=== PATIENT | female | born 1955 | race Caucasian/White ===

== ENCOUNTER → 2016-08-28 | Outpatient (CLI) | payer OTHER ==
[~2016-08-28] MED LIST: BACL10TA PO; HYDR-4380 PO; IPRA1AER2 INH; LEVO50TA PO; METO50TA16 PO; NORT50CA PO; NRN400 PO; OXGN; POTATAB13 PO; SERT-234 PO; SRQ200 PO
[2016-08-28 17:36] LABS: ALT/SGPT 15 U/L (12-78); AST/SGOT 8 U/L (15-37); BLOOD UREA NITROGEN 20 mg/dl (7-18); BUN/CREATININE RATIO 16.3 (10-20); CALCIUM 8.8 mg/dl (8.5-10.1); CARBON DIOXIDE 27 mmol/L (21-32); CHLORIDE 107 mmol/L (98-107); GLUCOSE 86 mg/dl (70-99); SODIUM 141 mmol/L (136-145)
[2016-08-28 17:38] LABS: ALKALINE PHOSPHATASE 136 U/L (45-117); CHOLESTEROL 200 mg/dl (0-200); CHOLESTEROL/HDL RATIO 3.1; HDL CHOLESTEROL 64 mg/dl; LDL CHOLESTEROL CALCULATED 83 mg/dl; TRIGLYCERIDES 264 mg/dl (0-150); VERY LOW DENSITY LIPOPROT CALC 53 mg/dl
== END | disposition home or self-care (01) ==
LOC: C.LABBFT 12:22
PROVIDERS: ATTEND Internal Medicine
DX: E78.5 Hyperlipidemia, unspecified (principal)

== ENCOUNTER → 2016-09-16 | Outpatient (CLI) | payer OTHER ==
--- NOTE | 2016-09-16 15:33 | DIAGNOSTIC IMAGING REPORT ---
Ultrasound left inguinal region EXTREMITY NONVASCULAR LIMITED CLINICAL HISTORY: R19.09 Left groin mass left groin mass mass TECHNIQUE: Real-time ultrasound COMPARISON STUDY: None FINDINGS: Ultrasound demonstrates a somewhat poorly defined area of potential nodularity of the site of clinically palpable nodularity. This measures 7 x 3 x 1.5 cm. This potentially represents a lipoma. There is no evidence for drainable collection. IMPRESSION: Limited exam showing a clavicle area of nodularity at the site of clinically palpable nodularity and/or masslike change. This possibly represents a lipoma, although MRI of the pelvis and this region of interest is recommended for confirmation Electronically signed by: Vince Veras M.D. 09/16/2016 3:31 PM Dictated Date/Time: 09/16/2016 3:26 PM
== END | disposition home or self-care (01) ==
LOC: C.ULTR 14:29
PROVIDERS: ATTEND Internal Medicine
DX: R19.09 Other intra-abdominal and pelvic swelling, mass and lump (principal)

== ENCOUNTER → 2016-09-22 | Outpatient (CLI) | payer OTHER ==
[~2016-09-22] MED LIST changes: +GADAVIST IV PRN
--- NOTE | 2016-09-22 15:09 | DIAGNOSTIC IMAGING REPORT ---
MRI OF THE PELVIS COMBO CLINICAL HISTORY: Groin mass. COMPARISON STUDY: Pelvic CT dated 06/19/2016. Ultrasound of the groin dated 09/16/2016. TECHNIQUE: MRI of the pelvis is performed utilizing various T1 and T2-weighted sequences in the axial and coronal planes. Contrast-enhanced sequences are acquired following the IV administration of 5.1 cc of Gadavist. FINDINGS: A cutaneous marker has been placed overlying the left groin. No mass, fluid collection, or inguinal lymphadenopathy is seen at this site. The iliac vessels are patent bilaterally. There is no pelvic sidewall or inguinal lymphadenopathy. The bladder is decompressed and grossly unremarkable. The uterus is surgically absent. No adnexal lesion is identified. The bowel loops in the pelvis are normal in caliber. Significant colonic fecal retention is observed. The bony pelvis appears intact. No destructive bony lesion is suspected. The musculature of the pelvis is mildly atrophic. IMPRESSION: There is no mass, fluid collection, or adenopathy seen in the left groin at the indicated site of interest. The tiny lipoma questioned by ultrasound was not apparent on MRI. This was also not seen on the 06/19/[address] scan. Electronically signed by: Sean Amador M.D. 09/22/2016 3:08 PM Dictated Date/Time: 09/22/2016 3:01 PM
== END | disposition home or self-care (01) ==
LOC: C.MRI 14:00
PROVIDERS: ATTEND Internal Medicine
DX: R19.09 Other intra-abdominal and pelvic swelling, mass and lump (principal)

== ENCOUNTER → 2016-12-11 | Outpatient (CLI) | payer OTHER ==
[~2016-12-11] MED LIST changes: -BACL10TA PO; -GADAVIST IV PRN
[2016-12-11 16:39] LABS: BASO % 1.5 %; EOS % 5.8 %; HEMATOCRIT 37.9 % (37-47); IG% 0.1 %; LYMPH % 29.2 %; LYMPH ABS # 1.97 K/uL (1.2-3.4); MEAN CELL VOLUME 74.5 fL (80-100); MEAN CORPUSCULAR HEMOGLOBIN 22.8 pg (25-34); MEAN CORPUSCULAR HGB CONC 30.6 g/dl (32-36); MEAN PLATELET VOLUME 9.9 fL (7.4-10.4); MONO % 6.2 %; NEUT % 57.2 %; PLATELET COUNT 481 K/uL (130-400); RED BLOOD COUNT 5.09 M/uL (4.2-5.4); WHITE BLOOD COUNT 6.74 K/uL (4.8-10.8)
[2016-12-11 16:50] LABS: ALT/SGPT 13 U/L (12-78); BLOOD UREA NITROGEN 23 mg/dl (7-18); BUN/CREATININE RATIO 23.2 (10-20); CARBON DIOXIDE 25 mmol/L (21-32); CHLORIDE 107 mmol/L (98-107); CREATININE 0.99 mg/dl (0.60-1.20); GLUCOSE 89 mg/dl (70-99); POTASSIUM 3.7 mmol/L (3.5-5.1); SODIUM 141 mmol/L (136-145)
[2016-12-11 16:51] LABS: CALCIUM 9.4 mg/dl (8.5-10.1)
[2016-12-11 16:56] LABS: ALB/GLOB RATIO 1.1 (0.9-2); ALKALINE PHOSPHATASE 133 U/L (45-117); AST/SGOT 6 U/L (15-37); PREALBUMIN 16.7 mg/dl (20-40); THYROID STIMULATING HORMONE 0.867 uIu/ml (0.300-4.500)
[2016-12-11 17:20] LABS: COMPLETE YES; ECHINOCYTES 1+; OVALOCYTES 1+
== END | disposition home or self-care (01) ==
LOC: C.LABBFT 10:27
PROVIDERS: ATTEND Internal Medicine
DX: R63.0 Anorexia (principal)

== ENCOUNTER → 2017-08-27 | Outpatient (CLI) | payer OTHER ==
--- NOTE | 2017-08-27 14:40 | DIAGNOSTIC IMAGING REPORT ---
TWO VIEW CHEST CLINICAL HISTORY: COPD. FINDINGS: PA and lateral chest radiographs are compared to study dated 06/25/2016. The cardiomediastinal silhouette is unremarkable. There is atherosclerotic calcification of the thoracic aorta. Emphysema and chronic interstitial thickening are similar to previous. No airspace consolidation or pleural effusion is identified. There is no pneumothorax. The skeletal structures are osteopenic. The bony thorax appears intact. IMPRESSION: Emphysema with no active disease in the chest. Electronically signed by: Sean Amador M.D. 08/27/2017 2:38 PM Dictated Date/Time: 08/27/2017 2:37 PM
== END | disposition home or self-care (01) ==
LOC: C.RAD1850 14:10
PROVIDERS: ATTEND Internal Medicine
DX: J44.9 Chronic obstructive pulmonary disease, unspecified (principal)

== ENCOUNTER → 2017-08-27 | Outpatient (CLI) | payer OTHER ==
--- NOTE | 2017-08-27 14:44 | DIAGNOSTIC IMAGING REPORT ---
KUB CLINICAL HISTORY: N39.41 Urge [id number] COMPARISON STUDY: 08/04/2016 FINDINGS: There is a moderate amount stool within the colon. The renal shadows are largely obscured overlying bowel gas and fecal material. There is a suspected 2 mm left renal calculus. The right-sided nephroureteral stent has been removed. Nonspecific pelvic basin calcifications remain stable. IMPRESSION: 1. Interval removal of the right-sided nephroureteral stent 2. Suspected left-sided nephrolithiasis 3. Nonspecific pelvic basin calcifications Electronically signed by: Chas Michaud M.D. 08/27/2017 2:43 PM Dictated Date/Time: 08/27/2017 2:38 PM
== END | disposition home or self-care (01) ==
LOC: C.RAD1850 14:12
PROVIDERS: ATTEND Urology
DX: M61.48 Other calcification of muscle, other site (principal); N39.41 Urge incontinence

== ENCOUNTER → 2017-08-31 | Outpatient (CLI) | payer OTHER | END | disposition home or self-care (01) | LOC: C.LABSPEC 17:04 | PROVIDERS: ATTEND Urology | DX: N39.0 Urinary tract infection, site not specified (principal) ==

== ENCOUNTER → 2017-09-17 | Outpatient (CLI) | payer OTHER ==
--- NOTE | 2017-09-17 10:27 | DIAGNOSTIC IMAGING REPORT ---
PA CHEST WITH ABDOMINAL SERIES CLINICAL HISTORY: Abdominal distention. FINDINGS: A PA chest radiograph is compared to study dated 08/27/2017. The cardiomediastinal silhouette is unremarkable. There is atherosclerotic calcification of the thoracic aorta. Enlargement of the central pulmonary arteries suggests pulmonary artery hypertension. Advanced emphysema and chronic interstitial thickening are similar to previous. No airspace consolidation or pleural effusion is identified. No pneumothorax is seen. The skeletal structures are osteopenic. The bony thorax is grossly intact. Supine and erect abdominal radiographs are compared to study dated 08/27/2017. There is a nonobstructed abdominal bowel gas pattern. Mild colonic fecal retention is noted. No evidence of intraperitoneal free air is seen. There are no abnormal abdominal calcifications. Phleboliths are observed in the pelvis. The lumbosacral spine and bony pelvis appear intact. IMPRESSION: 1. Advanced emphysema with no acute cardiopulmonary abnormality. 2. Nonobstructed abdominal bowel gas pattern. Electronically signed by: Sean Amador M.D. 09/17/2017 10:26 AM Dictated Date/Time: 09/17/2017 10:24 AM
== END | disposition home or self-care (01) ==
LOC: C.RAD1850 10:10
PROVIDERS: ATTEND Physician Assistant Medical
DX: R14.0 Abdominal distension (gaseous) (principal); J43.9 Emphysema, unspecified

== ENCOUNTER → 2017-10-06 | Outpatient (CLI) | payer OTHER | END | disposition home or self-care (01) | LOC: C.LABSPEC 18:05 | PROVIDERS: ATTEND Nurse Practitioner Adult Health | DX: N39.0 Urinary tract infection, site not specified (principal); N20.0 Calculus of kidney ==

== ENCOUNTER → 2017-10-07 | Outpatient (CLI) | payer OTHER ==
--- NOTE | 2017-10-07 10:17 | DIAGNOSTIC IMAGING REPORT ---
KUB HISTORY: Follow-up study in a patient with history of kidney stones NEPHROLITHIASIS COMPARISON: Acute abdominal series radiographs 09/17/2017, CT abdomen and pelvis 06/19/2016. FINDINGS: The bowel gas pattern is non-obstructive. There is mild gaseous distention of the colon. Phleboliths noted within the pelvis. There is no organomegaly. No urolith identified, however renal shadows are partially obscured by bowel gas. No pneumoperitoneum or pneumatosis. No fracture. IMPRESSION: 1. No renal or ureteral calculi identified, however the renal shadows are partially obscured by bowel gas. 2. Nonobstructive bowel gas pattern. Electronically signed by: Jr Singer M.D. 10/07/2017 10:16 AM Dictated Date/Time: 10/07/2017 10:14 AM
== END | disposition home or self-care (01) ==
LOC: C.RAD 09:27
PROVIDERS: ATTEND Nurse Practitioner Adult Health
DX: N20.0 Calculus of kidney (principal)

== ENCOUNTER → 2017-10-15 | Outpatient (CLI) | payer OTHER | END | disposition home or self-care (01) | LOC: C.LAB1850 11:25 | PROVIDERS: ATTEND Nurse Practitioner Adult Health | DX: N39.0 Urinary tract infection, site not specified (principal) ==

== ENCOUNTER → 2018-03-08 | Outpatient (CLI) | payer OTHER ==
--- NOTE | 2018-03-08 10:54 | DIAGNOSTIC IMAGING REPORT ---
KUB CLINICAL HISTORY: N39.0 KIDNEY STONES COMPARISON STUDY: 10/07/2017 FINDINGS: The renal shadows are largely obscured overlying bowel gas and fecal material. There is no pathologic bowel dilatation. Pelvic basin calcifications remain similar to the prior study and likely represent phleboliths. IMPRESSION: No renal calculi identified although the renal shadows are largely obscured overlying bowel gas and fecal material Electronically signed by: Chas Michaud M.D. 03/08/2018 10:52 AM Dictated Date/Time: 03/08/2018 10:51 AM
--- NOTE | 2018-03-08 10:56 | DIAGNOSTIC IMAGING REPORT ---
C-SPINE ROUTINE W/FLEX EXT HISTORY: Pain. M54.2 COMPARISON: None. FINDINGS: The cervical spine is visualized from C1 through the superior endplate of T1. There is no fracture. No subluxation. Moderate degenerative disc change C5-C7 Prevertebral soft tissues and the atlantodens interval are intact. No evidence for subluxation with the patient in flexion or extension. Minimal grade 1 reversal spondylolisthesis C5 on C6. This is unchanged in all positions. IMPRESSION: Moderate degenerative disc changes low cervical spine. No evidence for positional subluxation. The above report was generated using voice recognition software. It may contain grammatical, syntax or spelling errors. Electronically signed by: Vince Veras M.D. 03/08/2018 10:55 AM Dictated Date/Time: 03/08/2018 10:53 AM
== END | disposition home or self-care (01) ==
LOC: C.RAD1850 10:34
PROVIDERS: ATTEND Nurse Practitioner Family
DX: N39.0 Urinary tract infection, site not specified (principal); M54.2 Cervicalgia; G89.4 Chronic pain syndrome

== ENCOUNTER → 2018-03-16 | Outpatient (CLI) | payer OTHER ==
[2018-03-16 12:50] LABS: BASO % 1.8 %; BASO ABS # 0.13 K/uL (0-0.2); EOS % 4.8 %; EOS ABS # 0.35 K/uL (0-0.5); HEMATOCRIT 40.7 % (37-47); HEMOGLOBIN 12.9 g/dL (12.0-16.0); IG# 0.01 K/uL (0.00-0.02); LYMPH % 26.5 %; LYMPH ABS # 1.94 K/uL (1.2-3.4); MEAN CELL VOLUME 81.9 fL (80-100); MEAN CORPUSCULAR HGB CONC 31.7 g/dl (32-36); MEAN PLATELET VOLUME 10.5 fL (7.4-10.4); MONO % 6.3 %; MONO ABS # 0.46 K/uL (0.11-0.59); NEUT % 60.5 %; NEUT ABS # 4.43 K/uL (1.4-6.5); PLATELET COUNT 386 K/uL (130-400); RED CELL DISTRIBUTION WIDTH CV 17.3 % (11.5-14.5); RED CELL DISTRIBUTION WIDTH SD 51.4 fL (36.4-46.3); RETIC COUNT % 1.1 % (0.5-2.0); WHITE BLOOD COUNT 7.32 K/uL (4.8-10.8)
[2018-03-16 13:25] LABS: ALBUMIN 3.6 gm/dl (3.4-5.0); ALKALINE PHOSPHATASE 122 U/L (45-117); ALT/SGPT 15 U/L (12-78); AST/SGOT 12 U/L (15-37); BLOOD UREA NITROGEN 16 mg/dl (7-18); CALCIUM 8.7 mg/dl (8.5-10.1); CARBON DIOXIDE 27 mmol/L (21-32); CREATININE 0.97 mg/dl (0.60-1.20); GLUCOSE 86 mg/dl (70-99); POTASSIUM 4.3 mmol/L (3.5-5.1); SODIUM 137 mmol/L (136-145); TOTAL PROTEIN 7.5 gm/dl (6.4-8.2); TRANSFERRIN 323 mg/dl (200-360)
== END | disposition home or self-care (01) ==
LOC: C.LABBFT 09:02
PROVIDERS: ATTEND Physician Assistant Medical
DX: D64.9 Anemia, unspecified (principal)

== ENCOUNTER 2021-05-09 12:28 | Inpatient (IN) ==
[2021-05-09] MEDS ORDERED: SODIUM CHLORIDE 0.9% 1000ML 500 ML IV ONE ×2 (12:50→13:29)
[2021-05-09 13:24] LABS: Basophils # (auto) 0.01 K/uL (0-0.2); Basophils % (auto) 0.1 %; Eosinophils # (auto) 0.14 K/uL (0-0.5); Hematocrit (blood only) 35.8 % (37-47); Hemoglobin 11.4 g/dL (12.0-16.0); Immature Granulocytes # (auto) 0.12 K/uL (0.00-0.02); Immature Granulocytes % (auto) 0.9 %; Lymphocytes # (auto) 1.99 K/uL (1.2-3.4); Lymphocytes % (auto) 14.4 %; Mean Corpuscular Hemoglobin 28.4 pg (25-34); Mean Corpuscular Hgb Conc 31.8 g/dL (32-36); Mean Corpuscular Volume 89.1 fL (80-100); Mean Platelet Volume 9.6 fL (7.4-10.4); Monocytes # (auto) 0.94 K/uL (0.11-0.59); Monocytes % (auto) 6.8 %; Neutrophils # (auto) 10.63 K/uL (1.4-6.5); Neutrophils % (auto) 76.8 %; Nucleated RBC # (auto) 0.06 K/uL (0-0); Nucleated RBC % (auto) 0.5 %; Platelet Count 437 K/uL (130-400); RDW Coefficient of Variation 22.2 % (11.5-14.5); RDW Standard Deviation 63.5 fL (36.4-46.3); Red Blood Count 4.02 M/uL (4.2-5.4); White Blood Count 13.83 K/uL (4.8-10.8)
[2021-05-09] MEDS ORDERED: SODIUM CHLORIDE 0.9% 1000ML 1,000 ML IV STA (13:29)
[2021-05-09 13:34] LABS: Albumin Level 3.3 gm/dl (3.4-5.0); BUN Creatinine Ratio 31.6 (10-20); Calcium 8.8 mg/dl (8.5-10.1); Creatinine Clr Calc Pharmacy 40.4 ml/min; Est GFR (African American) 79.4 ml/min; Est GFR (Non-African American) 68.5 ml/min
[2021-05-09] MEDS ORDERED: ONDANSETRON INJ 2 MG/ML 2 ML VIAL IV STA (13:34)
[2021-05-09] MEDS ORDERED: HYDROCODONE/ACETAMOPHEN 5/325MG TAB PO STA (13:34)
[2021-05-09 13:37] LABS: Albumin Globulin Ratio 0.9 (0.9-2); Bilirubin,Total 0.3 mg/dl (0.2-1); Globulin 3.6 gm/dl (2.5-4.0); Total Protein 6.9 gm/dl (6.4-8.2)
[2021-05-09 13:51] LABS: Anisocytosis Present; Polychromasia 1+
[2021-05-09 14:02] LABS: Appearance Urine Clear (Clear); Bacteria Urine Automated 4+ (Negative); Bilirubin Urine Negative (Negative); Blood Urine Negative (Negative); Color Urine Dark Yellow; Epithelial Cell Urine Auto >30 /lpf (0-5); Glucose Urine UA Negative (Negative); Ketones Urine Negative (Negative); Leukocyte Esterase Urine Trace (Negative); Nitrite Urine Positive (Negative); Protein Urine Negative (Negative); RBC Urine Automated 0-4 /hpf (0-4); Urobilinogen Urine Negative (Negative); pH Urine 5.5 (4.5-7.5)
[2021-05-09 14:05] LABS: NT Pro B Type Natriuretic Pept 826 pg/ml (0-900); Troponin I < 0.015 ng/ml (0-0.045)
--- NOTE | 2021-05-09 14:09 | XRay Report ---
SINGLE VIEW CHEST CLINICAL HISTORY: Hypotension FINDINGS: An AP, portable, upright chest radiograph is compared to study dated 09/25/2019 and correlat ed with chest CT dated 12/07/2018. The cardiomediastinal silhouette is unremarkable noting atherosclero tic calcification of the thoracic aorta. Advanced emphysema and chronic interstitial thickening is si milar to previous. There are minimal right upper lobe opacities which could represent parenchymal sca rring versus a superimposed pneumonitis. No large pleural effusion or pneumothorax is seen. The skele roderick structures are osteopenic. The bony thorax is grossly intact. IMPRESSION: 1. Advanced emphysema. 2. There are minimal right upper lobe airspace opacities which could represent parenchymal scarring v ersus a mild pneumonitis. Clinical correlation will be required and radiographic follow-up is recomme nded. ACT 112: Negative or not required by law. Electronically signed by: Sean Amador M.D. 05/09/2021 2:08 PM
[2021-05-09] MEDS ORDERED: CEFEPIME 2,000 MG/20 ML VIAL IV STA (14:34)
--- NOTE | 2021-05-09 15:07 | Emergency Department Note ---
Impression & Plan Acute hypotension, Acute UTI (urinary tract infection), Pneumonitis, Acute upper abdominal pain ED Provider Note INFORMANT: Patient and ED PROVIDER(S): Jayden Wills MD CHIEF COMPLAINT: Hypotension PLAN: Disposition: Admitted Condition: Good Outpatient prescription management: none Referral: None the patient presented because of low blood pressure. She received IV fluids and this corrected. MEDICAL DECISION MAKING: She noted some pulmonary symptoms as well as upper abdominal pain. Urinalysis was very concerning for infection. The patient was given a dose of IV cefepime to cover her lungs as well as urine. She was hydrated and did well with this. She was also given Zofran. She was given a dose of her hydrocodone as requested. She was feeling much better with this. The patient underwent CT imaging. She will need further management in the hospital. Consultation was made with *Hospital service. Patient was evaluated and admitted for further management. Triage Nursing notes reviewed and agree them. Vital Signs: reviewed and remarkable for hypotension Differential diagnosis: Infection, dehydration, metabolic abnormality, hypo/hyperglycemia, electrolyte disturbance, anemia, hypoxia, cardiac sources, intracerebral event, toxicologic, neurologic, as well as other pathologies. Diagnostics interpreted by me: ECG: Twelve-lead ECG reveals normal sinus rhythm at 80 bpm. Low biatrial enlargement present. Anteroseptal Q waves. No ST elevation. Cardiac Monitoring: Cardiac monitoring ordered by me: The patient was placed on continuous cardiac monitoring and observed. It revealed a normal sinus rhythm at 74 beats per minute without ectopy or evidence of dysrhythmia. Imaging studies: Chest x-ray concerning for mild pneumonitis. CT imaging of the chest reveals some mild pneumonitis. Severe constipation noted. Nephrolithiasis noted without evidence of obstructive uropathy. No perforation or obstruction in the GI tract. HPI: The patient is a patient is a 66-year-old female who presents to the Emergency Room with complaints of low blood pressure started today. This started while at her primary office patient and she has been having some issues with poor p.o. intake. She developed upper abdominal pain today. She also felt lightheaded and dizzy. The patient states she is been treated for bronchitis and cough. The patient has been given fluids for relieving factors. Current pain is rated as 6 the patient notes that she has had chronic/10. Joint pains and is prescribed hydrocodone. She is requesting a dose of hers as she has not had it today. Pt denies LOC, headache, fevers, chills, diaphoresis, visual changes, neck pain, chest pain, \vomiting, back pain, melena, hematochezia, urinary symptoms, numbness, weakness, lymphadenopathy, rash, or other complaints. ROS: See above HPI for pertinent positives & negatives. A total of 10 systems reviewed and were otherwise negative. PAST MEDICAL HISTORY:See Below , RSD, migraine, anemia PAST SURGICAL HISTORY:See Below, FAMILY HISTORY:See Below SOCIAL HISTORY:See Below, , smoker HOME MEDICATIONS:See Below ALLERGIES:See Below VITALS:See Below PHYSICAL EXAMINATION: GENERAL: Awake, mildly uncomfortable-appearing, in no distress HENT: Normocephalic, atraumatic. Oropharynx unremarkable. EYES: Normal conjunctiva. Sclera non-icteric. NECK: Inspection normal. Non-tender. Supple. No nuchal rigidity. FROM. No masses. RESPIRATORY: Clear to auscultation. No wheezes. No rales. Normal respiratory effort. CARDIAC: Normal rate. Normal rhythm. No murmurs. No rubs. Extremities warm and well perfused. Pulses equal. No JVD. GI: Soft, non-distended. Minimal epigastric tenderness to palpation. No rebound or guarding. No masses. RECTAL: Deferred. MUSCULOSKELETAL: Atraumatic. Chest examination reveals no tenderness. The back is symmetrical on inspection without obvious abnormality. There is no CVA tenderness to palpation. No joint edema. LOWER EXTREMITIES: Calves are equal size bilaterally and non-tender. No edema. No discoloration. NEURO: Normal sensorium. No sensory or motor deficits noted. SKIN: No rash or jaundice noted. Jayden Wills MD Past Med/Surg History Medical History Anemia Anxiety and depression Bipolar affective disorder Chronic back pain COPD (chronic obstructive pulmonary disease) Fibromyalgia History of kidney stones History of recent blood transfusion Hyperlipidemia Hypertension Hypothyroidism Migraine Nicotine dependence On home oxygen therapy Osteoarthritis Requires scooter for mobility RSD (reflex sympathetic dystrophy) Surgical History History of cataract surgery History of colonoscopy History of lithotripsy History of repair of right rotator cuff History of tooth extraction History of total hysterectomy with bilateral salpingo-oophorectomy (BSO) S/P cystoscopy with ureteral stent placement S/P epidural steroid injection Family History Brother Alcohol abuse Kidney disease Mother Anxiety Kidney disease Sister Kidney disease Aunt Breast cancer Father Prostate cancer Family history of diabetes mellitus Other Cancer Diabetes Emphysema of lung Hypertension Lung disease No family history of adverse response to anesthesia Denies family history of Ovarian cancer Myocardial infarction Colorectal cancer Social History Smoking Status: Never smoker Tobacco Type: Cigarettes Age Started Using Tobacco: 17; Cigarettes Per Day: 10; Second Hand Exposure: Yes; Hx Alcohol Use: No Hx Substance Use: No Preferred Language: Khmer Communication Ability: Effective Visual Impairment: No Limitations Hearing Ability: Normal Sales Service Manager Required: No Beliefs That Will Affect Care: None marital status: Current Living Situation: Significant Other Current Living Situation Comment: Lives with boyfriend current occupational status: disabled Feels Safe at Home: Yes Childhood Exposure to Second-Hand Smoke: Yes Diet Comment: stated she eats very little, no appetite. caffeine: Yes Dental Care, Regularly: No Physical Activity Frequency: Does not Exercise Seatbelt Use: always Sunscreen Use: No Assistive Devices: Denture - Upper, Denture - Lower and Oxygen - at Night Allergies Allergies Allergy/AdvReac Type Severity Reaction Status Date / Time codeine Allergy Intermediate ITCHING Verified 05/09/21 15:12 cortisone Allergy Intermediate ITCHING Verified 05/09/21 15:12 Penicillins Allergy Intermediate HIVES, Verified 05/09/21 15:12 ITCHINESS ciprofloxacin [From Cipro] AdvReac Intermediate Vomiting Verified 05/09/21 15:12 Home Meds Home Medications Medication Instructions Recorded Confirmed Oxygen Home #1 ea 03/07/19 05/09/21 albuterol sulfate 90 mcg/actuation 2 puff INHALATION BID 03/12/19 05/09/21 aerosol inhaler (Ventolin HFA) diphenhydramine HCl 25 mg tablet 25 mg PO QID PRN 03/12/19 05/09/21 (Benadryl Allergy) oxycodone-acetaminophen 10 mg-325 1 tab PO Q6H PRN 03/12/19 05/09/21 mg tablet quetiapine 400 mg tablet (Seroquel) 800 mg PO HS 03/12/19 05/09/21 buspirone 10 mg tablet 10 mg PO HS 09/29/19 05/09/21 megestrol 40 mg tablet 40 mg PO HS 09/29/19 05/09/21 sertraline 100 mg tablet 200 mg PO HS 09/29/19 05/09/21 butorphanol 10 mg/mL nasal spray 1 spray INTRANASAL UD PRN 02/10/21 05/09/21 Previous Rx's Medication Instructions Recorded ipratropium 20 mcg-albuterol 100 1 puff INHALATION BID #4 gm MDD 6 06/07/20 mcg/actuation mist for inhalation X IN 24 HOURS. (Combivent Respimat) atorvastatin 20 mg tablet (Lipitor) 20 mg PO HS #90 tab 07/26/20 levothyroxine 50 mcg tablet 50 mcg PO HS #90 tab 09/03/20 metoprolol tartrate 50 mg tablet 50 mg PO HS #90 tab 12/09/20 Results & Data (ED) Vital Signs Vital Signs - 24 hr 05/09/21 12:39 05/09/21 13:50 05/09/21 14:29 Temperature 35.7 C L Temperature Source Temporal Artery Scan Pulse Rate 82 Pulse Rate [Right Finger] 74 Pulse Rhythm Regular Pulse Rhythm [Right Finger] Regular Pulse Strength Normal Pulse Strength [Right Finger] Normal Respiratory Rate 20 18 Respiratory Effort / Characteristics Non-Labored Spontaneous Non-Labored Respiratory Depth Normal Normal Respiratory Pattern Regular Regular Blood Pressure 82/55 L Blood Pressure [Right Arm] 135/75 Blood Pressure Mean 64 Blood Pressure Mean [Right Arm] 95 Blood Pressure Position Sitting Blood Pressure Position [Right Arm] Lying Pulse Oximetry 93 96 94 Oxygen Delivery Method Room Air Room Air Room Air Sepsis Recent Fever Within 48 Hours No Sepsis New/Unexplained Change in Mental Status No Sepsis Action Taken by Nursing Physician Notified Laboratory Data Result diagrams: 05/09/21 13:05 05/09/21 13:05 Lab Results 05/09/21 05/09/21 05/09/21 Range/Units 13:05 13:05 13:05 WBC 13.83 H (4.8-10.8) K/uL RBC 4.02 L (4.2-5.4) M/uL Hgb 11.4 L (12.0-16.0) g/dL Hct 35.8 L (37-47) % MCV 89.1 (80-100) fL MCH 28.4 (25-34) pg MCHC 31.8 L (32-36) g/dL RDW Std Deviation 63.5 H (36.4-46.3) fL RDW Coeff of Luis 22.2 H (11.5-14.5) % Plt Count 437 H (130-400) K/uL MPV 9.6 (7.4-10.4) fL Immature Gran % (Auto) 0.9 % Neut % (Auto) 76.8 % Lymph % (Auto) 14.4 % [place] % (Auto) 6.8 % Eos % (Auto) 1.0 % Baso % (Auto) 0.1 % Neut # (Auto) 10.63 H (1.4-6.5) K/uL Lymph # (Auto) 1.99 (1.2-3.4) K/uL [place] # (Auto) 0.94 H (0.11-0.59) K/uL Eos # (Auto) 0.14 (0-0.5) K/uL Baso # (Auto) 0.01 (0-0.2) K/uL Immature Gran # (Auto) 0.12 H (0.00-0.02) K/uL Absolute Nucleated RBC 0.06 H (0-0) K/uL Nucleated RBC % (auto) 0.5 % Polychromasia 1+ Anisocytosis Present Sodium 138 (136-145) mmol/L Potassium 4.0 (3.5-5.1) mmol/L Chloride 106 (98-107) mmol/L Carbon Dioxide 27 (21-32) mmol/L Anion Gap 5.0 (3-11) BUN 28 H (7-18) mg/dl Creatinine 0.88 (0.6-1.2) mg/dl Est Cr Clr Drug Dosing 40.4 ml/min Est GFR ( Amer) 79.4 ml/min Est GFR (Non-Af Amer) 68.5 ml/min BUN/Creatinine Ratio 31.6 H (10-20) Glucose 86 (70-99) mg/dl Calcium 8.8 (8.5-10.1) mg/dl Total Bilirubin 0.3 (0.2-1) mg/dl AST 16 (15-37) U/L ALT 15 (12-78) U/L Alkaline Phosphatase 85 (45-117) U/L Troponin I < 0.015 (0-0.045) ng/ml NT-Pro-B Natriuret Pep 826 (0-900) pg/ml Total Protein 6.9 (6.4-8.2) gm/dl Albumin 3.3 L (3.4-5.0) gm/dl Globulin 3.6 (2.5-4.0) gm/dl Albumin/Globulin Ratio 0.9 (0.9-2) Urine Color Urine Appearance (Clear) Urine pH (4.5-7.5) Ur Specific [place] (1.000-1.030) Urine Protein (Negative) Urine Glucose (UA) (Negative) Urine Ketones (Negative) Urine Blood (Negative) Urine Nitrite (Negative) Urine Bilirubin (Negative) Urine Urobilinogen (Negative) Ur Leukocyte Esterase (Negative) Urine WBC (Auto) (0-5) /hpf Urine RBC (Auto) (0-4) /hpf U Hyaline Cast (Auto) (0-5) /lpf U Epithel Cells (Auto) (0-5) /lpf Urine Bacteria (Auto) (Negative) COVID-19 Eval Order SARS-CoV-2 (PCR) (Negative) 05/09/21 05/09/21 05/09/21 Range/Units 13:47 13:47 13:48 WBC (4.8-10.8) K/uL RBC (4.2-5.4) M/uL Hgb (12.0-16.0) g/dL Hct (37-47) % MCV (80-100) fL MCH (25-34) pg MCHC (32-36) g/dL RDW Std Deviation (36.4-46.3) fL RDW Coeff of Luis (11.5-14.5) % Plt Count (130-400) K/uL MPV (7.4-10.4) fL Immature Gran % (Auto) % Neut % (Auto) % Lymph % (Auto) % [place] % (Auto) % Eos % (Auto) % Baso % (Auto) % Neut # (Auto) (1.4-6.5) K/uL Lymph # (Auto) (1.2-3.4) K/uL [place] # (Auto) (0.11-0.59) K/uL Eos # (Auto) (0-0.5) K/uL Baso # (Auto) (0-0.2) K/uL Immature Gran # (Auto) (0.00-0.02) K/uL Absolute Nucleated RBC (0-0) K/uL Nucleated RBC % (auto) % Polychromasia Anisocytosis Sodium (136-145) mmol/L Potassium (3.5-5.1) mmol/L Chloride (98-107) mmol/L Carbon Dioxide (21-32) mmol/L Anion Gap (3-11) BUN (7-18) mg/dl Creatinine (0.6-1.2) mg/dl Est Cr Clr Drug Dosing ml/min Est GFR ( Amer) ml/min Est GFR (Non-Af Amer) ml/min BUN/Creatinine Ratio (10-20) Glucose (70-99) mg/dl Calcium (8.5-10.1) mg/dl Total Bilirubin (0.2-1) mg/dl AST (15-37) U/L ALT (12-78) U/L Alkaline Phosphatase (45-117) U/L Troponin I (0-0.045) ng/ml NT-Pro-B Natriuret Pep (0-900) pg/ml Total Protein (6.4-8.2) gm/dl Albumin (3.4-5.0) gm/dl Globulin (2.5-4.0) gm/dl Albumin/Globulin Ratio (0.9-2) Urine Color Dark Yellow Urine Appearance Clear (Clear) Urine pH 5.5 (4.5-7.5) Ur Specific [place] 1.020 (1.000-1.030) Urine Protein Negative (Negative) Urine Glucose (UA) Negative (Negative) Urine Ketones Negative (Negative) Urine Blood Negative (Negative) Urine Nitrite Positive A (Negative) Urine Bilirubin Negative (Negative) Urine Urobilinogen Negative (Negative) Ur Leukocyte Esterase Trace H (Negative) Urine WBC (Auto) 10-30 H (0-5) /hpf Urine RBC (Auto) 0-4 (0-4) /hpf U Hyaline Cast (Auto) 10-30 H (0-5) /lpf U Epithel Cells (Auto) >30 H (0-5) /lpf Urine Bacteria (Auto) 4+ H (Negative) COVID-19 Eval Order Covid19 at [facility] SARS-CoV-2 (PCR) NEGATIVE (Negative) Administered Medications Discontinued Medications Hydrocodone Bitart/Acetaminophen (Hydrocodone/Acetamophen 5/325mg Tab) 1 tab PO NOW STA Stop: 05/09/21 13:35 Last Admin: 05/09/21 13:43 Dose: 1 tab Documented by: [id number] Sodium Chloride (Nss 1000ml) 500 mls @ 999 mls/hr IV .Q31M ONE Stop: 05/09/21 13:20 Last Infusion: 05/09/21 13:38 Dose: 0 mls/hr Documented by: [id number] Admin: 05/09/21 13:05 Dose: 999 mls/hr Documented by: [id number] Sodium Chloride (Nss 1000ml) 500 mls @ 999 mls/hr IV .Q31M ONE Stop: 05/09/21 13:59 Last Infusion: 05/09/21 14:24 Dose: 0 mls/hr Documented by: [id number] Admin: 05/09/21 13:43 Dose: 999 mls/hr Documented by: [id number] Ondansetron HCl (Ondansetron Inj 2 Mg/Ml 2 Ml Vial) 4 mg IV NOW STA Stop: 05/09/21 13:35 Last Admin: 05/09/21 13:43 Dose: 4 mg Documented by: [id number] Imaging Data Radiologist's Impression: Chest X-Ray 05/09/21 12:48 SINGLE VIEW CHEST CLINICAL HISTORY: Hypotension FINDINGS: An AP, portable, upright chest radiograph is compared to study dated 09/25/2019 and correlated with chest CT dated 12/07/2018. The cardiomediastinal silhouette is unremarkable noting atherosclerotic calcification of the thoracic aorta. Advanced emphysema and chronic interstitial thickening is similar to previous. There are minimal right upper lobe opacities which could represent parenchymal scarring versus a superimposed pneumonitis. No large pleural effusion or pneumothorax is seen. The skeletal structures are osteopenic. The bony thorax is grossly intact. IMPRESSION: 1. Advanced emphysema. 2. There are minimal right upper lobe airspace opacities which could represent parenchymal scarring versus a mild pneumonitis. Clinical correlation will be required and radiographic follow-up is recommended. ACT 112: Negative or not required by law. Electronically signed by: Sean Amador M.D. 05/09/2021 2:08 PM Abdomen/Pelvis CT 05/09/21 13:34 CT SCAN OF THE ABDOMEN AND PELVIS WITHOUT IV CONTRAST CLINICAL HISTORY: Nausea. Upper abdominal pain COMPARISON STUDY: Abdominal CT dated 02/17/2019. TECHNIQUE: CT scan of the abdomen and pelvis is performed from the lung bases to the proximal femora. Images are reviewed in the axial, sagittal, and coronal lisa matilde. IV contrast was not administered for this examination. Note that the examination was performed in suboptimal fashion without oral and IV contrast. A dose lowering technique was utilized adhering to the principles of ALARA. CT DOSE: 207.19 mGycm FINDINGS: Lung bases: The heart is normal in size noting a small pericardial effusion. There are coronary artery calcifications. Advanced emphysematous change is noted at the lung bases. There are foci of patchy nodular consolidation in the lower lobes. No pleural effusion is seen. Liver: The unenhanced liver is normal in size, contour, and attenuation. There is no intrahepatic biliary ductal dilatation. Gallbladder: Unremarkable. Spleen: Normal in size and attenuation. Pancreas: Unremarkable. Adrenal glands: Unremarkable. Kidneys: The unenhanced kidneys are normal in size and without hydronephrosis. There is fullness of the renal collecting systems. There are numerous tiny nonobstructing calculi present in both kidneys which measure up to 3 mm. Question medullary nephrocalcinosis. No ureteral stone is seen. There is no evidence of contour deforming renal mass lesion. Abdominal vasculature: There is advanced atherosclerotic calcification and mild ectasia of the abdominal aorta. Bowel: There is gaseous distention of the rectosigmoid colon and moderate to severe constipation. No bowel obstruction is seen. A lipoma of the small bowel is seen in the left upper quadrant on image #106. The appendix is well- visualized and normal. Peritoneum: There is no intraperitoneal free air or abdominal ascites. Lymphadenopathy: None. Pelvic viscera: The bladder is normal as visualized. The uterus is surgically absent. No adnexal lesion is seen. Findings suggest pelvic floor prolapse. Skeletal structures: The skeletal structures are osteopenic. No lytic or blastic lesions are seen. Soft tissues: The patient is cachectic. IMPRESSION: 1. Moderate to severe constipation. 2. Patchy nodular airspace opacities are present at both lung bases. Correlate clinically for evidence of an infectious/inflammatory pneumonitis. 3. There are numerous tiny nonobstructing renal calculi with possible medullary nephrocalcinosis. 4. Advanced emphysema. 5. Additional findings as above. ACT 112: Negative or not required by law. Electronically signed by: Sean Amador M.D. 05/09/2021 3:07 PM Discharge Plan Visit Data Chief Complaint: Hypotension Stated Complaint: LOW BLOOD PRESSURE 60/80 ED Provider: Jayden Wills Discharge Problem: Acute hypotension, Acute UTI (urinary tract infection), Pneumonitis, Acute upper abdominal pain Forms Stand Alone Forms: [employer] Prescriptions Prescriptions: No Action Combivent Respimat 20-100 mcg/actuation mist 1 puff INHALATION BID MDD 6 X IN 24 HOURS. Qty: 4 RF: 11 atorvastatin [Lipitor] 20 mg tablet 20 mg PO HS Qty: 90 RF: 3 levothyroxine 50 mcg tablet 50 mcg PO HS Qty: 90 RF: 3 metoprolol tartrate 50 mg tablet 50 mg PO HS Qty: 90 RF: 3 (DME) Oxygen Home Liters Per Minute See Dose Instructions .ROUTE .MEDSUPPLY Qty: 1 RF: 0 butorphanol 10 mg/mL spray,non-aerosol 1 spray intranasal UD PRN (Reason: Pain) RF: 0 albuterol sulfate [Ventolin HFA] 90 mcg/actuation HFA aerosol inhaler 2 puff INHALATION BID RF: 0 diphenhydramine HCl [Benadryl Allergy] 25 mg tablet 25 mg PO QID PRN (Reason: Allergy Symptoms) RF: 0 oxycodone-acetaminophen 10-325 mg tablet 1 tab PO Q6H PRN (Reason: Severe Pain (Scale Score 7-10)) RF: 0 quetiapine [Seroquel] 400 mg tablet 800 mg PO HS RF: 0 buspirone 10 mg Tablet 10 mg PO HS RF: 0 megestrol 40 mg Tablet 40 mg PO HS RF: 0 sertraline 100 mg tablet 200 mg PO HS RF: 0 Referrals Referrals: Eitan Bourne DO [Primary Care Provider] -
--- NOTE | 2021-05-09 15:08 | CT Scan Report ---
CT SCAN OF THE ABDOMEN AND PELVIS WITHOUT IV CONTRAST CLINICAL HISTORY: Nausea. Upper abdominal pain COMPARISON STUDY: Abdominal CT dated 02/17/2019. TECHNIQUE: CT scan of the abdomen and pelvis is performed from the lung bases to the proximal femora. Images are reviewed in the axial, sagittal, and coronal planes. IV contrast was not administered for this examination. Note that the examination was performed in suboptimal fashion without oral and IV contrast. A dose lowering technique was utilized adhering to the principles of ALARA. CT DOSE: 207.19 mGycm FINDINGS: Lung bases: The heart is normal in size noting a small pericardial effusion. There are coronary arter y calcifications. Advanced emphysematous change is noted at the lung bases. There are foci of patchy nodular consolidation in the lower lobes. No pleural effusion is seen. Liver: The unenhanced liver is normal in size, contour, and attenuation. There is no intrahepatic liss iary ductal dilatation. Gallbladder: Unremarkable. Spleen: Normal in size and attenuation. Pancreas: Unremarkable. Adrenal glands: Unremarkable. Kidneys: The unenhanced kidneys are normal in size and without hydronephrosis. There is fullness of t he renal collecting systems. There are numerous tiny nonobstructing calculi present in both kidneys w hich measure up to 3 mm. Question medullary nephrocalcinosis. No ureteral stone is seen. There is no evidence of contour deforming renal mass lesion. Abdominal vasculature: There is advanced atherosclerotic calcification and mild ectasia of the abdomi nal aorta. Bowel: There is gaseous distention of the rectosigmoid colon and moderate to severe constipation. No bowel obstruction is seen. A lipoma of the small bowel is seen in the left upper quadrant on image #1 06. The appendix is well-visualized and normal. Peritoneum: There is no intraperitoneal free air or abdominal ascites. Lymphadenopathy: None. Pelvic viscera: The bladder is normal as visualized. The uterus is surgically absent. No adnexal lesi on is seen. Findings suggest pelvic floor prolapse. Skeletal structures: The skeletal structures are osteopenic. No lytic or blastic lesions are seen. Soft tissues: The patient is cachectic. IMPRESSION: 1. Moderate to severe constipation. 2. Patchy nodular airspace opacities are present at both lung bases. Correlate clinically for evidenc e of an infectious/inflammatory pneumonitis. 3. There are numerous tiny nonobstructing renal calculi with possible medullary nephrocalcinosis. 4. Advanced emphysema. 5. Additional findings as above. ACT 112: Negative or not required by law. Electronically signed by: Sean Amador M.D. 05/09/2021 3:07 PM
--- NOTE | 2021-05-09 15:35 | History & Physical Report ---
Date of Service May 09, 2021 Assessment & Plan (1) Acute UTI (urinary tract infection): Plan: Ceftriaxone 1g IV Suspect she gets these frequently due to chronic constipation, malnutrition and smoking. Suspect this is causing her acute back pain (2) Acute hypotension: Plan: Resolved with IV fluids in the ER. Suspect secondary to infection as above. (3) Weight loss: Plan: Concerning 20lb weight loss for cancerous etiology. Reassuring prior colonoscopy. Will get CT chest with IV contrast to assess for lung mass given smoking history. Suspect most likely due to severe end stage COPD +/- constipation. (4) COPD (chronic obstructive pulmonary disease): Plan: On no maintenance inhalers for this. Will start on Breo Ellipta and Incruse Ellipta. No acute exacerbation. (5) Nicotine dependence: Plan: Declines nicotine patch Encouraged cessation Plan: VTE Prophylaxis - low risk, deferred Diet - regular Disposition - observation status to med/surg Admission and Anticipated Discharge Date Admission Date: May 09, 2021 History of Present Illness Chief Complaint: Back pain, shortness of breath , weight loss, hypotension Primary Care Provider: Eitan Bourne DO Shameka Moise is a 66 year old female who presents to the ER with hypotension noted at her gastroenterology visit earlier today. She also has a number of ongoing concerns including shortness of breath on exertion, weight loss and back pain. In the ER she was given NSS bolus which resolved her dizziness. Shortness of breath - she has known COPD but takes not maintenance inhalers. Instead she takes Combivent four times a day. She has been treated for bronchitis twice last month with prednisone taper and azithromycin. She has no current chest tightness but this can occur with her shortness of breath. She continues to smoke half a pack a day Weight loss - 20lb over the last 2 months. She reports chronic constipation with one bowel movement per week. Reduced appetite. No dysphagia or odynophagia but has had an occasion of choking on food. Back pain - last two days, no associated dysuria, center of her back, no flank pain, fever or chills. Allergies Allergy/AdvReac Type Severity Reaction Status Date / Time codeine Allergy Intermediate ITCHING Verified 05/09/21 15:12 cortisone Allergy Intermediate ITCHING Verified 05/09/21 15:12 Penicillins Allergy Intermediate HIVES, Verified 05/09/21 15:12 ITCHINESS ciprofloxacin [From Cipro] AdvReac Intermediate Vomiting Verified 05/09/21 15:12 Home Medications Medication Instructions Recorded Confirmed Type Oxygen Home #1 ea 03/07/19 05/09/21 History albuterol sulfate 90 mcg/actuation 2 puff INHALATION BID 03/12/19 05/09/21 History aerosol inhaler (Ventolin HFA) diphenhydramine HCl 25 mg tablet 25 mg PO QID PRN 03/12/19 05/09/21 History (Benadryl Allergy) oxycodone-acetaminophen 10 mg-325 1 tab PO Q6H PRN 03/12/19 05/09/21 History mg tablet quetiapine 400 mg tablet (Seroquel) 800 mg PO HS 03/12/19 05/09/21 History buspirone 10 mg tablet 10 mg PO HS 09/29/19 05/09/21 History megestrol 40 mg tablet 40 mg PO HS 09/29/19 05/09/21 History sertraline 100 mg tablet 200 mg PO HS 09/29/19 05/09/21 History ipratropium 20 mcg-albuterol 100 1 puff INHALATION BID #4 gm MDD 6 06/07/20 05/09/21 Rx mcg/actuation mist for inhalation X IN 24 HOURS. (Combivent Respimat) atorvastatin 20 mg tablet (Lipitor) 20 mg PO HS #90 tab 07/26/20 05/09/21 Rx levothyroxine 50 mcg tablet 50 mcg PO HS #90 tab 09/03/20 05/09/21 Rx metoprolol tartrate 50 mg tablet 50 mg PO HS #90 tab 12/09/20 05/09/21 Rx butorphanol 10 mg/mL nasal spray 1 spray INTRANASAL UD PRN 02/10/21 05/09/21 History Past Med/Surg History Medical History Anemia Anxiety and depression Bipolar affective disorder Chronic back pain COPD (chronic obstructive pulmonary disease) Fibromyalgia History of kidney stones History of recent blood transfusion Hyperlipidemia Hypertension Hypothyroidism Migraine Nicotine dependence On home oxygen therapy Osteoarthritis Requires scooter for mobility RSD (reflex sympathetic dystrophy) Surgical History History of cataract surgery History of colonoscopy History of lithotripsy History of repair of right rotator cuff History of tooth extraction History of total hysterectomy with bilateral salpingo-oophorectomy (BSO) S/P cystoscopy with ureteral stent placement S/P epidural steroid injection Family History Brother Alcohol abuse Kidney disease Mother Anxiety Kidney disease Sister Kidney disease Aunt Breast cancer Father Prostate cancer Family history of diabetes mellitus Other Cancer Diabetes Emphysema of lung Hypertension Lung disease No family history of adverse response to anesthesia Denies family history of Ovarian cancer Myocardial infarction Colorectal cancer Social History Smoking Status: Current every day smoker Tobacco Type: Cigarettes Age Started Using Tobacco: 17; Cigarettes Per Day: 10; Second Hand Exposure: Yes; Hx Alcohol Use: Yes Alcohol type: beer Hx Substance Use: No Preferred Language: Marshallese Communication Ability: Effective Visual Impairment: No Limitations Hearing Ability: Normal Printing Plate Maker Required: No Beliefs That Will Affect Care: None marital status: Current Living Situation: Significant Other Current Living Situation Comment: Lives with boyfriend current occupational status: disabled Other Information That Helps Us Care for You: No Feels Safe at Home: Yes Safety Concerns: Feels Safe At This Time Childhood Exposure to Second-Hand Smoke: Yes Diet Comment: stated she eats very little, no appetite. caffeine: Yes Dental Care, Regularly: No Physical Activity Frequency: Does not Exercise Seatbelt Use: always Sunscreen Use: No Assistive Devices: Walker Review of Systems Review of Systems: All systems reviewed & are unremarkable except as noted in HPI & below Physical Exam Constitutional: well developed and + cachectic; + not well nourished and no acute distress Eyes: PERRL, conjunctivae normal, anicteric sclerae ENMT: external ear and nose normal, oropharynx normal Neck: trachea midline, no thyromegaly Respiratory: normal respiratory effort; no respiratory distress Auscul tation: + crackles (bibasal) and + wheezes (mild end expiratory); no diminished lung sounds, no rales and no rhonchi Cardiovascular: RRR, no murmur, no edema Gastrointestinal (Abdomen): normal bowel sounds, soft, nontender, no hepatosplenomegaly Musculoskeletal: no cyanosis or clubbing, extremities motor strength 5/5 Skin: no rashes, warm and dry Neurologic: moves all extremities and awake; not confused Psychiatric: A+Ox3, euthymic affect Results & Data Results & [facility] ([facility]) Vital Signs (Past 12 Hours) Vital Signs Temp Pulse Pulse Resp BP BP Pulse Ox 05/09/21 14:29 74 18 135/75 94 05/09/21 13:50 96 05/09/21 12:39 35.7 C L 82 20 82/55 L 93 Diagnostic Findings SINGLE VIEW CHEST CLINICAL HISTORY: Hypotension FINDINGS: An AP, portable, upright chest radiograph is compared to study dated 09/25/2019 and correlated with chest CT dated 12/07/2018. The cardiomediastinal silhouette is unremarkable noting atherosclerotic calcification of the thoracic aorta. Advanced emphysema and chronic interstitial thickening is similar to previous. There are minimal right upper lobe opacities which could represent parenchymal scarring versus a superimposed pneumonitis. No large pleural effusion or pneumothorax is seen. The skeletal structures are osteopenic. The bony thorax is grossly intact. IMPRESSION: 1. Advanced emphysema. 2. There are minimal right upper lobe airspace opacities which could represent parenchymal scarring versus a mild pneumonitis. Clinical correlation will be required and radiographic follow-up is recommended. CT SCAN OF THE ABDOMEN AND PELVIS WITHOUT IV CONTRAST CLINICAL HISTORY: Nausea. Upper abdominal pain COMPARISON STUDY: Abdominal CT dated 02/17/2019. TECHNIQUE: CT scan of the abdomen and pelvis is performed from the lung bases to the proximal femora. Images are reviewed in the axial, sagittal, and coronal planes. IV contrast was not administered for this examination. Note that the examination was performed in suboptimal fashion without oral and IV contrast. A dose lowering technique was utilized adhering to the principles of ALARA. CT DOSE: 207.19 mGycm FINDINGS: Lung bases: The heart is normal in size noting a small pericardial effusion. There are coronary artery calcifications. Advanced emphysematous change is noted at the lung bases. There are foci of patchy nodular consolidation in the lower lobes. No pleural effusion is seen. Liver: The unenhanced liver is normal in size, contour, and attenuation. There is no intrahepatic biliary ductal dilatation. Gallbladder: Unremarkable. Spleen: Normal in size and attenuation. Pancreas: Unremarkable. Adrenal glands: Unremarkable. Kidneys: The unenhanced kidneys are normal in size and without hydronephrosis. There is fullness of the renal collecting systems. There are numerous tiny nonobstructing calculi present in both kidneys which measure up to 3 mm. Question medullary nephrocalcinosis. No ureteral stone is seen. There is no evidence of contour deforming renal mass lesion. Abdominal vasculature: There is advanced atherosclerotic calcification and mild ectasia of the abdominal aorta. Bowel: There is gaseous distention of the rectosigmoid colon and moderate to severe constipation. No bowel obstruction is seen. A lipoma of the small bowel is seen in the left upper quadrant on image #106. The appendix is well- visualized and normal. Peritoneum: There is no intraperitoneal free air or abdominal ascites. Lymphadenopathy: None. Pelvic viscera: The bladder is normal as visualized. The uterus is surgically absent. No adnexal lesion is seen. Findings suggest pelvic floor prolapse. Skeletal structures: The skeletal structures are osteopenic. No lytic or blastic lesions are seen. Soft tissues: The patient is cachectic. IMPRESSION: 1. Moderate to severe constipation. 2. Patchy nodular airspace opacities are present at both lung bases. Correlate clinically for evidence of an infectious/inflammatory pneumonitis. 3. There are numerous tiny nonobstructing renal calculi with possible medullary nephrocalcinosis. 4. Advanced emphysema. 5. Additional findings as above. Medications Administered ER Medications Given: NSS 1L bolus then 125ml/hr Ondansetron 4mg IV Cefepime 2g IV Carlton 5/325 mg PO ECG Indication: SOB/dyspnea Rate (beats per minute): 80 Rhythm: normal sinus Findings: no acute ischemic change Comparison ECG Date: from (December 07, 2018) Change: no significant change Code Status & VTE Plan Code Status DNR/DNI VTE Prophylaxis Plan VTE Prophylaxis will be ordered: No Reason for no VTE drug order: Treatment not indicated Reason for no VTE mechanical prophylaxis: Treatment not indicated PG Care Time/CCT Total # of Minutes Spent Total Time Spent with Patient: Total time spent is greater than 50% in coordination of care (as documented) at patient's floor/unit and/or counseling patient: Coding Level of Care Code INT OBSERVATION CARE 70M LVL 3 Diagnoses Acute UTI (urinary tract infection) N39.0 Acute hypotension I95.9 Weight loss R63.4 COPD (chronic obstructive pulmonary disease) J44.9 Nicotine dependence F17.200
[2021-05-09] MEDS ORDERED: OPTIRAY 320 100ml IV ONE (16:21)
--- NOTE | 2021-05-09 16:38 | CT Scan Report ---
CHEST CT WITH CONTRAST CT DOSE: 215.18 mGy.cm HISTORY: Acute shortness of breath with weight loss 20 lb weight loss, shortness of breath ?lung ca. TECHNIQUE: Multiaxial CT images of the chest were performed following the IV administration of 94 cc of Optiray. A dose lowering technique was utilized adhering to the principles of ALARA. COMPARISON: CT abdomen and pelvis of same day, CTA chest 12/07/2018 FINDINGS: Unremarkable thyroid. Mildly prominent hilar lymph nodes measuring up to 9 mm are likely re active. The heart is normal in size. Trace pericardial effusion. Mild coronary artery calcifications. Moderate atherosclerosis of the aorta without aneurysm or dissection. Dilation of the pulmonary pepe rial tree redemonstrated. No pulmonary emboli are identified. No pneumothorax, pleural effusion or overt pulmonary edema. Advanced emphysema with mild bronchial wa ll thickening and tracheobronchial secretions. Patchy bibasilar subcentimeter nodular consolidative o pacities are present within a multilobar distribution. Consolidation with intralobular septal thicken ing of the right upper lobe. Largest areas of consolidation are present within the right upper lobe m easuring up to 11 mm. A 9 mm irregular nodular consolidation involves the left upper lobe abutting th e fissure on image 143. No acute process of the imaged upper abdomen. Subcentimeter hypodensity of the superior pole right ki dney suggestive of a cyst. Indeterminate 9 mm hypodense focus of the central spleen. Unremarkable sof t tissues. No acute fracture. Degenerative changes of the spine and shoulders. IMPRESSION: 1. Patchy bilateral nodular consolidative opacities are present within a multilobar distribution bila terally suggestive of multifocal pneumonia. Metastatic disease is considered less likely. 3 month fol low-up chest CT after treatment course is recommended to document resolution. 2. Mild intralobular septal thickening may represent a component of pulmonary edema. 3. Severe emphysema with bronchitis. 4. Suggested pulmonary artery hypertension. ACT 112: Negative or not required by law. Electronically signed by: Zach Singer M.D. 05/09/2021 4:37 PM
[2021-05-09] MEDS ORDERED: oxyCODONE/ACETAMINOPHEN 10-325 TAB PO PRN (21:03)
[2021-05-09] MEDS ORDERED: cefTRIAXone SODIUM 2,000 MG in DEXTROSE 5% 50 ML IV SCH (21:03)
[2021-05-09] MEDS ORDERED: diphenhydrAMINE Capsule 25 MG CAP PO PRN (21:12)
[2021-05-09] MEDS ORDERED: SERTRALINE HCL 100 MG TABLET PO SCH (21:30)
[2021-05-09] MEDS ORDERED: MEGESTROL ACETATE 40 MG TAB PO SCH (21:30)
[2021-05-09] MEDS ORDERED: LEVOTHYROXINE SODIUM 50 MCG TABLET PO SCH (21:30)
[2021-05-09] MEDS ORDERED: busPIRone 5 MG TAB PO SCH (21:30)
[2021-05-09] MEDS ORDERED: ATORVASTATIN 20 MG TAB PO SCH (21:30)
[2021-05-09] MEDS: ALBUT/IPRATROP 3MG/0.5MG NEB 3 ML VIAL NEB SCH (21:43)
[2021-05-09] MEDS ORDERED: QUEtiapine FUMARATE 200 MG TAB PO SCH (22:00)
[2021-05-09] MEDS: DOXYCYCLINE HYCLATE 100 MG CAP PO SCH (22:08)
[2021-05-09] MEDS: POLYETHYLENE (MIRALAX) 17 GM PACK PO SCH (22:10)
[2021-05-09] MEDS: DOCUSATE SODIUM/SENNA 50/8.6MG TAB PO SCH (22:10)
[2021-05-09] MEDS: UMECLIDINIUM BROMIDE 62.5MCG/BLISTER 7 PUFFS/INHALER INH SCH (22:10)
[2021-05-09] MEDS: FLUTICASONE/VILANTEROL 100/25MCG 14 PUFFS/INHALER INH SCH (22:11)
[2021-05-10] MEDS ORDERED: cefTRIAXone SODIUM 1,000 MG in DEXTROSE 5% 50 ML IV SCH
--- NOTE | 2021-05-10 06:46 | Electrocardiogram Report ---
Test Reason : Blood Pressure : / mmHG Vent. Rate : 080 BPM Atrial Rate : 080 BPM P-R Int : 146 ms QRS Dur : 080 ms QT Int : 390 ms P-R-T Axes : 083 076 080 degrees QTc Int : 449 ms Poor data quality, interpretation may be adversely affected Normal sinus rhythm Biatrial enlargement Anteroseptal infarct (cited on or before 07-DEC-2018) Abnormal ECG When compared with ECG of 07-DEC-2018 17:22, No significant change was found Confirmed by Bertram Jeter ([id number]) on 05/10/2021 6:46:24 AM Referred By: Confirmed By:Bertram eJter
[2021-05-10] MEDS: ALBUT/IPRATROP 3MG/0.5MG NEB 3 ML VIAL NEB SCH ×3 (08:05→15:29)
[2021-05-10] MEDS: DOXYCYCLINE HYCLATE 100 MG CAP PO SCH (08:46)
[2021-05-10] MEDS: DOCUSATE SODIUM/SENNA 50/8.6MG TAB PO SCH (08:46)
[2021-05-10] MEDS: FLUTICASONE/VILANTEROL 100/25MCG 14 PUFFS/INHALER INH SCH (08:46)
[2021-05-10] MEDS: POLYETHYLENE (MIRALAX) 17 GM PACK PO SCH ×2 (08:47→14:16)
[2021-05-10] MEDS: UMECLIDINIUM BROMIDE 62.5MCG/BLISTER 7 PUFFS/INHALER INH SCH (08:47)
[2021-05-10] MEDS ORDERED: AZITHROMYCIN 250 MG TAB PO ONE (08:52)
--- NOTE | 2021-05-10 10:58 | Hospitalist Progress Note ---
Date of Service May 10, 2021 Assessment & Plan (1) Acute hypotension: Plan: - systolic BP has been in 110's to 130's since fluid given. - Resolved with 3L of fluid given. (2) Acute UTI (urinary tract infection): Plan: - clean catch urine sample from 05/09 grew >100,000 gram negative bacilli, sensitivities pending. Blood cultures from 05/09 pending as well. - Patient given 1g Ceftriaxone. No current symptoms of UTI aside from increased frequency of urination most likely 2/2 increased fluid intake. (3) Pneumonitis: Plan: - CT 05/09 showed patchy bilateral nodular consolidative opacities. - Patient given cefepime, azithromycin in ED. Given ceftriaxone 1g and doxycycline 100mg added on for atypical coverage. (4) COPD (chronic obstructive pulmonary disease): Plan: - Patient breathing normally on RA when I saw her at bedside. - Started on Breo Ellipta and Incruse Ellipta for maintenance inhaler. Admission and Anticipated Discharge Date Admission Date: May 09, 2021 Subjective 66 year old female past medical history COPD on 3L O2 at night, fibromyalgia, HTN, bioplar affective disorder, kidney stones, hyperlipidemia, hypothyroidism, migraine, reflex sympathetic dystrophy, iron deficiency anemia admitted for hypotension, UTI, and questionable multifocal pneumonia seen on imaging. Patient's blood pressure in ED 77/55, received 3L NSS and was responsive to fluid. Patient was seen at bedside this morning without complaints. Denied any shortness of breath, fever, chills, dysuria, abdominal pain, nausea, vomiting. Only positive on ROS was increased urinary frequency which may be due to increased fluid intake. The patient was able to tolerate her breakfast well and had no issues keeping it down. Review of Systems Review of Systems: As per HPI. Physical Exam Constitutional: WD/WN, vitals as above Eyes: PERRL, conjunctivae normal, anicteric sclerae Respiratory: normal respiratory effort + end expiratory wheezes. Cardiovascular: RRR, no murmur, no edema Gastrointestinal (Abdomen): normal bowel sounds, soft, nontender, no hepatosplenomegaly Results & Data Results & Data ([facility]) Vital Signs (Past 12 Hours) Vital Signs Temp Pulse Resp BP Pulse Ox 05/10/21 07:18 36.8 C 84 16 125/73 99
--- NOTE | 2021-05-10 17:59 | Discharge Summary ---
Date of Service May 10, 2021 Admission HPI Per Admitting Provider Shameka Moise is a 66 year old female who presents to the ER with hypotension noted at her gastroenterology visit earlier today. She also has a number of ongoing concerns including shortness of breath on exertion, weight loss and back pain. In the ER she was given NSS bolus which resolved her dizziness. Shortness of breath - she has known COPD but takes not maintenance inhalers. Instead she takes Combivent four times a day. She has been treated for bronchitis twice last month with prednisone taper and azithromycin. She has no current chest tightness but this can occur with her shortness of breath. She continues to smoke half a pack a day Weight loss - 20lb over the last 2 months. She reports chronic constipation with one bowel movement per week. Reduced appetite. No dysphagia or odynophagia but has had an occasion of choking on food. Back pain - last two days, no associated dysuria, center of her back, no flank pain, fever or chills. Admission Exam Per Admitting Provider Physical Exam Constitutional: well developed and + cachectic; + not well nourished and no acute distress Eyes: PERRL, conjunctivae normal, anicteric sclerae ENMT: external ear and nose normal, oropharynx normal Neck: trachea midline, no thyromegaly Respiratory: normal respiratory effort; no respiratory distress Auscultation: + crackles (bibasal) and + wheezes (mild end expiratory); no diminished lung sounds, no rales and no rhonchi Cardiovascular: RRR, no murmur, no edema Gastrointestinal (Abdomen): normal bowel sounds, soft, nontender, no h epatosplenomegaly Musculoskeletal: no cyanosis or clubbing, extremities motor strength 5/5 Skin: no rashes, warm and dry Neurologic: moves all extremities and awake; not confused Psychiatric: A+Ox3, euthymic affect Principal Diagnosis Hypotension and UTI Discharge Exam Constitutional WD/WN, vitals as above Eyes PERRL, conjunctivae normal, anicteric sclerae Respiratory normal respiratory effort Cardiovascular RRR, no murmur, no edema Gastrointestinal (Abdomen) normal bowel sounds, soft, nontender, no hepatosplenomegaly Discharge Data Allergies Allergy/AdvReac Type Severity Reaction Status Date / Time codeine Allergy Intermediate ITCHING Verified 05/09/21 15:12 cortisone Allergy Intermediate ITCHING Verified 05/09/21 15:12 Penicillins Allergy Intermediate HIVES, Verified 05/09/21 15:12 ITCHINESS ciprofloxacin [From Cipro] AdvReac Intermediate Vomiting Verified 05/09/21 15:12 Consultations 05/09/21 14:37 ED Decision to Admit Stat Ordered Studies 05/09/21 13:34 CT abd pelvis wo con Stat IMPRESSION: 1. Moderate to severe constipation. 2. Patchy nodular airspace opacities are present at both lung bases. Correlate clinically for evidence of an infectious/inflammatory pneumonitis. 3. There are numerous tiny nonobstructing renal calculi with possible medullary nephrocalcinosis. 4. Advanced emphysema. 5. Additional findings as above. 05/09/21 15:55 CT chest diagnostic w con Urgent IMPRESSION: 1. Patchy bilateral nodular consolidative opacities are present within a multilobar distribution bilaterally suggestive of multifocal pneumonia. Metastatic disease is considered less likely. 3 month follow-up chest CT after treatment course is recommended to document resolution. 2. Mild intralobular septal thickening may represent a component of pulmonary edema. 3. Severe emphysema with bronchitis. 4. Suggested pulmonary artery hypertension. Hospital Course (1) Acute hypotension: - BP entering ED 77/55, responded well after receiving 3L of NSS. Most likely due to hypovolemia from dehydration. - BP on discharge 118/68. (2) Acute UTI (urinary tract infection): - clean catch urine sample from 05/09 grew >100,000 gram negative bacilli, sensitivities pending. Blood cultures from 05/09 pending as well. - Patient given 1g Ceftriaxone. No current symptoms of UTI aside from increased frequency of urination most likely 2/2 increased fluid intake. - Patient given 5 day regimen of Cefdinir 300mg bid. (3) Pneumonitis: - CT 05/09 showed patchy bilateral nodular consolidative opacities. - Patient given cefepime in ED. Given ceftriaxone 1g and doxycycline 100mg added on for atypical coverage. - Continued Doxycycline 100mg bid in conjunction with the Cefdinir 300mg bid for 5 days. (4) COPD (chronic obstructive pulmonary disease): - Patient breathing normally on RA when I saw her at bedside. - Given Breo Ellipta and Incruse Ellipta for maintenance inhaler. - Sent Incruse Ellipta to pharmacy until she can see her PCP. Total Time Total Time Spent Total Time Spent (In Minutes): <30 Discharge Plan Discharge Items Patient Disposition: Home - Self-Care Reason For Visit: UTI, HYPOTENSION Discharge Diagnosis: Hypotension and UTI Activity: Per Instructions section Non-emergency contact: Primary Care Provider Call non-emergency contact if: your symptoms worsen, your pain is not controlled and your temperature is above 101 Follow-up/Referrals: Eitan Bourne DO [Primary Care Provider] - 05/19/21 10:30 am Diet: Regular Addtl Attending Provider Instructions: You came in for hypotension that was corrected with fluid replenishment. You were also found to have a urinary tract infection and you were given antibiotics for the infection. Thankfully your blood pressure stabilized and you were able to tolerate food and drink well. Upon discharge, please note the following medication additions: Cefdinir and doxycycline two times a day for the next 5 days. Please be aware that doxycycline can make you more sensitive to the sunlight. When outside please apply sunscreen. Please follow up with your primary care in one to two weeks. In the interim if you experience any symptoms of lightheadedness, dizziness, worsening abdominal or pelvic pain, worsening of your cough with sputum production, or running a high fever. Pending Studies at Discharge: Yes (Blood cultures and sensitivities ) Stand-Alone Forms: [facility] SPIR[facility] Navigation, Smoking Cessation Medications and DC Order Prescriptions: New doxycycline hyclate 100 mg Capsule 100 mg PO BID 7 Days Qty: 14 RF: 0 cefdinir 300 mg capsule 300 mg PO BID 5 Days Qty: 10 RF: 0 Incruse Ellipta 62.5 mcg/actuation Blister With Device 1 inh inhalation DAILY 30 Days Qty: 30 RF: 0 Continued Combivent Respimat 20-100 mcg/actuation mist 1 puff INHALATION BID MDD 6 X IN 24 HOURS. Qty: 4 RF: 11 atorvastatin [Lipitor] 20 mg tablet 20 mg PO HS Qty: 90 RF: 3 levothyroxine 50 mcg tablet 50 mcg PO HS Qty: 90 RF: 3 metoprolol tartrate 50 mg tablet 50 mg PO HS Qty: 90 RF: 3 (DME) Oxygen Home Liters Per Minute See Dose Instructions .ROUTE .MEDSUPPLY Qty: 1 RF: 0 butorphanol 10 mg/mL spray,non-aerosol 1 spray intranasal UD PRN (Reason: Pain) RF: 0 albuterol sulfate [Ventolin HFA] 90 mcg/actuation HFA aerosol inhaler 2 puff INHALATION BID RF: 0 diphenhydramine HCl [Benadryl Allergy] 25 mg tablet 25 mg PO QID PRN (Reason: Allergy Symptoms) RF: 0 oxycodone-acetaminophen 10-325 mg tablet 1 tab PO Q6H PRN (Reason: Severe Pain (Scale Score 7-10)) RF: 0 quetiapine [Seroquel] 400 mg tablet 800 mg PO HS RF: 0 buspirone 10 mg Tablet 10 mg PO HS RF: 0 megestrol 40 mg Tablet 40 mg PO HS RF: 0 sertraline 100 mg tablet 200 mg PO HS RF: 0 Discharge Orders: Discharge Order (Routine); Ordered 05/10/21 Ordered By: Андрей Le/Other Patient Handouts: ED Low Blood Pressure, All Causes Admission Data Admit Date/Time: 05/09/21 18:16 Attending Provider: Paulie Palmer Admit Provider: Wesley Macdonald Primary Care Provider: Eitan Bourne Other Providers: Wesley Macdonald Other Interventions: Discharge Summary Assessment (RN) Last Done: 05/10/21 17:02 Supervising Physician Co-Signing Physician Notes I personally examined the patient and verified all watkins points of history and exam, discussed case, and agree with decision making with Dr Garcia Feeling betterprimary complaint is "can I go home?". Breathing is feeling better, she did have urinary frequency prior to admission, no dysuria now. Is able to walk around and feels good. Eating and drinking better. Vitals noted, in general she is awake and alert pleasant no distress. HEENT normocephalic atraumatic mucous membranes moist. Breathing unlabored no accessory muscle use good effort. Skin shows no rashes no pallor or icterus. Neuro without focal deficits. CT scans reviewedboth reports and films. Hypotensionlikely due to dehydration/poor oral intake from failure to thrive. Improved with IV fluids, now doing better. Possibly a degree from infectious physiology, but to clarify she did not appear septic Diffuse pneumonitismay have been part of her symptom complex leading to the failure to thriveher breathing was worse, now feels a bit betterfinish course of antibiotics, outpatient follow-up UTImild symptoms, but antibiotics for above likely will suffice for the UTI as well. ConstipationMiraLAX Failure to thrive/weight losscertainly concern on malignancy, but CT scan does not show anything overt/metastatic/etc.it is quite possible that her chronic lung disease and constipation are more than enough to account for her failure to thrive, but definitely will warrant close outpatient follow-up, and/or reimaging/further work-up/vigilance. Stable for home, otherwise as above Resident Activity Tracking Resident Involvement: Resident Care Provided Care Provided: Adult [facility] Medicine
--- NOTE | 2021-05-10 19:29 | Billing Data ---
Date of Service May 10, 2021 Coding Level of Care Code D/C DAY MANAGEMENT <30 MINS
[2021-05-11] MEDS ORDERED: AZITHROMYCIN 250 MG TAB PO SCH (09:00)
== END 2021-05-10 18:36 | disposition home or self-care (01) | DRG 640 ==
LOC: ED 12:28 → SUATTDRO 18:16 → 3E 18:16

== ENCOUNTER 2021-08-28 15:39 | Inpatient (IN) ==
[2021-08-28 16:45] LABS: Basophils # (auto) 0.02 K/uL (0-0.2); Basophils % (auto) 0.3 %; Eosinophils # (auto) 0.03 K/uL (0-0.5); Eosinophils % (auto) 0.4 %; Hemoglobin 14.1 g/dL (12.0-16.0); Immature Granulocytes # (auto) 0.03 K/uL (0.00-0.02); Immature Granulocytes % (auto) 0.4 %; Lymphocytes # (auto) 0.82 K/uL (1.2-3.4); Lymphocytes % (auto) 10.6 %; Mean Corpuscular Hemoglobin 26.4 pg (25-34); Mean Corpuscular Volume 82.4 fL (80-100); Mean Platelet Volume 10.7 fL (7.4-10.4); Monocytes # (auto) 0.84 K/uL (0.11-0.59); Monocytes % (auto) 10.9 %; Neutrophils # (auto) 5.99 K/uL (1.4-6.5); Neutrophils % (auto) 77.4 %; Platelet Count 276 K/uL (130-400); RDW Coefficient of Variation 15.9 % (11.5-14.5); Red Blood Count 5.34 M/uL (4.2-5.4); White Blood Count 7.73 K/uL (4.8-10.8)
[2021-08-28 17:08] LABS: Albumin Globulin Ratio 1.2 (0.9-2); Albumin Level 3.8 gm/dl (3.4-5.0); BUN Creatinine Ratio 33.9 (10-20); Bilirubin,Total 0.5 mg/dl (0.2-1.0); Calcium 9.2 mg/dl (8.5-10.1); Creatinine Clr Calc Pharmacy 51.8 ml/min; Est GFR (African American) 112.6 ml/min; Est GFR (Non-African American) 97.2 ml/min; Globulin 3.3 gm/dl (2.5-4.0); Total Protein 7.1 gm/dl (6.0-8.3)
[2021-08-28] MEDS ORDERED: dexAMETHasone**PF** 10 MG/ML VIAL IV ONE (17:34)
--- NOTE | 2021-08-28 17:50 | XRay Report ---
SINGLE VIEW CHEST CLINICAL HISTORY: Dyspnea FINDINGS: An AP, portable, semierect chest radiograph is compared to study dated 06/26/2021 and corre lated with chest CT dated 05/09/2021. The cardiomediastinal silhouette is unremarkable noting atherosc lerotic calcification of the thoracic aorta. Advanced emphysema and chronic interstitial thickening i s similar to previous. There is bibasilar scarring/atelectasis. Minimal patchy airspace opacities are seen in the right upper lobe. No large pleural effusion or pneumothorax is seen. The skeletal struct ures are osteopenic. The bony thorax is grossly intact. IMPRESSION: 1. Advanced emphysema. 2. There are minimal right upper lobe airspace opacities which could represent parenchymal scarring v ersus a mild pneumonitis. Clinical correlation will be required and radiographic follow-up is recomme nded. ACT 112: Negative or not required by law. Electronically signed by: Sean Amador M.D. 08/28/2021 5:48 PM
[2021-08-28 18:35] LABS: Potassium 3.6 mmol/L (3.5-5.1)
--- NOTE | 2021-08-28 18:55 | Emergency Department Note ---
History of Present Illness General Chief complaint: Shortness of Breath/Dyspnea Stated complaint: SOB, SORE THROAT, CONGESTION Time Seen by Provider: 08/28/21 17:04 History of Present Illness 66-year-old female presents to the ED with a chief complaint of shortness of breath. The patient states that she is having a hard time catching her breath. She does have a history of COPD. She is a smoker. She reported body aches and a sore throat as well as some chills in addition to her cough. She reports some nausea and decreased appetite. She has had the symptoms for about 6 days. Progressively worsening over. She states that she gets lightheaded and dizzy when she gets up and tries to walk. She feels very weak. She has increased shortness of breath with exertion. Home Medications Medication Instructions Recorded Confirmed Type Oxygen Home #1 ea 03/07/19 08/28/21 History albuterol sulfate 90 mcg/actuation 2 puff INHALATION BID 03/12/19 08/28/21 History aerosol inhaler (Ventolin HFA) diphenhydramine HCl 25 mg tablet 25 mg PO QID PRN 03/12/19 08/28/21 History (Benadryl Allergy) oxycodone-acetaminophen 10 mg-325 1 tab PO Q6H PRN 03/12/19 08/28/21 History mg tablet quetiapine 400 mg tablet (Seroquel) 800 mg PO HS 03/12/19 08/28/21 History megestrol 40 mg tablet 40 mg PO HS 09/29/19 08/28/21 History sertraline 100 mg tablet 200 mg PO HS 09/29/19 08/28/21 History ipratropium 20 mcg-albuterol 100 1 puff INHALATION BID #4 gm MDD 6 06/07/20 08/28/21 Rx mcg/actuation mist for inhalation X IN 24 HOURS. (Combivent Respimat) atorvastatin 20 mg tablet (Lipitor) 20 mg PO HS #90 tab 07/26/20 08/28/21 Rx levothyroxine 50 mcg tablet 50 mcg PO HS #90 tab 09/03/20 08/28/21 Rx butorphanol 10 mg/mL nasal spray 1 spray INTRANASAL UD PRN 02/10/21 08/28/21 History metoprolol tartrate 25 mg tablet 25 mg PO HS #30 tab 05/19/21 08/28/21 Rx buspirone 10 mg tablet 15 mg PO BID tab 08/18/21 08/28/21 History Allergies Allergy/AdvReac Type Severity Reaction Status Date / Time codeine Allergy Intermediate ITCHING Verified 08/28/21 11:30 cortisone Allergy Intermediate ITCHING Verified 08/28/21 11:30 Penicillins Allergy Intermediate HIVES, Verified 08/28/21 11:30 ITCHINESS ciprofloxacin [From Cipro] AdvReac Intermediate Vomiting Verified 08/28/21 11:30 Past Med/Surg History Medical History Anemia Anxiety and depression Bipolar affective disorder Chronic back pain COPD (chronic obstructive pulmonary disease) inhalers daily Fibromyalgia History of kidney stones History of recent blood transfusion 09/28/2019 1 unit PRBCs @ [facility] Hyperlipidemia Hypertension Hypothyroidism Migraine Nicotine dependence On home oxygen therapy 2.5L N/C HS Osteoarthritis Requires scooter for mobility RSD (reflex sympathetic dystrophy) "per patient's sister, 06/21/16" Surgical History History of cataract surgery Right History of colonoscopy History of lithotripsy x2 History of repair of right rotator cuff History of tooth extraction all teeth History of total hysterectomy with bilateral salpingo-oophorectomy (BSO) S/P cystoscopy with ureteral stent placement x5 S/P epidural steroid injection Family History Brother Alcohol abuse Kidney disease Mother Anxiety Kidney disease Sister Kidney disease Aunt Breast cancer Father Prostate cancer Family history of diabetes mellitus Other Cancer Diabetes Emphysema of lung Hypertension Lung disease No family history of adverse response to anesthesia Denies family history of Ovarian cancer Myocardial infarction Colorectal cancer Social History Smoking Status: Current every day smoker Tobacco Type: Cigarettes Age Started Using Tobacco: 17; Cigarettes Per Day: 10; Second Hand Exposure: Yes; Hx Alcohol Use: Yes Alcohol type: beer Hx Substance Use: No Preferred Language: Portuguese Communication Ability: Effective Visual Impairment: No Limitations Hearing Ability: Normal Home Decorator Required: No Beliefs That Will Affect Care: None marital status: Current Living Situation: Significant Other Current Living Situation Comment: Lives with boyfriend current occupational status: disabled Feels Safe at Home: Yes Childhood Exposure to Second-Hand Smoke: Yes Diet Comment: stated she eats very little, no appetite. caffeine: Yes Dental Care, Regularly: No Physical Activity Frequency: Does not Exercise Seatbelt Use: always Sunscreen Use: No Assistive Devices: Denture - Upper, Denture - Lower and Glasses Review of Systems A total of 10 systems reviewed and were otherwise negative Physical Exam Vital Signs Vital Signs - 24 hr 08/28/21 15:50 08/28/21 15:53 08/28/21 16:38 Temperature 37 C Temperature Source Oral Pulse Rate 91 H 89 Pulse Rate [Left Radial] 88 Pulse Rhythm Regular Regular Pulse Rhythm [Left Radial] Regular Pulse Strength Normal Pulse Strength [Left Radial] Normal Respiratory Rate 20 20 20 Respiratory Effort / Characteristics Non-Labored Non-Labored Respiratory Depth Normal Normal Respiratory Pattern Regular Regular Blood Pressure 159/97 H Blood Pressure Mean 117 Blood Pressure Position Lying Pulse Oximetry 100 100 100 Oxygen Delivery Method Nasal Cannula Nasal Cannula Room Air Oxygen Flow Rate 6 4 4 Sepsis Recent Fever Within 48 Hours No Sepsis New/Unexplained Change in Mental Status No Sepsis Action Taken by Nursing No Action Required CONSTITUTIONAL/VITAL SIGNS: Reviewed / noted above. GENERAL: Non-toxic in appearance. INTEGUMENTARY: Warm, dry, and [place]. HEAD: Normocephalic. EYES: without scleral icterus or trauma. ENT/OROPHARYNX: clear and moist. LYMPHADENOPATHY/NECK: Is supple without lymphadenopathy or meningismus. RESPIRATORY: Diminished bilaterally with expiratory wheezing. Some mild to moderate increased work of breathing. CARDIOVASCULAR: Regular rate and rhythm. GI/ABDOMEN: Soft and nontender. No organomegaly or pulsatile mass. EXTREMITIES: Warm and well perfused. BACK: No CVA tenderness. NEUROLOGICAL: Intact without focal deficits. PSYCHIATRIC: normal affect. MUSCULOSKELETAL: Normally developed with good muscle tone. TRIAGE NURSING DOCUMENTATION REVIEWED. Course Administered Medications Discontinued Medications Dexamethasone Sodium Phosphate (DexamethasonePf 10 Mg/Ml Vial) 6 mg IV NOW ONE Stop: 08/28/21 17:35 Last Admin: 08/28/21 17:44 Dose: 6 mg Documented by: [id number] Medical Decision Making Differential Diagnosis The differential was considered includes acute myocardial infarction, acute coronary syndrome, myocarditis, pericarditis, pericardial effusions /tamponad, esophageal perforation, pulmonary embolism, pneumonia, pneumothorax, cardiomyopathy, congestive heart, anemia , COPD/asthma exacerbation. Medical Records Attestation: I reviewed the patient's medical records. Home Medications Current Medication List: was personally reviewed by me Laboratory Data Attestation: I reviewed the patient's lab results. Result diagrams: 08/28/21 15:49 08/28/21 18:05 Lab Results 08/28/21 08/28/21 08/28/21 Range/Units 15:49 15:49 17:07 WBC 7.73 (4.8-10.8) K/uL RBC 5.34 (4.2-5.4) M/uL Hgb 14.1 (12.0-16.0) g/dL Hct 44.0 (37-47) % MCV 82.4 (80-100) fL MCH 26.4 (25-34) pg MCHC 32.0 (32-36) g/dL RDW Std Deviation 48.0 H (36.4-46.3) fL RDW Coeff of Luis 15.9 H (11.5-14.5) % Plt Count 276 (130-400) K/uL MPV 10.7 H (7.4-10.4) fL Immature Gran % (Auto) 0.4 % Neut % (Auto) 77.4 % Lymph % (Auto) 10.6 % Coles % (Auto) 10.9 % Eos % (Auto) 0.4 % Baso % (Auto) 0.3 % Neut # (Auto) 5.99 (1.4-6.5) K/uL Lymph # (Auto) 0.82 L (1.2-3.4) K/uL Coles # (Auto) 0.84 H (0.11-0.59) K/uL Eos # (Auto) 0.03 (0-0.5) K/uL Baso # (Auto) 0.02 (0-0.2) K/uL Immature Gran # (Auto) 0.03 H (0.00-0.02) K/uL Sodium 141 (136-145) mmol/L Potassium (3.5-5.1) mmol/L Chloride 102 (98-107) mmol/L Carbon Dioxide 26 (21-32) mmol/L Anion Gap 13 H (3-11) BUN 19 (6-23) mg/dl Creatinine 0.56 L (0.6-1.2) mg/dl Est Cr Clr Drug Dosing 51.8 ml/min Est GFR ( Amer) 112.6 ml/min Est GFR (Non-Af Amer) 97.2 ml/min BUN/Creatinine Ratio 33.9 H (10-20) Glucose 93 (70-99(Fasting)) mg/dl Calcium 9.2 (8.5-10.1) mg/dl Total Bilirubin 0.5 (0.2-1.0) mg/dl AST (13-39) U/L ALT 19 (7-52) U/L Alkaline Phosphatase (34-104) U/L Total Protein 7.1 (6.0-8.3) gm/dl Albumin 3.8 (3.4-5.0) gm/dl Globulin 3.3 (2.5-4.0) gm/dl Albumin/Globulin Ratio 1.2 (0.9-2) SARS-CoV-2, RNA, NAAT POSITIVE A* (NEGATIVE) 08/28/21 Range/Units 18:05 WBC (4.8-10.8) K/uL RBC (4.2-5.4) M/uL Hgb (12.0-16.0) g/dL Hct (37-47) % MCV (80-100) fL MCH (25-34) pg MCHC (32-36) g/dL RDW Std Deviation (36.4-46.3) fL RDW Coeff of Luis (11.5-14.5) % Plt Count (130-400) K/uL MPV (7.4-10.4) fL Immature Gran % (Auto) % Neut % (Auto) % Lymph % (Auto) % Coles % (Auto) % Eos % (Auto) % Baso % (Auto) % Neut # (Auto) (1.4-6.5) K/uL Lymph # (Auto) (1.2-3.4) K/uL Coles # (Auto) (0.11-0.59) K/uL Eos # (Auto) (0-0.5) K/uL Baso # (Auto) (0-0.2) K/uL Immature Gran # (Auto) (0.00-0.02) K/uL Sodium (136-145) mmol/L Potassium 3.6 (3.5-5.1) mmol/L Chloride (98-107) mmol/L Carbon Dioxide (21-32) mmol/L Anion Gap (3-11) BUN (6-23) mg/dl Creatinine (0.6-1.2) mg/dl Est Cr Clr Drug Dosing ml/min Est GFR ( Amer) ml/min Est GFR (Non-Af Amer) ml/min BUN/Creatinine Ratio (10-20) Glucose (70-99(Fasting)) mg/dl Calcium (8.5-10.1) mg/dl Total Bilirubin (0.2-1.0) mg/dl AST 26 (13-39) U/L ALT (7-52) U/L Alkaline Phosphatase (34-104) U/L Total Protein (6.0-8.3) gm/dl Albumin (3.4-5.0) gm/dl Globulin (2.5-4.0) gm/dl Albumin/Globulin Ratio (0.9-2) SARS-CoV-2, RNA, NAAT (NEGATIVE) Imaging Data Radiologist's Impression: Chest X-Ray 08/28/21 16:37 SINGLE VIEW CHEST CLINICAL HISTORY: Dyspnea FINDINGS: An AP, portable, semierect chest radiograph is compared to study dated 06/26/2021 and correlated with chest CT dated 05/09/2021. The cardiomediastinal silhouette is unremarkable noting atherosclerotic calcification of the thoracic aorta. Advanced emphysema and chronic interstitial thickening is similar to previous. There is bibasilar scarring/atelectasis. Minimal patchy airspace opacities are seen in the right upper lobe. No large pleural effusion or pneumothorax is seen. The skeletal structures are osteopenic. The bony thorax is grossly intact. IMPRESSION: 1. Advanced emphysema. 2. There are minimal right upper lobe airspace opacities which could represent parenchymal scarring versus a mild pneumonitis. Clinical correlation will be required and radiographic follow-up is recommended. ACT 112: Negative or not required by law. Electronically signed by: Sean Amador M.D. 08/28/2021 5:48 PM ECG Data Attestation: I personally reviewed and interpreted this ECG as follows: Additional Comments: Twelve-lead EKG: Per my interpretation shows A normal sinus rhythm at a rate of 90. No ST elevation. No PVCs. Normal QTC. MDM Narrative Patient presents to the ED with a chief complaint of increasing shortness of breath, weakness and other upper respiratory symptoms. Her oxygen saturation on her typical 2.5 L of oxygen at home was 89% here. She appears to be somewhat dyspneic and having some increased work of breathing. Her lung sounds are diminished with some expiratory wheezing. Her COVID test was positive. A chest x-ray suggested possible right upper lobe pneumonia. EKG shows normal sinus rhythm. CBC and chemistry panel was unremarkable. The patient was treated with IV Decadron. She was also ordered a DuoNeb treatment. Because of her symptoms and COVID test as well as her history of COPD with oxygen use and increased oxygen requirement, she will be seen by the hospitalist for further inpatient evaluation care. Impression & Plan COVID, Hypoxia, Weakness Discharge Plan Visit Data Chief Complaint: Shortness of Breath/Dyspnea Stated Complaint: SOB, SORE THROAT, CONGESTION ED Provider: Mal Apple Discharge Problem: COVID, Hypoxia, Weakness Patient Disposition: Being Evaluated by Hospitalist Forms Stand Alone Forms: [facility], Virtual Emergency Department, Important Visit Information Prescriptions Prescriptions: No Action Combivent Respimat 20-100 mcg/actuation mist 1 puff INHALATION BID MDD 6 X IN 24 HOURS. Qty: 4 RF: 11 atorvastatin [Lipitor] 20 mg tablet 20 mg PO HS Qty: 90 RF: 3 levothyroxine 50 mcg tablet 50 mcg PO HS Qty: 90 RF: 3 (DME) Oxygen Home Liters Per Minute See Dose Instructions .ROUTE .MEDSUPPLY Qty: 1 RF: 0 metoprolol tartrate 25 mg tablet 25 mg PO HS Qty: 30 RF: 5 butorphanol 10 mg/mL spray,non-aerosol 1 spray intranasal UD PRN (Reason: Pain) RF: 0 albuterol sulfate [Ventolin HFA] 90 mcg/actuation HFA aerosol inhaler 2 puff INHALATION BID RF: 0 diphenhydramine HCl [Benadryl Allergy] 25 mg tablet 25 mg PO QID PRN (Reason: Allergy Symptoms) RF: 0 oxycodone-acetaminophen 10-325 mg tablet 1 tab PO Q6H PRN (Reason: Severe Pain (Scale Score 7-10)) RF: 0 quetiapine [Seroquel] 400 mg tablet 800 mg PO HS RF: 0 megestrol 40 mg Tablet 40 mg PO HS RF: 0 sertraline 100 mg tablet 200 mg PO HS RF: 0 buspirone 10 mg tablet 15 mg PO BID RF: 0 Referrals Referrals: Eitan Bourne DO [Primary Care Provider] -
[2021-08-28] MEDS ORDERED: ALBUT/IPRATROP 3MG/0.5MG NEB 3 ML VIAL NEB STA (18:57)
--- NOTE | 2021-08-28 19:28 | History & Physical Report ---
Date of Service August 28, 2021 Assessment & Plan (1) COVID: Plan: 66 y/o F w/ PMHx of hypothyroidism, COPD, HTN who presents w/ worsened dyspnea on exertion and hypoxia secondary to covid pneumonia, day 7 of symptoms. - has COPD and baseline 2.5L qhs O2 requirement. Currently saturating 94% on 3L continuous nasal cannula. - Regarding cxr finding of minimal right upper lobe airspace opacities; does have aspiration risks; considered, but overall, lower suspicion of pneumonia, gilberto w/ neg procal. No empiric abx at this time. Repeating cxr in AM. - does not appear hypervolemic - remdesivir x 5 days; meets criteria and renal/liver function appropriate - IV dexamethasone x 5 days - scheduled duonebs and prn albuterol neb treatments - flutter valve, incentive spirom, Mucinex - Maintain O2 sat goal >90% - CRP ordered - K at 3.6 w/ goal >4, will replete - ecg; t waves somewhat peaked appearing. poor quality; will repeat ecg in AM (2) COPD (chronic obstructive pulmonary disease): Plan: - see above (3) O2 dependent: Plan: 2.5L qhs at home. See above (4) Bipolar affective disorder: Plan: Continue home regimen. Of note, the 800mg qhs Seroquel is a very high dose. Confirmed w/ patient that she has been on this chronically. Monitor clinically for sedation. (5) Anxiety and depression: Plan: - Continue home regimen. (6) Hypothyroidism: Plan: - Continue home regimen. (7) Hyperlipidemia: Plan: - Continue home atorvastatin (8) Migraine: Plan: Stable, not on medications (9) Hypertension: Plan: - Continue home metoprolol tartrate 25 mg daily Plan: FEN: Low Na diet (No echo or hx of CHF. 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 No maintenance IVF. ppx: Lovenox code: full dispo: med tele History of Present Illness Chief Complaint: dyspnea Primary Care Provider: Eitan Bourne, DO 66 y/o F w/ PMHx of bipolar, anxiety/depression, hypothyroidism, COPD, HTN who presents w/ worsened dyspnea since 08/22/21, currently day 7 of symptoms. She has associated rigors, subj fever (but no temp) sore throat, nasal congestion,and loss of taste and appetite. + lightheadedness and near syncopal dizziness. Used 2.5L O2 all of this week including daytime w/o relief. Worsened AVILES, can barely walk several steps. Minimal appetite and has not eaten all week. She took all of her home meds today except the sertraline. Has had covid immunization x2, but not the booster. States has had mild aspiration issues at baseline. Denies hx of CHF, CVA, VTE. Tobacco hx: Current half pack/day smoker. ~40 pack year hx. D enies etoh or other substances. ED course: Duoneb. IV Decadron 6mg. Allergies Allergy/AdvReac Type Severity Reaction Status Date / Time codeine Allergy Intermediate ITCHING Verified 08/28/21 11:30 cortisone Allergy Intermediate ITCHING Verified 08/28/21 11:30 Penicillins Allergy Intermediate HIVES, Verified 08/28/21 11:30 ITCHINESS ciprofloxacin [From Cipro] AdvReac Intermediate Vomiting Verified 08/28/21 11:30 Home Medications Medication Instructions Recorded Confirmed Type Oxygen Home #1 ea 03/07/19 08/28/21 History albuterol sulfate 90 mcg/actuation 2 puff INHALATION BID 03/12/19 08/28/21 History aerosol inhaler (Ventolin HFA) diphenhydramine HCl 25 mg tablet 25 mg PO QID PRN 03/12/19 08/28/21 History (Benadryl Allergy) oxycodone-acetaminophen 10 mg-325 1 tab PO Q6H PRN 03/12/19 08/28/21 History mg tablet quetiapine 400 mg tablet (Seroquel) 800 mg PO HS 03/12/19 08/28/21 History sertraline 100 mg tablet 200 mg PO HS 09/29/19 08/28/21 History ipratropium 20 mcg-albuterol 100 1 puff INHALATION BID #4 gm MDD 6 06/07/20 08/28/21 Rx mcg/actuation mist for inhalation X IN 24 HOURS. (Combivent Respimat) atorvastatin 20 mg tablet (Lipitor) 20 mg PO HS #90 tab 07/26/20 08/28/21 Rx levothyroxine 50 mcg tablet 50 mcg PO HS #90 tab 01/26/21 01/20/22 Rx metoprolol tartrate 25 mg tablet 25 mg PO HS #30 tab 05/19/21 08/28/21 Rx buspirone 10 mg tablet 15 mg PO BID tab 08/18/21 08/28/21 History Past Med/Surg History Medical History (Updated 08/29/21 @ 18:43 by Cheyenne Schwartz PA-C) Anemia Anxiety and depression Bipolar affective disorder Chronic back pain COPD (chronic obstructive pulmonary disease) inhalers daily Fibromyalgia History of kidney stones History of recent blood transfusion 09/28/2019 1 unit PRBCs @ [facility] Hyperlipidemia Hypertension Hypothyroidism Migraine Nicotine dependence On home oxygen therapy 2.5L N/C HS Osteoarthritis Requires scooter for mobility RSD (reflex sympathetic dystrophy) "per patient's sister, 06/21/16" Surgical History History of cataract surgery Right History of colonoscopy History of lithotripsy x2 History of repair of right rotator cuff History of tooth extraction all teeth History of total hysterectomy with bilateral salpingo-oophorectomy (BSO) S/P cystoscopy with ureteral stent placement x5 S/P epidural steroid injection Family History Brother Alcohol abuse Kidney disease Mother Anxiety Kidney disease Sister Kidney disease Aunt Breast cancer Father Prostate cancer Family history of diabetes mellitus Other Cancer Diabetes Emphysema of lung Hypertension Lung disease No family history of adverse response to anesthesia Denies family history of Ovarian cancer Myocardial infarction Colorectal cancer Social History Smoking Status: Current every day smoker Tobacco Type: Cigarettes Age Started Using Tobacco: 17; Cigarettes Per Day: 4-6; Second Hand Exposure: Yes; Hx Alcohol Use: No Hx Substance Use: No Preferred Language: Serbian Communication Ability: Effective Visual Impairment: No Limitations Hearing Ability: Normal Deputy Coroner 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 caffeine: Yes Dental Care, Regularly: No Physical Activity Frequency: Does not Exercise Seatbelt Use: always Sunscreen Use: No Assistive Devices: Walker Review of Systems Review of Systems: All systems reviewed & are unremarkable except as noted in HPI & below Constitutional: See HPI. + chronic wt loss. Eyes: Mild blurry vision. ENT: + sore throat, sinus pressure, rhinorrhea, congestion. No ear pain. Loss of taste and smell. Cardiovascular: Denies chest pain, palpitations Respiratory: + AVILES. Cough, intermittently productive of green sputum. + wheezing more than usual, inhaler helps. Gastrointestinal: + 3 days of mid abd pain, worsened by coughing. + nausea. + watery diarrhea x 2 days. No bloody stool or melena. Genitourinary: Denies urinary symptoms including dysuria Musculoskeletal: Denies weakness, muscle aches/pain, joint aches/pain Neurological: Denies numbness, tingling, focal weakness. + sinus/frontal HEDRICK Physical Exam Physical Exam: General: A&Ox4. NAD. Cooperative. Frail, elderly appearing. HEENT: Atraumatic, normocephalic. EOMI Pulm: No wheezes. Diminished lung sounds. LLQ faint insp crackles. No significant accessory muscle use currently (s/p neb treatment) No respiratory distress. Cardiac: RRR, -mrg. Radial pulses intact and symmetrical. Abdominal: Nondistended, soft. Mild lower abd ttp Integ: Warm, dry, intact Msk: Moving all extremities Neuro: CN II-XII intact. Strength and sensation of extremities intact. Results & Data Results & Data ([facility]) Vital Signs (Past 12 Hours) Vital Signs Currently 94% on 3L. Temp Pulse Pulse Resp BP BP Pulse Ox 08/28/21 18:00 86 14 159/87 H 98 08/28/21 17:53 86 14 178/94 H 97 08/28/21 16:38 89 20 100 08/28/21 15:53 88 20 100 08/28/21 15:50 37 C 91 H 20 159/97 H 100 Laboratory Results wbc 7.73. Hb 14.1. K 3.6. procalc neg. +covid 08/28/21 15:49 08/28/21 18:05 Cardiac Enzymes 08/28/21 08/28/21 Range/Units 15:49 18:05 AST 26 (13-39) U/L CBC 08/28/21 Range/Units 15:49 WBC 7.73 (4.8-10.8) K/uL RBC 5.34 (4.2-5.4) M/uL Hgb 14.1 (12.0-16.0) g/dL Hct 44.0 (37-47) % Plt Count 276 (130-400) K/uL Neut # (Auto) 5.99 (1.4-6.5) K/uL Lymph # (Auto) 0.82 L (1.2-3.4) K/uL [place] # (Auto) 0.84 H (0.11-0.59) K/uL Eos # (Auto) 0.03 (0-0.5) K/uL Baso # (Auto) 0.02 (0-0.2) K/uL Comprehensive Metabolic Panel 08/28/21 08/28/21 Range/Units 15:49 18:05 Sodium 141 (136-145) mmol/L Potassium 3.6 (3.5-5.1) mmol/L Chloride 102 (98-107) mmol/L Carbon Dioxide 26 (21-32) mmol/L BUN 19 (6-23) mg/dl Creatinine 0.56 L (0.6-1.2) mg/dl Glucose 93 (70-99(Fasting)) mg/dl Calcium 9.2 (8.5-10.1) mg/dl AST 26 (13-39) U/L ALT 19 (7-52) U/L Alkaline Phosphatase (34-104) U/L Total Protein 7.1 (6.0-8.3) gm/dl Albumin 3.8 (3.4-5.0) gm/dl Intake and Output 08/28/21 08/28/21 08/28/21 06:59 14:59 22:59 Other: Weight 33.2 kg Weight Measurement Method Built in [facility] Patient Weight 08/29/21 06:59 Weight 33.2 kg Diagnostic Findings Chest X-Ray 08/28/21 16:37 SINGLE VIEW CHEST CLINICAL HISTORY: Dyspnea FINDINGS: An AP, portable, semierect chest radiograph is compared to study dated 06/26/2021 and correlated with chest CT dated 05/09/2021. The cardiomediastinal silhouette is unremarkable noting atherosclerotic calcification of the thoracic aorta. Advanced emphysema and chronic interstitial thickening is similar to previous. There is bibasilar scarring/atelectasis. Minimal patchy airspace opacities are seen in the right upper lobe. No large pleural effusion or pneumothorax is seen. The skeletal structures are osteopenic. The bony thorax is grossly intact. IMPRESSION: 1. Advanced emphysema. 2. There are minimal right upper lobe airspace opacities which could represent parenchymal scarring versus a mild pneumonitis. Clinical correlation will be required and radiographic follow-up is recommended. ACT 112: Negative or not required by law. Electronically signed by: Sean Amador M.D. 08/28/2021 5:48 PM ECG Additional Comments: Per my interpretation: NSR 90 w/ LUZ. Normal axis and intervals. Septal q waves not new. Compared to previous ecg on 08/18/21, t waves in leads v3-v5 appear somewhat peaked. Code Status & VTE Plan Code Status full VTE Prophylaxis Plan VTE Prophylaxis will be ordered: Yes Supervising Physician Co-Signing Physician Notes Attending addendum: I have physically seen this patient, have supervised the medical residents activities, and agree with the H&P unless as otherwise noted. Assessment and Plan: COVID-19 pneumonia/COPD exacerbation/with hypoxia- Dexamethasone 6 mg IV every morning Remdesivir IV per protocol Duonebs every 4 hours while awake and every 2 hours when necessary. Guaifenesin extended release 12 mg p.o. twice daily Vitamin D 5000 international units p.o. every morning Zinc sulfate 2020 mg p.o. every morning Nasal cannula oxygen, titrate to keep pulse ox 92% Remaining orders and notations as noted Resident Activity Tracking Resident Involvement: Resident Care Provided Care Provided: Adult Hospital Medicine
[2021-08-28] MEDS ORDERED: QUEtiapine FUMARATE 200 MG TAB PO STA (20:46)
[2021-08-28] MEDS ORDERED: guaiFENesin 600 MG TABCR PO STA (20:51)
[2021-08-28] MEDS ORDERED: REMDESIVIR 200 MG in SODIUM CHLORIDE 0.9% 210 ML IV STA (21:02)
[2021-08-28] MEDS ORDERED: ENOXAPARIN INJ 30 MG/0.3 ML SYR SQ STA (21:35)
[2021-08-28] MEDS ORDERED: POLYETHYLENE (MIRALAX) 17 GM PACK PO PRN (23:07)
[2021-08-28] MEDS ORDERED: ALBUTEROL 0.083% NEBU SOLN 3 ML VIAL NEB PRN (23:07)
[2021-08-28] MEDS ORDERED: ACETAMINOPHEN 325 MG TAB PO PRN (23:07)
[2021-08-28] MEDS ORDERED: ONDANSETRON INJ 2 MG/ML 2 ML VIAL IV PRN (23:07)
[2021-08-29 04:43] LABS: Hematocrit (blood only) 40.7 % (37-47); Hemoglobin 12.8 g/dL (12.0-16.0); Mean Corpuscular Hemoglobin 25.8 pg (25-34); Mean Corpuscular Hgb Conc 31.4 g/dL (32-36); Mean Corpuscular Volume 81.9 fL (80-100); Mean Platelet Volume 10.4 fL (7.4-10.4); Platelet Count 243 K/uL (130-400); RDW Coefficient of Variation 15.7 % (11.5-14.5); RDW Standard Deviation 46.6 fL (36.4-46.3); Red Blood Count 4.97 M/uL (4.2-5.4); White Blood Count 2.63 K/uL (4.8-10.8)
[2021-08-29 04:54] LABS: Troponin I < 0.03 ng/ml (0-0.04)
[2021-08-29 05:06] LABS: Alanine Aminotransferase 15 U/L (7-52); Albumin Globulin Ratio 1.3 (0.9-2); Albumin Level 3.4 gm/dl (3.4-5.0); Alkaline Phosphatase 90 U/L (34-104); Anion Gap 4 (3-11); Aspartate Aminotransferase 20 U/L (13-39); Bilirubin,Total 0.4 mg/dl (0.2-1.0); Blood Urea Nitrogen 23 mg/dl (6-23); Calcium 8.6 mg/dl (8.5-10.1); Carbon Dioxide 31 mmol/L (21-32); Chloride 104 mmol/L (98-107); Creatinine Clr Calc Pharmacy 49.2 ml/min; Est GFR (African American) 110.7 ml/min; Est GFR (Non-African American) 95.5 ml/min; Globulin 2.6 gm/dl (2.5-4.0); Glucose 112 mg/dl (70-99(Fasting)); Magnesium 1.7 mg/dl (1.7-2.4); Potassium 3.8 mmol/L (3.5-5.1); Sodium 139 mmol/L (136-145)
[2021-08-29 05:34] LABS: Basophils # (auto) 0.01 K/uL (0-0.2); Basophils % (auto) 0.4 %; Eosinophils # (auto) 0.01 K/uL (0-0.5); Eosinophils % (auto) 0.4 %; Immature Granulocytes # (auto) 0.01 K/uL (0.00-0.02); Immature Granulocytes % (auto) 0.4 %; Lymphocytes # (auto) 0.76 K/uL (1.2-3.4); Lymphocytes % (auto) 28.9 %; Monocytes # (auto) 0.35 K/uL (0.11-0.59); Monocytes % (auto) 13.3 %; Neutrophils # (auto) 1.49 K/uL (1.4-6.5); Neutrophils % (auto) 56.6 %
--- NOTE | 2021-08-29 07:15 | XRay Report ---
XR chest 1V portable HISTORY: f/u covid and RUL opacity COMPARISON: Chest 08/28/2021. FINDINGS: No pneumothorax. The lungs are hyperexpanded. Emphysematous changes are again noted. The he art is normal in size. There are coarse interstitial markings which are likely chronic. This remains unchanged. Stable blunting of the costophrenic sulci which may be due to the hyperexpanded lungs are trace pleural effusions. No evidence for pulmonary edema. Hazy right upper lobe airspace opacity pers ists. IMPRESSION: 1. No change in the hazy right upper lobe airspace opacity. This could be due to chronic scarring or a pneumonitis. One-month chest x-ray follow-up recommended to ensure resolution. 2. Advanced emphysema again noted. ACT 112: Negative or not required by law. Electronically signed by: Aiden Appiah M.D. 08/29/2021 7:14 AM
[2021-08-29] MEDS: ALBUT/IPRATROP 3MG/0.5MG NEB 3 ML VIAL NEB SCH ×4 (08:09→19:27)
[2021-08-29] MEDS: busPIRone 15 MG TAB PO SCH ×2 (09:00→21:19)
[2021-08-29] MEDS ORDERED: POTASSIUM CHLORIDE PWD 20 MEQ PACK PO ONE (09:00)
[2021-08-29] MEDS: guaiFENesin 600 MG TABCR PO SCH ×2 (09:01→21:19)
[2021-08-29] MEDS: ENOXAPARIN INJ 40 MG/0.4 ML SYR SQ SCH (09:02)
[2021-08-29] MEDS ORDERED: DEXAMETHASONE SOD INJ 4 MG/ML VIAL ONE (09:07)
[2021-08-29] MEDS: dexAMETHasone 6 MG in SYRINGE 0 ML IV SCH (09:55)
--- NOTE | 2021-08-29 18:42 | Hospitalist Progress Note ---
Date of Service August 29, 2021 Assessment & Plan (1) COVID: Plan: * Patient presented to the ED with flulike symptoms and worsening shortness of breath * Does have COPD requiring nocturnal oxygen but typically does not use oxygen during the day * Pulse ox is in the 80s on room air. She is requiring 1 to 2 L to maintain a pulse ox in the mid to high 90s. Staff encouraged to down titrate to avoid hypercapnia in the setting of her underlying COPD * Patient is vaccinated but has not received her booster * Continue remdesivir- day #2 * Continue Decadronday #2 * CRP 2.20. Does not qualify for baricitinib or tocilizumab * Continue nebulized treatments, flutter valve, and incentive spirometry * Pepcid for GI prophylaxis * Lovenox for DVT prophylaxis * Patient does have mild leukopenia which is likely related to COVID. Her LFTs are currently normal. We will monitor labs closely (2) Hypoxia: Plan: * See above * Goal pulse ox is 88 to 90%. Staff encouraged to avoid over oxygenation (do not want her pulse ox greater than 92%) given risk of hypercapnia in the setting of end-stage COPD (3) Physical debility: Plan: * Related to COVID * Reassurance given to patient that this was normal * Consult PT/OT * Patient lives with a boyfriend (4) Acute UTI (urinary tract infection): Plan: * Patient with mild dysuria and generalized weakness * Her urinalysis is grossly infected as it is nitrite and leukocyte esterase positive * Will obtain a urine culture * Empirically start Rocephin. Patient does have reported allergy to penicillins and Cipro. Treatment options limited. Will trial Rocephin and watch for adverse reactions but cross-reactivity low (5) COPD (chronic obstructive pulmonary disease): Plan: * Patient requires chronic nocturnal oxygen but does not wear O2 during the day * Does not appear to be in an acute exacerbation at this time * If patient does develop an acute exacerbation, may consider transition to Solu-Medrol and tapering course of prednisone (6) Bipolar affective disorder: Plan: * Continue BuSpar and Zoloft along with Seroquel as prior to hospitalization (7) Anxiety and depression: Plan: Continue BuSpar and Zoloft along with Seroquel as prior to hospitalization (8) Hyperlipidemia: Plan: * Continue Lipitor but may need to hold if LFTs uptrend (9) Hypothyroidism: Plan: Continue Synthroid as prior to hospitalization (10) Peripheral arterial disease: Plan: * Patient does not take aspirin. Uncertain as to why. May need to consider this (11) Hypertension: Plan: * Continue metoprolol (12) Severe protein-calorie malnutrition: Plan: Severe protein-calorie malnutrition with BMI = 14 - noted Plan: Plan of care discussed with Dr. Moise Admission and Anticipated Discharge Date Admission Date: August 28, 2021 Subjective Patient seen on daily rounds today. Hospitalized yesterday with COVID- pneumonia. Currently requiring 2 L of oxygen to maintain a pulse ox in the mid to high 90s. Was tried on room air today and did desaturate into the 80s. Reports typically wears nocturnal oxygen but does not require oxygen at rest. Her biggest complaint is feeling excessively fatigued and malaise. Reports that "she cannot even walk to the bathroom". Does get short of breath with ambulation. Otherwise, denies fevers, chills, chest pain, abdominal pain, nausea or vomiting. Review of Systems Review of Systems: All systems reviewed and are unremarkable except as noted in HPI and below Denies fevers, chills, headache, nasal congestion, sore throat, cough, chest pain, palpitations, orthopnea, PND, abdominal pain, nausea, vomiting, diarrhea, constipation, dysuria, hematuria, frequency, back pain, joint pain or swelling, easy bruising or bleeding, skin lesions or rashes. Physical Exam Physical Exam: General: Resting comfortably in her hospital bed. Appears chronically ill and cachectic but not significantly acutely ill HEENT: Head is AT/NC buccal mucosa is moist and pink Neck: No JVD. Negative hepatojugular reflex Cardiac: Distant heart sounds Lungs: Barrel chest. Speaking full sentences on supplemental oxygen. No a ccessory muscle use. Very distant/diminished breath sounds throughout without wheezes, rales or rhonchi Abdomen: Normoactive X4. Soft and nontender in all quadrants. Extremities: No peripheral clubbing cyanosis or edema Neuro: A&O X4 cranial nerves II through XII are grossly intact no focal neuro deficits Skin: No obvious skin lesions or rashes Psych: Appropriate affect pleasant and cooperative Results & Data Results & Data ([facility]) Vital Signs (Past 12 Hours) Vital Signs Pulse Resp BP Pulse Ox 08/29/21 14:36 97 H 18 96 08/29/21 13:00 76 13 116/68 97 08/29/21 10:46 104 H 20 96 08/29/21 08:10 105 H 20 98 Laboratory Results 08/29/21 04:24 08/29/21 04:24 PG Care Time/CCT Total # of Minutes Spent Total Time Spent with Patient: Total time spent is greater than 50% in coordination of care (as documented) at patient's floor/unit and/or counseling patient: Coding Level of Care Code 68561 Subseq Hosp Care Lvl 2 Diagnoses COVID U07.1 Hypoxia R09.02 Physical debility R53.81 Acute UTI (urinary tract infection) N39.0 COPD (chronic obstructive pulmonary disease) J44.9 Bipolar affective disorder F31.9 Anxiety and depression F41.9; F32.9 Hyperlipidemia E78.5 Hypothyroidism E03.9 Peripheral arterial disease I73.9 Hypertension I10 Severe protein-calorie malnutrition E43
[2021-08-29] MEDS: REMDESIVIR 100 MG in SODIUM CHLORIDE 0.9% 230 ML IV SCH (20:11)
--- NOTE | 2021-08-29 20:54 | Electrocardiogram Report ---
Test Reason : Blood Pressure : / mmHG Vent. Rate : 090 BPM Atrial Rate : 090 BPM P-R Int : 132 ms QRS Dur : 082 ms QT Int : 386 ms P-R-T Axes : 083 079 080 degrees QTc Int : 472 ms Poor data quality, interpretation may be adversely affected Normal sinus rhythm Biatrial enlargement Septal infarct (cited on or before 07-DEC-2018) Abnormal ECG When compared with ECG of 09-MAY-2021 12:59, No significant change was found Confirmed by Bertram Jeter ([id number]) on 08/29/2021 8:54:01 PM Referred By: REFERRED SELF Confirmed By:Bertram Jeter
[2021-08-29] MEDS: ATORVASTATIN 20 MG TAB PO SCH (21:19)
[2021-08-29] MEDS: LEVOTHYROXINE SODIUM 50 MCG TABLET PO SCH (21:20)
[2021-08-29] MEDS: FAMOTIDINE 20 MG TAB PO SCH (21:20)
[2021-08-29] MEDS: SERTRALINE HCL 100 MG TABLET PO SCH (21:20)
[2021-08-29] MEDS: METOPROLOL TARTRATE 25 MG TAB PO SCH (21:21)
--- NOTE | 2021-08-29 21:56 | Electrocardiogram Report ---
Test Reason : Blood Pressure : / mmHG Vent. Rate : 110 BPM Atrial Rate : 110 BPM P-R Int : 140 ms QRS Dur : 070 ms QT Int : 354 ms P-R-T Axes : 084 068 085 degrees QTc Int : 479 ms Poor data quality, interpretation may be adversely affected Sinus tachycardia with Premature atrial complexes Biatrial enlargement Septal infarct (cited on or before 07-DEC-2018) Abnormal ECG When compared with ECG of 28-AUG-2021 16:02, Premature atrial complexes are now Present Confirmed by Bertram Jeter ([id number]) on 08/29/2021 9:56:13 PM Referred By: REFERRED SELF Confirmed By:Bertram Jeter
[2021-08-29] MEDS: cefTRIAXone SODIUM 1,000 MG in DEXTROSE 5% 50 ML IV SCH (22:50)
[2021-08-30] MEDS: QUEtiapine FUMARATE 200 MG TAB PO SCH ×2 (00:11→22:51)
--- NOTE | 2021-08-30 02:37 | Billing Data ---
Date of Service August 30, 2021 Coding Level of Care Code 17021 Initial Inpt Care Lvl 3
[2021-08-30 07:39] LABS: Basophils # (auto) 0.01 K/uL (0-0.2); Basophils % (auto) 0.2 %; Eosinophils # (auto) 0.04 K/uL (0-0.5); Eosinophils % (auto) 0.8 %; Hematocrit (blood only) 36.7 % (37-47); Hemoglobin 11.7 g/dL (12.0-16.0); Immature Granulocytes # (auto) 0.01 K/uL (0.00-0.02); Immature Granulocytes % (auto) 0.2 %; Lymphocytes % (auto) 24.7 %; Mean Corpuscular Hemoglobin 25.9 pg (25-34); Mean Corpuscular Hgb Conc 31.9 g/dL (32-36); Mean Corpuscular Volume 81.2 fL (80-100); Mean Platelet Volume 10.4 fL (7.4-10.4); Monocytes # (auto) 0.48 K/uL (0.11-0.59); Monocytes % (auto) 9.9 %; Neutrophils # (auto) 3.11 K/uL (1.4-6.5); Neutrophils % (auto) 64.2 %; Platelet Count 252 K/uL (130-400); RDW Coefficient of Variation 15.8 % (11.5-14.5); RDW Standard Deviation 47.3 fL (36.4-46.3); Red Blood Count 4.52 M/uL (4.2-5.4); White Blood Count 4.85 K/uL (4.8-10.8)
[2021-08-30] MEDS: ALBUT/IPRATROP 3MG/0.5MG NEB 3 ML VIAL NEB SCH (07:55)
[2021-08-30 08:04] LABS: BUN Creatinine Ratio 60.4 (10-20); Calcium 8.4 mg/dl (8.5-10.1); Creatinine Clr Calc Pharmacy 59.3 ml/min; Est GFR (African American) 118.5 ml/min; Est GFR (Non-African American) 102.2 ml/min; Magnesium 1.7 mg/dl (1.7-2.4); Potassium 2.8 mmol/L (3.5-5.1)
[2021-08-30] MEDS: dexAMETHasone 6 MG in SYRINGE 0 ML IV SCH (08:54)
[2021-08-30] MEDS: ENOXAPARIN INJ 40 MG/0.4 ML SYR SQ SCH (08:55)
[2021-08-30] MEDS: FAMOTIDINE 20 MG TAB PO SCH ×2 (08:55→22:52)
[2021-08-30] MEDS: busPIRone 15 MG TAB PO SCH ×2 (08:55→22:48)
[2021-08-30] MEDS: guaiFENesin 600 MG TABCR PO SCH ×2 (08:55→22:49)
[2021-08-30] MEDS ORDERED: MAGNESIUM SULFATE / D5W 1 GM/100 ML BAG IV ONE (09:30)
[2021-08-30] MEDS ORDERED: POTASSIUM CHLORIDE 20 MEQ/15 ML UDC PO ONE (09:30)
[2021-08-30 11:19] LABS: Appearance Urine Cloudy (Clear); Bacteria Urine Automated Negative (Negative); Blood Urine Negative (Negative); Cast Urine Automated 0 /lpf (0-5); Color Urine Dark Yellow; Epithelial Cell Urine Auto >30 /lpf (0-5); Glucose Urine UA Negative (Negative); Ketones Urine Trace (Negative); Leukocyte Esterase Urine Negative (Negative); Nitrite Urine Negative (Negative); Protein Urine Trace (Negative); Specific Gravity Urine 1.034 (1.000-1.030); Urobilinogen Urine Negative (Negative); pH Urine 5.5 (4.5-7.5)
[2021-08-30 11:22] LABS: Bilirubin Urine 1+ (Negative)
[2021-08-30] MEDS ORDERED: POTASSIUM CHLORIDE 20 MEQ/15 ML UDC PO STA (17:54)
--- NOTE | 2021-08-30 18:15 | Hospitalist Progress Note ---
Date of Service August 30, 2021 Assessment & Plan (1) COVID: Plan: 66 y/o F w/ PMHx of hypothyroidism, COPD, HTN, bipolar affective disorder, depression/anxiety, who presents w/ worsened dyspnea on exertion and hypoxia secondary to covid pneumonia, day 7 of symptoms at the time of arrival With COVID-19 pneumonia and acute respiratory failure with hypoxia Procalcitonin negative - has COPD and baseline 2.5L qhs O2 requirement. Now requiring 1-2 L nasal cannula to keep pulse ox greater than 90% -Continue remdesivir x 5 days; meets criteria and renal/liver function appropriate -Continue IV dexamethasone -Change albuterol neb treatments to as needed-she knows to ask for them -Continue flutter valve, incentive spirom, Mucinex - Maintain O2 sat goal >90% - CRP minimally elevated at 2.2 -Follow CBC, CMP, CRP in the morning (2) COPD (chronic obstructive pulmonary disease): Plan: - see above Not on any maintenance inhalers at home, uses albuterol and ipratropium as needed (3) O2 dependent: Plan: Chronic respiratory failure with hypoxia 2.5L qhs at home (4) Bipolar affective disorder: Plan: Continue home regimen. Of note, the 800mg qhs Seroquel is a very high dose. Confirmed w/ patient that she has been on this chronically. Monitor clinically for sedation. Continue sertraline 200 mg p.o. at bedtime (5) Anxiety and depression: Plan: - Continue home regimen. (6) Hypothyroidism: Plan: TSH normal in 02/2021 Continue home levothyroxine 50 mcg daily (7) Hyperlipidemia: Plan: - Continue home atorvastatin (8) Migraine: Plan: Stable, not on medications (9) Hypertension: Plan: Blood pressures fairly well controlled Continue home metoprolol tartrate 25 mg daily (10) Severe protein-calorie malnutrition: Plan: BMI very low at 14.0 and she reports having lost over 40 pounds in the last 6 years Could be due to end-stage COPD Does need a repeat CT chest from a follow-up from 3 months ago, but would not do at this time with COVID She is at high risk for malignancy given long history of smoking Follow-up with PCP as an outpatient Appreciate dietary consultation-she is not really drinking the boost (11) Hypokalemia: Plan: Potassium very low at 2.8 Replace with a total of 60 mEq p.o. potassium chloride today Follow BMP and magnesium in the morning Replace magnesium sulfate 1 g IV today (12) Anemia: Plan: Hemoglobin mildly low at 11.7, microcytic with MCV 81.2 Check iron studies in the morning Plan: DVT but need to reduce dose to 30 ppx: Lovenox Mg SQ once daily due to very low body weight code: full dispo: Continued stay on med tele Admission and Anticipated Discharge Date Admission Date: August 28, 2021 Subjective Still feels AVILES with short distances walking across room, but feels better than yesterday. Still having some dysuria. Not bringing up mucus in her cough. No further diarrhea. Remains on 1LNC Tele with ST, PACs, rates 90-130s Review of Systems Review of Systems: All systems reviewed & are unremarkable except as noted in HPI & below Physical Exam Constitutional: + frail appearing and + underweight Eyes: + anicteric sclerae Neck: trachea midline, no thyromegaly Respiratory: normal respiratory effort; no cough Auscultation: + diminished lung sounds (Throughout); no crackles and no wheezes Cardiovascular: RRR, no murmur, no edema Chest (Breasts): Chest: normal inspection of chest Gastrointestinal (Abdomen): normal bowel sounds, soft, nontender, no hepatosplenomegaly Musculoskeletal: Extremities: extremities normal to inspection; no cyanosis and no clubbing Skin: no rashes, warm and dry Neurologic: moves all extremities and awake; no focal motor deficits Psychiatric: A+Ox3, euthymic affect Lymphatic: no lymphedema Results & Data Results & Data ([facility]) Vital Signs (Past 12 Hours) Vital Signs Temp Pulse Pulse Pulse Resp BP Pulse Ox 08/30/21 16:02 36.3 C L 103 H 20 141/87 H 94 08/30/21 15:35 114 H 08/30/21 11:41 36.5 C 106 H 16 148/87 H 96 08/30/21 08:03 36.5 C 98 H 16 123/70 96 08/30/21 07:57 101 H 18 95 08/30/21 07:21 91 H Laboratory Results 08/30/21 08/30/21 08/30/21 Range/Units 10:38 07:01 07:01 WBC 4.85 (4.8-10.8) K/uL RBC 4.52 (4.2-5.4) M/uL Hgb 11.7 L (12.0-16.0) g/dL Hct 36.7 L (37-47) % MCV 81.2 (80-100) fL MCH 25.9 (25-34) pg MCHC 31.9 L (32-36) g/dL RDW Std Deviation 47.3 H (36.4-46.3) fL RDW Coeff of Luis 15.8 H (11.5-14.5) % Plt Count 252 (130-400) K/uL MPV 10.4 (7.4-10.4) fL Immature Gran % (Auto) 0.2 % Neut % (Auto) 64.2 % Lymph % (Auto) 24.7 % [place] % (Auto) 9.9 % Eos % (Auto) 0.8 % Baso % (Auto) 0.2 % Neut # (Auto) 3.11 (1.4-6.5) K/uL Lymph # (Auto) 1.20 (1.2-3.4) K/uL [place] # (Auto) 0.48 (0.11-0.59) K/uL Eos # (Auto) 0.04 (0-0.5) K/uL Baso # (Auto) 0.01 (0-0.2) K/uL Immature Gran # (Auto) 0.01 (0.00-0.02) K/uL Sodium 140 (136-145) mmol/L Potassium 2.8 L D (3.5-5.1) mmol/L Chloride 107 (98-107) mmol/L Carbon Dioxide 30 (21-32) mmol/L Anion Gap 3 (3-11) BUN 29 H (6-23) mg/dl Creatinine 0.48 L (0.6-1.2) mg/dl Est Cr Clr Drug Dosing 59.3 ml/min Est GFR ( Amer) 118.5 ml/min Est GFR (Non-Af Amer) 102.2 ml/min BUN/Creatinine Ratio 60.4 H (10-20) Glucose 78 (70-99(Fasting)) mg/dl Calcium 8.4 L (8.5-10.1) mg/dl Magnesium 1.7 (1.7-2.4) mg/dl AST 17 (13-39) U/L ALT 12 (7-52) U/L Urine Color Dark Yellow Urine Appearance Cloudy A (Clear) Urine pH 5.5 (4.5-7.5) Ur Specific [place] 1.034 H (1.000-1.030) Urine Protein Trace H (Negative) Urine Glucose (UA) Negative (Negative) Urine Ketones Trace H (Negative) Urine Blood Negative (Negative) Urine Nitrite Negative (Negative) Urine Bilirubin 1+ H (Negative) Urine Urobilinogen Negative (Negative) Ur Leukocyte Esterase Negative (Negative) Urine WBC (Auto) 1-5 (0-5) /hpf Urine RBC (Auto) 5-10 H (0-4) /hpf U Hyaline Cast (Auto) 0 (0-5) /lpf U Epithel Cells (Auto) >30 H (0-5) /lpf Urine Bacteria (Auto) Negative (Negative) PG Care Time/CCT Total # of Minutes Spent Total Time Spent with Patient: Total time spent is greater than 50% in coordination of care (as documented) at patient's floor/unit and/or counseling patient: Coding Level of Care Code 92450 Subseq Hosp Care Lvl 3 Diagnoses COVID U07.1 COPD (chronic obstructive pulmonary disease) J44.9 O2 dependent Z99.81 Bipolar affective disorder F31.9 Anxiety and depression F41.9; F32.9 Hypothyroidism E03.9 Hyperlipidemia E78.5 Migraine G43.909 Hypertension I10 Severe protein-calorie malnutrition E43 Hypokalemia E87.6 Anemia D64.9
[2021-08-30] MEDS: ALBUTEROL HFA 8 GM INHALER INH SCH (19:32)
[2021-08-30] MEDS: REMDESIVIR 100 MG in SODIUM CHLORIDE 0.9% 230 ML IV SCH (20:31)
[2021-08-30] MEDS: ATORVASTATIN 20 MG TAB PO SCH (22:48)
[2021-08-30] MEDS: SERTRALINE HCL 100 MG TABLET PO SCH (22:49)
[2021-08-30] MEDS: METOPROLOL TARTRATE 25 MG TAB PO SCH (22:50)
[2021-08-30] MEDS: LEVOTHYROXINE SODIUM 50 MCG TABLET PO SCH (22:52)
[2021-08-30] MEDS: cefTRIAXone SODIUM 1,000 MG in DEXTROSE 5% 50 ML IV SCH (22:53)
[2021-08-31 07:38] LABS: Basophils # (auto) 0.01 K/uL (0-0.2); Basophils % (auto) 0.1 %; Eosinophils # (auto) 0.11 K/uL (0-0.5); Eosinophils % (auto) 1.6 %; Hematocrit (blood only) 36.3 % (37-47); Hemoglobin 11.5 g/dL (12.0-16.0); Immature Granulocytes # (auto) 0.01 K/uL (0.00-0.02); Immature Granulocytes % (auto) 0.1 %; Lymphocytes # (auto) 1.06 K/uL (1.2-3.4); Lymphocytes % (auto) 15.4 %; Mean Corpuscular Hemoglobin 26.1 pg (25-34); Mean Corpuscular Hgb Conc 31.7 g/dL (32-36); Mean Corpuscular Volume 82.5 fL (80-100); Mean Platelet Volume 10.1 fL (7.4-10.4); Monocytes # (auto) 0.67 K/uL (0.11-0.59); Monocytes % (auto) 9.8 %; Neutrophils # (auto) 5.01 K/uL (1.4-6.5); Platelet Count 277 K/uL (130-400); RDW Coefficient of Variation 15.8 % (11.5-14.5); RDW Standard Deviation 47.9 fL (36.4-46.3); White Blood Count 6.87 K/uL (4.8-10.8)
[2021-08-31] MEDS: ALBUTEROL HFA 8 GM INHALER INH SCH ×2 (07:48→19:56)
[2021-08-31 08:03] LABS: BUN Creatinine Ratio 56.4 (10-20); Calcium 8.5 mg/dl (8.5-10.1); Creatinine Clr Calc Pharmacy 51.8 ml/min; Est GFR (African American) 113.3 ml/min; Est GFR (Non-African American) 97.7 ml/min; Magnesium 1.9 mg/dl (1.7-2.4); Potassium 3.2 mmol/L (3.5-5.1)
[2021-08-31 08:04] LABS: Iron 22 mcg/dl (35-150); Unsaturated Iron Binding Cap 193 mcg/dl (155-355)
[2021-08-31 08:24] LABS: Folate (Folic Acid) 10.55 ng/ml (>5.38)
[2021-08-31 08:25] LABS: Vitamin B12 > 1500 pg/ml (211-911)
[2021-08-31] MEDS ORDERED: POTASSIUM CHLORIDE 20 MEQ/15 ML UDC PO STA (08:26)
[2021-08-31 08:44] LABS: Ferritin 24.4 ng/ml (8-388)
[2021-08-31] MEDS ORDERED: MAGNESIUM SULFATE / D5W 1 GM/100 ML BAG IV ONE (09:00)
[2021-08-31] MEDS: busPIRone 15 MG TAB PO SCH ×2 (09:09→20:53)
[2021-08-31] MEDS: guaiFENesin 600 MG TABCR PO SCH ×2 (09:09→20:54)
[2021-08-31] MEDS: ENOXAPARIN INJ 30 MG/0.3 ML SYR SQ SCH (09:09)
[2021-08-31] MEDS: dexAMETHasone 6 MG in SYRINGE 0 ML IV SCH (09:10)
[2021-08-31] MEDS: FAMOTIDINE 20 MG TAB PO SCH ×2 (09:10→20:54)
[2021-08-31] MEDS ORDERED: Flu Vaccine-High Dose (Fluzone-HD) PF 65+ 0.7mL SYR IM ONE (11:00)
[2021-08-31 12:31] LABS: Transferrin (FE) Percent Satur 10 % (15-50)
[2021-08-31 12:32] LABS: Total Iron Binding Cap Calc 215 mcg/dl (250-450)
--- NOTE | 2021-08-31 17:18 | Hospitalist Progress Note ---
Date of Service August 31, 2021 Assessment & Plan (1) COVID: Plan: 66 y/o F w/ PMHx of hypothyroidism, COPD, HTN, bipolar affective disorder, depression/anxiety, who presents w/ worsened dyspnea on exertion and hypoxia secondary to covid pneumonia, day 7 of symptoms at the time of arrival With COVID-19 pneumonia and acute respiratory failure with hypoxia Procalcitonin negative has COPD and baseline 2.5L qhs O2 requirement. Continues to be requiring 1-2 L nasal cannula to keep pulse ox greater than 90% Continues with significant AVILES, worse than baseline At baseline, can walk about 10 feet before stopping to catch her breath. Now only 2 steps -Continue remdesivir x 5 days; meets criteria and renal/liver function appropriate -Continue IV dexamethasone -continue albuterol neb treatments as needed-she knows to ask for them -Continue flutter valve, incentive spirom, Mucinex - Maintain O2 sat goal >90% - CRP minimally elevated at 2.2 (2) COPD (chronic obstructive pulmonary disease): Plan: - see above Not on any maintenance inhalers at home, uses albuterol and ipratropium as needed (3) O2 dependent: Plan: Chronic respiratory failure with hypoxia 2.5L qhs at home (4) Bipolar affective disorder: Plan: Continue home regimen. Of note, the 800mg qhs Seroquel is a very high dose. Confirmed w/ patient that she has been on this chronically. Monitor clinically for sedation. Continue sertraline 200 mg p.o. at bedtime (5) Anxiety and depression: Plan: - Continue home regimen. (6) Hypothyroidism: Plan: TSH normal in 02/2021 Continue home levothyroxine 50 mcg daily (7) Hyperlipidemia: Plan: - Continue home atorvastatin (8) Migraine: Plan: Stable, not on medications (9) Hypertension: Plan: Blood pressures fairly well controlled Continue home metoprolol tartrate 25 mg daily (10) Severe protein-calorie malnutrition: Plan: BMI very low at 14.0 and she reports having lost over 40 pounds in the last 6 years Could be due to end-stage COPD Does need a repeat CT chest from a follow-up from 3 months ago, but would not do at this time with COVID She is at high risk for malignancy given long history of smoking Follow-up with PCP as an outpatient Appreciate dietary consultation-she is not really drinking the boost (11) Hypokalemia: Plan: Potassium remains low but improved from previous Replace with a total of 60 mEq p.o. potassium chloride again today split bid Follow BMP and magnesium in the morning Replace magnesium sulfate 1 g IV again today (12) Anemia: Plan: Hemoglobin mildly low at 11.7, microcytic with MCV 81.2 iron studies show transferrin sat very low at 10% was due for her IV Venofer at Heme/Onc last week and missed it -give Venofer 300mg IV daily x 3 while here Plan: DVT proph: Lovenox code: full dispo: Continued stay but can downgrade to med/surg Admission and Anticipated Discharge Date Admission Date: August 28, 2021 Subjective Pt feels a little better today, less SOB but still AVILES with trying to walk to the bathroom or get OOB to a chair. Still poor appetite, everything tastes bad. Tele with NSR, rates in the 80s Review of Systems Review of Systems: All systems reviewed & are unremarkable except as noted in HPI & below Physical Exam Constitutional: + frail appearing and + underweight Eyes: + anicteric sclerae Neck: trachea midline, no thyromegaly Respiratory: normal respiratory effort, lungs clear to auscultation + cough (sounds coarse) Auscultation: + diminished lung sounds (Throughout); no crackles and no wheezes Cardiovascular: RRR, no murmur, no edema Chest (Breasts): Chest: normal inspection of chest Gastrointestinal (Abdomen): normal bowel sounds, soft, nontender, no hepatosplenomegaly Musculoskeletal: Extremities: extremities normal to inspection; no cyanosis and no clubbing Skin: no rashes, warm and dry Neurologic: moves all extremities and awake; no focal motor deficits Psychiatric: A+Ox3, euthymic affect Lymphatic: no lymphedema Results & Data Results & Data ([facility]) Vital Signs (Past 12 Hours) Vital Signs Temp Pulse Pulse Resp BP Pulse Ox 08/31/21 15:47 89 08/31/21 15:05 36.7 C 88 16 121/78 92 08/31/21 12:08 36.4 C L 101 H 16 109/79 92 08/31/21 07:48 85 21 91 08/31/21 07:39 36.4 C L 81 16 129/76 94 08/31/21 07:15 74 Laboratory Results 08/31/21 08/31/21 08/31/21 Range/Units 07:16 07:16 07:16 WBC 6.87 (4.8-10.8) K/uL RBC 4.40 (4.2-5.4) M/uL Hgb 11.5 L (12.0-16.0) g/dL Hct 36.3 L (37-47) % MCV 82.5 (80-100) fL MCH 26.1 (25-34) pg MCHC 31.7 L (32-36) g/dL RDW Std Deviation 47.9 H (36.4-46.3) fL RDW Coeff of Luis 15.8 H (11.5-14.5) % Plt Count 277 (130-400) K/uL MPV 10.1 (7.4-10.4) fL Immature Gran % (Auto) 0.1 % Neut % (Auto) 73.0 % Lymph % (Auto) 15.4 % [place] % (Auto) 9.8 % Eos % (Auto) 1.6 % Baso % (Auto) 0.1 % Neut # (Auto) 5.01 (1.4-6.5) K/uL Lymph # (Auto) 1.06 L (1.2-3.4) K/uL [place] # (Auto) 0.67 H (0.11-0.59) K/uL Eos # (Auto) 0.11 (0-0.5) K/uL Baso # (Auto) 0.01 (0-0.2) K/uL Immature Gran # (Auto) 0.01 (0.00-0.02) K/uL Sodium (136-145) mmol/L Potassium (3.5-5.1) mmol/L Chloride (98-107) mmol/L Carbon Dioxide (21-32) mmol/L Anion Gap (3-11) BUN (6-23) mg/dl Creatinine (0.6-1.2) mg/dl Est Cr Clr Drug Dosing ml/min Est GFR ( Amer) ml/min Est GFR (Non-Af Amer) ml/min BUN/Creatinine Ratio (10-20) Glucose (70-99(Fasting)) mg/dl Calcium (8.5-10.1) mg/dl Magnesium (1.7-2.4) mg/dl Iron 22 L (35-150) mcg/dl TIBC 215 L (250-450) mcg/dl Unsaturated IBC 193 (155-355) mcg/dl Transferrin % Sat 10 L (15-50) % Ferritin (8-388) ng/ml AST (13-39) U/L ALT (7-52) U/L Vitamin B12 > 1500 H (211-911) pg/ml Folate 10.55 (>5.38) ng/ml 08/31/21 Range/Units 07:16 WBC (4.8-10.8) K/uL RBC (4.2-5.4) M/uL Hgb (12.0-16.0) g/dL Hct (37-47) % MCV (80-100) fL MCH (25-34) pg MCHC (32-36) g/dL RDW Std Deviation (36.4-46.3) fL RDW Coeff of Luis (11.5-14.5) % Plt Count (130-400) K/uL MPV (7.4-10.4) fL Immature Gran % (Auto) % Neut % (Auto) % Lymph % (Auto) % [place] % (Auto) % Eos % (Auto) % Baso % (Auto) % Neut # (Auto) (1.4-6.5) K/uL Lymph # (Auto) (1.2-3.4) K/uL [place] # (Auto) (0.11-0.59) K/uL Eos # (Auto) (0-0.5) K/uL Baso # (Auto) (0-0.2) K/uL Immature Gran # (Auto) (0.00-0.02) K/uL Sodium 142 (136-145) mmol/L Potassium 3.2 L (3.5-5.1) mmol/L Chloride 107 (98-107) mmol/L Carbon Dioxide 30 (21-32) mmol/L Anion Gap 5 (3-11) BUN 31 H (6-23) mg/dl Creatinine 0.55 L (0.6-1.2) mg/dl Est Cr Clr Drug Dosing 51.8 ml/min Est GFR ( Amer) 113.3 ml/min Est GFR (Non-Af Amer) 97.7 ml/min BUN/Creatinine Ratio 56.4 H (10-20) Glucose 79 (70-99(Fasting)) mg/dl Calcium 8.5 (8.5-10.1) mg/dl Magnesium 1.9 (1.7-2.4) mg/dl Iron (35-150) mcg/dl TIBC (250-450) mcg/dl Unsaturated IBC (155-355) mcg/dl Transferrin % Sat (15-50) % Ferritin 24.4 (8-388) ng/ml AST 14 (13-39) U/L ALT 10 (7-52) U/L Vitamin B12 (211-911) pg/ml Folate (>5.38) ng/ml PG Care Time/CCT Total # of Minutes Spent Total Time Spent with Patient: Total time spent is greater than 50% in coordination of care (as documented) at patient's floor/unit and/or counseling patient: Coding Level of Care Code 25665 Subseq Hosp Care Lvl 3 Diagnoses COVID U07.1 COPD (chronic obstructive pulmonary disease) J44.9 O2 dependent Z99.81 Bipolar affective disorder F31.9 Anxiety and depression F41.9; F32.9 Hypothyroidism E03.9 Hyperlipidemia E78.5 Migraine G43.909 Hypertension I10 Severe protein-calorie malnutrition E43 Hypokalemia E87.6 Anemia D64.9
[2021-08-31] MEDS ORDERED: POTASSIUM CHLORIDE 20 MEQ/15 ML UDC PO ONE (18:00)
[2021-08-31] MEDS ORDERED: IRON SUCROSE 300 MG in SODIUM CHLORIDE 0.9% 250 ML IV ONE (19:00)
[2021-08-31] MEDS: REMDESIVIR 100 MG in SODIUM CHLORIDE 0.9% 230 ML IV SCH (19:43)
[2021-08-31] MEDS: ATORVASTATIN 20 MG TAB PO SCH (20:50)
[2021-08-31] MEDS: cefTRIAXone SODIUM 1,000 MG in DEXTROSE 5% 50 ML IV SCH (20:50)
[2021-08-31] MEDS: METOPROLOL TARTRATE 25 MG TAB PO SCH (20:55)
[2021-08-31] MEDS: LEVOTHYROXINE SODIUM 50 MCG TABLET PO SCH (20:55)
[2021-08-31] MEDS: SERTRALINE HCL 100 MG TABLET PO SCH (20:56)
[2021-08-31] MEDS: QUEtiapine FUMARATE 200 MG TAB PO SCH (20:56)
[2021-09-01 07:38] LABS: Calcium 8.4 mg/dl (8.5-10.1); Est GFR (African American) 116.9 ml/min; Est GFR (Non-African American) 100.9 ml/min; Magnesium 1.8 mg/dl (1.7-2.4); Potassium 3.4 mmol/L (3.5-5.1)
[2021-09-01] MEDS ORDERED: MAGNESIUM SULFATE / D5W 1 GM/100 ML BAG IV ONE (08:25)
[2021-09-01] MEDS ORDERED: POTASSIUM CHLORIDE 20 MEQ/15 ML UDC PO STA (08:25)
[2021-09-01] MEDS: ALBUTEROL HFA 8 GM INHALER INH SCH ×2 (08:40→21:10)
[2021-09-01] MEDS ORDERED: IRON SUCROSE 300 MG in SODIUM CHLORIDE 0.9% 250 ML IV ONE (09:00)
[2021-09-01] MEDS: dexAMETHasone 6 MG in SYRINGE 0 ML IV SCH (09:30)
[2021-09-01] MEDS: busPIRone 15 MG TAB PO SCH ×2 (09:33→20:06)
[2021-09-01] MEDS: ENOXAPARIN INJ 30 MG/0.3 ML SYR SQ SCH (09:33)
[2021-09-01] MEDS: FAMOTIDINE 20 MG TAB PO SCH ×2 (09:34→20:07)
[2021-09-01] MEDS: guaiFENesin 600 MG TABCR PO SCH ×2 (09:35→20:05)
--- NOTE | 2021-09-01 15:45 | Hospitalist Progress Note ---
Date of Service September 01, 2021 Assessment & Plan (1) COVID: Plan: 66 y/o F w/ PMHx of hypothyroidism, COPD, HTN, bipolar affective disorder, depression/anxiety, who presents w/ worsened dyspnea on exertion and hypoxia secondary to covid pneumonia, day 7 of symptoms at the time of arrival With COVID-19 pneumonia and acute respiratory failure with hypoxia Procalcitonin negative has COPD and baseline 2.5L qhs O2 requirement. Continues to be requiring 2 L nasal cannula to keep pulse ox greater than 90% at rest, but dropped to the 70s on room air with exertion to the bathroom Continues with significant AVILES, worse than baseline but improving each day slightly At baseline, can walk about 10 feet before stopping to catch her breath. Now only 2 steps -Continue remdesivir x 5 days; meets criteria and renal/liver function appropriate -Continue IV dexamethasone x10-day course -continue albuterol neb treatments as needed-she knows to ask for them -Continue flutter valve, incentive spirom, Mucinex - Maintain O2 sat goal >90% - CRP minimally elevated at 2.2 -she will need a two-step walk test prior to discharge that she typically only has nocturnal O2 (2) COPD (chronic obstructive pulmonary disease): Plan: - see above Not on any maintenance inhalers at home, uses albuterol and ipratropium as needed (3) O2 dependent: Plan: Chronic respiratory failure with hypoxia 2.5L qhs at home (4) Bipolar affective disorder: Plan: Continue home regimen. Of note, the 800mg qhs Seroquel is a very high dose. Confirmed w/ patient that she has been on this chronically. Monitor clinically for sedation. Continue sertraline 200 mg p.o. at bedtime (5) Anxiety and depression: Plan: - Continue home regimen. (6) Hypothyroidism: Plan: TSH normal in 02/2021 Continue home levothyroxine 50 mcg daily (7) Hyperlipidemia: Plan: - Continue home atorvastatin (8) Migraine: Plan: Stable, not on medications (9) Hypertension: Plan: Blood pressures fairly well controlled Continue home metoprolol tartrate 25 mg daily (10) Severe protein-calorie malnutrition: Plan: BMI very low at 14.0 and she reports having lost over 40 pounds in the last 6 years Could be due to end-stage COPD Does need a repeat CT chest from a follow-up from 3 months ago, but would not do at this time with COVID She is at high risk for malignancy given long history of smoking Follow-up with PCP as an outpatient Appreciate dietary consultation-she is not really drinking the boost (11) Hypokalemia: Plan: Potassium remains low but improved from previous Replace again today with potassium chloride 40 mEq p.o. x1 Follow BMP and magnesium in the morning Replace magnesium sulfate 1 g IV again today keep magnesium greater than 2.0 (12) Anemia: Plan: Hemoglobin mildly low at 11.7, microcytic with MCV 81.2 iron studies show transferrin sat very low at 10% was due for her IV Venofer at Heme/Onc last week and missed it -give Venofer 300mg IV daily x 3 while here-last dose will be on 09/02 Plan: DVT proph: Lovenox code: full dispo: Continued stay on med/surg, but hopeful for discharge in the next 1 to 2 days to home with oxygen Admission and Anticipated Discharge Date Admission Date: August 28, 2021 Subjective Patient feels better today than yesterday, still low appetite, still dyspnea on exertion and pulse ox dropped to the 70s when she walked to the bathroom without oxygen today as per nursing. But overall slightly better with her breathing. She is using her flutter valve and incentive spirometer. Remains on 3 L nasal cannula at rest. No other concerns. No further dysuria. Review of Systems Review of Systems: All systems reviewed & are unremarkable except as noted in HPI & below Physical Exam Constitutional: + frail appearing and + underweight Eyes: + anicteric sclerae Neck: trachea midline, no thyromegaly Respiratory: normal respiratory effort, lungs clear to auscultation + cough (sounds coarse) Auscultation: + diminished lung sounds (Throughout); no crackles and no wheezes Cardiovascular: RRR, no murmur, no edema Chest (Breasts): Chest: normal inspection of chest Gastrointestinal (Abdomen): normal bowel sounds, soft, nontender, no hepa tosplenomegaly Musculoskeletal: Extremities: extremities normal to inspection; no cyanosis and no clubbing Skin: no rashes, warm and dry Neurologic: moves all extremities and awake; no focal motor deficits Psychiatric: A+Ox3, euthymic affect Lymphatic: no lymphedema Results & Data Results & Data ([facility]) Vital Signs (Past 12 Hours) Vital Signs Temp Pulse Resp BP BP Pulse Ox 09/01/21 15:02 36.5 C 83 20 137/76 92 09/01/21 11:28 36.7 C 84 20 146/80 H 94 09/01/21 11:05 36.3 C L 90 20 156/90 H 93 09/01/21 09:23 36.7 C 88 18 114/72 95 09/01/21 08:41 86 20 09/01/21 07:35 36.5 C 72 18 155/89 H 97 Laboratory Results 09/01/21 Range/Units 06:49 Sodium 142 (136-145) mmol/L Potassium 3.4 L (3.5-5.1) mmol/L Chloride 107 (98-107) mmol/L Carbon Dioxide 31 (21-32) mmol/L Anion Gap 4 (3-11) BUN 27 H (6-23) mg/dl Creatinine 0.50 L (0.6-1.2) mg/dl Est Cr Clr Drug Dosing 57.0 ml/min Est GFR ( Amer) 116.9 ml/min Est GFR (Non-Af Amer) 100.9 ml/min BUN/Creatinine Ratio 54.0 H (10-20) Glucose 83 (70-99(Fasting)) mg/dl Calcium 8.4 L (8.5-10.1) mg/dl Magnesium 1.8 (1.7-2.4) mg/dl AST 12 L (13-39) U/L ALT 11 (7-52) U/L PG Care Time/CCT Total # of Minutes Spent Total Time Spent with Patient: Total time spent is greater than 50% in coordination of care (as documented) at patient's floor/unit and/or counseling patient: Coding Level of Care Code 46431 Subseq Hosp Care Lvl 3 Diagnoses COVID U07.1 COPD (chronic obstructive pulmonary disease) J44.9 O2 dependent Z99.81 Bipolar affective disorder F31.9 Anxiety and depression F41.9; F32.9 Hypothyroidism E03.9 Hyperlipidemia E78.5 Migraine G43.909 Hypertension I10 Severe protein-calorie malnutrition E43 Hypokalemia E87.6 Anemia D64.9
[2021-09-01] MEDS: REMDESIVIR 100 MG in SODIUM CHLORIDE 0.9% 230 ML IV SCH (20:05)
[2021-09-01] MEDS: QUEtiapine FUMARATE 200 MG TAB PO SCH (20:06)
[2021-09-01] MEDS: SERTRALINE HCL 100 MG TABLET PO SCH (20:06)
[2021-09-01] MEDS: METOPROLOL TARTRATE 25 MG TAB PO SCH (20:06)
[2021-09-01] MEDS: LEVOTHYROXINE SODIUM 50 MCG TABLET PO SCH (20:06)
[2021-09-01] MEDS: ATORVASTATIN 20 MG TAB PO SCH (20:07)
[2021-09-02 06:56] LABS: BUN Creatinine Ratio 47.5 (10-20); Calcium 8.4 mg/dl (8.5-10.1); Creatinine Clr Calc Pharmacy 71.2 ml/min; Est GFR (African American) 125.8 ml/min; Est GFR (Non-African American) 108.5 ml/min; Magnesium 1.8 mg/dl (1.7-2.4); Phosphorus 2.6 mg/dl (2.5-4.9); Potassium 3.4 mmol/L (3.5-5.1)
[2021-09-02] MEDS: ALBUTEROL HFA 8 GM INHALER INH SCH ×2 (07:24→19:54)
[2021-09-02] MEDS ORDERED: MAGNESIUM SULFATE / D5W 1 GM/100 ML BAG IV ONE (08:00)
[2021-09-02] MEDS: METOPROLOL TARTRATE 25 MG TAB PO SCH (08:19)
[2021-09-02] MEDS: busPIRone 15 MG TAB PO SCH ×2 (08:20→20:48)
[2021-09-02] MEDS: dexAMETHasone 6 MG in SYRINGE 0 ML IV SCH (08:20)
[2021-09-02] MEDS: FAMOTIDINE 20 MG TAB PO SCH ×2 (08:20→20:48)
[2021-09-02] MEDS: guaiFENesin 600 MG TABCR PO SCH ×2 (08:20→20:48)
[2021-09-02] MEDS: ENOXAPARIN INJ 30 MG/0.3 ML SYR SQ SCH (08:21)
[2021-09-02] MEDS: POTASSIUM CHLORIDE CRTAB 20 MEQ TABCR PO SCH ×2 (09:04→21:51)
--- NOTE | 2021-09-02 11:46 | Hospitalist Progress Note ---
Date of Service September 02, 2021 Assessment & Plan (1) COVID: Plan: 66 y/o F w/ PMHx of hypothyroidism, COPD, HTN, bipolar affective disorder, depression/anxiety, who presents w/ worsened dyspnea on exertion and hypoxia secondary to covid pneumonia, day 7 of symptoms at the time of arrival With COVID-19 pneumonia and acute respiratory failure with hypoxia Procalcitonin negative has COPD and baseline 2.5L qhs O2 requirement. Continues to be requiring 2 L nasal cannula to keep pulse ox greater than 90% at rest, but dropped to the 70s on room air with exertion to the bathroom Continues with significant AVILES, worse than baseline but improving each day slightly At baseline, can walk about 10 feet before stopping to catch her breath. Now only 2 steps Hopefully she will feel better now with remaining on O2 to ambulate to the bathroom with extended tubing for NC -Completed remdesivir x 5 days -Continue IV dexamethasone x10-day course and to complete the course orally upon discharge -continue albuterol neb treatments as needed-she knows to ask for them -Continue flutter valve, incentive spirom, Mucinex - Maintain O2 sat goal >90% - CRP minimally elevated at 2.2 -she will need a two-step walk test prior to discharge that she typically only has nocturnal O2-we will plan for discharge hopefully on 09/03 (2) COPD (chronic obstructive pulmonary disease): Plan: - see above Not on any maintenance inhalers at home, uses albuterol and ipratropium as needed (3) O2 dependent: Plan: Chronic respiratory failure with hypoxia 2.5L qhs at home (4) Bipolar affective disorder: Plan: Continue home regimen. Of note, the 800mg qhs Seroquel is a very high dose. C onfirmed w/ patient that she has been on this chronically. Monitor clinically for sedation. Continue sertraline 200 mg p.o. at bedtime (5) Anxiety and depression: Plan: - Continue home regimen. (6) Hypothyroidism: Plan: TSH normal in 02/2021 Continue home levothyroxine 50 mcg daily (7) Hyperlipidemia: Plan: - Continue home atorvastatin (8) Migraine: Plan: Stable, not on medications (9) Hypertension: Plan: Blood pressures fairly well controlled Continue home metoprolol tartrate 25 mg daily (10) Severe protein-calorie malnutrition: Plan: BMI very low at 14.0 and she reports having lost over 40 pounds in the last 6 years Could be due to end-stage COPD Does need a repeat CT chest from a follow-up from 3 months ago, but would not do at this time with COVID She is at high risk for malignancy given long history of smoking Follow-up with PCP as an outpatient Appreciate dietary consultation-she is not really drinking the boost (11) Hypokalemia: Plan: Potassium remains mildly low but stable from previous Replace again today with potassium chloride 40 mEq p.o. x1 This is secondary to poor p.o. intake which is now improving Follow BMP and magnesium in the morning Replace magnesium sulfate 1 g IV again today keep magnesium greater than 2.0 (12) Anemia: Plan: Hemoglobin mildly low at 11.7, microcytic with MCV 81.2 iron studies show transferrin sat very low at 10% was due for her IV Venofer at Heme/Onc last week and missed it -Gave Venofer 300mg IV daily x 3 while here-last dose will be on 09/02 Follow-up as an outpatient Plan: DVT proph: Lovenox code: full dispo: Continued stay on med/surg, but hopeful for discharge tomorrow to home with oxygen Admission and Anticipated Discharge Date Admission Date: August 28, 2021 Anticipated date of discharge: 09/03/21 Subjective Patient feels better today, less short of breath. She has still been trying to walk to the bathroom without oxygen on which makes her very dyspneic. The nurse just got her an extended tubing for nasal cannula to walk with us to the bathroom. She is eating little bit more and appetite has improved. She feels like she will most likely be ready for discharge tomorrow. Remains on 2 L nasal cannula at rest Review of Systems Review of Systems: All systems reviewed & are unremarkable except as noted in HPI & below Physical Exam Constitutional: + frail appearing and + underweight Eyes: + anicteric sclerae Neck: trachea midline, no thyromegaly Respiratory: normal respiratory effort, lungs clear to auscultation + cough (sounds coarse) Auscultation: + diminished lung sounds (Throughout); no crackles and no wheezes Cardiovascular: RRR, no murmur, no edema Chest (Breasts): Chest: normal inspection of chest Gastrointestinal (Abdomen): normal bowel sounds, soft, nontender, no hepatosplenomegaly Musculoskeletal: Extremities: extremities normal to inspection; no cyanosis and no clubbing Skin: no rashes, warm and dry Neurologic: moves all extremities and awake; no focal motor deficits Psychiatric: A+Ox3, euthymic affect Lymphatic: no lymphedema Results & Data Results & Data ([facility]) Vital Signs (Past 12 Hours) Vital Signs Temp Pulse Resp BP BP Pulse Ox 09/02/21 07:38 36.7 C 82 20 145/78 H 89 L 09/02/21 07:24 90 23 09/02/21 00:00 36.7 C 78 18 143/83 H 94 Laboratory Results 09/02/21 Range/Units 06:12 Sodium 140 (136-145) mmol/L Potassium 3.4 L (3.5-5.1) mmol/L Chloride 107 (98-107) mmol/L Carbon Dioxide 30 (21-32) mmol/L Anion Gap 3 (3-11) BUN 19 (6-23) mg/dl Creatinine 0.40 L (0.6-1.2) mg/dl Est Cr Clr Drug Dosing 71.2 ml/min Est GFR ( Amer) 125.8 ml/min Est GFR (Non-Af Amer) 108.5 ml/min BUN/Creatinine Ratio 47.5 H (10-20) Glucose 85 (70-99(Fasting)) mg/dl Calcium 8.4 L (8.5-10.1) mg/dl Phosphorus 2.6 (2.5-4.9) mg/dl Magnesium 1.8 (1.7-2.4) mg/dl AST 12 L (13-39) U/L ALT 9 (7-52) U/L PG Care Time/CCT Total # of Minutes Spent Total Time Spent with Patient: Total time spent is greater than 50% in coordination of care (as documented) at patient's floor/unit and/or counseling patient: Coding Level of Care Code 46867 Subseq Hosp Care Lvl 2 Diagnoses COVID U07.1 COPD (chronic obstructive pulmonary disease) J44.9 O2 dependent Z99.81 Bipolar affective disorder F31.9 Anxiety and depression F41.9; F32.9 Hypothyroidism E03.9 Hyperlipidemia E78.5 Migraine G43.909 Hypertension I10 Severe protein-calorie malnutrition E43 Hypokalemia E87.6 Anemia D64.9
[2021-09-02] MEDS: OMEGA-3 (PURIFIED FISH OIL) 1 GM CAP PO SCH (15:54)
[2021-09-02] MEDS: CHOLECALCIFEROL 1,000 UNITS 25 MCG TAB PO SCH (15:54)
[2021-09-02] MEDS: ATORVASTATIN 20 MG TAB PO SCH (20:47)
[2021-09-02] MEDS: LEVOTHYROXINE SODIUM 50 MCG TABLET PO SCH (20:49)
[2021-09-02] MEDS: SERTRALINE HCL 100 MG TABLET PO SCH (20:50)
[2021-09-02] MEDS: QUEtiapine FUMARATE 200 MG TAB PO SCH (21:52)
[2021-09-03 07:19] LABS: Basophils # (auto) 0.01 K/uL (0-0.2); Basophils % (auto) 0.2 %; Eosinophils # (auto) 0.09 K/uL (0-0.5); Eosinophils % (auto) 1.7 %; Hematocrit (blood only) 38.1 % (37-47); Hemoglobin 11.7 g/dL (12.0-16.0); Immature Granulocytes # (auto) 0.01 K/uL (0.00-0.02); Immature Granulocytes % (auto) 0.2 %; Lymphocytes # (auto) 1.26 K/uL (1.2-3.4); Lymphocytes % (auto) 23.2 %; Mean Corpuscular Hemoglobin 25.9 pg (25-34); Mean Corpuscular Hgb Conc 30.7 g/dL (32-36); Mean Corpuscular Volume 84.3 fL (80-100); Mean Platelet Volume 10.7 fL (7.4-10.4); Monocytes # (auto) 0.73 K/uL (0.11-0.59); Monocytes % (auto) 13.5 %; Neutrophils # (auto) 3.32 K/uL (1.4-6.5); Neutrophils % (auto) 61.2 %; Platelet Count 363 K/uL (130-400); RDW Coefficient of Variation 16.1 % (11.5-14.5); RDW Standard Deviation 49.5 fL (36.4-46.3); Red Blood Count 4.52 M/uL (4.2-5.4); White Blood Count 5.42 K/uL (4.8-10.8)
[2021-09-03 07:55] LABS: Albumin Globulin Ratio 1.2 (0.9-2); Albumin Level 3.3 gm/dl (3.4-5.0); BUN Creatinine Ratio 32.8 (10-20); Bilirubin,Total 0.6 mg/dl (0.2-1.0); Calcium 8.7 mg/dl (8.5-10.1); Creatinine Clr Calc Pharmacy 49.1 ml/min; Est GFR (African American) 111.3 ml/min; Est GFR (Non-African American) 96.1 ml/min; Globulin 2.7 gm/dl (2.5-4.0); Potassium 4.5 mmol/L (3.5-5.1)
[2021-09-03] MEDS: ALBUTEROL HFA 8 GM INHALER INH SCH ×2 (08:00→10:47)
[2021-09-03] MEDS: busPIRone 15 MG TAB PO SCH (08:18)
[2021-09-03] MEDS: FAMOTIDINE 20 MG TAB PO SCH (08:18)
[2021-09-03] MEDS: OMEGA-3 (PURIFIED FISH OIL) 1 GM CAP PO SCH (08:18)
[2021-09-03] MEDS: CHOLECALCIFEROL 1,000 UNITS 25 MCG TAB PO SCH (08:18)
[2021-09-03] MEDS: dexAMETHasone 6 MG in SYRINGE 0 ML IV SCH (08:19)
[2021-09-03] MEDS: guaiFENesin 600 MG TABCR PO SCH (08:19)
[2021-09-03] MEDS: ENOXAPARIN INJ 30 MG/0.3 ML SYR SQ SCH (08:19)
--- NOTE | 2021-09-03 13:41 | Discharge Summary ---
Date of Service September 03, 2021 Admission HPI Per Admitting Provider 66 y/o F w/ PMHx of bipolar, anxiety/depression, hypothyroidism, COPD, HTN who presents w/ worsened dyspnea since 08/22/21, currently day 7 of symptoms. She has associated rigors, subj fever (but no temp) sore throat, nasal congestion,and loss of taste and appetite. + lightheadedness and near syncopal dizziness. Used 2.5L O2 all of this week including daytime w/o relief. Worsened AVILES, can barely walk several steps. Minimal appetite and has not eaten all week. She took all of her home meds today except the sertraline. Has had covid immunization x2, but not the booster. States has had mild aspiration issues at baseline. Denies hx of CHF, CVA, VTE. Tobacco hx: Current half pack/day smoker. ~40 pack year hx. Denies etoh or other substances. ED course: Duoneb. IV Decadron 6mg. Principal Diagnosis Covid-19 pneumonia, acute on chronic respiratory failure with hypoxia Discharge Exam Constitutional + frail appearing and + underweight Eyes + anicteric sclerae Neck trachea midline, no thyromegaly Respiratory + cough (sounds coarse) Auscultation: + diminished lung sounds (Throughout); no crackles and no wheezes Cardiovascular RRR, no murmur, no edema Chest (Breasts) Chest: normal inspection of chest Gastrointestinal (Abdomen) normal bowel sounds, soft, nontender, no hepatosplenomegaly Musculoskeletal Extremities: extremities normal to inspection; no cyanosis and no clubbing Skin no rashes, warm and dry Neurologic moves all extremities and awake; no focal motor deficits Psychiatric A+Ox3, euthymic affect Lymphatic no lymphedema Discharge Data Allergies Allergy/AdvReac Type Severity Reaction Status Date / Time codeine Allergy Intermediate ITCHING Verified 08/28/21 11:30 cortisone Allergy Intermediate ITCHING Verified 08/28/21 11:30 Penicillins Allergy Intermediate HIVES, Verified 08/28/21 11:30 ITCHINESS ciprofloxacin [From Cipro] AdvReac Intermediate Vomiting Verified 08/28/21 11:30 Consultations 08/28/21 20:19 ED Decision to Admit Stat Hospital Course (1) COVID: 66 y/o F w/ PMHx of hypothyroidism, COPD, HTN, bipolar affective disorder, depression/anxiety, who presents w/ worsened dyspnea on exertion and hypoxia secondary to covid pneumonia, day 7 of symptoms at the time of arrival With COVID-19 pneumonia and acute on chronic respiratory failure with hypoxia Procalcitonin negative has COPD and baseline 2.5L qhs O2 requirement. Continues to be requiring 2 L nasal cannula with exertion, but is now on room air at rest based on a two-step walk test on the day of discharge Continues with significant AVILES, but is improving and her baseline exercise tolerance is quite poor to begin with At baseline, can walk about 10 feet before stopping to catch her breath. -Completed remdesivir x 5 days -Received IV dexamethasone and will convert to p.o. to complete a 10-day course upon discharge -continue albuterol neb treatments every 6 hours at home -Continue flutter valve, incentive spirom, Mucinex - CRP minimally elevated at 2.2 (2) COPD (chronic obstructive pulmonary disease): - see above Not on any maintenance inhalers at home, but was on standing Combivent 4 times a day-perhaps due to cost of maintenance inhalers? Start on Incruse Ellipta and Breo Ellipta upon discharge Prescribed albuterol nebulizer every 6 hours as needed (3) O2 dependent: Chronic respiratory failure with hypoxia 2.5L qhs at home (4) Bipolar affective disorder: Continue home regimen. Of note, the 800mg qhs Seroquel is a very high dose. Confirmed w/ patient that she has been on this chronically. Monitor clinically for sedation-none Continue sertraline 200 mg p.o. at bedtime (5) Anxiety and depression: - Continue home regimen. (6) Hypothyroidism: TSH normal in 02/2021 Continue home levothyroxine 50 mcg daily (7) Hyperlipidemia: - Continue home atorvastatin (8) Migraine: Stable, not on medications (9) Hypertension: Blood pressures fairly well controlled Continue home metoprolol tartrate 25 mg daily (10) Severe protein-calorie malnutrition: BMI very low at 14.0 and she reports having lost over 40 pounds in the last 6 years Could be due to end-stage COPD Does need a repeat CT chest from a follow-up from 3 months ago, but would not do at this time with COVID She is at high risk for malignancy given long history of smoking Appreciate dietary consultation-she is not really drinking the boost and was switched to protein gelatin supplements -Added omega-3 fatty acid and vitamin D supplement as per dietary recommendation Follow-up with PCP for ongoing management and work-up (11) Hypokalemia: Potassium replaced and now resolved hypokalemia This was secondary to poor p.o. intake which is now improving (12) Anemia: Hemoglobin mildly low at 11.7, microcytic with MCV 81.2 iron studies show transferrin sat very low at 10% was due for her IV Venofer at Heme/Onc last week and missed it -Gave Venofer 300mg IV daily x 3 doses while here Follow-up as an outpatient DVT proph: Lovenox code: full dispo: Stable for discharge to home with 2 L nasal cannula O2 with exertion Total Time Total Time Spent Total Time Spent (In Minutes): 35 minutes Discharge Plan Discharge Items Patient Disposition: Home - Self-Care Reason For Visit: COVID PNEUMONIA Discharge Diagnosis: COVID-19 Pneumonia, Acute on chronic respiratory failure with hypoxia Condition on Discharge: Fair Activity: As commented below Lifting: Gradually increase as tolerated Bathing: No limitations Exercise/Sports: Gradually increase as tolerated Non-emergency contact: Primary Care Provider Call non-emergency contact if: you have any medication questions, your symptoms worsen and you have a fever Follow-up/Referrals: Eitan Bourne, [Primary Care Provider] - (Follow up within 1-2 weeks) Diet: Regular Addtl Attending Provider Instructions: Please finish out 3 more days of the steroid pill called dexamethasone, once don ly. You were prescribed two maintenance inhalers to be used daily for your COPD. You can use your rescue inhalers as needed on top of the maintenance inhalers for shortness of breath or wheezing. You should have a repeat chest xray in 1 month to ensure resolution of your pneumonia. You needneed to wear oxygen at 2 L nasal cannula when you walk around, but can take it off at rest. Please continue to wear the oxygen with exertion until your doctor tells you you can stop. If you develop worsening shortness of breath, persistently low oxygen levels less than 88% on a home pulse oximeter, chest pain, leg swelling, or any other acute concerns, please return to the hospital. You were assessed by the Co Founder & Ceo here who recommended increasing the protein in your diet, and taking omega-3 fatty acids and Vitamin D3 1000 units once daily as supplements due to your being underweight. Pending Studies at Discharge: No Stand-Alone Forms: [facility], Smoking Cessation Medications and DC Order Prescriptions: New Fish Oil 340-1,000 mg Capsule 1 cap PO QAM Qty: 30 RF: 0 guaifenesin [Mucinex] 600 mg Tablet Extended Release 12hr 600 mg PO Q12 Qty: 60 RF: 0 cholecalciferol (vitamin D3) 25 mcg (1,000 unit) Capsule 1,000 unit PO QAM Qty: 30 RF: 0 dexamethasone 6 mg tablet 6 mg PO DAILY Qty: 3 RF: 0 Incruse Ellipta 62.5 mcg/actuation blister with device 1 inh inhalation DAILY Qty: 30 RF: 0 Breo Ellipta 100-25 mcg/dose blister with device 1 inh inhalation DAILY Qty: 28 RF: 0 albuterol sulfate 2.5 mg /3 mL (0.083 %) solution for nebulization 1.25 mg inhalation Q6H PRN (Reason: shortness of breath or wheezing) Qty: 90 RF: 0 Continued atorvastatin [Lipitor] 20 mg tablet 20 mg PO HS Qty: 90 RF: 3 levothyroxine 50 mcg tablet 50 mcg PO HS Qty: 90 RF: 3 (DME) Oxygen Home Liters Per Minute See Dose Instructions .ROUTE .MEDSUPPLY Qty: 1 RF: 0 metoprolol tartrate 25 mg tablet 25 mg PO HS Qty: 30 RF: 5 diphenhydramine HCl [Benadryl Allergy] 25 mg tablet 25 mg PO QID PRN (Reason: Allergy Symptoms) RF: 0 oxycodone-acetaminophen 10-325 mg tablet 1 tab PO Q6H PRN (Reason: Severe Pain (Scale Score 7-10)) RF: 0 quetiapine [Seroquel] 400 mg tablet 800 mg PO HS RF: 0 sertraline 100 mg tablet 200 mg PO HS RF: 0 buspirone 10 mg tablet 15 mg PO BID RF: 0 Changed Combivent Respimat 20-100 mcg/actuation mist 1 puff INHALATION Q6H MDD 6 X IN 24 HOURS. PRN (Reason: shortness of breath or wheezing) Qty: 4 RF: 11 Discontinued albuterol sulfate [Ventolin HFA] 90 mcg/actuation HFA aerosol inhaler 2 puff INHALATION BID RF: 0 Discharge Orders: Discharge Order (Routine); Ordered 09/03/21 Ordered By: Marilin Le/Other Patient Handouts: COVID-19 Home Care Admission Data Admit Date/Time: 08/28/21 20:44 Attending Provider: Marilin Matthews Admit Provider: Stevie Guevara Primary Care Provider: Eitan Bourne Other Providers: Dayne Jones Other Interventions: Discharge Summary Assessment (RN) Last Done: 09/03/21 17:03 Coding Level of Care Code D/C DAY MANAGEMENT >30 MINS Diagnoses COVID U07.1 COPD (chronic obstructive pulmonary disease) J44.9 O2 dependent Z99.81 Bipolar affective disorder F31.9 Anxiety and depression F41.9; F32.9 Hypothyroidism E03.9 Hyperlipidemia E78.5 Migraine G43.909 Hypertension I10 Severe protein-calorie malnutrition E43 Hypokalemia E87.6 Anemia D64.9
[2021-09-03 15:20] VITALS: BP 131/77; TEMP 98.4
[2021-09-03 17:04] VITALS: PULSE 101; O2SAT 97
== END 2021-09-03 17:45 | disposition home or self-care (01) | DRG 177 ==
LOC: ED 15:39 → SUATTDRO 20:44 → EDINP 20:44 → 2N 23:21

== ENCOUNTER 2022-08-31 13:17 | Inpatient (IN) ==
[2022-08-31 14:31] LABS: Alanine Aminotransferase 7 U/L (7-52); Albumin Globulin Ratio 1.8 (0.9-2); Albumin Level 4.2 gm/dl (3.4-5.0); Alkaline Phosphatase 109 U/L (34-104); Anion Gap 5 (3-11); Aspartate Aminotransferase 20 U/L (13-39); BUN Creatinine Ratio 23.4 (10-20); Bilirubin,Total 0.3 mg/dl (0.2-1.0); Blood Urea Nitrogen 18 mg/dl (6-23); Calcium 9.1 mg/dl (8.5-10.1); Carbon Dioxide 29 mmol/L (21-32); Chloride 105 mmol/L (98-107); Est GFR (African American) 92.6 ml/min; Est GFR (Non-African American) 79.9 ml/min; Globulin 2.4 gm/dl (2.5-4.0); Glucose 93 mg/dl (70-99(Fasting)); Potassium 3.7 mmol/L (3.5-5.1); Sodium 139 mmol/L (136-145); Total Protein 6.6 gm/dl (6.0-8.3)
--- NOTE | 2022-08-31 14:33 | XRay Report ---
XR chest 2V PA/lateral HISTORY: 67 years-old Female Chest pain, nonspecific COMPARISON: Chest CT 10/15/2021 TECHNIQUE: PA and lateral views of the chest FINDINGS: Emphysema with chronic interstitial coarsening. No pneumothorax, pleural effusion, airspace consolida tion or overt pulmonary edema. Hyperinflation diaphragmatic flattening. Bilateral pulmonary nodules a re better seen on the comparison chest CT. Degenerative changes of the shoulders and spine. IMPRESSION: Emphysema without acute process. ACT 112: Negative or not required by law. The above report was generated using voice recognition software. It may contain grammatical, syntax o r spelling errors. Electronically signed by: Zach Singer M.D. 08/31/2022 2:31 PM
[2022-08-31 14:34] LABS: Troponin I High Sensitivity 3.1 pg/ml (0-14)
[2022-08-31 14:49] LABS: Basophils # (auto) 0.07 K/uL (0-0.2); Basophils % (auto) 0.7 %; Eosinophils % (auto) 2.1 %; Hematocrit (blood only) 33.9 % (34.1-44.9); Hemoglobin 10.8 g/dl (12.0-16.0); Immature Granulocytes # (auto) 0.02 K/uL (0.00-0.02); Immature Granulocytes % (auto) 0.2 %; Lymphocytes % (auto) 13.9 %; Mean Corpuscular Hemoglobin 26.3 pg (25.0-34.0); Mean Corpuscular Hgb Conc 31.9 g/dL (32.0-36.0); Mean Corpuscular Volume 82.5 fL (80.0-100.0); Monocytes # (auto) 0.57 K/uL (0.24-0.82); Monocytes % (auto) 6.1 %; Neutrophils # (auto) 7.22 K/uL (1.4-6.5); Platelet Count 419 K/uL (130-400); RDW Coefficient of Variation 15.3 % (11.5-14.5); RDW Standard Deviation 45.9 fL (36.4-46.3); Red Blood Count 4.11 M/uL (3.93-5.22); White Blood Count 9.38 K/ul (4.8-10.8)
[2022-08-31 15:00] LABS: Partial Thromboplastin Time 27.8 Seconds (21.0-31.0); Prothrombin Time 10.7 Seconds (9.0-12.0)
--- NOTE | 2022-08-31 15:02 | Emergency Department Note ---
Impression & Plan Acute exacerbation of chronic obstructive pulmonary disease, Hypoxia, Chest pain ED Provider Note NAME: MELYSSA ADAMS AGE: 67 SEX: F : 1955 ARRIVES VIA: Walk-In INFORMANT: Patient, ED PROVIDER(S): Jose Miguel Mcghee DO CHIEF COMPLAINT: Difficulty breathing HPI: The patient is a 67-year-old female who presented to the emergency [facility] for an evaluation of difficulty breathing and chest pain. The patient states she has noted symptoms for approximate 4 days. The symptoms have been constant over the last 24 hours. She does have a history of COVID as well as COPD. She does wear oxygen but only at night. She denies having any vomiting. She did call her family doctor and was referred to the emergency department. She was offered an appointment later today however. ROS: See above HPI for pertinent positives & negatives. A total of 10 systems reviewed and were otherwise negative. PAST MEDICAL HISTORY: See Below PAST SURGICAL HISTORY: See Below FAMILY HISTORY: See Below SOCIAL HISTORY: See Below HOME MEDICATIONS: See Below ALLERGIES: See Below VITALS: See Below PHYSICAL EXAMINATION: GENERAL: The patient is awake and alert. She is somewhat anxious appearing. EYES: The conjunctivae are clear. The pupils are round and reactive. EARS, NOSE, MOUTH AND THROAT: The nose is without any evidence of any deformity. NECK: The neck is nontender and supple. RESPIRATORY: Diminished breath sounds are noted throughout. There is mild conversational dyspnea. CARDIOVASCULAR: Tachycardic and regular heart sounds were noted to auscultation. There is no definite murmur GASTROINTESTINAL: The abdomen is soft. Abdomen is nontender. MUSCULOSKELETAL/EXTREMITIES: There is no evidence of gross deformity full range of motion is noted in the hips and shoulders. SKIN: There is no obvious evidence of any rash. There are no petechiae, pallor or cyanosis noted. NEUROLOGIC: Patient is awake alert and oriented x3 MEDICAL DECISION MAKING: The patient is a 67-year-old female who presented to the emergency department for an evaluation of chest pain. The patient was experiencing chest pain as well as difficulty breathing. The patient has a history of COPD. History and physical exam appear to be consistent with COPD exacerbation however given the patient's hypoxia and tachycardia consideration for pulmonary embolism was given. The patient was not found to have signs of pulmonary embolism on CT angiography the chest. She was treated with DuoNeb as well as steroids. I discussed the patient's laboratory and radiographic studies with the on-call [facility] group. I feel given the patient's presentation she may be a better candidate for inpatient management as well as further testing if indicated. Triage Nursing notes reviewed. Prior medical records reviewed Vital Signs: reviewed and remarkable for hypoxia and initial tachycardia. Differential diagnosis: Reactive airway disease, pneumonia, pneumothorax, COPD, CHF, infections, cardia c ischemia, pulmonary embolism, musculoskeletal, gastrointestinal, as well as other pathologies. ER treatment provided: See below Diagnostics interpreted by me: ECG: EKG was obtained in the emergency department. My interpretation is sinus tachycardia 101 bpm. There is no ectopy. Nonspecific ST depressions were noted. This was compared to a tracing from June 29, 2022. No significant changes were noted. Cardiac Monitoring: An order was placed for continuous cardiac monitoring. The monitor shows a rate of 86 bpm with sinus rhythm. Laboratory studies: As stated above and show below. Imaging studies: See below. Radiographic imaging was reviewed by myself Consultation(s): I discussed this case with Dr. Morse who is on-call for the [facility] hospitalist group. ED COURSE: Procedures: none Critical Care: I have personally spent greater than 45 minutes of critical care time in the direct management of this patient. This includes bedside care, interpretation of diagnostic studies, and testing, discussion with consultants, patient, and family members, and other required patient management activities. This 45 minutes is in excess of all separately billable procedures. Past Med/Surg History Medical History Anemia Anxiety and depression Bipolar affective disorder Chronic back pain Chronic shortness of breath COPD (chronic obstructive pulmonary disease) inhalers daily Fibromyalgia History of COVID-19 diagnosed 08/28/2021 @ [facility]--had to be on oxygen and in the hospital for 6 days--symptoms have resolved History of kidney stones History of recent blood transfusion 10/2021 @ [facility] Hyperlipidemia Hypertension Hypothyroidism Iron (Fe) deficiency anemia Migraine Multiple pulmonary nodules determined by computed tomography of lung Nicotine dependence On home oxygen therapy 3L N/C HS Osteoarthritis Poor appetite RSD (reflex sympathetic dystrophy) "per patient's sister, 06/21/16" Unintentional weight loss Weight loss Surgical History History of cataract surgery bilt History of colonoscopy History of esophagogastroduodenoscopy (EGD) History of lithotripsy x2 History of repair of right rotator cuff History of tooth extraction all teeth History of total hysterectomy with bilateral salpingo-oophorectomy (BSO) S/P cystoscopy with ureteral stent placement x5 S/P epidural steroid injection Family History Brother Alcohol abuse Kidney disease Mother Anxiety Kidney disease Sister Kidney disease Aunt Breast cancer Father Prostate cancer Family history of diabetes mellitus Other Cancer Diabetes Emphysema of lung Hypertension Lung disease No family history of adverse response to anesthesia Denies family history of Ovarian cancer Myocardial infarction Colorectal cancer Social History Smoking Status: Current every day smoker Tobacco Type: Cigarettes Age Started Using Tobacco: 17; Cigarettes Per Day: 4-6; Second Hand Exposure: Yes; Do You Dip or Chew Tobacco: No; Tobacco Cessation Education Requested by Patient: No Hx Alcohol Use: No Hx Substance Use: No Preferred Language: Guamanian Communication Ability: Effective Visual Impairment: No Limitations Hearing Ability: Normal Preflight Inspector Required: No Beliefs That Will Affect Care: None marital status: Current Living Situation: Significant Other Current Living Situation Comment: Lives with boyfriend current occupational status: disabled How many Children do You have: 3 Other Information That Helps Us Care for You: No Feels Safe at Home: Yes Safety Concerns: Feels Safe At This Time Childhood Exposure to Second-Hand Smoke: Yes Diet Comment: stated she eats very little, no appetite. caffeine: Yes Dental Care, Regularly: No Physical Activity Frequency: Daily Seatbelt Use: always Sunscreen Use: No Assistive Devices: Denture - Upper, Denture - Lower, Glasses and Oxygen - Continuous Allergies Allergies Allergy/AdvReac Type Severity Reaction Status Date / Time codeine Allergy Intermediate ITCHING Verified 02/27/22 13:55 cortisone Allergy Intermediate ITCHING Verified 02/27/22 13:55 Penicillins Allergy Intermediate HIVES, Verified 02/27/22 13:55 ITCHINESS ciprofloxacin [From Cipro] AdvReac Intermediate Vomiting Verified 02/27/22 13:55 Home Meds Home Medications Medication Instructions Recorded Confirmed Oxygen Home #1 ea 03/07/19 02/27/22 diphenhydramine HCl 25 mg tablet 25 mg PO QID PRN Allergy Symptoms 03/12/19 02/27/22 (Benadryl Allergy) oxycodone-acetaminophen 10 mg-325 1 tab PO Q6H PRN Severe Pain 03/12/19 02/27/22 mg tablet (Scale Score 7-10) quetiapine 400 mg tablet (Seroquel) 800 mg PO HS 03/12/19 02/27/22 buspirone 10 mg tablet 15 mg PO BID 08/18/21 02/27/22 albuterol sulfate 90 mcg/actuation 2 puff inhalation DAILY PRN 11/05/21 02/27/22 aerosol inhaler (Ventolin HFA) Shortness Of Breath fluticasone furoate 100 1 inh inhalation QAM 11/05/21 02/27/22 mcg-vilanterol 25 mcg/dose inhalation powder (Breo Ellipta) guaifenesin 600 mg tablet, 600 mg PO Q12 PRN Congestion 11/05/21 02/27/22 extended release 12 hr (Mucinex) omega-3 fatty acids-fish oil 340 1 cap PO HS 11/05/21 02/27/22 mg-1,000 mg capsule (Fish Oil) umeclidinium 62.5 mcg/actuation 1 inh inhalation QAM 11/05/21 02/27/22 blister powder for inhalation (Incruse Ellipta) Previous Rx's Medication Instructions Recorded levothyroxine 50 mcg tablet 50 mcg PO HS #90 tabs 09/03/20 cholecalciferol (vitamin D3) 25 1,000 unit PO QAM #30 caps 09/03/21 mcg (1,000 unit) capsule metoprolol tartrate 25 mg tablet 25 mg PO HS #30 tabs 10/20/21 albuterol sulfate 2.5 mg/3 mL 1.25 mg (1.5 mL) inhalation Q6H 10/22/21 (0.083 %) solution for nebulization PRN shortness of breath or wheezing #90 mL atorvastatin 20 mg tablet (Lipitor) 20 mg PO HS #90 tabs 12/22/21 linaclotide 290 mcg capsule 290 mcg PO DAILY #30 caps 01/15/22 ondansetron 4 mg disintegrating 4 mg PO Q6H PRN nausea and 01/15/22 tablet vomiting #60 tabs pantoprazole 40 mg tablet,delayed See Rx Instructions .Route 03/26/22 release .COMPLEX #90 tabs varenicline 1 mg tablet 1 mg PO BID #56 tabs 04/07/22 Results & Data (ED) Vital Signs Vital Signs - 24 hr 08/31/22 13:20 08/31/22 14:48 08/31/22 13:18 Pulse Rate 113 H Pulse Rate [Apical] 87 Pulse Rhythm Regular Pulse Rhythm [Apical] Pulse Strength [Apical] Respiratory Rate 18 18 Respiratory Effort / Characteristics Non-Labored Spontaneous Non-Labored Spontaneous Respiratory Depth Normal Normal Blood Pressure 108/65 Blood Pressure [Right Arm] 111/64 Blood Pressure Mean 79 Blood Pressure Mean [Right Arm] 79 Pulse Oximetry 88 L 100 Oxygen Delivery Method Room Air Nasal Cannula Nasal Cannula Oxygen Flow Rate 4 4 Sepsis Recent Fever Within 48 Hours No Sepsis New/Unexplained Change in Mental Status No Sepsis Action Taken by Nursing No Action Required 08/31/22 13:18 08/31/22 16:00 Pulse Rate Pulse Rate [Apical] 77 Pulse Rhythm Pulse Rhythm [Apical] Regular Pulse Strength [Apical] Normal Respiratory Rate 18 Respiratory Effort / Characteristics Respiratory Depth Blood Pressure Blood Pressure [Right Arm] 121/71 Blood Pressure Mean Blood Pressure Mean [Right Arm] 87 Pulse Oximetry 100 100 Oxygen Delivery Method Nasal Cannula Nasal Cannula Oxygen Flow Rate 4 4 Sepsis Recent Fever Within 48 Hours Sepsis New/Unexplained Change in Mental Status Sepsis Action Taken by Correction Medications Current Medication List: was personally reviewed by me Laboratory Data Attestation: I reviewed the patient's lab results. 08/31/22 13:45 08/31/22 13:45 Lab Results 08/31/22 08/31/22 08/31/22 Range/Units 13:45 13:45 13:45 WBC 9.38 (4.8-10.8) K/ul RBC 4.11 (3.93-5.22) M/uL Hgb 10.8 L (12.0-16.0) g/dl Hct 33.9 L (34.1-44.9) % MCV 82.5 (80.0-100.0) fL MCH 26.3 (25.0-34.0) pg MCHC 31.9 L (32.0-36.0) g/dL RDW Std Deviation 45.9 (36.4-46.3) fL RDW Coeff of Luis 15.3 H (11.5-14.5) % Plt Count 419 H (130-400) K/uL MPV 10.0 (9.4-12.3) fL Immature Gran % (Auto) 0.2 % Neut % (Auto) 77.0 % Lymph % (Auto) 13.9 % [place] % (Auto) 6.1 % Eos % (Auto) 2.1 % Baso % (Auto) 0.7 % Neut # (Auto) 7.22 H (1.4-6.5) K/uL Lymph # (Auto) 1.30 (1.2-3.4) K/uL [place] # (Auto) 0.57 (0.24-0.82) K/uL Eos # (Auto) 0.20 (0-0.50) K/uL Baso # (Auto) 0.07 (0-0.2) K/uL Immature Gran # (Auto) 0.02 (0.00-0.02) K/uL PT 10.7 (9.0-12.0) Seconds INR 1.0 (0.9-1.1) APTT 27.8 (21.0-31.0) Seconds PTT Ratio 1.0 Sodium 139 (136-145) mmol/L Potassium 3.7 (3.5-5.1) mmol/L Chloride 105 (98-107) mmol/L Carbon Dioxide 29 (21-32) mmol/L Anion Gap 5 (3-11) BUN 18 (6-23) mg/dl Creatinine 0.77 (0.6-1.2) mg/dl Est Cr Clr Drug Dosing Not Reportable Est GFR ( Amer) 92.6 ml/min Est GFR (Non-Af Amer) 79.9 ml/min BUN/Creatinine Ratio 23.4 H (10-20) Glucose 93 (70-99(Fasting)) mg/dl Calcium 9.1 (8.5-10.1) mg/dl Total Bilirubin 0.3 (0.2-1.0) mg/dl AST 20 (13-39) U/L ALT 7 (7-52) U/L Alkaline Phosphatase 109 H (34-104) U/L Troponin I High Sens 3.1 (0-14) pg/ml Total Protein 6.6 (6.0-8.3) gm/dl Albumin 4.2 (3.4-5.0) gm/dl Globulin 2.4 L (2.5-4.0) gm/dl Albumin/Globulin Ratio 1.8 (0.9-2) SARS-CoV-2 (PCR) (Negative) Influenza Type A (PCR) (Neg) Influenza Type B (PCR) (Neg) RSV (RT-PCR) (Neg) 08/31/22 Range/Units 15:58 WBC (4.8-10.8) K/ul RBC (3.93-5.22) M/uL Hgb (12.0-16.0) g/dl Hct (34.1-44.9) % MCV (80.0-100.0) fL MCH (25.0-34.0) pg MCHC (32.0-36.0) g/dL RDW Std Deviation (36.4-46.3) fL RDW Coeff of Luis (11.5-14.5) % Plt Count (130-400) K/uL MPV (9.4-12.3) fL Immature Gran % (Auto) % Neut % (Auto) % Lymph % (Auto) % [place] % (Auto) % Eos % (Auto) % Baso % (Auto) % Neut # (Auto) (1.4-6.5) K/uL Lymph # (Auto) (1.2-3.4) K/uL [place] # (Auto) (0.24-0.82) K/uL Eos # (Auto) (0-0.50) K/uL Baso # (Auto) (0-0.2) K/uL Immature Gran # (Auto) (0.00-0.02) K/uL PT (9.0-12.0) Seconds INR (0.9-1.1) APTT (21.0-31.0) Seconds PTT Ratio Sodium (136-145) mmol/L Potassium (3.5-5.1) mmol/L Chloride (98-107) mmol/L Carbon Dioxide (21-32) mmol/L Anion Gap (3-11) BUN (6-23) mg/dl Creatinine (0.6-1.2) mg/dl Est Cr Clr Drug Dosing Est GFR ( Amer) ml/min Est GFR (Non-Af Amer) ml/min BUN/Creatinine Ratio (10-20) Glucose (70-99(Fasting)) mg/dl Calcium (8.5-10.1) mg/dl Total Bilirubin (0.2-1.0) mg/dl AST (13-39) U/L ALT (7-52) U/L Alkaline Phosphatase (34-104) U/L Troponin I High Sens (0-14) pg/ml Total Protein (6.0-8.3) gm/dl Albumin (3.4-5.0) gm/dl Globulin (2.5-4.0) gm/dl Albumin/Globulin Ratio (0.9-2) SARS-CoV-2 (PCR) NEGATIVE (Negative) Influenza Type A (PCR) Negative (Neg) Influenza Type B (PCR) Negative (Neg) RSV (RT-PCR) Negative (Neg) Administered Medications Atorvastatin Calcium (Atorvastatin 20 Mg Tab) 20 mg PO [facility] Stop: 09/30/22 20:59 Last Admin: 08/31/22 20:37 Dose: 20 mg Documented By: ED Buspirone HCl (Buspirone 15 Mg Tab) 15 mg PO BID [place] Stop: 09/30/22 20:59 Last Admin: 08/31/22 20:36 Dose: 15 mg Documented By: ED Heparin Sodium (Porcine) (Heparin Sod 5,000 Unit/0.5 Ml Vial) 5,000 units SQ BID [place]FFERSON Stop: 09/30/22 21:44 Last Admin: 08/31/22 22:27 Dose: 5,000 units Documented By: ED Levothyroxine Sodium (Levothyroxine Sodium 50 Mcg Tablet) 50 mcg PO [facility] Stop: 09/30/22 20:59 Last Admin: 08/31/22 20:36 Dose: 50 mcg Documented By: ED Metoprolol Tartrate (Metoprolol Tartrate 25 Mg Tab) 25 mg PO [facility] Stop: 09/30/22 20:59 Last Admin: 08/31/22 20:36 Dose: 25 mg Documented By: ED Quetiapine Fumarate (Quetiapine Fumarate 200 Mg Tab) 800 mg PO [facility] Stop: 09/30/22 20:59 Last Admin: 08/31/22 22:27 Dose: 800 mg Documented By: ED Discontinued Medications Albuterol (Albut/Ipratrop 3mg/0.5mg Neb 3 Ml Vial) 3 ml NEB NOW STA; Protocol Stop: 08/31/22 15:06 Last Admin: 08/31/22 15:40 Dose: 3 ml Documented By: MODESTA Azithromycin (Azithromycin 250 Mg Tab) 500 mg PO 1914 ONE Stop: 08/31/22 19:16 Last Admin: 08/31/22 20:37 Dose: 500 mg Documented By: ED Enoxaparin Sodium (Enoxaparin Inj 40 Mg/0.4 Ml Syr) 40 mg SQ QPM [place] Stop: 09/30/22 20:59 Last Admin: 08/31/22 22:45 Dose: Not Given Documented By: ED Ioversol (Optiray 320 500ml) 112 ml IV ONCE ONE Stop: 08/31/22 15:13 Last Admin: 08/31/22 15:02 Dose: 112 ml Documented By: YESENIA Methylprednisolone (Methylprednisolone 125 Mg/2 Ml Vial) 125 mg IV NOW STA Stop: 08/31/22 15:06 Last Admin: 08/31/22 15:40 Dose: 125 mg Documented By: MODESTA Miscellaneous (Patient's Height &/Or Weight Needed) 1 each N/A Q2H [place] Stop: 09/30/22 18:29 Last Admin: 08/31/22 20:26 Dose: 1 each Documented By: ED Miscellaneous (Patient's Height &/Or Weight Needed) 1 each N/A Q15M [facility] Stop: 09/30/22 19:59 Last Admin: 08/31/22 22:45 Dose: Not Given Documented By: Admin: 08/31/22 22:45 Dose: Not Given Documented By: ED Imaging Data Radiologist's Impression: Chest X-Ray 08/31/22 13:26 XR chest 2V PA/lateral HISTORY: 67 years-old Female Chest pain, nonspecific COMPARISON: Chest CT 10/15/2021 TECHNIQUE: PA and lateral views of the chest FINDINGS: Emphysema with chronic interstitial coarsening. No pneumothorax, pleural effusion, airspace consolidation or overt pulmonary edema. Hyperinflation diaphragmatic flattening. Bilateral pulmonary nodules are better seen on the comparison chest CT. Degenerative changes of the shoulders and spine. IMPRESSION: Emphysema without acute process. ACT 112: Negative or not required by law. The above report was generated using voice recognition software. It may contain grammatical, syntax or spelling errors. Electronically signed by: Zach Singer M.D. 08/31/2022 2:31 PM Chest CTA 08/31/22 14:40 CT ANGIOGRAPHY OF THE CHEST, PULMONARY EMBOLUS PROTOCOL CLINICAL HISTORY: Shortness of breath. Left-sided chest pain with inspiration. Evaluate for pulmonary embolus. COMPARISON STUDY: Chest CT October 15, 2021 and chest radiograph performed earlier today. TECHNIQUE: Following IV administration of 112 mL of Optiray, helical axial images of the chest were obtained utilizing the pulmonary embolus protocol. Maximal intensity projections and sagittal and coronal reformats were viewed on an independent 3D workstation. IV contrast was administered without complication. Automated exposure control was utilized for the study. A dose lowering technique was utilized adhering to the principles of ALARA. CT DOSE: 562.10 mGy.cm FINDINGS: No pulmonary emboli are identified. The size of the heart is normal. There is no pericardial effusion. No thoracic aortic dissection is noted. There is moderate atherosclerotic plaque of the thoracic aorta. Trace left pleural effusion is present. There is no pneumothorax. No consolidation to suggest pneumonia is noted. Emphysema is again noted. A few irregular upper lobe predominant nodular opacities are greatest within the right upper lobe. Index density within the right upper lobe on image 295 measures 9 mm. This previously measured [address] of October 15, 2021. Findings have mildly improved since prior exam. Findings have significantly improved since earlier chest CT of May 09, 2021. No acute fractures within the bony thorax are noted. Contrast within the left collecting system. Left-sided renal calculi are better depicted on prior unenhanced chest CT. IMPRESSION: 1. No pulmonary emboli identified. 2. No acute intrathoracic findings. 3. Emphysema. 4. A few upper lobe predominant irregular densities, slightly improved since CT of October 15, 2021. These favor scarring. A follow-up chest CT in 6 months to ensure continued stability/resolution is recommended. ACT 112: Negative or not required by law. Electronically signed by: Brad Burden M.D. 08/31/2022 3:30 PM Discharge Plan Visit Data Chief Complaint: Cardiac Assessment Stated Complaint: POSSIBLE HEART ATTACK ED Provider: Jose Miguel Mcghee Discharge Problem: Acute exacerbation of chronic obstructive pulmonary disease, Hypoxia, Chest pain Patient Disposition: Admitted As Inpatient Discharge Instructions Interventions: ED Discharge Assessment Last Done: 08/31/22 17:51 : Chest pain Qualifiers: Chest pain type: unspecified Qualified Code(s): R07.9 - Chest pain, unspecified
[2022-08-31] MEDS ORDERED: methylPREDNISolone 125 MG/2 ML VIAL IV STA (15:05)
[2022-08-31] MEDS ORDERED: ALBUT/IPRATROP 3MG/0.5MG NEB 3 ML VIAL NEB STA (15:05)
[2022-08-31] MEDS ORDERED: OPTIRAY 320 500ml IV ONE (15:12)
--- NOTE | 2022-08-31 15:31 | CT Scan Report ---
CT ANGIOGRAPHY OF THE CHEST, PULMONARY EMBOLUS PROTOCOL CLINICAL HISTORY: Shortness of breath. Left-sided chest pain with inspiration. Evaluate for pulmonary embolus. COMPARISON STUDY: Chest CT October 15, 2021 and chest radiograph performed earlier today. TECHNIQUE: Following IV administration of 112 mL of Optiray, helical axial images of the chest were o btained utilizing the pulmonary embolus protocol. Maximal intensity projections and sagittal and cor onal reformats were viewed on an independent 3D workstation. IV contrast was administered without co mplication. Automated exposure control was utilized for the study. A dose lowering technique was ut ilized adhering to the principles of ALARA. CT DOSE: 562.10 mGy.cm FINDINGS: No pulmonary emboli are identified. The size of the heart is normal. There is no pericardi al effusion. No thoracic aortic dissection is noted. There is moderate atherosclerotic plaque of the thoracic aorta. Trace left pleural effusion is present. There is no pneumothorax. No consolidation to suggest pneumonia is noted. Emphysema is again noted. A few irregular upper lobe predominant nodular opacities are greatest within the right upper lobe. Index density within the right upper lobe on carmen ge 295 measures 9 mm. This previously measured [address] of October 15, 2021. Findings have mildly imp roved since prior exam. Findings have significantly improved since earlier chest CT of May 09 1. No acute fractures within the bony thorax are noted. Contrast within the left collecting system. L eft-sided renal calculi are better depicted on prior unenhanced chest CT. IMPRESSION: 1. No pulmonary emboli identified. 2. No acute intrathoracic findings. 3. Emphysema. 4. A few upper lobe predominant irregular densities, slightly improved since CT of October 15, 2021. The se favor scarring. A follow-up chest CT in 6 months to ensure continued stability/resolution is recom mended. ACT 112: Negative or not required by law. Electronically signed by: Brad Burden M.D. 08/31/2022 3:30 PM
[2022-08-31 16:41] LABS: Influenza A virus by PCR Negative (Neg); Influenza B virus by PCR Negative (Neg); RSV by PCR Negative (Neg); SARS CoV2 RNA(COVID-19) Ceph NEGATIVE (Negative)
--- NOTE | 2022-08-31 16:51 | History & Physical Report ---
Date of Service August 31, 2022 Assessment & Plan (1) Acute respiratory failure with hypoxia: Plan: Acute on chronic respiratory failure suspect 2/2 COPD exacerbation With 3 L nighttime oxygen, currently requiring daytime oxygen Feeling more short of breath with some chest discomfort for 1 week Chest pain has been constant over the last 3 days, improves with a hot pack, does not worsen with exercise/ambulation. Troponin is normal on admission, low suspicion for ACS in the setting of several days of constant pain with normal troponin EKG without acute ST segment or T wave changes He is wheezing on exam, improving following getting methylprednisolone load Continue DuoNebs, continue home inhalers, switch steroids to 40 mg 3 times daily Pulmonary toilet Azithromycin 5-day course Follow for COPD exacerbation, discharged home after cardiac eval complete and if able to be converted to prednisone Hyperlipidemia Atorvastatin 20 mg Anxiety/depression Continue BuSpar Hypertension Continue metoprolol Hypothyroidism Continue home Synthroid TSH pending DVT prophylaxis: Lovenox Diet: Heart healthy Disposition: Medical telemetry for COPD with hypoxic respiratory failure and cardiac rule out CODE STATUS: Full code, patient would not want code prolonged if not initially successful after "1 round " (2) Anxiety and depression: (3) Bipolar affective disorder: (4) COPD (chronic obstructive pulmonary disease): (5) Hyperlipidemia: (6) Hypokalemia: (7) Hypertension: (8) Hypotension: (9) Hypothyroidism: History of Present Illness Primary Care Provider: Eitan Bourne DO Shameka Moise is a 67-year-old female with past medical history of severe advanced COPD on 3 L nighttime oxygen no daytime oxygen use, bipolar, hypothyroidism, hyperlipidemia, hypertension, hypokalemia, iron deficiency anemia, smoking of around 0.5 pack/day who presents with shortness of breath and chest pain over the last 4 days. Was seen by her PCP and was recommended to go to the ER for further evaluation. Chest pain worse with palpation Breathing bad 'for a long time' Declining since COVID and 25lbs weight loss last September +wheezing in the last week. No cough in week. no sputum production No fevers, cold and chilly for a few days with the weather being colder She has not noticed any change in her chest pain related to exertion. It has been relatively constant for 4 to 5 days. Does not hurt worse when she presses on it. Relieving factors include a warm pack. No lightheadedness, dizziness, syncope, presyncope, nausea, vomiting, diarrhea, constipation Medical History: Reviewed Medications: Reviewed Surgical History: Reviewed Allergies: Reviewed Social History: Current ongoing tobacco use 0.5 pack/day cessation encouraged Code Status: Full code for "1 round, no prolonged CPR " Allergies Allergy/AdvReac Type Severity Reaction Status Date / Time codeine Allergy Intermediate ITCHING Verified 02/27/22 13:55 cortisone Allergy Intermediate ITCHING Verified 02/27/22 13:55 Penicillins Allergy Intermediate HIVES, Verified 02/27/22 13:55 ITCHINESS ciprofloxacin [From Cipro] AdvReac Intermediate Vomiting Verified 02/27/22 13:55 Home Medications Medication Instructions Recorded Confirmed Type Oxygen Home #1 ea 03/07/19 02/27/22 History diphenhydramine HCl 25 mg tablet 25 mg PO QID PRN Allergy Symptoms 03/12/19 02/27/22 History (Benadryl Allergy) oxycodone-acetaminophen 10 mg-325 1 tab PO Q6H PRN Severe Pain 03/12/19 02/27/22 History mg tablet (Scale Score 7-10) quetiapine 400 mg tablet (Seroquel) 800 mg PO HS 03/12/19 02/27/22 History levothyroxine 50 mcg tablet 50 mcg PO HS #90 tabs 09/03/20 02/27/22 Rx buspirone 10 mg tablet 15 mg PO BID 08/18/21 02/27/22 History cholecalciferol (vitamin D3) 25 1,000 unit PO QAM #30 caps 09/03/21 02/27/22 Rx mcg (1,000 unit) capsule metoprolol tartrate 25 mg tablet 25 mg PO HS #30 tabs 10/20/21 02/27/22 Rx albuterol sulfate 2.5 mg/3 mL 1.25 mg (1.5 mL) inhalation Q6H 10/22/21 02/27/22 Rx (0.083 %) solution for nebulization PRN shortness of breath or wheezing #90 mL albuterol sulfate 90 mcg/actuation 2 puff inhalation DAILY PRN 11/05/21 02/27/22 History aerosol inhaler (Ventolin HFA) Shortness Of Breath fluticasone furoate 100 1 inh inhalation QAM 11/05/21 02/27/22 History mcg-vilanterol 25 mcg/dose inhalation powder (Breo Ellipta) guaifenesin 600 mg tablet, 600 mg PO Q12 PRN Congestion 11/05/21 02/27/22 History extended release 12 hr (Mucinex) omega-3 fatty acids-fish oil 340 1 cap PO HS 11/05/21 02/27/22 History mg-1,000 mg capsule (Fish Oil) umeclidinium 62.5 mcg/actuation 1 inh inhalation QAM 11/05/21 02/27/22 History blister powder for inhalation (Incruse Ellipta) atorvastatin 20 mg tablet (Lipitor) 20 mg PO HS #90 tabs 12/22/21 02/27/22 Rx linaclotide 290 mcg capsule 290 mcg PO DAILY #30 caps 01/15/22 02/27/22 Rx ondansetron 4 mg disintegrating 4 mg PO Q6H PRN nausea and 01/15/22 02/27/22 Rx tablet vomiting #60 tabs pantoprazole 40 mg tablet,delayed See Rx Instructions .Route 03/26/22 Rx release .COMPLEX #90 tabs varenicline 1 mg tablet 1 mg PO BID #56 tabs 04/07/22 Rx Past Med/Surg History Medical History Anemia Anxiety and depression Bipolar affective disorder Chronic back pain Chronic shortness of breath COPD (chronic obstructive pulmonary disease) inhalers daily Fibromyalgia History of COVID-19 diagnosed 08/28/2021 @ [facility]--had to be on oxygen and in the hospital for 6 days--symptoms have resolved History of kidney stones History of recent blood transfusion 10/2021 @ [facility] Hyperlipidemia Hypertension Hypothyroidism Iron (Fe) deficiency anemia Migraine Multiple pulmonary nodules determined by computed tomography of lung Nicotine dependence On home oxygen therapy 3L N/C HS Osteoarthritis Poor appetite RSD (reflex sympathetic dystrophy) "per patient's sister, 06/21/16" Unintentional weight loss Weight loss Surgical History History of cataract surgery bilt History of colonoscopy History of esophagogastroduodenoscopy (EGD) History of lithotripsy x2 History of repair of right rotator cuff History of tooth extraction all teeth History of total hysterectomy with bilateral salpingo-oophorectomy (BSO) S/P cystoscopy with ureteral stent placement x5 S/P epidural steroid injection Family History Brother Alcohol abuse Kidney disease Mother Anxiety Kidney disease Sister Kidney disease Aunt Breast cancer Father Prostate cancer Family history of diabetes mellitus Other Cancer Diabetes Emphysema of lung Hypertension Lung disease No family history of adverse response to anesthesia Denies family history of Ovarian cancer Myocardial infarction Colorectal cancer Social History Smoking Status: Current every day smoker Tobacco Type: Cigarettes Age Started Using Tobacco: 17; Cigarettes Per Day: 4-6; Second Hand Exposure: Yes; Hx Alcohol Use: No Hx Substance Use: No Preferred Language: Yakut Communication Ability: Effective Visual Impairment: No Limitations Hearing Ability: Normal Energy Assistant Required: No Beliefs That Will Affect Care: None marital status: Current Living Situation: Significant Other Current Living Situation Comment: Lives with boyfriend current occupational status: disabled How many Children do You have: 3 Feels Safe at Home: Yes Childhood Exposure to Second-Hand Smoke: Yes Diet Comment: stated she eats very little, no appetite. caffeine: Yes Dental Care, Regularly: No Physical Activity Frequency: Daily Seatbelt Use: always Sunscreen Use: No Assistive Devices: Denture - Upper, Denture - Lower, Glasses and Oxygen - at Night Review of Systems Review of Systems: All systems reviewed & are unremarkable except as noted in HPI & below Physical Exam Physical Exam: General: A&Ox3. Cachectic. HEENT: Atraumatic, normocephalic. Vision/hearing intact Pulm: Scattered expiratory wheezing. Symmetrical chest rise. No increased work of breathing. No respiratory distress. Cardiac: RRR, -mrg. Radial pulses intact and symmetrical. Abdominal: Nontender, nondistended, soft. BS present. Extremities: Warm, dry. Thin. Sensation intact in all extremities. No edema. Results & Data Results & Data ([facility]) Vital Signs (Past 12 Hours) Vital Signs Pulse Pulse Resp BP BP Pulse Ox O2 Del Method 08/31/22 16:00 77 18 121/71 100 Nasal Cannula 08/31/22 13:18 100 Nasal Cannula 08/31/22 13:18 Nasal Cannula 08/31/22 14:48 87 18 111/64 100 Nasal Cannula 08/31/22 13:20 113 H 18 108/65 88 L Room Air O2 Flow Rate 08/31/22 16:00 4 08/31/22 13:18 4 08/31/22 13:18 4 08/31/22 14:48 4 08/31/22 13:20 PG Care Time/CCT Total # of Minutes Spent Total Time Spent with Patient: Total time spent is greater than 50% in coordination of care (as documented) at patient's floor/unit and/or counseling patient: Coding Level of Care Code 00192 INT INP/OBS CARE 2/55MIN Diagnoses Acute respiratory failure with hypoxia J96.01 Anxiety and depression F41.9; F32.9 Bipolar affective disorder F31.9 COPD (chronic obstructive pulmonary disease) J44.9 Hyperlipidemia E78.5 Hypokalemia E87.6 Hypertension I10 Hypotension I95.9 Hypothyroidism E03.9
[2022-08-31] MEDS ORDERED: guaiFENesin 600 MG TABCR PO PRN (18:13)
[2022-08-31] MEDS ORDERED: ALBUT/IPRATROP 3MG/0.5MG NEB 3 ML VIAL INH PRN (18:13)
[2022-08-31] MEDS ORDERED: ACETAMINOPHEN 325 MG TAB PO PRN (18:13)
--- NOTE | 2022-08-31 18:26 | Electrocardiogram Report ---
Test Reason : Blood Pressure : / mmHG Vent. Rate : 101 BPM Atrial Rate : 101 BPM P-R Int : 146 ms QRS Dur : 078 ms QT Int : 366 ms P-R-T Axes : 084 072 084 degrees QTc Int : 474 ms Poor data quality, interpretation may be adversely affected Sinus tachycardia Biatrial enlargement Abnormal ECG When compared with ECG of 29-AUG-2021 15:51, Premature atrial complexes are no longer Present Confirmed by Aneudy Campos ([id number]) on 08/31/2022 6:25:50 PM Referred By: Confirmed By:Mikhail Campos
[2022-08-31] MEDS ORDERED: Patient's HEIGHT &/or WEIGHT Needed SCH (18:30)
[2022-08-31] MEDS ORDERED: INFLUENZA VACCINE HIGH DOSE PF 65+ 0.7 ML SYR IM ONE (18:31)
[2022-08-31] MEDS ORDERED: AZITHROMYCIN 250 MG TAB PO ONE (19:15)
[2022-08-31] MEDS: METOPROLOL TARTRATE 25 MG TAB PO SCH (20:36)
[2022-08-31] MEDS: busPIRone 15 MG TAB PO SCH (20:36)
[2022-08-31] MEDS: LEVOTHYROXINE SODIUM 50 MCG TABLET PO SCH (20:36)
[2022-08-31] MEDS: ATORVASTATIN 20 MG TAB PO SCH (20:37)
[2022-08-31] MEDS ORDERED: ENOXAPARIN INJ 40 MG/0.4 ML SYR SQ SCH (21:00)
[2022-08-31] MEDS: HEPARIN SOD 5,000 UNIT/0.5 ML VIAL SQ SCH (22:27)
[2022-08-31] MEDS: QUEtiapine FUMARATE 200 MG TAB PO SCH (22:27)
[2022-08-31] MEDS: Patient's HEIGHT &/or WEIGHT Needed SCH (22:45)
[2022-08-31] MEDS ORDERED: LACTATED RINGER'S 500 ML IV ONE (23:56)
[2022-09-01] MEDS ORDERED: LACTATED RINGER'S 500 ML IV ONE (01:38)
[2022-09-01 06:41] LABS: Basophils # (auto) 0.04 K/uL (0-0.2); Basophils % (auto) 0.8 %; Eosinophils # (auto) 0.07 K/uL (0-0.50); Eosinophils % (auto) 1.3 %; Hematocrit (blood only) 27.2 % (34.1-44.9); Hemoglobin 8.8 g/dl (12.0-16.0); Immature Granulocytes # (auto) 0.02 K/uL (0.00-0.02); Immature Granulocytes % (auto) 0.4 %; Lymphocytes # (auto) 1.04 K/uL (1.2-3.4); Lymphocytes % (auto) 19.7 %; Mean Corpuscular Hemoglobin 25.6 pg (25.0-34.0); Mean Corpuscular Hgb Conc 32.4 g/dL (32.0-36.0); Mean Corpuscular Volume 79.1 fL (80.0-100.0); Mean Platelet Volume 9.7 fL (9.4-12.3); Monocytes # (auto) 0.37 K/uL (0.24-0.82); Neutrophils # (auto) 3.74 K/uL (1.4-6.5); Neutrophils % (auto) 70.8 %; Platelet Count 343 K/uL (130-400); RDW Coefficient of Variation 15.6 % (11.5-14.5); RDW Standard Deviation 45.1 fL (36.4-46.3); Red Blood Count 3.44 M/uL (3.93-5.22); White Blood Count 5.28 K/ul (4.8-10.8)
[2022-09-01 06:54] LABS: Calcium 8.6 mg/dl (8.5-10.1)
[2022-09-01 07:00] LABS: BUN Creatinine Ratio 27.9 (10-20); Creatinine Clr Calc Pharmacy 50.7 ml/min; Est GFR (African American) 108.7 ml/min; Est GFR (Non-African American) 93.8 ml/min
[2022-09-01] MEDS: PANTOprazole 40 MG TAB PO SCH (09:41)
[2022-09-01] MEDS: AZITHROMYCIN 250 MG TAB PO SCH (09:41)
[2022-09-01] MEDS: HEPARIN SOD 5,000 UNIT/0.5 ML VIAL SQ SCH ×2 (09:42→19:46)
[2022-09-01] MEDS: LINACLOTIDE 145 MCG CAPSULE PO SCH (09:42)
[2022-09-01] MEDS: busPIRone 15 MG TAB PO SCH ×2 (09:43→19:46)
[2022-09-01] MEDS: methylPREDNISolone 40 MG in SYRINGE 0 ML IV SCH ×3 (09:43→19:47)
[2022-09-01] MEDS: CHOLECALCIFEROL 1,000 UNITS 25 MCG TAB PO SCH (09:43)
[2022-09-01] MEDS: UMECLIDINIUM BROMIDE 62.5MCG/BLISTER 7 PUFFS/INHALER INH SCH (09:43)
[2022-09-01] MEDS: FLUTICASONE/VILANTEROL 100/25MCG 14 PUFFS/INHALER INH SCH (09:44)
--- NOTE | 2022-09-01 14:57 | Hospitalist Progress Note ---
Date of Service September 01, 2022 Assessment & Plan (1) LUQ abdominal pain: Plan: CTA chest without pathology in the LLL. Symptoms not suggestive of pericarditis. Troponins negative. CT a/p obtained to r/o obstructing kidney stone - negative for such. As noted above there is copious stool in the left colon starting at the splenic flexure. Pain due to severe constipation? (she did report issues with such of late) In am give mineral oil enema x 1. For bowel maint - senna + miralax. re-eval in am. (2) Acute and chronic respiratory failure with hypoxia: Plan: acute component 2nd to COPD flare improved see below (3) COPD (chronic obstructive pulmonary disease): Plan: with mild flare currently on solumedrol 40mg TID (3mg/kg/day) lower solumedrol to 40mg IV daily cont azithromycin x 5 days lungs clear sats stable cont daily inhalers (4) Anxiety and depression: Plan: cont home medications (5) Severely underweight adult: Plan: etiology? chronic malnourishment due to end-stage, severe COPD? malignancy? other? will add MVI will add boost (6) Iron (Fe) deficiency anemia: Plan: recheck Fe studies in am Hb about 9 today give IV venofer if still with Fe deficiency previous w/u in 2021 (upper/lower endos) without source of Fe loss (7) Bipolar affective disorder: Plan: cont home meds (8) Hyperlipidemia: (9) Hypokalemia: Plan: history of but K levels this admission wnl (10) Hypertension: Plan: only on metoprolol with stable BPs (11) Hypotension: Plan: had mild hypotension last pm likely due to metoprolol that is given at HS will stop metoprolol (12) Hypothyroidism: Plan: check TSH am cont synthroid (13) Nicotine dependence: 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 taking deep breaths makes the LUQ pain worse mild cough but no significant sputum she does state her breathing is better in comparison to when she first arrived in ER she reports that since rj COVID infection in 2021 she has "not done well" appetite loss, weight loss, worsening COPD symptoms Review of Systems Review of Systems: gen - no fever, chronic failure to thrive cv - no substernal pain, no orthopnea pulm - cough, dyspnea, pleuritic left costal margin pain, AVILES GI - see HPI; has had constipation recently - h/o kidney stones, none recently; denies dysuria or foul-smelling urine Physical Exam Physical Exam: gen - cachectic, lying flat comfortably in bed; no respiratory distress; no cough mouth - MMM neck - no JVD heart - RRR, s1 s2 lungs - minimal wheeze b/l, airation fair, no distress chest - mild tenderness to palpation over costal margin on left abd - tender LUQ with mild tenderness extending to junction of LUQ/LLQ; minimal L flank pain; not distended; BS+ ext - no edema, pulses 2+ b/l psych - a/o x 3 Results & Data Results & Data ([facility]) Vital Signs (Past 12 Hours) Vital Signs Temp Pulse Pulse Resp BP Pulse Ox O2 Del Method 09/01/22 11:32 Nasal Cannula 09/01/22 11:13 36.6 C 71 16 102/61 99 Nasal Cannula 09/01/22 07:49 66 09/01/22 07:18 36.5 C 70 16 116/68 98 Nasal Cannula 09/01/22 04:43 66 17 118/67 99 Nasal Cannula 09/01/22 03:11 64 18 106/62 99 Nasal Cannula O2 Flow Rate 09/01/22 11:32 3 09/01/22 11:13 09/01/22 07:49 09/01/22 07:18 09/01/22 04:43 3 09/01/22 03:11 4 Laboratory Results Laboratory Results - last 24 hr 09/01/22 09/01/22 09/01/22 06:12 06:12 12:43 WBC RBC Hgb Hct MCV MCH MCHC RDW Std Deviation RDW Coeff of Luis Plt Count MPV Sodium 138 Potassium 4.0 Chloride 106 Carbon Dioxide 31 Anion Gap 1 L BUN 17 Creatinine 0.61 Est Cr Clr Drug Dosing 50.7 Est GFR ( Amer) 108.7 Est GFR (Non-Af Amer) 93.8 BUN/Creatinine Ratio 27.9 H Glucose 85 Calcium 8.6 Iron TIBC Unsaturated IBC Transferrin % Sat Ferritin Troponin I High Sens 2.6 2.5 Urine Color Urine Appearance Urine pH Ur Specific [place] Urine Protein Urine Glucose (UA) Urine Ketones Urine Blood Urine Nitrite Urine Bilirubin Urine Urobilinogen Ur Leukocyte Esterase Diagnostic Findings Abdomen/Pelvis CT 09/01/22 14:55 CT OF THE ABDOMEN AND PELVIS WITHOUT CONTRAST CLINICAL HISTORY: LUQ abd pain; stone? diverticulitis? other? COMPARISON STUDY: CT of the abdomen and pelvis May 09, 2021. TECHNIQUE: Axial images of the abdomen and pelvis were obtained without IV contrast. Images were reviewed in the axial, sagittal, and coronal planes. Automated exposure control was utilized for the study. A dose lowering technique was utilized adhering to the principles of ALARA. FINDINGS: Emphysema is noted within the lower lungs. No pneumatosis, free air or portal venous gas is present. Numerous small bilateral renal calculi are present. No ureteral calculi are identified although sensitivity is mildly diminished given excreted contrast from recent contrast-enhanced chest CT. Contrast within the bladder is also noted. The liver appears slightly dense. No hepatic lesions are identified on this unenhanced exam. There is minimal hyperdense material within the gallbladder with possible mild gallbladder wall thickening. The gallbladder is not distended. Unenhanced images of the spleen, adrenal glands and pancreas are unremarkable. This exam is compromised given lack of contrast and posterior fat. There is no evidence for a bowel obstruction. A small amount of fluid within the pelvis is present. No bowel wall thickening is noted. There is sigmoid diverticulosis without evidence for acute diverticulitis. There is no evidence for a bowel obstruction. Appendix is unremarkable. No acute fractures are identified. There is extensive plaque of the abdominal aorta and the branch vessels. IMPRESSION: 1. Numerous small bilateral renal calculi. No ureteral calculi or hydronephros is. 2. Small amount of fluid within the pelvis. 3. No bowel obstruction. No bowel wall thickening. 4. Suboptimal evaluation of the abdomen and pelvis given paucity of intra- abdominal fat and lack of contrast. ACT 112: Negative or not required by law. Electronically signed by: Brad Burden M.D. 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9 Severely underweight adult R63.6 Iron (Fe) deficiency anemia D50.9 Bipolar affective disorder F31.9 Hyperlipidemia E78.5 Hypokalemia E87.6 Hypertension I10 Hypotension I95.9 Hypothyroidism E03.9 Nicotine dependence F17.200
--- NOTE | 2022-09-01 17:06 | CT Scan Report ---
CT OF THE ABDOMEN AND PELVIS WITHOUT CONTRAST CLINICAL HISTORY: LUQ abd pain; stone? diverticulitis? other? COMPARISON STUDY: CT of the abdomen and pelvis May 09, 2021. TECHNIQUE: Axial images of the abdomen and pelvis were obtained without IV contrast. Images were revi ewed in the axial, sagittal, and coronal planes. Automated exposure control was utilized for the flor dy. A dose lowering technique was utilized adhering to the principles of ALARA. FINDINGS: Emphysema is noted within the lower lungs. No pneumatosis, free air or portal venous gas is present. Numerous small bilateral renal calculi are present. No ureteral calculi are identified alth gh sensitivity is mildly diminished given excreted contrast from recent contrast-enhanced chest CT. Contrast within the bladder is also noted. The liver appears slightly dense. No hepatic lesions are identified on this unenhanced exam. There is minimal hyperdense material within the gallbladder with possible mild gallbladder wall thickening. The gallbladder is not distended. Unenhanced images of the spleen, adrenal glands and pancreas are unremarkable. This exam is compromised given lack of contras t and posterior fat. There is no evidence for a bowel obstruction. A small amount of fluid within the pelvis is present. No bowel wall thickening is noted. There is sigmoid diverticulosis without eviden ce for acute diverticulitis. There is no evidence for a bowel obstruction. Appendix is unremarkable. No acute fractures are identified. There is extensive plaque of the abdominal aorta and the branch ve ssels. IMPRESSION: 1. Numerous small bilateral renal calculi. No ureteral calculi or hydronephrosis. 2. Small amount of fluid within the pelvis. 3. No bowel obstruction. No bowel wall thickening. 4. Suboptimal evaluation of the abdomen and pelvis given paucity of intra-abdominal fat and lack of c ontrast. ACT 112: Negative or not required by law. Electronically signed by: Brad Burden M.D. 09/01/2022 5:04 PM
[2022-09-01] MEDS: DICLOFENAC SOD 1% GEL 100 GM TUBE EXT SCH ×2 (19:44→19:50)
[2022-09-01] MEDS: ATORVASTATIN 20 MG TAB PO SCH (19:46)
[2022-09-01] MEDS: LEVOTHYROXINE SODIUM 50 MCG TABLET PO SCH (19:47)
[2022-09-01] MEDS: QUEtiapine FUMARATE 200 MG TAB PO SCH (19:48)
[2022-09-01] MEDS: METOPROLOL TARTRATE 25 MG TAB PO SCH (19:50)
[2022-09-02 06:17] LABS: Hematocrit (blood only) 27.5 % (34.1-44.9); Hemoglobin 8.8 g/dl (12.0-16.0); Mean Corpuscular Hemoglobin 25.9 pg (25.0-34.0); Mean Corpuscular Volume 80.9 fL (80.0-100.0); Mean Platelet Volume 9.7 fL (9.4-12.3); Platelet Count 363 K/uL (130-400); RDW Coefficient of Variation 15.4 % (11.5-14.5); RDW Standard Deviation 45.9 fL (36.4-46.3); White Blood Count 7.76 K/ul (4.8-10.8)
[2022-09-02 06:37] LABS: BUN Creatinine Ratio 28.4 (10-20); Calcium 8.8 mg/dl (8.5-10.1); Creatinine Clr Calc Pharmacy 45.1 ml/min; Est GFR (African American) 105.4 ml/min; Potassium 3.7 mmol/L (3.5-5.1)
[2022-09-02 06:53] LABS: Appearance Urine Turbid (Clear); Bacteria Urine Automated Negative (Negative); Bilirubin Urine Negative (Negative); Blood Urine Negative (Negative); Color Urine Yellow; Epithelial Cell Urine Auto 20-30 /lpf (0-5); Glucose Urine UA Negative (Negative); Ketones Urine Negative (Negative); Leukocyte Esterase Urine Trace (Negative); Nitrite Urine Negative (Negative); Protein Urine Negative (Negative); RBC Urine Automated 0-4 /hpf (0-4); Specific Gravity Urine 1.019 (1.000-1.030); Urobilinogen Urine Negative (Negative)
[2022-09-02 06:56] LABS: Ferritin 5.3 ng/ml (8-388)
[2022-09-02] MEDS ORDERED: MINERAL OIL ENEMA 133 ML BTL PR ONE (07:30)
[2022-09-02] MEDS: SENNA 8.6 MG TAB PO SCH (07:48)
[2022-09-02] MEDS: CEROVITE ADV FORMULA TAB PO SCH (07:49)
[2022-09-02] MEDS: busPIRone 15 MG TAB PO SCH ×2 (07:49→20:49)
[2022-09-02] MEDS: LINACLOTIDE 145 MCG CAPSULE PO SCH (07:49)
[2022-09-02] MEDS: PANTOprazole 40 MG TAB PO SCH (07:49)
[2022-09-02] MEDS: HEPARIN SOD 5,000 UNIT/0.5 ML VIAL SQ SCH ×2 (07:50→20:48)
[2022-09-02] MEDS: AZITHROMYCIN 250 MG TAB PO SCH (07:50)
[2022-09-02] MEDS: methylPREDNISolone 40 MG in SYRINGE 0 ML IV SCH (07:50)
[2022-09-02] MEDS: CHOLECALCIFEROL 1,000 UNITS 25 MCG TAB PO SCH (07:50)
[2022-09-02] MEDS: UMECLIDINIUM BROMIDE 62.5MCG/BLISTER 7 PUFFS/INHALER INH SCH (07:51)
[2022-09-02] MEDS: FLUTICASONE/VILANTEROL 100/25MCG 14 PUFFS/INHALER INH SCH (07:52)
[2022-09-02] MEDS: POLYETHYLENE (MIRALAX) 17 GM PACK PO SCH (07:56)
[2022-09-02] MEDS: DICLOFENAC SOD 1% GEL 100 GM TUBE EXT SCH ×4 (07:58→20:49)
[2022-09-02] MEDS ORDERED: bisacodyL 10 MG SUPP PR STA (17:23)
--- NOTE | 2022-09-02 18:31 | Hospitalist Progress Note ---
Date of Service September 02, 2022 Assessment & Plan (1) LUQ abdominal pain: Plan: the patient states that the pain has resolved CTA chest without pathology in the LLL. Symptoms not suggestive of pericarditis. Troponins negative. CT a/p obtained to r/o obstructing kidney stone - negative for such. As noted above there is copious stool in the left colon starting at the splenic flexure. started on Lactulose , In am give mineral oil enema x 1. For bowel maint - senna + miralax. re-eval in am. (2) Acute and chronic respiratory failure with hypoxia: Plan: acute component 2nd to COPD flare improved see below (3) COPD (chronic obstructive pulmonary disease): Plan: with mild flare switch to prednisone cont azithromycin x 5 days lungs clear sats stable cont daily inhalers (4) Anxiety and depression: Plan: cont home medications (5) Severely underweight adult: Plan: etiology? chronic malnourishment due to end-stage, severe COPD? malignancy? other? will add MVI will add boost (6) Iron (Fe) deficiency anemia: Plan: recheck Fe studies in am Hb about 9 today give IV venofer if still with Fe deficiency previous w/u in 2021 (upper/lower endos) without source of Fe loss (7) Bipolar affective disorder: Plan: cont home meds (8) Hyperlipidemia: (9) Hypokalemia: Plan: history of but K levels this admission wnl (10) Hypertension: Plan: only on metoprolol with stable BPs (11) Hypotension: Plan: had mild hypotension last pm likely due to metoprolol that is given at HS will stop metoprolol (12) Hypothyroidism: Plan: check TSH am cont synthroid (13) Nicotine dependence: 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 PT/OT evals Admission and Anticipated Discharge Date Admission Date: August 31, 2022 Subjective ABDOMINAL PAIN HAS RESOLVED , BUT STILL NO BM Review of Systems Review of Systems: gen - no fever, chronic failure to thrive cv - no substernal pain, no orthopnea pulm - cough, dyspnea, pleuritic left costal margin pain, AVILES GI - see HPI; has had constipation recently - h/o kidney stones, none recently; denies dysuria or foul-smelling urine Physical Exam Physical Exam: gen - cachectic, lying flat comfortably in bed; no respiratory distress; no cough mouth - MMM neck - no JVD heart - RRR, s1 s2 lungs - minimal wheeze b/l, airation fair, no distress chest - mild tenderness to palpation over costal margin on left abd - tender LUQ with mild tenderness extending to junction of LUQ/LLQ; minimal L flank pain; not distended; BS+ ext - no edema, pulses 2+ b/l psych - a/o x 3 Results & Data Results & Data ([facility]) Vital Signs (Past 12 Hours) Vital Signs Temp Pulse Pulse Resp BP Pulse Ox O2 Del Method 09/02/22 16:11 36.8 C 89 20 127/51 L 94 Nasal Cannula 09/02/22 16:11 Nasal Cannula 09/02/22 15:10 91 H 09/02/22 08:00 75 09/02/22 11:22 36.5 C 90 20 144/65 H 96 Nasal Cannula 09/02/22 08:26 36.2 C L 79 19 130/71 96 Nasal Cannula O2 Flow Rate 09/02/22 16:11 3 09/02/22 16:11 3 09/02/22 15:10 09/02/22 08:00 09/02/22 11:22 3 09/02/22 08:26 3 PG Care Time/CCT Total # of Minutes Spent Total Time Spent with Patient: Total time spent is greater than 50% in coordination of care (as documented) at patient's floor/unit and/or counseling patient: Coding Level of Care Code 52383 SUB INP/OBS CARE 2/35MIN Diagnoses LUQ abdominal pain R10.12 Acute and chronic respiratory failure with hypoxia J96.21 COPD (chronic obstructive pulmonary disease) J44.9 Anxiety and depression F41.9; F32.9 Severely underweight adult R63.6 Iron (Fe) deficiency anemia D50.9 Bipolar affective disorder F31.9 Hyperlipidemia E78.5 Hypokalemia E87.6 Hypertension I10 Hypotension I95.9 Hypothyroidism E03.9 Nicotine dependence F17.200
[2022-09-02] MEDS: LEVOTHYROXINE SODIUM 50 MCG TABLET PO SCH (20:48)
[2022-09-02] MEDS: QUEtiapine FUMARATE 200 MG TAB PO SCH (20:48)
[2022-09-02] MEDS: ATORVASTATIN 20 MG TAB PO SCH (20:49)
[2022-09-02] MEDS: LACTULOSE SYRUP 30 GM/45 ML UDP PO SCH (20:49)
[2022-09-02] MEDS: METOPROLOL TARTRATE 25 MG TAB PO SCH (20:49)
[2022-09-03] MEDS: AZITHROMYCIN 250 MG TAB PO SCH (09:26)
[2022-09-03] MEDS: busPIRone 15 MG TAB PO SCH (09:27)
[2022-09-03] MEDS: CHOLECALCIFEROL 1,000 UNITS 25 MCG TAB PO SCH (09:28)
[2022-09-03] MEDS: FLUTICASONE/VILANTEROL 100/25MCG 14 PUFFS/INHALER INH SCH (09:29)
[2022-09-03] MEDS: HEPARIN SOD 5,000 UNIT/0.5 ML VIAL SQ SCH (09:30)
[2022-09-03] MEDS: LACTULOSE SYRUP 30 GM/45 ML UDP PO SCH ×3 (09:31→13:17)
[2022-09-03] MEDS: LINACLOTIDE 145 MCG CAPSULE PO SCH (09:32)
[2022-09-03] MEDS: methylPREDNISolone 40 MG in SYRINGE 0 ML IV SCH ×2 (09:34→09:45)
[2022-09-03] MEDS: PANTOprazole 40 MG TAB PO SCH (09:35)
[2022-09-03] MEDS: CEROVITE ADV FORMULA TAB PO SCH (09:35)
[2022-09-03] MEDS: SENNA 8.6 MG TAB PO SCH (09:36)
[2022-09-03] MEDS: POLYETHYLENE (MIRALAX) 17 GM PACK PO SCH ×2 (09:36→09:44)
[2022-09-03] MEDS: UMECLIDINIUM BROMIDE 62.5MCG/BLISTER 7 PUFFS/INHALER INH SCH (09:37)
[2022-09-03] MEDS: DICLOFENAC SOD 1% GEL 100 GM TUBE EXT SCH ×2 (10:36→13:17)
[2022-09-03] MEDS ORDERED: predniSONE 20 MG TAB PO SCH (16:00)
--- NOTE | 2022-09-03 18:55 | Discharge Summary ---
Date of Service September 03, 2022 Admission HPI Per Admitting Provider Shameka Moise is a 67-year-old female with past medical history of severe advanced COPD on 3 L nighttime oxygen no daytime oxygen use, bipolar, hypothyroidism, hyperlipidemia, hypertension, hypokalemia, iron deficiency anemia, smoking of around 0.5 pack/day who presents with shortness of breath and chest pain over the last 4 days. Was seen by her PCP and was recommended to go to the ER for further evaluation. Chest pain worse with palpation Breathing bad 'for a long time' Declining since COVID and 25lbs weight loss last September +wheezing in the last week. No cough in week. no sputum production No fevers, cold and chilly for a few days with the weather being colder She has not noticed any change in her chest pain related to exertion. It has been relatively constant for 4 to 5 days. Does not hurt worse when she presses on it. Relieving factors include a warm pack. No lightheadedness, dizziness, syncope, presyncope, nausea, vomiting, diarrhea, constipation Medical History: Reviewed Medications: Reviewed Surgical History: Reviewed Allergies: Reviewed Social History: Current ongoing tobacco use 0.5 pack/day cessation encouraged Code Status: Full code for "1 round, no prolonged CPR " Principal Diagnosis COPD exacerbation Discharge Exam gen - cachectic, lying flat comfortably in bed; no respiratory distress; no cough mouth - MMM neck - no JVD heart - RRR, s1 s2 lungs - minimal wheeze b/l, airation fair, no distress chest - mild tenderness to palpation over costal margin on left abd - tender LUQ with mild tenderness extending to junction of LUQ/LLQ; minimal L flank pain; not distended; BS+ ext - no edema, pulses 2+ b/l psych - a/o x 3 Discharge Data Allergies Allergy/AdvReac Type Severity Reaction Status Date / Time codeine Allergy Intermediate ITCHING Verified 02/27/22 13:55 cortisone Allergy Intermediate ITCHING Verified 02/27/22 13:55 Penicillins Allergy Intermediate HIVES, Verified 02/27/22 13:55 ITCHINESS ciprofloxacin [From Cipro] AdvReac Intermediate Vomiting Verified 02/27/22 13:55 Consultations 08/31/22 16:53 ED Decision to Admit Stat Ordered Studies 08/31/22 14:40 CT angio chest PE protocol Stat 09/01/22 14:55 CT stones [CT abd pelvis wo con] Urgent Hospital Course (1) COPD (chronic obstructive pulmonary disease): Patient presented to hospital with acute on chronic hypoxic respiratory failure, patient is active smoker, history of COPD, 01/03 home oxygen, patient x-ray was done diagnostic for any acute disease, on exam patient bilateral wheezing, patient started on [id number] DuoNeb Solu-Medrol responded well, switch to prednisone DuoNeb as needed, currently oxygenating at baseline patient discharged home on tapering of dose of prednisone.. Patient was advised to stop smoking (2) Acute and chronic respiratory failure with hypoxia: acute component 2nd to COPD flare improved (3) LUQ abdominal pain: the patient states that the pain has resolved CTA chest without pathology in the LLL. Symptoms not suggestive of pericarditis. Troponins negative. CT a/p obtained to r/o obstructing kidney stone - negative for such. As noted above there is copious stool in the left colon starting at the splenic flexure. started on Lactulose , patient had multiple bowel movements (4) Anxiety and depression: cont home medications (5) Severely underweight adult: etiology? chronic malnourishment due to end-stage, severe COPD? malignancy? other? 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 Plan PT/OT evals Total Time Total Time Spent Total Time Spent (In Minutes): 45 MIN Discharge Plan Discharge Items Patient Disposition: Home - Self-Care Reason For Visit: ACUTE COPD, CHEST PAIN EVAL Discharge Diagnosis: COPD Activity: Resume your previous activity Lifting: Gradually increase as tolerated Bathing: No limitations Sexual Activity: When tolerated Exercise/Sports: Gradually increase as tolerated Driving/Machine Use: No limitations Weightbearing: Full weightbearing Non-emergency contact: Primary Care Provider Call non-emergency contact if: you have any medication questions Follow-up/Referrals: Eitan Bourne DO [Primary Care Provider] - 09/10/22 12:00 pm Diet: Heart Healthy Addtl Attending Provider Instructions: Please follow with your primary care doctor in one week Pending Studies at Discharge: No Stand-Alone Forms: [facility], Smoking Cessation Medications and DC Order Prescriptions: New polyethylene glycol 3350 [Miralax] 17 gram Powder In Packet 17 g PO DAILY Qty: 30 0RF prednisone 20 mg Tablet 40 mg PO QD@16 Qty: 12 0RF Rx Instructions: 40 mg for 4 days then 20 mg for 4 days then stop lactulose 20 gram/30 mL Solution 30 g PO QID PRN (Reason: constipation) Qty: 2880 0RF Continued levothyroxine 50 mcg tablet 50 mcg PO HS Qty: 90 3RF metoprolol tartrate 25 mg tablet 25 mg PO HS Qty: 30 11RF albuterol sulfate 2.5 mg /3 mL (0.083 %) solution for nebulization 1.25 mg inhalation Q6H PRN (Reason: shortness of breath or wheezing) Qty: 90 11RF atorvastatin [Lipitor] 20 mg tablet 20 mg PO HS Qty: 90 3RF pantoprazole 40 mg tablet,delayed release (DR/EC) See Rx Instructions .ROUTE .COMPLEX Qty: 90 1RF Dose Instruction: TAKE 1 TAB BY MOUTH DAILY Rx Instructions: TAKE 1 TAB BY MOUTH DAILY varenicline 1 mg tablet 1 mg PO BID Qty: 56 5RF (DME) Oxygen Home Liters Per Minute See Dose Instructions .ROUTE .MEDSUPPLY Qty: 1 Rx Instructions: As directed linaclotide 290 mcg capsule 290 mcg PO DAILY Qty: 30 5RF ondansetron 4 mg tablet,disintegrating 4 mg PO Q6H PRN (Reason: nausea and vomiting) Qty: 60 5RF diphenhydramine HCl [Benadryl Allergy] 25 mg tablet 25 mg PO QID PRN (Reason: Allergy Symptoms) oxycodone-acetaminophen 10-325 mg tablet 1 tab PO Q6H PRN (Reason: Severe Pain (Scale Score 7-10)) quetiapine [Seroquel] 400 mg tablet 800 mg PO HS buspirone 10 mg tablet 15 mg PO BID albuterol sulfate [Ventolin HFA] 90 mcg/actuation HFA aerosol inhaler 2 puff inhalation DAILY PRN (Reason: Shortness Of Breath) Fish Oil 340-1,000 mg capsule 1 cap PO HS Rx Instructions: OTC fluticasone furoate-vilanterol [Breo Ellipta] 100-25 mcg/dose blister with device 1 inh inhalation QAM guaifenesin [Mucinex] 600 mg tablet extended release 12hr 600 mg PO Q12 PRN (Reason: Congestion) Rx Instructions: OTC Incruse Ellipta 62.5 mcg/actuation blister with device 1 inh inhalation QAM cholecalciferol (vitamin D3) 25 mcg (1,000 unit) Capsule 1,000 unit PO QAM Qty: 30 0RF Rx Instructions: OTC Discharge Orders: Discharge Order (Routine); Ordered 09/03/22 Ordered By: Liu Engel Admission Data Admit Date/Time: 08/31/22 17:00 Attending Provider: Liu Engel Admit Provider: Armani Nickerson Primary Care Provider: Eitan Bourne Other Providers: Armani Nickerson Other Interventions: Discharge Summary Assessment (RN) Last Done: 09/03/22 14:41 Coding Level of Care Code HOSP INP/OBS DISCH >30 MIN Diagnoses COPD (chronic obstructive pulmonary disease) J44.9 Acute and chronic respiratory failure with hypoxia J96.21 LUQ abdominal pain R10.12 Anxiety and depression F41.9; F32.9 Severely underweight adult R63.6 Iron (Fe) deficiency anemia D50.9 Bipolar affective disorder F31.9 Hyperlipidemia E78.5 Hypokalemia E87.6 Hypertension I10 Hypotension I95.9 Hypothyroidism E03.9 Nicotine dependence F17.200
--- NOTE | 2022-09-09 16:07 | Coding Query ---
MALNUTRITION To promote full compliance with coding requirements relating to patient care, physician participation is requested in all cases of echocardiography radiology technologist uncertainty. Please assist us with the question(s) below: Please place an X within the parenthesis (x). If other, please document: "Malnutrition" is documented in this record. The medical record reflects the following clinical evidence: Clinical Indicators: Patient with BMI=14, COPD is documented with "severely underweight adult". Risk Factor(s): As above Treatment: RD consult, weights, I&O, boost supplements Please please check the box that provides a more specific diagnosis, including the definitive and/or presumptive diagnosis, (suspected or probable), related to the above clinical findings: ( ) Mild malnutrition ( ) Moderate malnutrition ( ) Severe malnutrition ( ) Protein malnutrition (kwashiorkor) (xxx ) Severe protein calorie malnutrition ( ) Protein calorie malnutrition, unspecified ( ) Other (please specify): Thank you for your time, ROHIT Chamorro, [facility]
== END 2022-09-03 15:25 | disposition home or self-care (01) | DRG 190 ==
LOC: ED 13:17 → SUATTDRO 17:00 → 2N 17:00

== ENCOUNTER 2022-12-03 14:52 | Inpatient (IN) ==
[2022-12-03] MEDS ORDERED: SODIUM CHLORIDE 0.9% 1000ML 1,000 ML IV ONE (15:21)
[2022-12-03] MEDS ORDERED: SODIUM CHLORIDE 0.9% 1000ML 1,000 ML IV SCH (15:30)
[2022-12-03 15:53] LABS: Basophils # (auto) 0.11 K/uL (0-0.2); Basophils % (auto) 1.2 %; Eosinophils # (auto) 0.26 K/uL (0-0.50); Eosinophils % (auto) 2.7 %; Immature Granulocytes # (auto) 0.04 K/uL (0.01-0.20); Immature Granulocytes % (auto) 0.4 %; Lymphocytes # (auto) 1.24 K/uL (1.2-3.4); Mean Corpuscular Hemoglobin 19.1 pg (25.0-34.0); Mean Corpuscular Hgb Conc 29.2 g/dL (32.0-36.0); Mean Corpuscular Volume 65.4 fL (80.0-100.0); Monocytes # (auto) 0.56 K/uL (0.11-0.59); Monocytes % (auto) 5.9 %; Neutrophils # (auto) 7.31 K/uL (1.40-6.50); Neutrophils % (auto) 76.8 %; RDW Coefficient of Variation 18.3 % (11.5-14.5); RDW Standard Deviation 42.1 fL (36.4-46.3); Red Blood Count 3.67 M/uL (4.20-5.40); White Blood Count 9.52 K/ul (4.8-10.8)
[2022-12-03 15:55] LABS: Base Excess VBG 1.2 mEq/L; HCO3 VBG 27 mmol/L; Oxygen Saturation VBG < 60.0 %; PCO2 VBG 52 mmHg (38-50); PO2 VBG 19 mmHg; pH VBG 7.33 (7.36-7.41)
[2022-12-03 16:02] LABS: iSTAT Creatinine 0.6 mg/dl (0.6-1.3); iSTAT Hemoglobin 9.2 g/dl (12.0-16.0); iSTAT Ionized Calcium 1.13 mmol/l (1.12-1.32); iSTAT Potassium 3.4 mmol/L (3.3-5.0)
--- NOTE | 2022-12-03 16:04 | XRay Report ---
SINGLE VIEW CHEST CLINICAL HISTORY: Sepsis. FINDINGS: 2 AP, portable, upright chest radiographs are compared to chest x-ray and chest CT dated . The cardiomediastinal silhouette is unremarkable noting atherosclerotic calcification of the thoracic aorta. Emphysema and chronic interstitial thickening is similar to previous. There is an ap proximately 2.5 cm nodular opacity projecting over the left upper lobe. This is new from the examinations and is likely infectious/inflammatory. Scarring/atelectasis is noted at the lung bases . No large pleural effusion or pneumothorax is seen. The skeletal structures are osteopenic. The bony thorax is grossly intact. IMPRESSION: 1. Advanced emphysema. 2. There is an approximately 2.5 cm nodular opacity projected over the left apex. This is new from th e 08/31/2022 x-ray and CT scan examinations, and given the time course is likely infectious/inflammato ry. Radiographic follow-up to resolution is recommended to exclude the possibility of developing neop lasm ACT 112: Negative or not required by law. Electronically signed by: Sean Amador M.D. 12/03/2022 4:03 PM
[2022-12-03 16:12] LABS: Albumin Level 3.8 gm/dl (3.4-5.0); Bilirubin Direct 0.1 mg/dl (0-0.2); Bilirubin,Total 0.4 mg/dl (0.2-1.0); Calcium 8.9 mg/dl (8.6-10.3); Creatinine Clr Calc Pharmacy 49.9 ml/min; Est GFR (African American) 108.7 ml/min; Est GFR (Non-African American) 93.8 ml/min; Magnesium 1.9 mg/dl (1.7-2.4); Potassium 3.7 mmol/L (3.5-5.1); Total Protein 6.2 gm/dl (6.0-8.3)
[2022-12-03] MEDS ORDERED: OPTIRAY 320 500ml IV ONE ×2 (16:12→20:00)
[2022-12-03 16:17] LABS: Troponin I High Sensitivity 3.4 pg/ml (0-14)
[2022-12-03 16:22] LABS: ALC (manual) 1.52 K/uL (1.2-3.4); ANC (manual) 7.24 K/uL (1.4-6.5); Basophils # (manual) 0.38 K/uL (0-0.2); Basophils % (manual) 4 %; Eosinophils % (manual) 1 %; Hypochromasia Present; Lymphocytes # (manual) 1.52 K/uL (1.2-3.4); Lymphocytes % (manual) 16 %; Mean Platelet Volume 10.3 fL (9.4-12.4); Microcytosis Present; Monocytes # (manual) 0.38 K/uL (0.11-0.59); Monocytes % (manual) 4 %; Neutrophils # (manual) 7.24 K/uL (1.40-6.50); Neutrophils % (manual) 76 %; Platelet Count 354 K/uL (130-400); Polychromasia 1+; Tear Drop Cells 1+
--- NOTE | 2022-12-03 16:23 | CT Scan Report ---
HEAD CT NONCONTRAST CT DOSE: 803.46 mGy.cm HISTORY: weakness TECHNIQUE: Multiaxial CT images of the head were performed without the use of intravenous contrast. A utomated exposure control was utilized for this study. A dose lowering technique was utilized adheri ng to the principles of ALARA. Comparison: Head CT 06/22/2016. Brain MRI 02/20/2019. Findings: Small fluid level within the right sphenoid sinus. This has improved. The mastoid air cells are clear. The calvarium and skull base are intact. The ventricles and sulci are within normal limit s. There is no mass, hematoma, midline shift, or acute infarct. Impression: 1. No acute infarct or intracranial hemorrhage. 2. Small fluid level within the right sphenoid sinus which has improved. ACT 112: Negative or not required by law. Electronically signed by: Aiden Appiah M.D. 12/03/2022 4:22 PM
--- NOTE | 2022-12-03 16:28 | CT Scan Report ---
CT OF THE ABDOMEN AND PELVIS WITH CONTRAST CLINICAL HISTORY: Abdominal pain. Weakness. COMPARISON STUDY: CT of the abdomen and pelvis September 01, 2022. TECHNIQUE: Following IV administration of 89 mL of Optiray, axial images of the abdomen and pelvis we re obtained from the lung bases to the proximal femurs. Images were reviewed in the axial, sagittal, and coronal planes. IV contrast was administered without complication. Automated exposure control wa s utilized for the study. A dose lowering technique was utilized adhering to the principles of ALARA . FINDINGS: Emphysema is noted within the lower lungs. No pneumatosis, free air or portal venous gas is present. Evaluation of the abdomen and pelvis is difficult given paucity of intra-abdominal fat. A f ew subcentimeter hepatic lesions favor cysts. A hypodense splenic lesion is likely benign. Adrenal gl ands and pancreas are unremarkable. There is no biliary or pancreatic ductal dilatation. No peripancr eatic or pericholecystic stranding is present. Small bilateral renal calculi are present. There are n o ureteral calculi. There is no hydronephrosis. There is extensive plaque of the abdominal aorta and branch vessels. There is no evidence for a bowel obstruction. Trace pelvic ascites is present. No def inite bowel wall thickening is identified. There is no fluid collection to suggest an abscess. No acu te fractures are identified within the visualized skeletal structures. IMPRESSION: 1. No bowel obstruction. No definite bowel wall thickening. Difficult study to interpret given paucit y of intra-abdominal fat. 2. Trace fluid within the pelvis. 3. Small bilateral renal calculi. No ureteral calculi or hydronephrosis. 4. Emphysema. ACT 112: Negative or not required by law. Electronically signed by: Brad Burden M.D. 12/03/2022 4:27 PM
[2022-12-03] MEDS ORDERED: CEFEPIME 2,000 MG/20 ML VIAL IV STA (16:44)
[2022-12-03] MEDS ORDERED: VANCOMYCIN HCL 1,000 MG in SODIUM CHLORIDE 0.9% 500 ML IV ONE (16:44)
[2022-12-03] MEDS ORDERED: VANCOMYCIN CONSULT ACTIVE PRN (16:44)
[2022-12-03 16:45] LABS: Influenza A virus by PCR Negative (Neg); Influenza B virus by PCR Negative (Neg); RSV by PCR Negative (Neg); SARS CoV2 RNA(COVID-19) Ceph NEGATIVE (Negative)
[2022-12-03 17:26] LABS: INR 1.1 (0.9-1.1); Partial Thromboplastin Ratio 0.7; Partial Thromboplastin Time 21.1 Seconds (21.0-31.0); Prothrombin Time 12.2 Seconds (9.0-12.0)
[2022-12-03 17:40] LABS: Appearance Urine Clear (Clear); Bacteria Urine Automated Negative (Negative); Bilirubin Urine Negative (Negative); Blood Urine Negative (Negative); Color Urine Yellow; Epithelial Cell Urine Auto >30 /lpf (0-5); Glucose Urine UA Negative (Negative); Ketones Urine Negative (Negative); Leukocyte Esterase Urine Negative (Negative); Nitrite Urine Negative (Negative); Protein Urine Trace (Negative); RBC Urine Automated 0-4 /hpf (0-4); Specific Gravity Urine > 1.045 (1.000-1.030); Urobilinogen Urine Negative (Negative)
[2022-12-03 17:50] LABS: Renal Epithelial Cells Urine 0-5 /lpf (0-5)
--- NOTE | 2022-12-03 18:31 | Emergency Department Note ---
History of Present Illness General Chief complaint: Weakness Stated complaint: SOB,CANT WALK,MAJOR WEIGHTLOSS,WEAK Time Seen by Provider: 12/03/22 15:17 History of Present Illness Provider complaint: Abdominal pain fatigue Maximum Pain Intensity: 10 67-year-old female presents emergency department for abdominal pain and fatigue. Patient reports she has been having increasing abdominal pain specifically over the left upper quadrant. She also reports increased weight loss over the last few weeks. She reports increased fatigue. at bedside states she has been so fatigued she has been unable to get out of bed. She reports difficulty breathing states she was 3.5 L of oxygen at night. No chest pain. Home Medications Medication Instructions Recorded Confirmed Type Oxygen Home #1 ea 03/07/19 09/04/22 History diphenhydramine HCl 25 mg tablet 25 mg PO QID PRN Allergy Symptoms 03/12/19 12/03/22 History (Benadryl Allergy) quetiapine 400 mg tablet (Seroquel) 400 mg PO HS 03/12/19 12/03/22 History levothyroxine 50 mcg tablet 50 mcg PO HS #90 tabs 09/03/20 12/03/22 Rx guaifenesin 600 mg tablet, 600 mg PO Q12 PRN Congestion 11/05/21 12/03/22 History extended release 12 hr (Mucinex) atorvastatin 20 mg tablet (Lipitor) 20 mg PO HS #90 tabs 12/22/21 12/03/22 Rx lactulose 20 gram/30 mL oral 30 g (45 mL) PO QID PRN 09/03/22 12/03/22 Rx solution constipation #2,880 mL albuterol sulfate 2.5 mg/3 mL 1.25 mg (1.5 mL) inhalation Q6H 10/26/22 12/03/22 Rx (0.083 %) solution for nebulization PRN shortness of breath or wheezing #90 mL albuterol sulfate 90 mcg/actuation 2 puff inhalation DAILY PRN 10/26/22 12/03/22 Rx aerosol inhaler (Ventolin HFA) Shortness Of Breath #8.5 grams fluticasone furoate 100 1 inh inhalation QAM #60 ea 10/26/22 12/03/22 Rx mcg-vilanterol 25 mcg/dose inhalation powder (Breo Ellipta) nebulizers #1 ea 10/26/22 10/26/22 Rx ondansetron 4 mg disintegrating 4 mg PO Q6H PRN nausea and 10/26/22 12/03/22 Rx tablet vomiting #60 tabs umeclidinium 62.5 mcg/actuation 1 inh inhalation QAM #30 ea 10/26/22 12/03/22 Rx blister powder for inhalation (Incruse Ellipta) metoprolol tartrate 25 mg tablet 25 mg PO HS #90 tabs 11/17/22 12/03/22 Rx buspirone 15 mg tablet 15 mg PO BID 12/03/22 12/03/22 History hydroxyzine pamoate 25 mg capsule 25 mg PO TID PRN Anxiety 12/03/22 12/03/22 H istory linaclotide 145 mcg capsule 145 mcg PO HS 12/03/22 12/03/22 History (Linzess) pantoprazole 40 mg tablet,delayed 40 mg PO HS 12/03/22 12/03/22 History release sertraline 100 mg tablet 100 mg PO BID 12/03/22 12/03/22 History Allergies Allergy/AdvReac Type Severity Reaction Status Date / Time codeine Allergy Intermediate ITCHING Verified 12/03/22 16:55 cortisone Allergy Intermediate ITCHING Verified 12/03/22 16:55 Penicillins Allergy Intermediate HIVES, Verified 12/03/22 16:55 ITCHINESS ciprofloxacin [From Cipro] AdvReac Intermediate Vomiting Verified 12/03/22 16:55 Past Med/Surg History Medical History Chronic back pain History of COVID-19 diagnosed 08/28/2021 @ [facility]--had to be on oxygen and in the hospital for 6 days--symptoms have resolved History of kidney stones History of recent blood transfusion 10/2021 @ [facility] Iron (Fe) deficiency anemia On home oxygen therapy 3L N/C HS Osteoarthritis Surgical History History of cataract surgery bilt History of colonoscopy History of esophagogastroduodenoscopy (EGD) History of lithotripsy x2 History of repair of right rotator cuff History of tooth extraction all teeth History of total hysterectomy with bilateral salpingo-oophorectomy (BSO) S/P cystoscopy with ureteral stent placement x5 S/P epidural steroid injection Family History Brother Alcohol abuse Kidney disease Mother Anxiety Kidney disease Sister Kidney disease Aunt Breast cancer Father Prostate cancer Family history of diabetes mellitus Other Cancer Diabetes Emphysema of lung Hypertension Lung disease No family history of adverse response to anesthesia Denies family history of Ovarian cancer Myocardial infarction Colorectal cancer Social History Smoking Status: Former smoker Tobacco Type: Cigarettes Age Started Using Tobacco: 17; Cigarettes Per Day: 4-6; Second Hand Exposure: Yes; Do You Dip or Chew Tobacco: No; Hx Alcohol Use: No Hx Substance Use: No Preferred Language: Sinhala Communication Ability: Effective Visual Impairment: No Limitations Hearing Ability: Normal Caustic Pump Operator Required: No Beliefs That Will Affect Care: None marital status: Current Living Situation: Significant Other Current Living Situation Comment: Lives with boyfriend current occupational status: disabled How many Children do You have: 3 Feels Safe at Home: Yes Childhood Exposure to Second-Hand Smoke: Yes Diet Comment: stated she eats very little, no appetite. caffeine: Yes Dental Care, Regularly: No Physical Activity Frequency: Daily Seatbelt Use: always Sunscreen Use: No Assistive Devices: Glasses, Oxygen - Continuous and Walker Physical Exam Vital Signs Vital Signs - 24 hr 12/03/22 15:05 12/03/22 15:21 12/03/22 15:20 Temperature 35.6 C L Temperature Source Temporal Artery Scan Pulse Rate 170 H 112 H 112 H Pulse Rate from SpO2 Sensor 112 H Respiratory Rate 26 H 19 Respiratory Effort / Characteristics Spontaneous Short of Breath Respiratory Depth Shallow Blood Pressure 83/51 L Blood Pressure Mean 61 Pulse Oximetry 95 99 Oxygen Delivery Method Nasal Cannula Oxygen Flow Rate 6 Sepsis Recent Fever Within 48 Hours No Sepsis New/Unexplained Change in Mental Status No Sepsis Action Taken by Nursing No Action Required 12/03/22 15:50 12/03/22 15:50 12/03/22 15:59 Temperature Temperature Source Pulse Rate Pulse Rate from SpO2 Sensor Respiratory Rate 15 15 15 Respiratory Effort / Characteristics Non-Labored Spontaneous Non-Labored Spontaneous Respiratory Depth Normal Normal Blood Pressure Blood Pressure Mean Pulse Oximetry 95 95 95 Oxygen Delivery Method Nasal Cannula Nasal Cannula Oxygen Flow Rate 5 5 Sepsis Recent Fever Within 48 Hours Sepsis New/Unexplained Change in Mental Status Sepsis Action Taken by Nursing 12/03/22 15:30 12/03/22 15:30 12/03/22 15:45 Temperature Temperature Source Pulse Rate 103 H 100 H Pulse Rate from SpO2 Sensor 103 H 100 H Respiratory Rate 22 22 Respiratory Effort / Characteristics Respiratory Depth Blood Pressure 132/74 Blood Pressure Mean 93 Pulse Oximetry 100 100 Oxygen Delivery Method Oxygen Flow Rate Sepsis Recent Fever Within 48 Hours Sepsis New/Unexplained Change in Mental Status Sepsis Action Taken by Nursing 12/03/22 16:00 12/03/22 16:06 12/03/22 16:00 Temperature Temperature Source Pulse Rate 112 H Pulse Rate from SpO2 Sensor 108 H Respiratory Rate 20 15 Respiratory Effort / Characteristics Respiratory Depth Blood Pressure 125/64 Blood Pressure Mean 84 Pulse Oximetry 100 Oxygen Delivery Method Oxygen Flow Rate Sepsis Recent Fever Within 48 Hours Sepsis New/Unexplained Change in Mental Status Sepsis Action Taken by Nursing Physical Exam GENERAL: Ill-appearing and cachectic. HENT: Exam performed. -Head: Normocephalic and atraumatic. EYES: Conjunctivae and EOM are normal. Right eye exhibits no discharge. Left eye exhibits no discharge. No scleral icterus. NECK: Normal range of motion. Neck supple. No JVD present. No tracheal deviation and normal range of motion present. CV: Normal rate, regular rhythm, normal heart sounds and intact distal pulses. There is no peripheral edema. Palpable radial pulses bue. PULM/CHEST: Effort normal and breath sounds normal. No respiratory distress. No stridor. She has no wheezes. She has no rales. ABD: The abdomen is soft.She has mild distension.There is tenderness to palpation of the left upper quadrant. There is no rebound, no guarding NEURO: Motor and sensation grossly intact. Course Course 1517: The patient was evaluated in room C12. A complete history and physical exam was performed Cardiac monitoring: An order was placed for continuous cardiac monitoring. The monitor shows a rate of 120 with sinus rhythm interpreted by me Patient was initially hypotensive and tachycardic. Sepsis protocol was ini tiated. 1645: Vital signs improved with 30 cc/kg bolus of IV fluids. Labs are within normal limits with exception of an elevated lactic acid of 4.5 and hemoglobin of 7. CT head and abdomen pelvis negative. Chest x-ray showed a 2.5 cm opacity in the left apex which is likely infectious/inflammatory. Patient treated with broad-spectrum antibiotics were started cefepime and vancomycin. Patient will be [facility] to [facility] Hospitalist team Dr. Morse notified. Administered Medications Vancomycin HCl 1,000 mg/ (Sodium Chloride) 520 mls @ 200 mls/hr IV NOW ONE Stop: 12/03/22 19:19 Last Admin: 12/03/22 17:40 Dose: 200 mls/hr Documented By: KERVIN Discontinued Medications Sodium Chloride (Nss 1000ml) 1,000 mls @ 999 mls/hr IV .Q1H1M ONE Stop: 12/03/22 16:21 Last Infusion: 12/03/22 17:31 Dose: 0 mls/hr Documented By: Admin: 12/03/22 16:05 Dose: 999 mls/hr Documented By: KERVIN Sodium Chloride (Nss 1000ml) 1,000 mls @ 999 mls/hr IV .Q1H1M JEFFERSON Stop: 12/03/22 16:30 Last Infusion: 12/03/22 17:31 Dose: 0 mls/hr Documented By: Admin: 12/03/22 16:05 Dose: 999 mls/hr Documented By: KERVIN Cefepime HCl (Maxipime) 2,000 mg in 20 mls @ 5 mls/min IV NOW STA; Protocol Stop: 12/03/22 16:47 Last Admin: 12/03/22 17:40 Dose: 5 mls/min Documented By: KERVIN Ioversol (Optiray 320 500ml) 89 ml IV ONCE ONE Stop: 12/03/22 16:13 Last Admin: 12/03/22 16:13 Dose: 89 ml Documented By: LEO Critical Care Time Critical Care Time: Yes Total Critical Care Time: 67 I have personally spent greater than 67 minutes of critical care time in the direct management of this patient. This includes bedside care, interpretation of diagnostic studies, and testing, discussion with consultants, patient, and family members, and other required patient management activities. This 67 minutes is in excess of all separately billable procedures. Medical Decision Making Laboratory Data Attestation: I reviewed the patient's lab results. 12/03/22 15:35 12/03/22 15:35 Lab Results 12/03/22 12/03/22 12/03/22 Range/Units 15:35 15:35 15:35 WBC 9.52 (4.8-10.8) K/ul RBC 3.67 L (4.20-5.40) M/uL Hgb 7.0 L (12.0-16.0) g/dl POC Hgb (12.0-16.0) g/dl Hct 24.0 L (37.0-47.0) % POC Hct (37-47) % MCV 65.4 L (80.0-100.0) fL MCH 19.1 L (25.0-34.0) pg MCHC 29.2 L (32.0-36.0) g/dL RDW Std Deviation 42.1 (36.4-46.3) fL RDW Coeff of Luis 18.3 H (11.5-14.5) % Plt Count 354 (130-400) K/uL MPV 10.3 (9.4-12.4) fL Immature Gran % (Auto) 0.4 % Neut % (Auto) 76.8 % Lymph % (Auto) 13.0 % Hyde % (Auto) 5.9 % Eos % (Auto) 2.7 % Baso % (Auto) 1.2 % Neut # (Auto) 7.31 H (1.40-6.50) K/uL Lymph # (Auto) 1.24 (1.2-3.4) K/uL Hyde # (Auto) 0.56 (0.11-0.59) K/uL Eos # (Auto) 0.26 (0-0.50) K/uL Baso # (Auto) 0.11 (0-0.2) K/uL Immature Gran # (Auto) 0.04 (0.01-0.20) K/uL Neutrophils % (Manual) 76 % Lymphocytes % (Manual) 16 % Monocytes % (Manual) 4 % Eosinophils % (Manual) 1 % Basophils % (Manual) 4 % Neutrophils # (Manual) 7.24 H (1.40-6.50) K/uL Total Absolute Neuts 7.24 H (1.4-6.5) K/uL Lymphocytes # (Manual) 1.52 (1.2-3.4) K/uL Total Abs Lymphocytes 1.52 (1.2-3.4) K/uL Monocytes # (Manual) 0.38 (0.11-0.59) K/uL Eosinophils # (Manual) 0.10 (0-0.50) K/uL Basophils # (Manual) 0.38 H (0-0.2) K/uL Polychromasia 1+ Hypochromasia Present Microcytosis Present Tear Drop Cells 1+ PT INR APTT PTT Ratio VBG pH (7.36-7.41) VBG pCO2 (38-50) mmHg VBG pO2 mmHg VBG HCO3 mmol/L VBG O2 Saturation % VBG Base Excess mEq/L POC Sodium (135-144) mmol/L Sodium 139 (136-145) mmol/L POC Potassium (3.3-5.0) mmol/L Potassium 3.7 (3.5-5.1) mmol/L POC Chloride (101-112) mmol/L Chloride 106 (98-107) mmol/L Carbon Dioxide 24 (21-32) mmol/L POC Total CO2 (24-31) mmol/L Anion Gap 9 (3-11) POC Anion Gap (16-25) mmol/L POC BUN (7-18) mg/dl BUN 14 (6-23) mg/dl Creatinine 0.61 (0.6-1.2) mg/dl POC Creatinine (0.6-1.3) mg/dl Est Cr Clr Drug Dosing 49.9 ml/min Est GFR ( Amer) 108.7 ml/min Est GFR (Non-Af Amer) 93.8 ml/min BUN/Creatinine Ratio 23.0 H (10-20) Glucose 179 H (70-99(Fasting)) mg/dl POC Glucose (other) (70-99) mg/dl Lactate 4.5 H* (0.4-2.0) mmol/L Calcium 8.9 (8.6-10.3) mg/dl POC Ioniz Calcium Timothy (1.12-1.32) mmol/l Magnesium 1.9 (1.7-2.4) mg/dl Total Bilirubin 0.4 (0.2-1.0) mg/dl Direct Bilirubin 0.1 (0-0.2) mg/dl AST 15 (13-39) U/L ALT 7 (7-52) U/L Alkaline Phosphatase 87 (34-104) U/L Troponin I High Sens 3.4 (0-14) pg/ml Total Protein 6.2 (6.0-8.3) gm/dl Albumin 3.8 (3.4-5.0) gm/dl Procalcitonin (0-0.5) ng/ml Urine Color Urine Appearance (Clear) Urine pH (4.5-7.5) Ur Specific [place] (1.000-1.030) Urine Protein (Negative) Urine Glucose (UA) (Negative) Urine Ketones (Negative) Urine Blood (Negative) Urine Nitrite (Negative) Urine Bilirubin (Negative) Urine Urobilinogen (Negative) Ur Leukocyte Esterase (Negative) Urine WBC (Auto) (0-5) /hpf Urine RBC (Auto) (0-4) /hpf U Hyaline Cast (Auto) (0-5) /lpf U Epithel Cells (Auto) (0-5) /lpf Urine Bacteria (Auto) (Negative) Ur Renal Epithelial Cell (0-5) /lpf SARS-CoV-2 (PCR) (Negative) Influenza Type A (PCR) (Neg) Influenza Type B (PCR) (Neg) RSV (RT-PCR) (Neg) Blood Type Antibody Screen 12/03/22 12/03/22 12/03/22 Range/Units 15:35 15:35 15:43 WBC (4.8-10.8) K/ul RBC (4.20-5.40) M/uL Hgb (12.0-16.0) g/dl POC Hgb (12.0-16.0) g/dl Hct (37.0-47.0) % POC Hct (37-47) % MCV (80.0-100.0) fL MCH (25.0-34.0) pg MCHC (32.0-36.0) g/dL RDW Std Deviation (36.4-46.3) fL RDW Coeff of Luis (11.5-14.5) % Plt Count (130-400) K/uL MPV (9.4-12.4) fL Immature Gran % (Auto) % Neut % (Auto) % Lymph % (Auto) % Hyde % (Auto) % Eos % (Auto) % Baso % (Auto) % Neut # (Auto) (1.40-6.50) K/uL Lymph # (Auto) (1.2-3.4) K/uL Hyde # (Auto) (0.11-0.59) K/uL Eos # (Auto) (0-0.50) K/uL Baso # (Auto) (0-0.2) K/uL Immature Gran # (Auto) (0.01-0.20) K/uL Neutrophils % (Manual) % Lymphocytes % (Manual) % Monocytes % (Manual) % Eosinophils % (Manual) % Basophils % (Manual) % Neutrophils # (Manual) (1.40-6.50) K/uL Total Absolute Neuts (1.4-6.5) K/uL Lymphocytes # (Manual) (1.2-3.4) K/uL Total Abs Lymphocytes (1.2-3.4) K/uL Monocytes # (Manual) (0.11-0.59) K/uL Eosinophils # (Manual) (0-0.50) K/uL Basophils # (Manual) (0-0.2) K/uL Polychromasia Hypochromasia Microcytosis Tear Drop Cells PT Cancelled INR Cancelled APTT Cancelled PTT Ratio Cancelled VBG pH (7.36-7.41) VBG pCO2 (38-50) mmHg VBG pO2 mmHg VBG HCO3 mmol/L VBG O2 Saturation % VBG Base Excess mEq/L POC Sodium (135-144) mmol/L Sodium (136-145) mmol/L POC Potassium (3.3-5.0) mmol/L Potassium (3.5-5.1) mmol/L POC Chloride (101-112) mmol/L Chloride (98-107) mmol/L Carbon Dioxide (21-32) mmol/L POC Total CO2 (24-31) mmol/L Anion Gap (3-11) POC Anion Gap (16-25) mmol/L POC BUN (7-18) mg/dl BUN (6-23) mg/dl Creatinine (0.6-1.2) mg/dl POC Creatinine (0.6-1.3) mg/dl Est Cr Clr Drug Dosing ml/min Est GFR ( Amer) ml/min Est GFR (Non-Af Amer) ml/min BUN/Creatinine Ratio (10-20) Glucose (70-99(Fasting)) mg/dl POC Glucose (other) (70-99) mg/dl Lactate (0.4-2.0) mmol/L Calcium (8.6-10.3) mg/dl POC Ioniz Calcium Timothy (1.12-1.32) mmol/l Magnesium (1.7-2.4) mg/dl Total Bilirubin (0.2-1.0) mg/dl Direct Bilirubin (0-0.2) mg/dl AST (13-39) U/L ALT (7-52) U/L Alkaline Phosphatase (34-104) U/L Troponin I High Sens (0-14) pg/ml Total Protein (6.0-8.3) gm/dl Albumin (3.4-5.0) gm/dl Procalcitonin < 0.05 (0-0.5) ng/ml Urine Color Urine Appearance (Clear) Urine pH (4.5-7.5) Ur Specific [place] (1.000-1.030) Urine Protein (Negative) Urine Glucose (UA) (Negative) Urine Ketones (Negative) Urine Blood (Negative) Urine Nitrite (Negative) Urine Bilirubin (Negative) Urine Urobilinogen (Negative) Ur Leukocyte Esterase (Negative) Urine WBC (Auto) (0-5) /hpf Urine RBC (Auto) (0-4) /hpf U Hyaline Cast (Auto) (0-5) /lpf U Epithel Cells (Auto) (0-5) /lpf Urine Bacteria (Auto) (Negative) Ur Renal Epithelial Cell (0-5) /lpf SARS-CoV-2 (PCR) (Negative) Influenza Type A (PCR) (Neg) Influenza Type B (PCR) (Neg) RSV (RT-PCR) (Neg) Blood Type O Positive Antibody Screen NEGATIVE 12/03/22 12/03/22 12/03/22 Range/Units 15:43 15:45 15:50 WBC (4.8-10.8) K/ul RBC (4.20-5.40) M/uL Hgb (12.0-16.0) g/dl POC Hgb 9.2 L (12.0-16.0) g/dl Hct (37.0-47.0) % POC Hct 27 L (37-47) % MCV (80.0-100.0) fL MCH (25.0-34.0) pg MCHC (32.0-36.0) g/dL RDW Std Deviation (36.4-46.3) fL RDW Coeff of Luis (11.5-14.5) % Plt Count (130-400) K/uL MPV (9.4-12.4) fL Immature Gran % (Auto) % Neut % (Auto) % Lymph % (Auto) % Hyde % (Auto) % Eos % (Auto) % Baso % (Auto) % Neut # (Auto) (1.40-6.50) K/uL Lymph # (Auto) (1.2-3.4) K/uL Hyde # (Auto) (0.11-0.59) K/uL Eos # (Auto) (0-0.50) K/uL Baso # (Auto) (0-0.2) K/uL Immature Gran # (Auto) (0.01-0.20) K/uL Neutrophils % (Manual) % Lymphocytes % (Manual) % Monocytes % (Manual) % Eosinophils % (Manual) % Basophils % (Manual) % Neutrophils # (Manual) (1.40-6.50) K/uL Total Absolute Neuts (1.4-6.5) K/uL Lymphocytes # (Manual) (1.2-3.4) K/uL Total Abs Lymphocytes (1.2-3.4) K/uL Monocytes # (Manual) (0.11-0.59) K/uL Eosinophils # (Manual) (0-0.50) K/uL Basophils # (Manual) (0-0.2) K/uL Polychromasia Hypochromasia Microcytosis Tear Drop Cells PT INR APTT PTT Ratio VBG pH 7.33 L (7.36-7.41) VBG pCO2 52 H (38-50) mmHg VBG pO2 19 mmHg VBG HCO3 27 mmol/L VBG O2 Saturation < 60.0 % VBG Base Excess 1.2 mEq/L POC Sodium 140 (135-144) mmol/L Sodium (136-145) mmol/L POC Potassium 3.4 (3.3-5.0) mmol/L Potassium (3.5-5.1) mmol/L POC Chloride 103 (101-112) mmol/L Chloride (98-107) mmol/L Carbon Dioxide (21-32) mmol/L POC Total CO2 24 (24-31) mmol/L Anion Gap (3-11) POC Anion Gap 18.0 (16-25) mmol/L POC BUN 13 (7-18) mg/dl BUN (6-23) mg/dl Creatinine (0.6-1.2) mg/dl POC Creatinine 0.6 (0.6-1.3) mg/dl Est Cr Clr Drug Dosing ml/min Est GFR ( Amer) ml/min Est GFR (Non-Af Amer) ml/min BUN/Creatinine Ratio (10-20) Glucose (70-99(Fasting)) mg/dl POC Glucose (other) 176 H (70-99) mg/dl Lactate (0.4-2.0) mmol/L Calcium (8.6-10.3) mg/dl POC Ioniz Calcium Timothy 1.13 (1.12-1.32) mmol/l Magnesium (1.7-2.4) mg/dl Total Bilirubin (0.2-1.0) mg/dl Direct Bilirubin (0-0.2) mg/dl AST (13-39) U/L ALT (7-52) U/L Alkaline Phosphatase (34-104) U/L Troponin I High Sens (0-14) pg/ml Total Protein (6.0-8.3) gm/dl Albumin (3.4-5.0) gm/dl Procalcitonin (0-0.5) ng/ml Urine Color Urine Appearance (Clear) Urine pH (4.5-7.5) Ur Specific [place] (1.000-1.030) Urine Protein (Negative) Urine Glucose (UA) (Negative) Urine Ketones (Negative) Urine Blood (Negative) Urine Nitrite (Negative) Urine Bilirubin (Negative) Urine Urobilinogen (Negative) Ur Leukocyte Esterase (Negative) Urine WBC (Auto) (0-5) /hpf Urine RBC (Auto) (0-4) /hpf U Hyaline Cast (Auto) (0-5) /lpf U Epithel Cells (Auto) (0-5) /lpf Urine Bacteria (Auto) (Negative) Ur Renal Epithelial Cell (0-5) /lpf SARS-CoV-2 (PCR) NEGATIVE (Negative) Influenza Type A (PCR) Negative (Neg) Influenza Type B (PCR) Negative (Neg) RSV (RT-PCR) Negative (Neg) Blood Type Antibody Screen 12/03/22 12/03/22 12/03/22 Range/Units 16:58 17:15 17:28 WBC (4.8-10.8) K/ul RBC (4.20-5.40) M/uL Hgb (12.0-16.0) g/dl POC Hgb (12.0-16.0) g/dl Hct (37.0-47.0) % POC Hct (37-47) % MCV (80.0-100.0) fL MCH (25.0-34.0) pg MCHC (32.0-36.0) g/dL RDW Std Deviation (36.4-46.3) fL RDW Coeff of Luis (11.5-14.5) % Plt Count (130-400) K/uL MPV (9.4-12.4) fL Immature Gran % (Auto) % Neut % (Auto) % Lymph % (Auto) % Hyde % (Auto) % Eos % (Auto) % Baso % (Auto) % Neut # (Auto) (1.40-6.50) K/uL Lymph # (Auto) (1.2-3.4) K/uL Hyde # (Auto) (0.11-0.59) K/uL Eos # (Auto) (0-0.50) K/uL Baso # (Auto) (0-0.2) K/uL Immature Gran # (Auto) (0.01-0.20) K/uL Neutrophils % (Manual) % Lymphocytes % (Manual) % Monocytes % (Manual) % Eosinophils % (Manual) % Basophils % (Manual) % Neutrophils # (Manual) (1.40-6.50) K/uL Total Absolute Neuts (1.4-6.5) K/uL Lymphocytes # (Manual) (1.2-3.4) K/uL Total Abs Lymphocytes (1.2-3.4) K/uL Monocytes # (Manual) (0.11-0.59) K/uL Eosinophils # (Manual) (0-0.50) K/uL Basophils # (Manual) (0-0.2) K/uL Polychromasia Hypochromasia Microcytosis Tear Drop Cells PT 12.2 H INR 1.1 APTT 21.1 PTT Ratio 0.7 VBG pH (7.36-7.41) VBG pCO2 (38-50) mmHg VBG pO2 mmHg VBG HCO3 mmol/L VBG O2 Saturation % VBG Base Excess mEq/L POC Sodium (135-144) mmol/L Sodium (136-145) mmol/L POC Potassium (3.3-5.0) mmol/L Potassium (3.5-5.1) mmol/L POC Chloride (101-112) mmol/L Chloride (98-107) mmol/L Carbon Dioxide (21-32) mmol/L POC Total CO2 (24-31) mmol/L Anion Gap (3-11) POC Anion Gap (16-25) mmol/L POC BUN (7-18) mg/dl BUN (6-23) mg/dl Creatinine (0.6-1.2) mg/dl POC Creatinine (0.6-1.3) mg/dl Est Cr Clr Drug Dosing ml/min Est GFR ( Amer) ml/min Est GFR (Non-Af Amer) ml/min BUN/Creatinine Ratio (10-20) Glucose (70-99(Fasting)) mg/dl POC Glucose (other) (70-99) mg/dl Lactate 1.9 (0.4-2.0) mmol/L Calcium (8.6-10.3) mg/dl POC Ioniz Calcium Timothy (1.12-1.32) mmol/l Magnesium (1.7-2.4) mg/dl Total Bilirubin (0.2-1.0) mg/dl Direct Bilirubin (0-0.2) mg/dl AST (13-39) U/L ALT (7-52) U/L Alkaline Phosphatase (34-104) U/L Troponin I High Sens (0-14) pg/ml Total Protein (6.0-8.3) gm/dl Albumin (3.4-5.0) gm/dl Procalcitonin (0-0.5) ng/ml Urine Color Yellow Urine Appearance Clear (Clear) Urine pH 7.0 (4.5-7.5) Ur Specific [place] > 1.045 H (1.000-1.030) Urine Protein Trace H (Negative) Urine Glucose (UA) Negative (Negative) Urine Ketones Negative (Negative) Urine Blood Negative (Negative) Urine Nitrite Negative (Negative) Urine Bilirubin Negative (Negative) Urine Urobilinogen Negative (Negative) Ur Leukocyte Esterase Negative (Negative) Urine WBC (Auto) 1-5 (0-5) /hpf Urine RBC (Auto) 0-4 (0-4) /hpf U Hyaline Cast (Auto) 5-10 H (0-5) /lpf U Epithel Cells (Auto) >30 H (0-5) /lpf Urine Bacteria (Auto) Negative (Negative) Ur Renal Epithelial Cell 0-5 (0-5) /lpf SARS-CoV-2 (PCR) (Negative) Influenza Type A (PCR) (Neg) Influenza Type B (PCR) (Neg) RSV (RT-PCR) (Neg) Blood Type Antibody Screen Imaging Data Attestation: I personally reviewed and interpreted this imaging study as follow s: My Impression: Chest x-ray: Left-sided opacity/infiltrate Radiologist's Impression: Chest X-Ray 12/03/22 15:21 SINGLE VIEW CHEST CLINICAL HISTORY: Sepsis. FINDINGS: 2 AP, portable, upright chest radiographs are compared to chest x-ray and chest CT dated 08/31/2022. The cardiomediastinal silhouette is unremarkable noting atherosclerotic calcification of the thoracic aorta. Emphysema and chronic interstitial thickening is similar to previous. There is an approximately 2.5 cm nodular opacity projecting over the left upper lobe. This is new from the 08/31/2022 examinations and is likely infectious/inflammatory. Scarring/atelectasis is noted at the lung bases. No large pleural effusion or pneumothorax is seen. The skeletal structures are osteopenic. The bony thorax is grossly intact. IMPRESSION: 1. Advanced emphysema. 2. There is an approximately 2.5 cm nodular opacity projected over the left apex. This is new from the 08/31/2022 x-ray and CT scan examinations, and given the time course is likely infectious/inflammatory. Radiographic follow-up to resolution is recommended to exclude the possibility of developing neoplasm ACT 112: Negative or not required by law. Electronically signed by: Sean Amador M.D. 12/03/2022 4:03 PM Abdomen/Pelvis CT 12/03/22 15:22 CT OF THE ABDOMEN AND PELVIS WITH CONTRAST CLINICAL HISTORY: Abdominal pain. Weakness. COMPARISON STUDY: CT of the abdomen and pelvis September 01, 2022. TECHNIQUE: Following IV administration of 89 mL of Optiray, axial images of the abdomen and pelvis were obtained from the lung bases to the proximal femurs. Images were reviewed in the axial, sagittal, and coronal planes. IV contrast was administered without complication. Automated exposure control was utilized for the study. A dose lowering technique was utilized adhering to the principles of ALARA. FINDINGS: Emphysema is noted within the lower lungs. No pneumatosis, free air or portal venous gas is present. Evaluation of the abdomen and pelvis is difficult given paucity of intra-abdominal fat. A few subcentimeter hepatic lesions favor cysts. A hypodense splenic lesion is likely benign. Adrenal glands and pancreas are unremarkable. There is no biliary or pancreatic ductal dilatation. No peripancreatic or pericholecystic stranding is present. Small bilateral renal calculi are present. There are no ureteral calculi. There is no hydronephrosis. There is extensive plaque of the abdominal aorta and branch vessels. There is no evidence for a bowel obstruction. Trace pelvic ascites is present. No definite bowel wall thickening is identified. There is no fluid collection to suggest an abscess. No acute fractures are identified within the visualized skeletal structures. IMPRESSION: 1. No bowel obstruction. No definite bowel wall thickening. Difficult study to interpret given paucity of intra-abdominal fat. 2. Trace fluid within the pelvis. 3. Small bilateral renal calculi. No ureteral calculi or hydronephrosis. 4. Emphysema. ACT 112: Negative or not required by law. Electronically signed by: Brad Burden M.D. 12/03/2022 4:[address] 12/03/22 15:[address] DOSE: 803.46 mGy.cm HISTORY: weakness TECHNIQUE: Multiaxial CT images of the head were performed without the use of intravenous contrast. Automated exposure control was utilized for this study. A dose lowering technique was utilized adhering to the principles of ALARA. Comparison: Head CT 06/22/2016. Brain MRI 02/20/2019. Findings: Small fluid level within the right sphenoid sinus. This has improved. The mastoid air cells are clear. The calvarium and skull base are intact. The ventricles and sulci are within normal limits. There is no mass, hematoma, midline shift, or acute infarct. Impression: 1. No acute infarct or intracranial hemorrhage. 2. Small fluid level within the right sphenoid sinus which has improved. ACT 112: Negative or not required by law. Electronically signed by: Aiden Appiah M.D. 12/03/2022 4:22 PM ECG Data Attestation: I personally reviewed and interpreted this ECG as follows: Indication: + other (sepsis) Rate (beats per minute): 100 Rhythm: + normal sinus ECG ST segments: + Normal ST segments Additional Comments: TX 154 QRS 66 QTc 466 MDM Narrative 1517: The patient was evaluated in room C12. A complete history and physical exam was performed Cardiac monitoring: An order was placed for continuous cardiac monitoring. The monitor shows a rate of 120 with sinus rhythm interpreted by me Patient was initially hypotensive and tachycardic. Sepsis protocol was initiated. 1645: Vital signs improved with 30 cc/kg bolus of IV fluids. Labs are within normal limits with exception of an elevated lactic acid of 4.5 and hemoglobin of 7. CT head and abdomen pelvis negative. Chest x-ray showed a 2.5 cm opacity in the left apex which is likely infectious/inflammatory. Patient treated with broad-spectrum antibiotics were started cefepime and vancomycin. Patient will be [facility] hospitalist team Dr. Morse notified. Impression & Plan Sepsis, Pneumonia Discharge Plan Visit Data Chief Complaint: Weakness Stated Complaint: SOB,CANT WALK,MAJOR WEIGHTLOSS,WEAK ED Provider: Kevin Terry Discharge Problem: Sepsis, Pneumonia Patient Disposition: Admitted As Inpatient Forms Stand Alone Forms: My [facility] Prescriptions Prescriptions: No Action levothyroxine 50 mcg tablet 50 mcg PO HS Qty: 90 3RF atorvastatin [Lipitor] 20 mg tablet 20 mg PO HS Qty: 90 3RF metoprolol tartrate 25 mg tablet 25 mg PO HS Qty: 90 3RF (DME) Oxygen Home Liters Per Minute See Dose Instructions .ROUTE .MEDSUPPLY Qty: 1 Rx Instructions: As directed ondansetron 4 mg tablet,disintegrating 4 mg PO Q6H PRN (Reason: nausea and vomiting) Qty: 60 5RF albuterol sulfate 2.5 mg /3 mL (0.083 %) solution for nebulization 1.25 mg inhalation Q6H PRN (Reason: shortness of breath or wheezing) Qty: 90 11RF albuterol sulfate [Ventolin HFA] 90 mcg/actuation HFA aerosol inhaler 2 puff inhalation DAILY PRN (Reason: Shortness Of Breath) Qty: 8.5 11RF fluticasone furoate-vilanterol [Breo Ellipta] 100-25 mcg/dose blister with device 1 inh inhalation QAM Qty: 60 11RF Incruse Ellipta 62.5 mcg/actuation blister with device 1 inh inhalation QAM Qty: 30 11RF (DME) nebulizers Misc See Rx Instructions .Route Qty: 1 0RF Rx Instructions: As directed, with nebulizer supplies diphenhydramine HCl [Benadryl Allergy] 25 mg tablet 25 mg PO QID PRN (Reason: Allergy Symptoms) quetiapine [Seroquel] 400 mg tablet 400 mg PO HS guaifenesin [Mucinex] 600 mg tablet extended release 12hr 600 mg PO Q12 PRN (Reason: Congestion) Rx Instructions: OTC sertraline 100 mg tablet 100 mg PO BID Rx Instructions: PER PT "TAKE ALL PILLS AT HS". buspirone 15 mg tablet 15 mg PO BID Rx Instructions: PER PT "TAKE ALL PILLS AT HS". hydroxyzine pamoate 25 mg capsule 25 mg PO TID PRN (Reason: Anxiety) pantoprazole 40 mg tablet,delayed release (DR/EC) 40 mg PO HS Linzess 145 mcg capsule 145 mcg PO HS lactulose 20 gram/30 mL Solution 30 g PO QID PRN (Reason: constipation) Qty: 2880 0RF Referrals Referrals: Eitan Bourne DO [Primary Care Provider] -
--- NOTE | 2022-12-03 18:58 | History & Physical Report ---
Date of Service December 03, 2022 Assessment & Plan (1) Left upper lobe pulmonary infiltrate: Plan: 67 yo F with 2.5 cm irregular density in L apex in a patient with end stage COPD, continued tobacco use, and weight loss Acute/unstable - ER treating as sepsis syndrome with pneumonia (new lesion compared to studies from earlier this year) - In absence of any positive inflammatory markers (no leukocytosis, fever, elevated lactate, PCT) and URI symptoms, I am more suspicious of this favoring malignancy than pneumonia - Admit to PCU d/t transient hypotension and tachycardia - For now, will continue Cefepime and Vancomycin - MRSA swab has been ordered, if negative, discontinue Vancomycin - Blood cultures ordered/pending - Obtain CT chest w/ and w/o contrast STAT to further differentiate L apex lesion - Supplemental O2 ONLY if pulse ox <88%, goal pulse ox 88-92% - Xopenex/Atrovent QID (d/t tachycardia) and continue Mucinex 600mg BID (2) Moderate dehydration: Plan: Acute/unstable - Suspect this to be the cause of the transient hypotension and tachycardia - Hydrated with 2L of NSS in ED - Continue NSS at 100 ml/hr x 2 liters then stop (3) Iron (Fe) deficiency anemia: Plan: Acute on chronic/unstable - Reviewed labs, hgb 7.0 and hct 24.0 - anticipate further drop with the hydration she has received - Trend with repeat CBC in AM - Will order Venofer 300mg IV x1 today and will need another dose tomorrow (4) Severe protein-calorie malnutrition: Plan: Chronic/unstable - Persistent and progressive weight loss for the past year since Sep 2021 - BMI 14.2 - suspect combination of COPD but could likely have a malignancy - Per PCP note, has been drinking Boost twice a day - Reports losing 3lb this week alone despite eating "like a horse" - RD consult for nutritional assessment has been ordered (5) COPD (chronic obstructive pulmonary disease): Plan: Chronic/Stable - Advanced/end stage - Continue ICS and anticholinergic - Supplemental O2 as noted above to maintain goal sat of 88-92% (6) Hypothyroidism: Plan: Chronic/stable - Continue Levothyroxine 50 mcg daily (7) Anxiety and depression: Plan: Chronic/stable - Continue Buspirone, Hydroxyzine PRN, Zoloft, and Seroquel (8) Hypertension: Plan: Chronic/stable - Continue Metoprolol 25mg at HS Plan Lovenox will be utilized for DVT ppx. AM labs have been ordered. Above plan of care has been d/w Dr. Nickerson who will also see and evaluate this patient. Futher orders will be implemented as warranted. History of Present Illness Chief Complaint: weakness Primary Care Provider: Eitan Bourne DO Shameka Moise is a 67 yo F with a pmhx of advanced/end stage COPD with chronic respiratory failure, unintentional weight loss with severe PCM, iron deficiency anemia, HTN, HLD, and hypothyroidism who presents to the ER today c/o worsening shortness of breath and generalized weakness/debility. Patient reports that she has been struggling with unintentional weight loss since she had COVID in September of 2021. She also reports that she has a known h/o iron deficiency anemia and was receiving iron infusions monthly but stopped several months ago. She notes that her PCP wants her to resume having them monthly. Lastly, she reports that since her last colonoscopy, which was also approximately one year ago, that she has been struggling with constipation. She denies passing BRBPR or melanotic stools. She presented to the ER today for evaluation of her worsening weakness/debility, persistent and progressive weight loss, on and off fevers, as well as her increasing dyspnea. Upon arrival, it was recorded that she had a HR of 170 with a BP of 83/52. Following 2L of NSS, her HR and BP responded. She was treated as a "sepsis" picture and was finney scanned and was treated with a dose of Cefepime and Vancomycin. Presently, she is comfortable, is on nasal cannula O2 with a pulse ox of 100%. She states that she typically only wears O2 at night and was not recorded as having an O2 saturation below 95% in the emergency room. She has been referred to the hospitalist service for admission for further evaluation. Allergies Allergy/AdvReac Type Severity Reaction Status Date / Time codeine Allergy Intermediate ITCHING Verified 12/03/22 16:55 cortisone Allergy Intermediate ITCHING Verified 12/03/22 16:55 Penicillins Allergy Intermediate HIVES, Verified 12/03/22 16:55 ITCHINESS ciprofloxacin [From Cipro] AdvReac Intermediate Vomiting Verified 12/03/22 16:55 Home Medications Medication Instructions Recorded Confirmed Type Oxygen Home #1 ea 03/07/19 09/04/22 History diphenhydramine HCl 25 mg tablet 25 mg PO QID PRN Allergy Symptoms 03/12/19 12/03/22 History (Benadryl Allergy) quetiapine 400 mg tablet (Seroquel) 400 mg PO HS 03/12/19 12/03/22 History levothyroxine 50 mcg tablet 50 mcg PO HS #90 tabs 09/03/20 12/03/22 Rx guaifenesin 600 mg tablet, 600 mg PO Q12 PRN Congestion 11/05/21 12/03/22 History extended release 12 hr (Mucinex) atorvastatin 20 mg tablet (Lipitor) 20 mg PO HS #90 tabs 12/22/21 12/03/22 Rx lactulose 20 gram/30 mL oral 30 g (45 mL) PO QID PRN 09/03/22 12/03/22 Rx solution constipation #2,880 mL albuterol sulfate 2.5 mg/3 mL 1.25 mg (1.5 mL) inhalation Q6H 10/26/22 12/03/22 Rx (0.083 %) solution for nebulization PRN shortness of breath or wheezing #90 mL albuterol sulfate 90 mcg/actuation 2 puff inhalation DAILY PRN 10/26/22 12/03/22 Rx aerosol inhaler (Ventolin HFA) Shortness Of Breath #8.5 grams fluticasone furoate 100 1 inh inhalation QAM #60 ea 10/26/22 12/03/22 Rx mcg-vilanterol 25 mcg/dose inhalation powder (Breo Ellipta) nebulizers #1 ea 10/26/22 10/26/22 Rx ondansetron 4 mg disintegrating 4 mg PO Q6H PRN nausea and 10/26/22 12/03/22 Rx tablet vomiting #60 tabs umeclidinium 62.5 mcg/actuation 1 inh inhalation QAM #30 ea 10/26/22 12/03/22 Rx blister powder for inhalation (Incruse Ellipta) metoprolol tartrate 25 mg tablet 25 mg PO HS #90 tabs 11/17/22 12/03/22 Rx buspirone 15 mg tablet 15 mg PO BID 12/03/22 12/03/22 History hydroxyzine pamoate 25 mg capsule 25 mg PO TID PRN Anxiety 12/03/22 12/03/22 History linaclotide 145 mcg capsule 145 mcg PO HS 12/03/22 12/03/22 History (Linzess) pantoprazole 40 mg tablet,delayed 40 mg PO HS 12/03/22 12/03/22 History release sertraline 100 mg tablet 100 mg PO BID 12/03/22 12/03/22 History Past Med/Surg History Medical History Chronic back pain History of COVID-19 diagnosed 08/28/2021 @ [facility]--had to be on oxygen and in the hospital for 6 days--symptoms have resolved History of kidney stones History of recent blood transfusion 10/2021 @ [facility] Iron (Fe) deficiency anemia On home oxygen therapy 3L N/C HS Osteoarthritis Surgical History History of cataract surgery bilt History of colonoscopy History of esophagogastroduodenoscopy (EGD) History of lithotripsy x2 History of repair of right rotator cuff History of tooth extraction all teeth History of total hysterectomy with bilateral salpingo-oophorectomy (BSO) S/P cystoscopy with ureteral stent placement x5 S/P epidural steroid injection Family History Brother Alcohol abuse Kidney disease Mother Anxiety Kidney disease Sister Kidney disease Aunt Breast cancer Father Prostate cancer Family history of diabetes mellitus Other Cancer Diabetes Emphysema of lung Hypertension Lung disease No family history of adverse response to anesthesia Denies family history of Ovarian cancer Myocardial infarction Colorectal cancer Social History Smoking Status: Former smoker Tobacco Type: Cigarettes Age Started Using Tobacco: 17; Cigarettes Per Day: 4-6; Second Hand Exposure: Yes; Do You Dip or Chew Tobacco: No; Hx Alcohol Use: No Hx Substance Use: No Preferred Language: Macedonian Communication Ability: Effective Visual Impairment: No Limitations Hearing Ability: Normal [employer] Required: No Beliefs That Will Affect Care: None marital status: Current Living Situation: Significant Other Current Living Situation Comment: Lives with boyfriend current occupational status: disabled How many Children do You have: 3 Feels Safe at Home: Yes Childhood Exposure to Second-Hand Smoke: Yes Diet Comment: stated she eats very little, no appetite. caffeine: Yes Dental Care, Regularly: No Physical Activity Frequency: Daily Seatbelt Use: always Sunscreen Use: No Assistive Devices: Glasses, Oxygen - Continuous and Walker Physical Exam Physical Exam: GENERAL: 67 yo cachectic fail F who appears chronically ill and older than stated age. She is AAOx4 and in NAD. LUNGS: Poor air exchange. Nonlabored. Breath sounds diminished throughout. CARDIOVASCULAR: Mildly tachycardic without m/g/r ABDOMEN: Soft, non-tender and non-distended. BS normoactive x 4 quad. EXTREMITIES: No edema. Non-tender. Peripheral pulses +2/4. Results & Data Results & Data Vital Signs (Past 12 Hours) Vital Signs Temp Pulse Resp BP Pulse Ox O2 Del Method O2 Flow Rate 12/03/22 16:00 125/64 12/03/22 16:06 15 12/03/22 16:00 112 H 20 100 12/03/22 15:45 100 H 22 100 12/03/22 15:30 103 H 22 100 12/03/22 15:30 132/74 12/03/22 15:59 15 95 Nasal Cannula 12/03/22 15:50 15 95 5 12/03/22 15:50 15 95 Nasal Cannula 5 12/03/22 15:20 112 H 19 99 12/03/22 15:21 112 H 12/03/22 15:05 35.6 C L 170 H 26 H 83/51 L 95 Nasal Cannula 6 Laboratory Results 12/03/22 15:35 12/03/22 15:35 Diagnostic Findings Chest X-Ray 12/03/22 15:21 SINGLE VIEW CHEST CLINICAL HISTORY: Sepsis. FINDINGS: 2 AP, portable, upright chest radiographs are compared to chest x-ray and chest CT dated 08/31/2022. The cardiomediastinal silhouette is unremarkable noting atherosclerotic calcification of the thoracic aorta. Emphysema and chronic interstitial thickening is similar to previous. There is an approximately 2.5 cm nodular opacity projecting over the left upper lobe. This is new from the 08/31/2022 examinations and is likely infectious/inflammatory. Scarring/atelectasis is noted at the lung bases. No large pleural effusion or pneumothorax is seen. The skeletal structures are osteopenic. The bony thorax is grossly intact. IMPRESSION: 1. Advanced emphysema. 2. There is an approximately 2.5 cm nodular opacity projected over the left apex. This is new from the 08/31/2022 x-ray and CT scan examinations, and given the time course is likely infectious/inflammatory. Radiographic follow-up to resolution is recommended to exclude the possibility of developing neoplasm ACT 112: Negative or not required by law. Electronically signed by: Sean Amador M.D. 12/03/2022 4:03 PM Abdomen/Pelvis CT 12/03/22 15:22 CT OF THE ABDOMEN AND PELVIS WITH CONTRAST CLINICAL HISTORY: Abdominal pain. Weakness. COMPARISON STUDY: CT of the abdomen and pelvis September 01, 2022. TECHNIQUE: Following IV administration of 89 mL of Optiray, axial images of the abdomen and pelvis were obtained from the lung bases to the proximal femurs. Images were reviewed in the axial, sagittal, and coronal planes. IV contrast was administered without complication. Automated exposure control was utilized for the study. A dose lowering technique was utilized adhering to the principles of ALARA. FINDINGS: Emphysema is noted within the lower lungs. No pneumatosis, free air or portal venous gas is present. Evaluation of the abdomen and pelvis is difficult given paucity of intra-abdominal fat. A few subcentimeter hepatic lesions favor cysts. A hypodense splenic lesion is likely benign. Adrenal glands and pancreas are unremarkable. There is no biliary or pancreatic ductal dilatation. No peripancreatic or pericholecystic stranding is present. Small bilateral renal c alculi are present. There are no ureteral calculi. There is no hydronephrosis. There is extensive plaque of the abdominal aorta and branch vessels. There is no evidence for a bowel obstruction. Trace pelvic ascites is present. No definite bowel wall thickening is identified. There is no fluid collection to suggest an abscess. No acute fractures are identified within the visualized skeletal structures. IMPRESSION: 1. No bowel obstruction. No definite bowel wall thickening. Difficult study to interpret given paucity of intra-abdominal fat. 2. Trace fluid within the pelvis. 3. Small bilateral renal calculi. No ureteral calculi or hydronephrosis. 4. Emphysema. ACT 112: Negative or not required by law. Electronically signed by: Brad Burden M.D. 12/03/2022 4:[address] 12/03/22 15:[address] DOSE: 803.46 mGy.cm HISTORY: weakness TECHNIQUE: Multiaxial CT images of the head were performed without the use of intravenous contrast. Automated exposure control was utilized for this study. A dose lowering technique was utilized adhering to the principles of ALARA. Comparison: Head CT 06/22/2016. Brain MRI 02/20/2019. Findings: Small fluid level within the right sphenoid sinus. This has improved. The mastoid air cells are clear. The calvarium and skull base are intact. The ventricles and sulci are within normal limits. There is no mass, hematoma, midline shift, or acute infarct. Impression: 1. No acute infarct or intracranial hemorrhage. 2. Small fluid level within the right sphenoid sinus which has improved. ACT 112: Negative or not required by law. Electronically signed by: Aiden Appiah M.D. 12/03/2022 4:22 PM PG Care Time/CCT Total # of Minutes Spent Total Time Spent with Patient: Total time spent is greater than 50% in coordination of care (as documented) at patient's floor/unit and/or counseling patient: Coding Level of Care Code 95692 INT INP/OBS CARE 3/75MIN Diagnoses Left upper lobe pulmonary infiltrate R91.8 Moderate dehydration E86.0 Iron (Fe) deficiency anemia D50.9 Severe protein-calorie malnutrition E43 COPD (chronic obstructive pulmonary disease) J44.9 Hypothyroidism E03.9 Anxiety and depression F41.9; F32.9 Hypertension I10
[2022-12-03] MEDS ORDERED: LINACLOTIDE 145 MCG CAPSULE PO SCH (21:02)
[2022-12-03] MEDS ORDERED: POLYETHYLENE (MIRALAX) 17 GM PACK PO PRN (21:02)
[2022-12-03] MEDS ORDERED: ACETAMINOPHEN 325 MG TAB PO PRN (21:02)
[2022-12-03] MEDS ORDERED: XOPENEX/ATROVENT 0.63mg/0.5MG NEB COMBO NEB SCH (21:02)
[2022-12-03] MEDS ORDERED: ALUMINUM/MAGNESIUM SUSP 30 ML UDC PO PRN (21:02)
[2022-12-03] MEDS ORDERED: ONDANSETRON INJ 2 MG/ML 2 ML VIAL IV PRN (21:02)
[2022-12-03] MEDS ORDERED: hydrOXYzine HCl 25 MG TAB PO PRN (21:02)
--- NOTE | 2022-12-03 21:11 | CT Scan Report ---
CT ANGIOGRAM OF THE CHEST COMBO CLINICAL HISTORY: Abnormal chest x-ray. Sepsis. COMPARISON STUDY: Chest CT dated 08/31/2022. Chest x-ray dated 12/03/2022. TECHNIQUE: Before and following the IV administration of 89 cc of Optiray 320, CT angiogram of the ch est was performed from the thoracic inlet to the upper abdomen utilizing the dissection protocol. Latricia ges are reviewed in the axial, sagittal, and coronal planes. 3-D MIPS images are created and assessed . IV contrast was administered without complication. A dose lowering technique was utilized adhering to the principles of ALARA. CT DOSE: 435.95 mGy.cm FINDINGS: Thyroid: Imaged portions of the thyroid gland are normal in size and attenuation. Thoracic aorta: No intramural hematoma is seen on the unenhanced series. There is atherosclerotic doris cification of the thoracic aorta, which is normal in caliber and demonstrates standard 3-vessel arch anatomy. No dissection is seen. The arch vessels are widely patent. Pulmonary vasculature: The main pulmonary arteries are dilated suggesting pulmonary artery hypertensi on. There are no filling defects identified in the main, lobar, or segmental pulmonary arteries to in dicate pulmonary embolus. Heart: The heart is normal in size noting trace pericardial effusion. The coronary arteries are dense ly calcified. Lungs and pleural spaces: There is advanced emphysema. There is subpleural consolidation in the poste rior left upper lobe. This measures up to 3.5 cm and is new from 08/31/2022. No pleural effusion is id entified. There is a probable scarring are seen throughout both lungs. An 11 mm scarlike opacity at t he right apex on image #51 is unchanged, as is a 3 mm right apical nodule on image #45. Mediastinum: There is no mediastinal lymphadenopathy. Mendy: Clear. Axillae: There is no axillary lymphadenopathy. Upper abdomen: Partially visualized upper abdominal viscera is within normal limits. Skeletal structures: The skeletal structures are osteopenic. No lytic or blastic bony lesions are see n. There is a subacute/healing left lateral 8th rib fracture. IMPRESSION: 1. Unremarkable CT angiogram of the thoracic aorta. 2. There is no evidence of pulmonary embolus in the main, lobar, or segmental pulmonary arteries. 3. Advanced emphysema. 4. There is subpleural consolidation in the posterior left upper lobe, which is new from 08/31/2022. G iven the time course this is likely on an infectious or inflammatory basis. Clinical correlation will be required. A follow-up chest CT in 2 months time is recommended for reassessment and to document r esolution as a mass lesion could appear similar. 5. Additional nodular/scar like opacities at the right apex are unchanged. These can also be reassess ed at follow-up. 6. Additional findings as above. ACT 112: Negative or not required by law. Electronically signed by: Sean Amador M.D. 12/03/2022 9:10 PM
[2022-12-03] MEDS ORDERED: LACTULOSE SYRUP 30 GM/45 ML UDP PO PRN (21:24)
[2022-12-03] MEDS ORDERED: IRON SUCROSE 300 MG in SODIUM CHLORIDE 0.9% 250 ML IV ONE (21:30)
[2022-12-03] MEDS: PANTOprazole 40 MG TAB PO SCH (21:35)
[2022-12-03] MEDS: busPIRone 15 MG TAB PO SCH (21:35)
[2022-12-03] MEDS: guaiFENesin 600 MG TABCR PO SCH (21:36)
[2022-12-03] MEDS: SERTRALINE HCL 100 MG TABLET PO SCH (21:36)
[2022-12-03] MEDS: ATORVASTATIN 20 MG TAB PO SCH (21:36)
[2022-12-03] MEDS: LEVOTHYROXINE SODIUM 50 MCG TABLET PO SCH (21:36)
[2022-12-03] MEDS: METOPROLOL TARTRATE 25 MG TAB PO SCH (21:37)
[2022-12-03] MEDS: QUEtiapine FUMARATE 200 MG TAB PO SCH (21:37)
[2022-12-03] MEDS: HEPARIN SOD 5,000 UNIT/0.5 ML VIAL SQ SCH (21:39)
[2022-12-03] MEDS: SODIUM CHLORIDE 0.9% 1000ML 1,000 ML IV SCH (21:39)
[2022-12-03] MEDS: MAGNESIUM HYDROXIDE SUSP 30 ML UDC PO PRN (22:21)
[2022-12-03] MEDS: IPRATROPIUM BROMIDE NEB SOLN 0.02% 2.5 ML VIAL INH SCH (22:44)
[2022-12-03] MEDS: LEVALBUTEROL HCL 0.63 MG/3 ML NEB NEB SCH (22:44)
[2022-12-04] MEDS ORDERED: SIMETHICONE 80 MG CHEW PO ONE (00:02)
[2022-12-04] MEDS: IPRATROPIUM BROMIDE NEB SOLN 0.02% 2.5 ML VIAL INH SCH ×2 (00:07→06:59)
[2022-12-04] MEDS: LEVALBUTEROL HCL 0.63 MG/3 ML NEB NEB SCH ×3 (00:08→20:01)
--- NOTE | 2022-12-04 05:31 | Electrocardiogram Report ---
Test Reason : Blood Pressure : / mmHG Vent. Rate : 100 BPM Atrial Rate : 100 BPM P-R Int : 154 ms QRS Dur : 066 ms QT Int : 362 ms P-R-T Axes : 086 074 078 degrees QTc Int : 466 ms Normal sinus rhythm Anteroseptal infarct (cited on or before 03-DEC-2022) Abnormal ECG When compared with ECG of 31-AUG-2022 13:32, No significant change was found Confirmed by Bertram Jeter ([id number]) on 12/04/2022 5:30:37 AM Referred By: Confirmed By:Bertram Jeter
[2022-12-04] MEDS: CEFEPIME 2,000 MG in SYRINGE 0 ML IV SCH ×2 (06:34→17:12)
[2022-12-04] MEDS: HEPARIN SOD 5,000 UNIT/0.5 ML VIAL SQ SCH ×3 (06:34→20:15)
[2022-12-04 06:42] LABS: Hematocrit (blood only) 20.6 % (37.0-47.0); Hemoglobin 5.9 g/dl (12.0-16.0); Mean Corpuscular Hemoglobin 19.1 pg (25.0-34.0); Mean Corpuscular Hgb Conc 28.6 g/dL (32.0-36.0); Mean Corpuscular Volume 66.7 fL (80.0-100.0); Mean Platelet Volume 9.4 fL (9.4-12.4); Platelet Count 340 K/uL (130-400); RDW Coefficient of Variation 17.8 % (11.5-14.5); RDW Standard Deviation 41.8 fL (36.4-46.3); Red Blood Count 3.09 M/uL (4.20-5.40); White Blood Count 8.66 K/ul (4.8-10.8)
[2022-12-04 06:44] LABS: BUN Creatinine Ratio 23.1 (10-20); Calcium 7.9 mg/dl (8.6-10.3); Est GFR (African American) 114.6 ml/min; Est GFR (Non-African American) 98.9 ml/min; Magnesium 1.9 mg/dl (1.7-2.4); Potassium 3.5 mmol/L (3.5-5.1)
[2022-12-04 06:48] LABS: Anisocytosis Present; Basophils # (auto) 0.07 K/uL (0-0.2); Basophils % (auto) 0.8 %; Eosinophils # (auto) 0.38 K/uL (0-0.50); Eosinophils % (auto) 4.4 %; Hypochromasia Present; Immature Granulocytes # (auto) 0.01 K/uL (0.01-0.20); Immature Granulocytes % (auto) 0.1 %; Lymphocytes # (auto) 1.24 K/uL (1.2-3.4); Lymphocytes % (auto) 14.3 %; Monocytes % (auto) 8.1 %; Neutrophils # (auto) 6.26 K/uL (1.40-6.50); Neutrophils % (auto) 72.3 %
[2022-12-04] MEDS ORDERED: SODIUM CHLORIDE 0.9% 250 ML IV PRN (07:04)
[2022-12-04] MEDS: FLUTICASONE/VILANTEROL 100/25MCG 14 PUFFS/INHALER INH SCH (08:16)
[2022-12-04] MEDS: guaiFENesin 600 MG TABCR PO SCH ×2 (08:17→20:12)
[2022-12-04] MEDS: UMECLIDINIUM BROMIDE 62.5MCG/BLISTER 7 PUFFS/INHALER INH SCH (08:17)
[2022-12-04] MEDS: SERTRALINE HCL 100 MG TABLET PO SCH ×2 (08:17→20:13)
[2022-12-04] MEDS: busPIRone 15 MG TAB PO SCH ×2 (08:17→20:14)
[2022-12-04] MEDS ORDERED: LEVALBUTEROL HCL 0.63 MG/3 ML NEB NEB PRN (10:47)
--- NOTE | 2022-12-04 15:58 | Hospitalist Progress Note ---
Date of Service December 04, 2022 Assessment & Plan (1) Left upper lobe pulmonary infiltrate: Plan: 67 yo F with 2.5 cm irregular density in L apex in a patient with end stage COPD, continued tobacco use, and weight loss With pneumonia seen on CT chest -Presented with tachycardia, hypoxia, but no fevers or leukocytosis, negative procalcitonin, normal lactate - continue Cefepime and discontinue vancomycin as MRSA swab negative - Blood cultures no growth to date - Supplemental O2 ONLY if pulse ox <88%, goal pulse ox 88-92%-weaned off to room air today - Xopenex/Atrovent QID (d/t tachycardia) and continue Mucinex 600mg BID -Should have repeat CT chest in 6 weeks to ensure resolution (2) Iron (Fe) deficiency anemia: Plan: Acute on chronic/unstable-has several year history of iron deficiency anemia and B12 deficiency anemia. She has had EGDs and colonoscopies, small bowel endoscopies all in the last few years. Seen by hematology and was receiving frequent IV iron infusions, but has not received any in a year. - hgb 7.0 on arrival and dropped to 5.9 overnight likely somewhat hemodilutional Received Venofer 300 Mg IV x1 on admission and 2 units PRBCs on 12/04 -Follow CBC -No gross bleeding from anywhere GI or -Suspect some nutritional deficiency contributing but also likely with occult GI bleed-did have AVMs nonbleeding on previous colonoscopy -Has upcoming outpatient GI appointment on Wednesday-keep that as will need repeat EGD and colonoscopy as an outpatient -Would also recommend upper GI with small bowel follow-through or repeat capsule endoscopy to look for small bowel source of bleeding (3) Moderate dehydration: Plan: Acute/unstable - Suspect this to be the cause of the transient hypotension and tachycardia-now resolved after IV fluids DC IV fluids (4) Severe protein-calorie malnutrition: Plan: Chronic/unstable - Persistent and progressive weight loss for the past year since Sep 2021 - BMI 14.2 - suspect combination of COPD but could likely have a malignancy - Per PCP note, has been drinking Boost twice a day - Reports losing 3lb this week alone despite eating "like a horse" - RD consult for nutritional assessment has been ordered -CT chest/abdomen/pelvis without clear source of malignancy-needs EGD and colonoscopy and capsule endoscopy as above -Needs repeat CT chest in 6 weeks to ensure resolution of infiltrate and to ensure no lung malignancy -Could be from heavy smoking and COPD (5) COPD (chronic obstructive pulmonary disease): Plan: Chronic/Stable - Advanced/end stage - Continue ICS and anticholinergic - Supplemental O2 as noted above to maintain goal sat of 88-92% -Encouraged smoking cessation (6) Hypothyroidism: Plan: Chronic/stable, TSH normal in 08/2022 - Continue Levothyroxine 50 mcg daily (7) Anxiety and depression: Plan: Chronic/stable - Continue Buspirone, Hydroxyzine PRN, Zoloft, and Seroquel (8) Hypertension: Plan: Chronic/stable - Continue Metoprolol 25mg at HS (9) Visual symptoms: Plan: Complains of right eye loss of vision and blurry vision for the last week Consult ophthalmology and get her an appointment with ophthalmology soon as possible for next week as an outpatient Start polymyxin be eyedrops given complaint of discharge from the eye although no obvious conjunctivitis Plan DVT prophylaxis-heparin 5000 Mg SQ twice daily Disposition-continued stay in PCU Admission and Anticipated Discharge Date Admission Date: December 03, 2022 Subjective Patient reports still feeling very weak. Mild cough. Also reports that 1 week ago she lost all vision in her right eye for couple of minutes and then it came back but has been blurry ever since. She does have some discharge at times from the eye as well. Denies shortness of breath or chest pains. No abdominal pains. Had multiple episodes of loose stool through the night after being given a laxative Physical Exam Constitutional: + underweight Eyes: + anicteric sclerae, PERRL and EOM intact bilaterally; no eyelid abnormality, no anisocoria and no nystagmus Respiratory: normal respiratory effort; no cough Auscultation: + diminished lung sounds (Throughout); no crackles, no rhonchi and no wheezes Cardiovascular: RRR, no murmur, no edema Gastrointestinal (Abdomen): normal bowel sounds, soft, nontender, no hepatosplenomegaly Musculoskeletal: Extremities: + extremities abnormal to inspection (Diffuse sarcopenia) Skin: no rashes, warm and dry Neurologic: no focal motor deficits and not confused Psychiatric: A+Ox3, euthymic affect Results & Data Results & Data Vital Signs (Past 12 Hours) Vital Signs Temp Pulse Pulse Resp BP BP Pulse Ox 12/04/22 13:25 36.7 C 68 16 144/85 H 90 12/04/22 13:17 36.5 C 73 18 153/75 H 90 12/04/22 09:45 36.7 C 66 18 127/65 98 12/04/22 12:25 36.9 C 78 16 149/79 H 91 12/04/22 11:55 36.8 C 76 16 151/71 H 91 12/04/22 11:40 36.9 C 71 16 165/68 H 90 12/04/22 11:25 36.9 C 67 16 143/70 H 91 12/04/22 11:22 36.9 C 69 16 143/70 H 91 12/04/22 10:16 36.8 C 69 18 136/68 91 12/04/22 09:16 36.6 C 69 16 119/67 99 12/04/22 08:07 12/04/22 08:46 36.8 C 75 18 128/65 98 12/04/22 07:23 36.2 C L 72 18 132/62 99 12/04/22 08:31 36.5 C 74 16 121/66 96 12/04/22 08:10 36.2 C L 72 18 132/62 99 12/04/22 06:59 79 20 98 12/04/22 05:03 36.5 C 70 20 139/70 99 O2 Del Method O2 Flow Rate 12/04/22 13:25 12/04/22 13:17 Room Air 12/04/22 09:45 12/04/22 12:25 12/04/22 11:55 12/04/22 11:40 12/04/22 11:25 12/04/22 11:22 12/04/22 10:16 0 12/04/22 09:16 0 12/04/22 08:07 Nasal Cannula 3 12/04/22 08:46 3 12/04/22 07:23 Nasal Cannula 3 12/04/22 08:31 3 12/04/22 08:10 3 12/04/22 06:59 Nasal Cannula 3 12/04/22 05:03 Room Air Laboratory Results CBC, BMP reviewed PG Care Time/CCT Total # of Minutes Spent Total Time Spent with Patient: Total time spent is greater than 50% in coordination of care (as documented) at patient's floor/unit and/or counseling patient: Coding Level of Care Code 61583 SUB INP/OBS CARE 350MIN Diagnoses Left upper lobe pulmonary infiltrate R91.8 Iron (Fe) deficiency anemia D50.9 Moderate dehydration E86.0 Severe protein-calorie malnutrition E43 COPD (chronic obstructive pulmonary disease) J44.9 Hypothyroidism E03.9 Anxiety and depression F41.9; F32.9 Hypertension I10 Visual symptoms H57.9
[2022-12-04] MEDS: SODIUM CHLORIDE 0.9% 1000ML 1,000 ML IV SCH (15:59)
[2022-12-04] MEDS: TRIMETHOPRIM/POLYMYXIN B OP SCH ×2 (17:09→20:17)
[2022-12-04] MEDS: IPRATROPIUM BROMIDE NEB SOLN 0.02% 2.5 ML VIAL INH PRN (20:06)
[2022-12-04] MEDS: QUEtiapine FUMARATE 200 MG TAB PO SCH (20:13)
[2022-12-04] MEDS: METOPROLOL TARTRATE 25 MG TAB PO SCH (20:14)
[2022-12-04] MEDS: LEVOTHYROXINE SODIUM 50 MCG TABLET PO SCH (20:14)
[2022-12-04] MEDS: PANTOprazole 40 MG TAB PO SCH (20:15)
[2022-12-04] MEDS: ATORVASTATIN 20 MG TAB PO SCH (20:15)
[2022-12-05] MEDS: CEFEPIME 2,000 MG in SYRINGE 0 ML IV SCH ×2 (06:01→17:16)
[2022-12-05 06:38] LABS: BUN Creatinine Ratio 16.9 (10-20); Calcium 8.8 mg/dl (8.6-10.3); Creatinine Clr Calc Pharmacy 47.2 ml/min; Est GFR (African American) 106.5 ml/min; Est GFR (Non-African American) 91.9 ml/min; Potassium 3.4 mmol/L (3.5-5.1)
[2022-12-05 06:38] LABS: Hemoglobin 10.3 g/dl (12.0-16.0); Mean Corpuscular Hgb Conc 32.2 g/dL (32.0-36.0); Mean Corpuscular Volume 71.6 fL (80.0-100.0); Mean Platelet Volume 8.9 fL (9.4-12.4); Platelet Count 273 K/uL (130-400); RDW Standard Deviation 57.1 fL (36.4-46.3); Red Blood Count 4.47 M/uL (4.20-5.40); White Blood Count 7.86 K/ul (4.8-10.8)
[2022-12-05] MEDS: LEVALBUTEROL HCL 0.63 MG/3 ML NEB NEB SCH ×2 (07:06→18:53)
[2022-12-05] MEDS: IPRATROPIUM BROMIDE NEB SOLN 0.02% 2.5 ML VIAL INH PRN (07:07)
[2022-12-05 07:15] LABS: Anisocytosis Present; Basophils # (auto) 0.09 K/uL (0-0.2); Basophils % (auto) 1.1 %; Eosinophils # (auto) 0.43 K/uL (0-0.50); Eosinophils % (auto) 5.5 %; Immature Granulocytes # (auto) 0.03 K/uL (0.01-0.20); Immature Granulocytes % (auto) 0.4 %; Lymphocytes # (auto) 1.16 K/uL (1.2-3.4); Lymphocytes % (auto) 14.8 %; Monocytes # (auto) 0.68 K/uL (0.11-0.59); Monocytes % (auto) 8.7 %; Neutrophils # (auto) 5.47 K/uL (1.40-6.50); Neutrophils % (auto) 69.5 %
[2022-12-05] MEDS: FLUTICASONE/VILANTEROL 100/25MCG 14 PUFFS/INHALER INH SCH (08:08)
[2022-12-05] MEDS: busPIRone 15 MG TAB PO SCH ×2 (08:09→20:03)
[2022-12-05] MEDS: SERTRALINE HCL 100 MG TABLET PO SCH ×2 (08:09→20:05)
[2022-12-05] MEDS: guaiFENesin 600 MG TABCR PO SCH ×2 (08:09→20:05)
[2022-12-05] MEDS: TRIMETHOPRIM/POLYMYXIN B OP SCH ×4 (08:10→20:11)
[2022-12-05] MEDS: UMECLIDINIUM BROMIDE 62.5MCG/BLISTER 7 PUFFS/INHALER INH SCH (08:10)
[2022-12-05] MEDS: HEPARIN SOD 5,000 UNIT/0.5 ML VIAL SQ SCH ×2 (08:11→20:03)
[2022-12-05] MEDS ORDERED: POTASSIUM CHLORIDE CRTAB 20 MEQ TABCR PO STA (15:56)
--- NOTE | 2022-12-05 16:14 | Hospitalist Progress Note ---
Date of Service December 05, 2022 Assessment & Plan (1) Left upper lobe pulmonary infiltrate: Plan: 67 yo F -Presented with tachycardia, hypoxia, but no fevers or leukocytosis, negative procalcitonin, normal lactate with 2.5 cm irregular density in L apex in a patient with end stage COPD, continued tobacco use, and weight loss With pneumonia seen on CT chest MRSA swab negative Blood cultures remain no growth to date - continue Cefepime for gram-negative pneumonia - Supplemental O2 ONLY if pulse ox <88%, goal pulse ox 88-92%-on 1 LNC - Xopenex/Atrovent QID (d/t tachycardia) and continue Mucinex 600mg BID -Should have repeat CT chest in 6 weeks to ensure resolution (2) Iron (Fe) deficiency anemia: Plan: Acute on chronic/unstable-has several year history of iron deficiency anemia and B12 deficiency anemia. She has had EGDs and colonoscopies, small bowel endoscopies all in the last few years. Seen by hematology and was receiving frequent IV iron infusions, but has not received any in a year. EGD report reviewed-no biopsies taken for celiac at the time Suspect could have celiac disease given extreme weight loss, malnutrition, multiple nutritional deficiencies - hgb 7.0 on arrival and dropped to 5.9 overnight likely somewhat hemodilutional Received Venofer 300 Mg IV x1 on admission and 2 units PRBCs on 12/04, will give another dose of Venofer on 12/05 Hemoglobin up to 10.3 now-some of her fatigue is improving -Follow CBC in the morning -No gross bleeding from anywhere GI or -Suspect some nutritional deficiency contributing and possible celiac disease, but also could have occult GI bleed-did have AVMs nonbleeding on previous colonoscopy -Has upcoming outpatient GI appointment on Wednesday-keep that as will need repeat EGD with biopsies for celiac disease and colonoscopy as an outpatient -Would also recommend upper GI with small bowel follow-through or repeat capsule endoscopy to look for small bowel source of bleeding -Check celiac panel on labs in the morning -Check B12, folate levels, TSH in the morning (3) Moderate dehydration: Plan: Acute/unstable - Suspect this to be the cause of the transient hypotension and tachycardia-now resolved after IV fluids (4) Severe protein-calorie malnutrition: Plan: Chronic/unstable - Persistent and progressive weight loss for the past year since Sep 2021 - BMI 14.2 - suspect combination of COPD but could likely have a malignancy - Per PCP note, has been drinking Boost twice a day - Reports losing 3lb this week alone despite eating "like a horse" - RD consult for nutritional assessment has been ordered -CT chest/abdomen/pelvis without clear source of malignancy-needs EGD and colono scopy and capsule endoscopy as above -Needs repeat CT chest in 6 weeks to ensure resolution of infiltrate and to ensure no lung malignancy -Could be from heavy smoking and COPD, possible celiac disease as above (5) COPD (chronic obstructive pulmonary disease): Plan: Chronic/Stable - Advanced/end stage - Continue ICS and anticholinergic - Supplemental O2 as noted above to maintain goal sat of 88-92% -Encouraged smoking cessation (6) Hypothyroidism: Plan: Chronic/stable, TSH normal in 08/2022 - Continue Levothyroxine 50 mcg daily (7) Anxiety and depression: Plan: Chronic/stable - Continue Buspirone, Hydroxyzine PRN, Zoloft, and Seroquel (8) Hypertension: Plan: Chronic/stable - Continue Metoprolol 25mg at HS (9) Visual symptoms: Plan: Complains of right eye loss of vision and blurry vision for the last week Consult ophthalmology and get her an appointment with ophthalmology soon as possible for next week as an outpatient Started polymyxin be eyedrops given complaint of discharge from the eye although no obvious conjunctivitis-reports her vision is somewhat improved with doing this Plan DVT prophylaxis-heparin 5000 Mg SQ twice daily Disposition-continued stay but downgrade to medical/surgical unit, awaiting rehab placement-Case management involved Admission and Anticipated Discharge Date Admission Date: December 03, 2022 Subjective Reports feeling a little bit stronger today with blood transfusion but still only able to take a few steps with physical therapy. Still some cough that is nonproductive. No abdominal pain, no further bowel movement since diarrhea the day before Right eye feels better with starting eyedrops Telemetry with normal sinus rhythm with rates in 60s to 70s Physical Exam Constitutional: + underweight Eyes: + anicteric sclerae Respiratory: normal respiratory effort; no cough Auscultation: + diminished lung sounds (Throughout); no crackles, no rhonchi and no wheezes Cardiovascular: RRR, no murmur, no edema Gastrointestinal (Abdomen): normal bowel sounds, soft, nontender, no hepatosplenomegaly Musculoskeletal: Extremities: + extremities abnormal to inspection (Diffuse sarcopenia) Skin: no rashes, warm and dry Neurologic: no focal motor deficits and not confused Psychiatric: A+Ox3, euthymic affect Results & Data Results & Data Vital Signs (Past 12 Hours) Vital Signs Temp Pulse Resp BP Pulse Ox O2 Del Method O2 Flow Rate 12/05/22 12:04 36.7 C 76 18 124/62 96 Nasal Cannula 1 12/05/22 08:00 36.8 C 75 18 147/68 H 93 Nasal Cannula 1 12/05/22 07:15 Room Air 12/05/22 07:08 67 18 96 Nasal Cannula 1 Laboratory Results CBC, BMP, magnesium reviewed Blood cultures no growth to date PG Care Time/CCT Total # of Minutes Spent Total Time Spent with Patient: Total time spent is greater than 50% in coordination of care (as documented) at patient's floor/unit and/or counseling patient: Coding Level of Care Code 82453 SUB INP/OBS CARE 3/50MIN Diagnoses Left upper lobe pulmonary infiltrate R91.8 Iron (Fe) deficiency anemia D50.9 Moderate dehydration E86.0 Severe protein-calorie malnutrition E43 COPD (chronic obstructive pulmonary disease) J44.9 Hypothyroidism E03.9 Anxiety and depression F41.9; F32.9 Hypertension I10 Visual symptoms H57.9
[2022-12-05] MEDS ORDERED: IRON SUCROSE 300 MG in SODIUM CHLORIDE 0.9% 250 ML IV ONE (16:30)
[2022-12-05] MEDS: ATORVASTATIN 20 MG TAB PO SCH (20:03)
[2022-12-05] MEDS: LEVOTHYROXINE SODIUM 50 MCG TABLET PO SCH (20:04)
[2022-12-05] MEDS: QUEtiapine FUMARATE 200 MG TAB PO SCH (20:04)
[2022-12-05] MEDS: METOPROLOL TARTRATE 25 MG TAB PO SCH (20:04)
[2022-12-05] MEDS: PANTOprazole 40 MG TAB PO SCH (20:05)
[2022-12-06 06:27] LABS: Basophils # (auto) 0.06 K/uL (0-0.2); Basophils % (auto) 1.1 %; Eosinophils # (auto) 0.31 K/uL (0-0.50); Eosinophils % (auto) 5.5 %; Hematocrit (blood only) 35.2 % (37.0-47.0); Immature Granulocytes # (auto) 0.01 K/uL (0.01-0.20); Immature Granulocytes % (auto) 0.2 %; Lymphocytes # (auto) 0.87 K/uL (1.2-3.4); Lymphocytes % (auto) 15.5 %; Mean Corpuscular Hemoglobin 22.7 pg (25.0-34.0); Mean Corpuscular Hgb Conc 31.3 g/dL (32.0-36.0); Mean Corpuscular Volume 72.6 fL (80.0-100.0); Mean Platelet Volume 9.3 fL (9.4-12.4); Monocytes # (auto) 0.43 K/uL (0.11-0.59); Monocytes % (auto) 7.7 %; Neutrophils # (auto) 3.93 K/uL (1.40-6.50); Platelet Count 295 K/uL (130-400); Red Blood Count 4.85 M/uL (4.20-5.40); White Blood Count 5.61 K/ul (4.8-10.8)
[2022-12-06] MEDS: CEFEPIME 2,000 MG in SYRINGE 0 ML IV SCH ×2 (06:35→18:04)
[2022-12-06 06:39] LABS: BUN Creatinine Ratio 24.6 (10-20); Calcium 8.7 mg/dl (8.6-10.3); Creatinine Clr Calc Pharmacy 50.2 ml/min; Est GFR (African American) 108.7 ml/min; Est GFR (Non-African American) 93.8 ml/min; Potassium 3.8 mmol/L (3.5-5.1)
[2022-12-06 06:52] LABS: Anisocytosis Present
[2022-12-06] MEDS: LEVALBUTEROL HCL 0.63 MG/3 ML NEB NEB SCH ×2 (06:58→19:34)
[2022-12-06] MEDS: SERTRALINE HCL 100 MG TABLET PO SCH ×2 (08:19→21:01)
[2022-12-06] MEDS: guaiFENesin 600 MG TABCR PO SCH ×2 (08:19→21:01)
[2022-12-06] MEDS: busPIRone 15 MG TAB PO SCH ×2 (08:19→21:02)
[2022-12-06] MEDS: FLUTICASONE/VILANTEROL 100/25MCG 14 PUFFS/INHALER INH SCH (08:20)
[2022-12-06] MEDS: TRIMETHOPRIM/POLYMYXIN B OP SCH ×4 (08:20→21:02)
[2022-12-06] MEDS: UMECLIDINIUM BROMIDE 62.5MCG/BLISTER 7 PUFFS/INHALER INH SCH (08:20)
[2022-12-06] MEDS: HEPARIN SOD 5,000 UNIT/0.5 ML VIAL SQ SCH ×2 (08:21→21:01)
[2022-12-06] MEDS: MAGNESIUM HYDROXIDE SUSP 30 ML UDC PO PRN (08:25)
--- NOTE | 2022-12-06 13:25 | Hospitalist Progress Note ---
Date of Service December 06, 2022 Assessment & Plan (1) Left upper lobe pulmonary infiltrate: Plan: 67 yo F -Presented with tachycardia, hypoxia, but no fevers or leukocytosis, negative procalcitonin, normal lactate with 2.5 cm irregular density in Left upper lobe in a patient with end stage COPD, continued tobacco use, and weight loss With pneumonia seen on CT chest MRSA swab negative Blood cultures remain no growth to date - continue Cefepime for gram-negative pneumonia - Supplemental O2 ONLY if pulse ox <88%, goal pulse ox 88-92%-now weaned to room air at rest - Xopenex/Atrovent QID (d/t tachycardia) and continue Mucinex 600mg BID -Should have repeat CT chest in 6 weeks to ensure resolution to make sure no underlying malignancy given h/o smoking (2) Iron (Fe) deficiency anemia: Plan: Acute on chronic/unstable-has several year history of iron deficiency anemia and B12 deficiency anemia. She has had EGDs and colonoscopies, small bowel endoscopies all in the last few years. Seen by hematology and was receiving frequent IV iron infusions, but has not received any in a year. EGD report reviewed-no biopsies taken for celiac at the time Suspect could have celiac disease given extreme weight loss, malnutrition, multiple nutritional deficiencies No gross bleeding from anywhere GI or Could have occult GI bleed-did have AVMs nonbleeding on previous colonoscopy Hgb 7.0 on arrival and dropped to 5.9 overnight likely somewhat hemodilutional Received Venofer 300 Mg IV x2 doses and 2 units PRBCs on 12/04 Hemoglobin up to 11 now B12 level remains low at 294, folate normal at 6, TSH elevated at 6.2 -Follow CBC in the morning -Has upcoming outpatient GI appointment on Wednesday-will consult GI as inpatient -needs repeat EGD with biopsies for celiac disease and colonoscopy as an outpatient -make NPO after midnight in case of EGD on Wednesday -Would also recommend upper GI with small bowel follow-through or repeat capsule endoscopy to look for small bowel source of bleeding-can be done as outpt or here if remains inpatient -Check celiac panel-pending -replace B12 with 1000 mcg IM daily x 3 days (3) Moderate dehydration: Plan: Acute/unstable - Suspect this to be the cause of the transient hypotension and tachycardia-now resolved after IV fluids (4) Severe protein-calorie malnutrition: Plan: Chronic/unstable - Persistent and progressive weight loss for the past year since Sep 2021 - BMI 14.2 - suspect weight loss from possible celiac disease but also from severe COPD and heavy smoking, but could have a malignancy - Per PCP note, has been drinking Boost twice a day - Reports losing 3lb this week alone despite eating "like a horse" - RD consult for nutritional assessment has been ordered -CT chest/abdomen/pelvis without clear source of malignancy-needs EGD and colonoscopy and capsule endoscopy as above -Needs repeat CT chest in 6 weeks to ensure resolution of infiltrate and to ensure no lung malignancy (5) COPD (chronic obstructive pulmonary disease): Plan: Chronic/Stable - Advanced/end stage - Continue ICS and anticholinergic - Supplemental O2 as noted above to maintain goal sat of 88-92% -Encouraged smoking cessation (6) Hypothyroidism: Plan: Chronic/stable, TSH normal in 08/2022 but now up to 6.2 Taking LT4 at nighttime with other meds-likely not well absorbed. ALso if has ma labsorption issue, may not be absorbing LT4 - Continue Levothyroxine but increase to 75 mcg daily and move to AM dosing at 6:30 AM -check TSH in 6 weeks (7) Anxiety and depression: Plan: Chronic/stable - Continue Buspirone, Hydroxyzine PRN, Zoloft, and Seroquel (8) Hypertension: Plan: Chronic/stable - Continue Metoprolol 25mg at HS (9) Visual symptoms: Plan: Complains of right eye loss of vision and blurry vision for the last week Consult ophthalmology and get her an appointment with ophthalmology soon as possible for next week as an outpatient Started polymyxin be eyedrops given complaint of discharge from the eye although no obvious conjunctivitis-reports her vision is somewhat improved with doing this Plan DVT prophylaxis-heparin 5000 Mg SQ twice daily Disposition-continued stay on medical/surgical unit, awaiting rehab placement- Case management involved Medically stable for discharge Admission and Anticipated Discharge Date Admission Date: December 03, 2022 Subjective Pt feeling a little better today. Weaned off O2 at rest, mild cough. Eating eggs, toast for breakfast, chicken, mashed potatoes for lunch. No BM today. Tele with NSR 70s Physical Exam Constitutional: WD/WN, vitals as above + underweight Eyes: + anicteric sclerae, PERRL and EOM intact bilaterally; no eyelid abn ormality, no anisocoria and no nystagmus Respiratory: normal respiratory effort; no cough Auscultation: + diminished lung sounds (Throughout); no crackles, no rhonchi and no wheezes Cardiovascular: RRR, no murmur, no edema Gastrointestinal (Abdomen): normal bowel sounds, soft, nontender, no hepatosplenomegaly Musculoskeletal: Extremities: + extremities abnormal to inspection (Diffuse sarcopenia) Skin: no rashes, warm and dry Neurologic: no focal motor deficits and not confused Psychiatric: A+Ox3, euthymic affect Results & Data Results & Data Vital Signs (Past 12 Hours) Vital Signs Temp Pulse Pulse Resp BP Pulse Ox O2 Del Method 12/06/22 12:27 36.6 C 75 16 151/80 H 92 Room Air 12/06/22 12:04 Nasal Cannula 12/06/22 07:29 36.4 C L 64 16 166/81 H 96 Nasal Cannula 12/06/22 06:59 64 18 96 Nasal Cannula 12/06/22 04:29 36.7 C 62 19 160/82 H 98 Nasal Cannula O2 Flow Rate 12/06/22 12:27 12/06/22 12:04 2 12/06/22 07:29 2 12/06/22 06:59 1 12/06/22 04:29 Laboratory Results CBC, BMP, TSH, B12, folate reviewed PG Care Time/CCT Total # of Minutes Spent Total Time Spent with Patient: Total time spent is greater than 50% in coordination of care (as documented) at patient's floor/unit and/or counseling patient: Coding Level of Care Code 86238 SUB INP/OBS CARE 3/50MIN Diagnoses Left upper lobe pulmonary infiltrate R91.8 Iron (Fe) deficiency anemia D50.9 Moderate dehydration E86.0 Severe protein-calorie malnutrition E43 COPD (chronic obstructive pulmonary disease) J44.9 Hypothyroidism E03.9 Anxiety and depression F41.9; F32.9 Hypertension I10 Visual symptoms H57.9
[2022-12-06] MEDS: CYANOCOBALAMIN 1000 MCG/ML VIAL IM SCH (16:35)
[2022-12-06] MEDS: LEVOTHYROXINE SODIUM 50 MCG TABLET PO SCH (21:01)
[2022-12-06] MEDS: ATORVASTATIN 20 MG TAB PO SCH (21:01)
[2022-12-06] MEDS: METOPROLOL TARTRATE 25 MG TAB PO SCH (21:01)
[2022-12-06] MEDS: PANTOprazole 40 MG TAB PO SCH (21:01)
[2022-12-06] MEDS: QUEtiapine FUMARATE 200 MG TAB PO SCH (21:02)
[2022-12-07] MEDS: CEFEPIME 2,000 MG in SYRINGE 0 ML IV SCH ×2 (05:29→17:38)
[2022-12-07] MEDS: LEVOTHYROXINE SODIUM 75 MCG TABLET PO SCH (05:30)
[2022-12-07] MEDS: LEVALBUTEROL HCL 0.63 MG/3 ML NEB NEB SCH ×2 (07:35→19:50)
[2022-12-07] MEDS: UMECLIDINIUM BROMIDE 62.5MCG/BLISTER 7 PUFFS/INHALER INH SCH (08:41)
[2022-12-07] MEDS: FLUTICASONE/VILANTEROL 100/25MCG 14 PUFFS/INHALER INH SCH (08:41)
[2022-12-07] MEDS: SERTRALINE HCL 100 MG TABLET PO SCH ×2 (08:42→21:01)
[2022-12-07] MEDS: guaiFENesin 600 MG TABCR PO SCH ×2 (08:42→21:04)
[2022-12-07] MEDS: CYANOCOBALAMIN 1000 MCG/ML VIAL IM SCH (08:42)
[2022-12-07] MEDS: TRIMETHOPRIM/POLYMYXIN B OP SCH ×4 (08:42→20:58)
[2022-12-07] MEDS: busPIRone 15 MG TAB PO SCH ×2 (08:42→21:02)
[2022-12-07] MEDS: HEPARIN SOD 5,000 UNIT/0.5 ML VIAL SQ SCH ×2 (08:44→21:06)
--- NOTE | 2022-12-07 10:02 | Gastrointestinal Consultation ---
Date of Consultation December 07, 2022 Assessment & Plan (1) Left upper lobe pulmonary infiltrate: (2) Pneumonia: (3) Severely underweight adult: (4) Iron (Fe) deficiency anemia: Plan Patient is a 67 y.o. female admitted with shortness of breath and weakness dx with left lung pneumonia as well as BARRETT and pround weight loss. -Await Celiac panel as ordered. -Defer repeat EGD for now, given respiratory comorbidities. -Can continue GI work up for BARRETT as an outpatient. -Continue supportive care. Thank you for allowing us to participate in the care of this patient. If you have any questions or concerns, please do not hesitate to contact us. Supervising Physician Co-Signing Physician Notes Agree with ALEXANDRA Jones as above Abd: Soft, NT, ND, +BS Continue current therapy and supportive care Await Celiac panel Further endoscopic workup as needed as outpatient. History of Present Illness Reason for Consultation: BARRETT, severe weight loss Requesting Physician: Dr. Matthews Attending Physician: Erik Galeana MD History of Present Illness Patient is a 67 y.o. female with a history of BARRETT, COPD, HLD, HTN, and bipolar disorder admitted with profound anemia, cough, shortness of breath, weakness and found to have left lobe infiltrate c/w pneumonia. Since admission, her leukocytosis has resolved and she is improving clinically from a respiratory standpoint. Continues with some SOB/AVILES and cough. No f/c. GI has been consulted due to severe weight loss of 40 pounds over the past year and severe BARRETT. Admitting H&H was 5.9/20.6. After receiving 2 units of PRBCs, her H&H has improved to 11.0/35.2 today. She denies any overt GIB. Endorses some lower abdominal pain and associated constipation. No n/v or bloating. She has undergone both upper and lower endoscopy for evaluation of BARRETT by Dr. Aguilar in the past. Celiac panel has been ordered by primary team due to clinical suspicion. Testing is pending today. Allergies Allergy/AdvReac Type Severity Reaction Status Date / Time codeine Allergy Intermediate ITCHING Verified 12/03/22 16:55 cortisone Allergy Intermediate ITCHING Verified 12/03/22 16:55 Penicillins Allergy Intermediate HIVES, Verified 12/03/22 16:55 ITCHINESS ciprofloxacin [From Cipro] AdvReac Intermediate Vomiting Verified 12/03/22 16:55 Home Medications Medication Instructions Recorded Confirmed Type Oxygen Home #1 ea 03/07/19 09/04/22 History diphenhydramine HCl 25 mg tablet 25 mg PO QID PRN Allergy Symptoms 03/12/19 12/03/22 History (Benadryl Allergy) quetiapine 400 mg tablet (Seroquel) 400 mg PO HS 03/12/19 12/03/22 History levothyroxine 50 mcg tablet 50 mcg PO HS #90 tabs 09/03/20 12/03/22 Rx guaifenesin 600 mg tablet, 600 mg PO Q12 PRN Congestion 11/05/21 12/03/22 History extended release 12 hr (Mucinex) atorvastatin 20 mg tablet (Lipitor) 20 mg PO HS #90 tabs 12/22/21 12/03/22 Rx lactulose 20 gram/30 mL oral 30 g (45 mL) PO QID PRN 09/03/22 12/03/22 Rx solution constipation #2,880 mL albuterol sulfate 2.5 mg/3 mL 1.25 mg (1.5 mL) inhalation Q6H 10/26/22 12/03/22 Rx (0.083 %) solution for nebulization PRN shortness of breath or wheezing #90 mL albuterol sulfate 90 mcg/actuation 2 puff inhalation DAILY PRN 10/26/22 12/03/22 Rx aerosol inhaler (Ventolin HFA) Shortness Of Breath #8.5 grams fluticasone furoate 100 1 inh inhalation QAM #60 ea 10/26/22 12/03/22 Rx mcg-vilanterol 25 mcg/dose inhalation powder (Breo Ellipta) nebulizers #1 ea 10/26/22 10/26/22 Rx ondansetron 4 mg disintegrating 4 mg PO Q6H PRN nausea and 10/26/22 12/03/22 Rx tablet vomiting #60 tabs umeclidinium 62.5 mcg/actuation 1 inh inhalation QAM #30 ea 10/26/22 12/03/22 Rx blister powder for inhalation (Incruse Ellipta) metoprolol tartrate 25 mg tablet 25 mg PO HS #90 tabs 11/17/22 12/03/22 Rx buspirone 15 mg tablet 15 mg PO BID 12/03/22 12/03/22 History hydroxyzine pamoate 25 mg capsule 25 mg PO TID PRN Anxiety 12/03/22 12/03/22 History linaclotide 145 mcg capsule 145 mcg PO HS 12/03/22 12/03/22 History (Linzess) pantoprazole 40 mg tablet,delayed 40 mg PO HS 12/03/22 12/03/22 History release sertraline 100 mg tablet 100 mg PO BID 12/03/22 12/03/22 History Patient History Medical History Chronic back pain History of COVID-19 diagnosed 08/28/2021 @ [facility]--had to be on oxygen and in the hospital for 6 days--symptoms have resolved History of kidney stones History of recent blood transfusion 10/2021 @ [facility] Iron (Fe) deficiency anemia On home oxygen therapy 3L N/C HS Osteoarthritis Surgical History History of cataract surgery bilt History of colonoscopy History of esophagogastroduodenoscopy (EGD) History of lithotripsy x2 History of repair of right rotator cuff History of tooth extraction all teeth History of total hysterectomy with bilateral salpingo-oophorectomy (BSO) S/P cystoscopy with ureteral stent placement x5 S/P epidural steroid injection Family History Brother Alcohol abuse Kidney disease Mother Anxiety Kidney disease Sister Kidney disease Aunt Breast cancer Father Prostate cancer Family history of diabetes mellitus Other Cancer Diabetes Emphysema of lung Hypertension Lung disease No family history of adverse response to anesthesia Denies family history of Ovarian cancer Myocardial infarction Colorectal cancer Social History Smoking Status: Current every day smoker Tobacco Type: Cigarettes Age Started Using Tobacco: 17; Cigarettes Per Day: 1/3 of a pack; Second Hand Exposure: Yes; Do You Dip or Chew Tobacco: No; Hx Alcohol Use: No Hx Substance Use: No Preferred Language: Icelandic Communication Ability: Effective Visual Impairment: No Limitations Hearing Ability: Normal [employer]crete [employer] Supervisor Required: No Beliefs That Will Affect Care: None marital status: Current Living Situation: Significant Other Current Living Situation Comment: Lives with boyfriend current occupational status: disabled How many Children do You have: 3 Feels Safe at Home: Yes Childhood Exposure to Second-Hand Smoke: Yes Diet: regular Diet Comment: stated she eats very little, no appetite. caffeine: Yes Dental Care, Regularly: No Physical Activity Frequency: Daily Seatbelt Use: always Sunscreen Use: No Assistive Devices: Walker Review of Systems Constitutional: as per Subjective / HPI Respiratory: as per Subjective / HPI Cardiovascular: no chest pain and no palpitations Gastrointestinal: as per Subjective / HPI Physical Exam Constitutional: + cachectic and + frail appearing Eyes: EOM intact bilaterally Neck: normal visual inspection Respiratory: normal respiratory effort Auscultation: + diminished lung sounds Cardiovascular: Rate/Rhythm: regular rate and regular rhythm Gastrointestinal (Abdomen): Inspection/Auscultation: normal bowel sounds; abdomen not distended Percussion/Palpation: abdomen soft; abdomen nontender, no guarding and abdomen not rigid Musculoskeletal: Extremities: extremities normal to inspection Skin: warm and dry Psychiatric: A+Ox3, euthymic affect Results & Data Vital Signs (Past 12 Hours) Vital Signs Temp Pulse Pulse Resp BP Pulse Ox O2 Del Method 12/07/22 08:17 36.7 C 71 18 160/77 H 90 Room Air 12/07/22 07:35 74 16 90 Room Air Diagnostic Findings Laboratory Results WBC 5.61 K/ul (4.8-10.8) 12/06/22 05:56 RBC 4.85 M/uL (4.20-5.40) 12/06/22 05:56 Hgb 11.0 g/dl (12.0-16.0) L 12/06/22 05:56 POC Hgb 9.2 g/dl (12.0-16.0) L 12/03/22 15:45 Hct 35.2 % (37.0-47.0) L 12/06/22 05:56 POC Hct 27 % (37-47) L 12/03/22 15:45 MCV 72.6 fL (80.0-100.0) L 12/06/22 05:56 MCH 22.7 pg (25.0-34.0) L 12/06/22 05:56 MCHC 31.3 g/dL (32.0-36.0) L 12/06/22 05:56 RDW Std Deviation 60.0 fL (36.4-46.3) H 12/06/22 05:56 RDW Coeff of Luis 24.0 % (11.5-14.5) H 12/06/22 05:56 Plt Count 295 K/uL (130-400) 12/06/22 05:56 MPV 9.3 fL (9.4-12.4) L 12/06/22 05:56 Immature Gran % (Auto) 0.2 % 12/06/22 05:56 Neut % (Auto) 70.0 % 12/06/22 05:56 Lymph % (Auto) 15.5 % 12/06/22 05:56 [place] % (Auto) 7.7 % 12/06/22 05:56 Eos % (Auto) 5.5 % 12/06/22 05:56 Baso % (Auto) 1.1 % 12/06/22 05:56 Neut # (Auto) 3.93 K/uL (1.40-6.50) 12/06/22 05:56 Lymph # (Auto) 0.87 K/uL (1.2-3.4) L 12/06/22 05:56 [place] # (Auto) 0.43 K/uL (0.11-0.59) 12/06/22 05:56 Eos # (Auto) 0.31 K/uL (0-0.50) 12/06/22 05:56 Baso # (Auto) 0.06 K/uL (0-0.2) 12/06/22 05:56 Immature Gran # (Auto) 0.01 K/uL (0.01-0.20) 12/06/22 05:56 Neutrophils % (Manual) 76 % 12/03/22 15:35 Lymphocytes % (Manual) 16 % 12/03/22 15:35 Monocytes % (Manual) 4 % 12/03/22 15:35 Eosinophils % (Manual) 1 % 12/03/22 15:35 Basophils % (Manual) 4 % 12/03/22 15:35 Neutrophils # (Manual) 7.24 K/uL (1.40-6.50) H 12/03/22 15:35 Total Absolute Neuts 7.24 K/uL (1.4-6.5) H 12/03/22 15:35 Lymphocytes # (Manual) 1.52 K/uL (1.2-3.4) 12/03/22 15:35 Total Abs Lymphocytes 1.52 K/uL (1.2-3.4) 12/03/22 15:35 Monocytes # (Manual) 0.38 K/uL (0.11-0.59) 12/03/22 15:35 Eosinophils # (Manual) 0.10 K/uL (0-0.50) 12/03/22 15:35 Basophils # (Manual) 0.38 K/uL (0-0.2) H 12/03/22 15:35 Polychromasia 1+ 12/03/22 15:35 Hypochromasia Present 12/04/22 06:02 Anisocytosis Present 12/06/22 05:56 Microcytosis Present 12/03/22 15:35 Tear Drop Cells 1+ 12/03/22 15:35 PT 12.2 Seconds (9.0-12.0) H 12/03/22 16:58 INR 1.1 (0.9-1.1) 12/03/22 16:58 APTT 21.1 Seconds (21.0-31.0) 12/03/22 16:58 PTT Ratio 0.7 12/03/22 16:58 VBG pH 7.33 (7.36-7.41) L 12/03/22 15:43 VBG pCO2 52 mmHg (38-50) H 12/03/22 15:43 VBG pO2 19 mmHg 12/03/22 15:43 VBG HCO3 27 mmol/L 12/03/22 15:43 VBG O2 Saturation < 60.0 % 12/03/22 15:43 VBG Base Excess 1.2 mEq/L 12/03/22 15:43 POC Sodium 140 mmol/L (135-144) 12/03/22 15:45 Sodium 138 mmol/L (136-145) 12/06/22 05:56 POC Potassium 3.4 mmol/L (3.3-5.0) 12/03/22 15:45 Potassium 3.8 mmol/L (3.5-5.1) 12/06/22 05:56 POC Chloride 103 mmol/L (101-112) 12/03/22 15:45 Chloride 107 mmol/L (98-107) 12/06/22 05:56 Carbon Dioxide 27 mmol/L (21-32) 12/06/22 05:56 POC Total CO2 24 mmol/L (24-31) 12/03/22 15:45 Anion Gap 4 (3-11) 12/06/22 05:56 POC Anion Gap 18.0 mmol/L (16-25) 12/03/22 15:45 POC BUN 13 mg/dl (7-18) 12/03/22 15:45 BUN 15 mg/dl (6-23) 12/06/22 05:56 Creatinine 0.61 mg/dl (0.6-1.2) 12/06/22 05:56 POC Creatinine 0.6 mg/dl (0.6-1.3) 12/03/22 15:45 Est Cr Clr Drug Dosing 50.2 ml/min 12/06/22 05:56 Est GFR ( Amer) 108.7 ml/min 12/06/22 05:56 Est GFR (Non-Af Amer) 93.8 ml/min 12/06/22 05:56 BUN/Creatinine Ratio 24.6 (10-20) H 12/06/22 05:56 Glucose 96 mg/dl (70-99(Fasting)) 12/06/22 05:56 POC Glucose (other) 176 mg/dl (70-99) H 12/03/22 15:45 Lactate 1.9 mmol/L (0.4-2.0) 12/03/22 17:28 Calcium 8.7 mg/dl (8.6-10.3) 12/06/22 05:56 POC Ioniz Calcium Timothy 1.13 mmol/l (1.12-1.32) 12/03/22 15:45 Magnesium 2.0 mg/dl (1.7-2.4) 12/05/22 05:51 Total Bilirubin 0.4 mg/dl (0.2-1.0) 12/03/22 15:35 Direct Bilirubin 0.1 mg/dl (0-0.2) 12/03/22 15:35 AST 15 U/L (13-39) 12/03/22 15:35 ALT 7 U/L (7-52) 12/03/22 15:35 Alkaline Phosphatase 87 U/L (34-104) 12/03/22 15:35 Troponin I High Sens 3.4 pg/ml (0-14) 12/03/22 15:35 Total Protein 6.2 gm/dl (6.0-8.3) 12/03/22 15:35 Albumin 3.8 gm/dl (3.4-5.0) 12/03/22 15:35 Vitamin B12 236 pg/ml (180-914) 12/06/22 05:56 Folate 6.97 ng/ml (>5.38) 12/06/22 05:56 Procalcitonin < 0.05 ng/ml (0-0.5) 12/03/22 15:35 TSH 6.245 uIu/ml (0.300-4.500) H 12/06/22 05:56 Urine Color Yellow 12/03/22 17:15 Urine Appearance Clear (Clear) 12/03/22 17:15 Urine pH 7.0 (4.5-7.5) 12/03/22 17:15 Ur Specific [place] > 1.045 (1.000-1.030) H 12/03/22 17:15 Urine Protein Trace (Negative) H 12/03/22 17:15 Urine Glucose (UA) Negative (Negative) 12/03/22 17:15 Urine Ketones Negative (Negative) 12/03/22 17:15 Urine Blood Negative (Negative) 12/03/22 17:15 Urine Nitrite Negative (Negative) 12/03/22 17:15 Urine Bilirubin Negative (Negative) 12/03/22 17:15 Urine Urobilinogen Negative (Negative) 12/03/22 17:15 Ur Leukocyte Esterase Negative (Negative) 12/03/22 17:15 Urine WBC (Auto) 1-5 /hpf (0-5) 12/03/22 17:15 Urine RBC (Auto) 0-4 /hpf (0-4) 12/03/22 17:15 U Hyaline Cast (Auto) 5-10 /lpf (0-5) H 12/03/22 17:15 U Epithel Cells (Auto) >30 /lpf (0-5) H 12/03/22 17:15 Urine Bacteria (Auto) Negative (Negative) 12/03/22 17:15 Ur Renal Epithelial Cell 0-5 /lpf (0-5) 12/03/22 17:15 Nasal Screen MRSA (PCR) Negative (Negative) 12/03/22 20:40 Stl C. diff Tox B Gene Negative Cdiff Gene (Neg) 12/04/22 03:20 SARS-CoV-2 (PCR) NEGATIVE (Negative) 12/03/22 15:50 Influenza Type A (PCR) Negative (Neg) 12/03/22 15:50 Influenza Type B (PCR) Negative (Neg) 12/03/22 15:50 RSV (RT-PCR) Negative (Neg) 12/03/22 15:50 Blood Type O Positive 12/03/22 15:43 Antibody Screen NEGATIVE 12/03/22 15:43 Crossmatch See Detail 12/03/22 15:43 Impressions Chest X-Ray 12/03/22 15:21 SINGLE VIEW CHEST CLINICAL HISTORY: Sepsis. FINDINGS: 2 AP, portable, upright chest radiographs are compared to chest x-ray and chest CT dated 08/31/2022. The cardiomediastinal silhouette is unremarkable noting atherosclerotic calcification of the thoracic aorta. Emphysema and chronic interstitial thickening is similar to previous. There is an approximately 2.5 cm nodular opacity projecting over the left upper lobe. This is new from the 08/31/2022 examinations and is likely infectious/inflammatory. Scarring/atelectasis is noted at the lung bases. No large pleural effusion or pneumothorax is seen. The skeletal structures are osteopenic. The bony thorax is grossly intact. IMPRESSION: 1. Advanced emphysema. 2. There is an approximately 2.5 cm nodular opacity projected over the left apex. This is new from the 08/31/2022 x-ray and CT scan examinations, and given the time course is likely infectious/inflammatory. Radiographic follow-up to resolution is recommended to exclude the possibility of developing neoplasm ACT 112: Negative or not required by law. Electronically signed by: Sean Amador M.D. 12/03/2022 4:03 PM Abdomen/Pelvis CT 12/03/22 15:22 CT OF THE ABDOMEN AND PELVIS WITH CONTRAST CLINICAL HISTORY: Abdominal pain. Weakness. COMPARISON STUDY: CT of the abdomen and pelvis September 01, 2022. TECHNIQUE: Following IV administration of 89 mL of Optiray, axial images of the abdomen and pelvis were obtained from the lung bases to the proximal femurs. Images were reviewed in the axial, sagittal, and coronal planes. IV contrast was administered without complication. Automated exposure control was utilized for the study. A dose lowering technique was utilized adhering to the principles of ALARA. FINDINGS: Emphysema is noted within the lower lungs. No pneumatosis, free air or portal venous gas is present. Evaluation of the abdomen and pelvis is difficult given paucity of intra-abdominal fat. A few subcentimeter hepatic lesions favor cysts. A hypodense splenic lesion is likely benign. Adrenal glands and pancreas are unremarkable. There is no biliary or pancreatic ductal dilatation. No pe ripancreatic or pericholecystic stranding is present. Small bilateral renal calculi are present. There are no ureteral calculi. There is no hydronephrosis. There is extensive plaque of the abdominal aorta and branch vessels. There is no evidence for a bowel obstruction. Trace pelvic ascites is present. No definite bowel wall thickening is identified. There is no fluid collection to suggest an abscess. No acute fractures are identified within the visualized skeletal structures. IMPRESSION: 1. No bowel obstruction. No definite bowel wall thickening. Difficult study to interpret given paucity of intra-abdominal fat. 2. Trace fluid within the pelvis. 3. Small bilateral renal calculi. No ureteral calculi or hydronephrosis. 4. Emphysema. ACT 112: Negative or not required by law. Electronically signed by: Brad Burden M.D. 12/03/2022 4:[address] 12/03/22 15:[address] DOSE: 803.46 mGy.cm HISTORY: weakness TECHNIQUE: Multiaxial CT images of the head were performed without the use of intravenous contrast. Automated exposure control was utilized for this study. A dose lowering technique was utilized adhering to the principles of ALARA. Comparison: Head CT 06/22/2016. Brain MRI 02/20/2019. Findings: Small fluid level within the right sphenoid sinus. This has improved. The mastoid air cells are clear. The calvarium and skull base are intact. The ventricles and sulci are within normal limits. There is no mass, hematoma, midline shift, or acute infarct. Impression: 1. No acute infarct or intracranial hemorrhage. 2. Small fluid level within the right sphenoid sinus which has improved. ACT 112: Negative or not required by law. Electronically signed by: Aiden Appiah M.D. 12/03/2022 4:[address] 12/03/22 18:57 CT ANGIOGRAM OF THE CHEST COMBO CLINICAL HISTORY: Abnormal chest x-ray. Sepsis. COMPARISON STUDY: Chest CT dated 08/31/2022. Chest x-ray dated 12/03/2022. TECHNIQUE: Before and following the IV administration of 89 cc of Optiray 320, CT angiogram of the chest was performed from the thoracic inlet to the upper abdomen utilizing the dissection protocol. Images are reviewed in the axial, sagittal, and coronal planes. 3-D MIPS images are created and assessed. IV contrast was administered without complication. A dose lowering technique was utilized adhering to the principles of ALARA. CT DOSE: 435.95 mGy.cm FINDINGS: Thyroid: Imaged portions of the thyroid gland are normal in size and attenuation. Thoracic aorta: No intramural hematoma is seen on the unenhanced series. There is atherosclerotic calcification of the thoracic aorta, which is normal in caliber and demonstrates standard 3-vessel arch anatomy. No dissection is seen. The arch vessels are widely patent. Pulmonary vasculature: The main pulmonary arteries are dilated suggesting pulmonary artery hypertension. There are no filling defects identified in the main, lobar, or segmental pulmonary arteries to indicate pulmonary embolus. Heart: The heart is normal in size noting trace pericardial effusion. The coronary arteries are densely calcified. Lungs and pleural spaces: There is advanced emphysema. There is subpleural consolidation in the posterior left upper lobe. This measures up to 3.5 cm and is new from 08/31/2022. No pleural effusion is identified. There is a probable scarring are seen throughout both lungs. An 11 mm scarlike opacity at the right apex on image #51 is unchanged, as is a 3 mm right apical nodule on image #45. Mediastinum: There is no mediastinal lymphadenopathy. [place]: Clear. Axillae: There is no axillary lymphadenopathy. Upper abdomen: Partially visualized upper abdominal viscera is within normal limits. Skeletal structures: The skeletal structures are osteopenic. No lytic or blastic bony lesions are seen. There is a subacute/healing left lateral 8th rib fracture. IMPRESSION: 1. Unremarkable CT angiogram of the thoracic aorta. 2. There is no evidence of pulmonary embolus in the main, lobar, or segmental pulmonary arteries. 3. Advanced emphysema. 4. There is subpleural consolidation in the posterior left upper lobe, which is new from 08/31/2022. Given the time course this is likely on an infectious or inflammatory basis. Clinical correlation will be required. A follow-up chest CT in 2 months time is recommended for reassessment and to document resolution as a mass lesion could appear similar. 5. Additional nodular/scar like opacities at the right apex are unchanged. These can also be reassessed at follow-up. 6. Additional findings as above. ACT 112: Negative or not required by law. Electronically signed by: Sean Amador M.D. 12/03/2022 9:10 PM PG Care Time/CCT Total # of Minutes Spent Total Time Spent with Patient: Total time spent is greater than 50% in coordination of care (as documented) at patient's floor/unit and/or counseling patient: Coding Level of Care Code 21780 INT INP/OBS CARE 3/75MIN Diagnoses Left upper lobe pulmonary infiltrate R91.8 Pneumonia J18.9 Laterality: left Lung location: unspecified part of lung Pneumonia type: due to unspecified organism Severely underweight adult R63.6 Iron (Fe) deficiency anemia D50.9 (2) Pneumonia Laterality: left Lung location: unspecified part of lung Pneumonia type: due to unspecified organism Qualified Code(s): J18.9 - Pneumonia, unspecified organism
[2022-12-07 11:35] LABS: Ferritin 782.8 ng/ml (8-388)
[2022-12-07] MEDS ORDERED: FERROUS SULFATE 325 MG TAB PO SCH ×2 (12:00→17:00)
--- NOTE | 2022-12-07 16:06 | Hospitalist Progress Note ---
Date of Service December 07, 2022 Assessment & Plan (1) Left upper lobe pulmonary infiltrate: Plan: Suspected pneumonia present on admission. 2.5 cm irregular density in Left upper lobe in a patient with end stage COPD, continued tobacco use, and weight loss. Malignancy is a possibility. MRSA swab negative. Blood cultures remain no growth to date. Continue Cefepime for suspected gram-negative pneumonia. Should have repeat CT chest in 6 weeks to ensure resolution to make sure no underlying malignancy given h/o smoking (2) Iron (Fe) deficiency anemia: Plan: Acute on chronic-has several year history of iron deficiency anemia and B12 deficiency anemia. She has had EGDs and colonoscopies, small bowel endoscopies all in the last few years. Seen by hematology and was receiving frequent IV iron infusions, but has not received any in a year. Refuses to take oral iron. EGD report reviewed-no biopsies taken for celiac at the time. Suspect could have celiac disease given extreme weight loss, malnutrition, multiple nutritional deficiencies No gross bleeding from anywhere GI or . Could have occult GI bleed-did have AVMs nonbleeding on previous colonoscopy. Hgb 7.0 on arrival and dropped to 5.9 overnight likely somewhat hemodilutional. Received Venofer 300 Mg IV x2 doses and 2 units PRBCs on 12/04. Hemoglobin up to 11 now. B12 level remains low at 294, folate normal at 6, TSH elevated at 6.2. GI consultation appreciated. Endoscopies will be done as an outpatient. Check celiac panel-pending. Replace B12 with 1000 mcg IM daily x 3 days (3) Moderate dehydration: Plan: resolved after IV fluids (4) Severe protein-calorie malnutrition: Plan: Chronic/unstable. Persistent and progressive weight loss for the past year since Sep 2021. This raises the question of underlying celiac disease. Occult malignancy is also a consideration. Has been drinking Boost twice a day. appreciate dietary consultation and recommendations. CT chest/abdomen/pelvis without clear source of malignancy. (5) COPD (chronic obstructive pulmonary disease): Plan: Advanced/end stage. Continue current med management. Encouraged smoking cessation (6) Hypothyroidism: Plan: Chronic/stable, TSH now up to 6.2. Continue Levothyroxine but increase to 75 mcg daily and move to AM dosing at 6:30 AM. Check TSH in 6 weeks (7) Anxiety and depression: Plan: Chronic/stable. Continue Buspirone, Hydroxyzine PRN, Zoloft, and Seroquel (8) Hypertension: Plan: Chronic/stable. Continue Metoprolol 25mg at HS (9) Visual symptoms: Plan: Complains of right eye loss of vision and blurry vision for the last week. Consult ophthalmology and get her an appointment with ophthalmology soon as possible for next week as an outpatient Started polymyxin eyedrops given complaint of discharge from the eye although no obvious conjunctivitis- reports her vision is somewhat improved with doing this Plan DVT prophylaxis-heparin 5000 Mg SQ twice daily Disposition- anticipate discharge to [facility] when arrangements are finalized Admission and Anticipated Discharge Date Admission Date: December 03, 2022 Subjective Alert and oriented. Very frail appearing. Hemoglobin improved to 11 after blood transfusion. She refuses oral iron. GI consultation noted. Outpatient endoscopy recommended. Review of Systems Review of Systems: Constitutional-no fever or chills ENT-no blurred vision, no double vision, no epistaxis, no sore throat Respiratory-no cough, no wheezing, no shortness of breath Cardiac-no palpitations, no chest pain, no syncope GI-no nausea, vomiting, diarrhea, melena, hematochezia -no urinary retention, no urinary incontinence, no dysuria, no hematuria Musculoskeletal-no joint pain, no muscle tenderness Skin-no bruising, no rashes, no pruritus Neuro-no isolated weakness, no paresthesia. Generalized weakness noted Psych-no depression, no anxiety Physical Exam Physical Exam: General-alert and oriented x3. Cachectic and frail-appearing HEENT-head atraumatic and normocephalic, pupils equal and reactive to light, extraocular muscles intact Neck-no lymphadenopathy or thyromegaly, trachea midline Chest-clear to auscultation percussion. No rales wheezing or rhonchi Cardiac-regular rate and rhythm, normal S1 and S2 Abdomen-normal bowel sounds, nontender, no hepatosplenomegaly Extremities-no cyanosis, clubbing, or edema Neuro-cranial nerves II through XII intact, motor and sensory function within normal limits, strength symmetrical with generalized weakness , no focal deficits Psych-normal affect, normal mood Results & Data Results & Data Vital Signs (Past 12 Hours) Vital Signs Temp Pulse Pulse Resp BP Pulse Ox O2 Del Method 12/07/22 08:17 36.7 C 71 18 160/77 H 90 Room Air 12/07/22 07:35 74 16 90 Room Air Laboratory Results 12/06/22 05:56 12/06/22 05:56 PG Care Time/CCT Total # of Minutes Spent Total Time Spent with Patient: Total time spent is greater than 50% in coordination of care (as documented) at patient's floor/unit and/or counseling patient: Coding Level of Care Code 29711 SUB INP/OBS CARE 3/50MIN Diagnoses Left upper lobe pulmonary infiltrate R91.8 Iron (Fe) deficiency anemia D50.9 Moderate dehydration E86.0 Severe protein-calorie malnutrition E43 COPD (chronic obstructive pulmonary disease) J44.9 Hypothyroidism E03.9 Anxiety and depression F41.9; F32.9 Hypertension I10 Visual symptoms H57.9
[2022-12-07] MEDS: PANTOprazole 40 MG TAB PO SCH (21:00)
[2022-12-07] MEDS: METOPROLOL TARTRATE 25 MG TAB PO SCH (21:01)
[2022-12-07] MEDS: ATORVASTATIN 20 MG TAB PO SCH (21:03)
[2022-12-08] MEDS: QUEtiapine FUMARATE 200 MG TAB PO SCH ×2 (01:46→20:24)
[2022-12-08] MEDS: CEFEPIME 2,000 MG in SYRINGE 0 ML IV SCH ×2 (05:43→18:05)
[2022-12-08] MEDS: LEVOTHYROXINE SODIUM 75 MCG TABLET PO SCH ×2 (05:44→08:29)
[2022-12-08] MEDS: LEVALBUTEROL HCL 0.63 MG/3 ML NEB NEB SCH ×2 (08:08→19:08)
[2022-12-08 08:09] LABS: Creatinine Clr Calc Pharmacy 34.3 ml/min; Est GFR (African American) 79.9 ml/min; Est GFR (Non-African American) 68.9 ml/min
[2022-12-08] MEDS: UMECLIDINIUM BROMIDE 62.5MCG/BLISTER 7 PUFFS/INHALER INH SCH (08:28)
[2022-12-08] MEDS: FLUTICASONE/VILANTEROL 100/25MCG 14 PUFFS/INHALER INH SCH (08:28)
[2022-12-08] MEDS: TRIMETHOPRIM/POLYMYXIN B OP SCH ×4 (08:28→20:24)
[2022-12-08] MEDS: guaiFENesin 600 MG TABCR PO SCH ×2 (08:29→20:25)
[2022-12-08] MEDS: HEPARIN SOD 5,000 UNIT/0.5 ML VIAL SQ SCH ×2 (08:30→20:28)
[2022-12-08] MEDS: busPIRone 15 MG TAB PO SCH ×2 (08:30→20:27)
[2022-12-08] MEDS: CYANOCOBALAMIN 1000 MCG/ML VIAL IM SCH (08:30)
[2022-12-08] MEDS: SERTRALINE HCL 100 MG TABLET PO SCH ×2 (08:30→20:26)
[2022-12-08] MEDS ORDERED: bisacodyL 10 MG SUPP PR ONE (09:00)
--- NOTE | 2022-12-08 16:57 | Hospitalist Progress Note ---
Date of Service December 08, 2022 Assessment & Plan (1) Left upper lobe pulmonary infiltrate: Plan: Suspected pneumonia present on admission. 2.5 cm irregular density in Left upper lobe in a patient with end stage COPD, continued tobacco use, and weight loss. Malignancy is a possibility. MRSA swab negative. Blood cultures remain no growth to date. Continue Cefepime while hospitalized for suspected gram- negative pneumonia. Should have repeat CT chest in 6 weeks to ensure resolution to make sure no underlying malignancy given h/o smoking (2) Iron (Fe) deficiency anemia: Plan: Acute on chronic-has several year history of iron deficiency anemia and B12 deficiency anemia. She has had EGDs and colonoscopies, small bowel endoscopies all in the last few years. Seen by hematology and was receiving frequent IV iron infusions, but has not received any in a year. Refuses to take oral iron. EGD report reviewed-no biopsies taken for celiac at the time. Suspect could have celiac disease given extreme weight loss, malnutrition, multiple nutritional deficiencies No gross bleeding from anywhere GI or . Could have occult GI bleed-did have AVMs nonbleeding on previous colonoscopy. Hgb 7.0 on arrival and dropped to 5.9 overnight likely somewhat hemodilutional. Received Venofer 300 Mg IV x2 doses and 2 units PRBCs on 12/04. Hemoglobin improved to 11 g. We will repeat CBC again tomorrow, December 08. B12 level remains low at 294, folate normal at 6, TSH elevated at 6.2. GI consultation appreciated. Endoscopies will be done as an outpatient. Celiac disease panel pending. Replaced B12 with 1000 mcg IM daily x 3 days (3) Moderate dehydration: Plan: resolved after IV fluids (4) Severe protein-calorie malnutrition: Plan: Chronic/unstable. Persistent and progressive weight loss for the past year since Sep 2021. This raises the question of underlying celiac disease. Occult malignancy is also a consideration. Has been drinking Boost twice a day. appre ciate dietary consultation and recommendations. CT chest/abdomen/pelvis without evidence of malignancy. (5) COPD (chronic obstructive pulmonary disease): Plan: Advanced/end stage. Continue current med management. Encouraged smoking cessation (6) Hypothyroidism: Plan: Chronic/stable. TSH slightly elevated at 6.2. Free T3 and free T4 levels however are normal. (7) Anxiety and depression: Plan: Chronic/stable. Continue Buspirone, Hydroxyzine PRN, Zoloft, and Seroquel (8) Hypertension: Plan: Chronic/stable. Continue Metoprolol 25mg at HS (9) Visual symptoms: Plan: Complains of right eye loss of vision and blurry vision for the last week. Opht halmology evaluation as outpatient as soon as possible. Started polymyxin eyedrops for suspected conjunctivitis. This seemed to help Plan DVT prophylaxis-heparin 5000 Mg SQ twice daily Disposition- anticipate discharge to [facility] tomorrow, December 09 Admission and Anticipated Discharge Date Admission Date: December 03, 2022 Subjective Alert and oriented. No new problems. Free T 3 and free T4 levels were checked and are normal. We will recheck labs in the morning. Anticipate discharge to [facility] tomorrow, December 09 Review of Systems Review of Systems: Constitutional-no fever or chills ENT-no blurred vision, no double vision, no epistaxis, no sore throat Respiratory-no cough, no wheezing, no shortness of breath Cardiac-no palpitations, no chest pain, no syncope GI-no nausea, vomiting, diarrhea, melena, hematochezia -no urinary retention, no urinary incontinence, no dysuria, no hematuria Musculoskeletal-no joint pain, no muscle tenderness Skin-no bruising, no rashes, no pruritus Neuro-no isolated weakness, no paresthesia. Generalized weakness noted Psych-no depression, no anxiety Physical Exam Physical Exam: General-alert and oriented x3. Cachectic and frail-appearing HEENT-head atraumatic and normocephalic, pupils equal and reactive to light, extraocular muscles intact Neck-no lymphadenopathy or thyromegaly, trachea midline Chest-clear to auscultation percussion. No rales wheezing or rhonchi Cardiac-regular rate and rhythm, normal S1 and S2 Abdomen-normal bowel sounds, nontender, no hepatosplenomegaly Extremities-no cyanosis, clubbing, or edema Neuro-cranial nerves II through XII intact, motor and sensory function within normal limits, strength symmetrical with generalized weakness , no focal deficits Psych-normal affect, normal mood Results & Data Results & Data Vital Signs (Past 12 Hours) Vital Signs Temp Pulse Pulse Resp BP Pulse Ox O2 Del Method 12/08/22 15:38 36.5 C 85 18 108/62 90 Room Air 05/02/23 08:08 68 15 92 Room Air 12/08/22 07:24 36.6 C 73 18 93/61 L 94 Room Air FiO2 12/08/22 15:38 12/08/22 08:08 1 12/08/22 07:24 Laboratory Results 12/06/22 05:56 12/08/22 07:08 PG Care Time/CCT Total # of Minutes Spent Total Time Spent with Patient: Total time spent is greater than 50% in coordination of care (as documented) at patient's floor/unit and/or counseling patient: Coding Level of Care Code 43792 SUB INP/OBS CARE 3/50MIN Diagnoses Left upper lobe pulmonary infiltrate R91.8 Iron (Fe) deficiency anemia D50.9 Moderate dehydration E86.0 Severe protein-calorie malnutrition E43 COPD (chronic obstructive pulmonary disease) J44.9 Hypothyroidism E03.9 Anxiety and depression F41.9; F32.9 Hypertension I10 Visual symptoms H57.9
[2022-12-08] MEDS ORDERED: bisacodyL 10 MG SUPP PR STA (18:03)
[2022-12-08] MEDS: METOPROLOL TARTRATE 25 MG TAB PO SCH (20:24)
[2022-12-08] MEDS: ATORVASTATIN 20 MG TAB PO SCH (20:25)
[2022-12-08] MEDS: PANTOprazole 40 MG TAB PO SCH (20:26)
[2022-12-09 01:51] LABS: IgA Serum 227 mg/dL (70-320); Tis Trans IgA <1.0 U/mL
[2022-12-09] MEDS: CEFEPIME 2,000 MG in SYRINGE 0 ML IV SCH (05:32)
[2022-12-09 06:44] LABS: Basophils # (auto) 0.09 K/uL (0-0.2); Basophils % (auto) 1.6 %; Eosinophils # (auto) 0.45 K/uL (0-0.50); Eosinophils % (auto) 7.8 %; Hematocrit (blood only) 35.9 % (37.0-47.0); Immature Granulocytes # (auto) 0.02 K/uL (0.01-0.20); Immature Granulocytes % (auto) 0.3 %; Lymphocytes % (auto) 22.6 %; Mean Corpuscular Hemoglobin 23.4 pg (25.0-34.0); Mean Corpuscular Hgb Conc 30.6 g/dL (32.0-36.0); Mean Corpuscular Volume 76.4 fL (80.0-100.0); Mean Platelet Volume 9.7 fL (9.4-12.4); Monocytes # (auto) 0.53 K/uL (0.11-0.59); Monocytes % (auto) 9.2 %; Neutrophils # (auto) 3.37 K/uL (1.40-6.50); Neutrophils % (auto) 58.5 %; Platelet Count 296 K/uL (130-400); RDW Coefficient of Variation 26.9 % (11.5-14.5); RDW Standard Deviation 67.9 fL (36.4-46.3); White Blood Count 5.76 K/ul (4.8-10.8)
[2022-12-09 06:59] LABS: BUN Creatinine Ratio 43.4 (10-20); Calcium 9.2 mg/dl (8.6-10.3); Est GFR (African American) 84.6 ml/min; Potassium 4.9 mmol/L (3.5-5.1)
[2022-12-09 07:09] LABS: Anisocytosis Present; Hypochromasia Present; Microcytosis Present; Polychromasia 1+
[2022-12-09] MEDS: LEVALBUTEROL HCL 0.63 MG/3 ML NEB NEB SCH (07:23)
[2022-12-09] MEDS: busPIRone 15 MG TAB PO SCH (07:53)
[2022-12-09] MEDS: UMECLIDINIUM BROMIDE 62.5MCG/BLISTER 7 PUFFS/INHALER INH SCH (07:53)
[2022-12-09] MEDS: FLUTICASONE/VILANTEROL 100/25MCG 14 PUFFS/INHALER INH SCH (07:53)
[2022-12-09] MEDS: TRIMETHOPRIM/POLYMYXIN B OP SCH ×2 (07:54→12:30)
[2022-12-09] MEDS: HEPARIN SOD 5,000 UNIT/0.5 ML VIAL SQ SCH (07:54)
[2022-12-09] MEDS: SERTRALINE HCL 100 MG TABLET PO SCH (07:55)
[2022-12-09] MEDS: guaiFENesin 600 MG TABCR PO SCH (07:55)
[2022-12-09] MEDS: ATORVASTATIN 20 MG TAB PO SCH (07:55)
--- NOTE | 2022-12-09 11:01 | Gastroenterology Progress Note ---
Date of Service December 09, 2022 Assessment & Plan (1) Left upper lobe pulmonary infiltrate: (2) Pneumonia: (3) Severely underweight adult: (4) Iron (Fe) deficiency anemia: Plan Patient is a 67 y.o. female admitted with shortness of breath and weakness dx with left lung pneumonia as well as BARRETT and profound weight loss. -Celiac panel is negative, therefore low yield to repeat EGD.. -Consider referral to GI nutrition upon discharge. -GI sign off. Please feel free to contact us with questions or concerns. Admission and Anticipated Discharge Date Admission Date: December 03, 2022 Subjective Patient reports she is eating approximately 50% of her meals. Has had a 3 pound weight gain since admission. No GI complaints. Celiac panel is negative. Review of Systems Constitutional: as per Subjective / HPI Respiratory: as per Subjective / HPI Cardiovascular: no chest pain and no palpitations Gastrointestinal: as per Subjective / HPI Physical Exam Constitutional: + cachectic and + frail appearing Eyes: EOM intact bilaterally Neck: normal visual inspection Respiratory: normal respiratory effort Auscultation: + diminished lung sounds Cardiovascular: Rate/Rhythm: regular rate and regular rhythm Gastrointestinal (Abdomen): Inspection/Auscultation: normal bowel sounds; abdomen not distended Percussion/Palpation: abdomen soft; abdomen nontender, no guarding and abdomen not rigid Musculoskeletal: Extremities: extremities normal to inspection Psychiatric: A+Ox3, euthymic affect Results & Data Results & Data Vital Signs (Past 12 Hours) Vital Signs Temp Pulse Pulse Resp BP Pulse Ox O2 Del Method 12/09/22 07:50 Nasal Cannula 12/09/22 07:23 68 16 98 Nasal Cannula 12/09/22 07:07 36.7 C 65 16 132/62 98 Nasal Cannula O2 Flow Rate 12/09/22 07:50 3 12/09/22 07:23 3 12/09/22 07:07 3 PG Care Time/CCT Total # of Minutes Spent Total Time Spent with Patient: Total time spent is greater than 50% in coordination of care (as documented) at patient's floor/unit and/or counseling patient: Coding Level of Care Code 30435 SUB INP/OBS CARE 3/50MIN Diagnoses Left upper lobe pulmonary infiltrate R91.8 Pneumonia J18.9 Laterality: left Lung location: unspecified part of lung Pneumonia type: due to unspecified organism Severely underweight adult R63.6 Iron (Fe) deficiency anemia D50.9 (2) Pneumonia Laterality: left Lung location: unspecified part of lung Pneumonia type: due to unspecified organism Qualified Code(s): J18.9 - Pneumonia, unspecified organism
--- NOTE | 2022-12-09 12:11 | Discharge Summary ---
Date of Service December 09, 2022 Admission HPI Per Admitting Provider Shameka Moise is a 67 yo F with a pmhx of advanced/end stage COPD with chronic respiratory failure, unintentional weight loss with severe PCM, iron deficiency anemia, HTN, HLD, and hypothyroidism who presents to the ER today c/o worsening shortness of breath and generalized weakness/debility. Patient reports that she has been struggling with unintentional weight loss since she had COVID in September of 2021. She also reports that she has a known h/o iron deficiency anemia and was receiving iron infusions monthly but stopped several months ago. She notes that her PCP wants her to resume having them monthly. Lastly, she reports that since her last colonoscopy, which was also approximately one year ago, that she has been struggling with constipation. She denies passing BRBPR or melanotic stools. She presented to the ER today for evaluation of her worsening weakness/debility, persistent and progressive weight loss, on and off fevers, as well as her increasing dyspnea. Upon arrival, it was recorded that she had a HR of 170 with a BP of 83/52. Following 2L of NSS, her HR and BP responded. She was treated as a "sepsis" picture and was finney scanned and was treated with a dose of Cefepime and Vancomycin. Presently, she is comfortable, is on nasal cannula O2 with a pulse ox of 100%. She states that she typically only wears O2 at night and was not recorded as having an O2 saturation below 95% in the emergency room. She has been referred to the hospitalist service for admission for further evaluation. Principal Diagnosis Community-acquired pneumonia, exacerbation COPD, severe anemia due to iron deficiency and B12 deficiency, persistent weight loss of undetermined etiology Discharge Exam General-alert and oriented x3. Cachectic and frail-appearing HEENT-head atraumatic and normocephalic, pupils equal and reactive to light, extraocular muscles intact Neck-no lymphadenopathy or thyromegaly, trachea midline Chest-diminished breath sounds bilaterally. No rales, wheezing or rhonchi Cardiac-regular rate and rhythm, normal S1 and S2 Abdomen-normal bowel sounds, nontender, no hepatosplenomegaly Extremities-no cyanosis, clubbing, or edema Neuro-cranial nerves II through XII intact, motor and sensory function within normal limits, strength symmetrical with generalized weakness , no focal deficits Psych-normal affect, normal mood Discharge Data Allergies Allergy/AdvReac Type Severity Reaction Status Date / Time codeine Allergy Intermediate ITCHING Verified 12/03/22 16:55 cortisone Allergy Intermediate ITCHING Verified 12/03/22 16:55 Penicillins Allergy Intermediate HIVES, Verified 12/03/22 16:55 ITCHINESS ciprofloxacin [From Cipro] AdvReac Intermediate Vomiting Verified 12/03/22 16:55 Consultations 12/03/22 16:46 ED Decision to Admit Stat 12/04/22 16:02 Consult Ophthalmology Routine 12/06/22 13:25 Consult Gastroenterology Routine Ordered Studies 12/03/22 15:22 CT abd pelvis IV con only Stat CT head/brain wo con Stat 12/03/22 18:57 CT chest diagnostic wo/w con Stat Hospital Course (1) Left upper lobe pulmonary infiltrate: Suspected pneumonia present on admission. 2.5 cm irregular density in Left upper lobe in a patient with end stage COPD, continued tobacco use, and weight loss. Malignancy is a possibility. This will need continued outpatient follow- up. MRSA swab negative. Blood cultures remain no growth to date. Treated with intravenous cefepime while hospitalized. Should have repeat CT chest in 6 weeks to ensure resolution to make sure no underlying malignancy given h/o smoking (2) Iron (Fe) deficiency anemia: Acute on chronic-has several year history of iron deficiency anemia and B12 deficiency anemia. She has had EGDs and colonoscopies, small bowel endoscopies all in the last few years. Seen by hematology and was receiving frequent IV iron infusions, but has not received any in a year. Refuses to take oral iron. EGD report reviewed-no biopsies taken for celiac at the time. Suspect could have celiac disease given extreme weight loss, malnutrition, multiple nutritional deficiencies No gross bleeding from anywhere GI or . Could have occult GI bleed-did have AVMs nonbleeding on previous colonoscopy. Hgb 7.0 on arrival and dropped to 5.9 overnight likely somewhat hemodilutional. Received Venofer 300 Mg IV x2 doses and 2 units PRBCs on 12/04. Hemoglobin improved. GI consultation appreciated. Endoscopies will be done as an outpatient. Celiac disease panel pending. Replaced B12 with 1000 mcg IM daily x 3 days (3) Moderate dehydration: resolved after IV fluids (4) Severe protein-calorie malnutrition: Chronic/unstable. Persistent and progressive weight loss for the past year since Sep 2021. This raises the question of underlying celiac disease. Occult malignancy is also a consideration. Has been drinking Boost twice a day. appreciate dietary consultation and recommendations. CT chest/abdomen/pelvis without evidence of malignancy. (5) COPD (chronic obstructive pulmonary disease): Advanced/end stage. Continue current med management. Encouraged smoking cessation (6) Hypothyroidism: Chronic/stable. TSH slightly elevated at 6.2. Free T3 and free T4 levels however are normal. (7) Anxiety and depression: Chronic/stable. Continue Buspirone, Hydroxyzine PRN, Zoloft, and Seroquel (8) Hypertension: Chronic/stable. Continue Metoprolol 25mg at HS (9) Visual symptoms: Complains of right eye loss of vision and blurry vision for the last week. Ophthalmology evaluation as outpatient as soon as possible. Treated with polymyxin eyedrops for suspected conjunctivitis. This seemed to help Plan DVT prophylaxis-heparin 5000 Mg SQ twice daily [facility]position- [facility] December 09 Total Time Total Time Spent Total Time Spent (In Minutes): 40 minutes Discharge Plan Discharge Items Patient Disposition: Transfer Custodial Fac Reason For Visit: PNEUMONIA Discharge Diagnosis: Suspected left upper lobe pneumonia, severe anemia due to iron deficiency and vitamin B12 deficiency, acute exacerbation COPD, weight loss Activity: Resume your previous activity Non-emergency contact: Primary Care Provider Call non-emergency contact if: you have any medication questions Follow-up/Referrals: Eitan Bourne DO [Primary Care Provider] - Diet: Regular Addtl Attending Provider Instructions: All medications remain the same. Consider outpatient colonoscopy and upper endoscopy with gastroenterology Pending Studies at Discharge: No Stand-Alone Forms: My [facility] Skilled Items Patient informed of condition?: Yes DNR: Yes Discharge Level of Care: Skilled Communicable Disease: No Discharge Prognosis: Stable Lines: None Urinary Catheter: No Medications and DC Order Prescriptions: Continued levothyroxine 50 mcg tablet 50 mcg PO HS Qty: 90 3RF atorvastatin [Lipitor] 20 mg tablet 20 mg PO HS Qty: 90 3RF metoprolol tartrate 25 mg tablet 25 mg PO HS Qty: 90 3RF (DME) Oxygen Home Liters Per Minute See Dose Instructions .ROUTE .MEDSUPPLY Qty: 1 Rx Instructions: As directed ondansetron 4 mg tablet,disintegrating 4 mg PO Q6H PRN (Reason: nausea and vomiting) Qty: 60 5RF albuterol sulfate 2.5 mg /3 mL (0.083 %) solution for nebulization 1.25 mg inhalation Q6H PRN (Reason: shortness of breath or wheezing) Qty: 90 11RF albuterol sulfate [Ventolin HFA] 90 mcg/actuation HFA aerosol inhaler 2 puff inhalation DAILY PRN (Reason: Shortness Of Breath) Qty: 8.5 11RF fluticasone furoate-vilanterol [Breo Ellipta] 100-25 mcg/dose blister with device 1 inh inhalation QAM Qty: 60 11RF Incruse Ellipta 62.5 mcg/actuation blister with device 1 inh inhalation QAM Qty: 30 11RF (DME) nebulizers Misc See Rx Instructions .Route Qty: 1 0RF Rx Instructions: As directed, with nebulizer supplies diphenhydramine HCl [Benadryl Allergy] 25 mg tablet 25 mg PO QID PRN (Reason: Allergy Symptoms) quetiapine [Seroquel] 400 mg tablet 400 mg PO HS guaifenesin [Mucinex] 600 mg tablet extended release 12hr 600 mg PO Q12 PRN (Reason: Congestion) Rx Instructions: OTC sertraline 100 mg tablet 100 mg PO BID Rx Instructions: PER PT "TAKE ALL PILLS AT HS". buspirone 15 mg tablet 15 mg PO BID Rx Instructions: PER PT "TAKE ALL PILLS AT HS". hydroxyzine pamoate 25 mg capsule 25 mg PO TID PRN (Reason: Anxiety) pantoprazole 40 mg tablet,delayed release (DR/EC) 40 mg PO HS Linzess 145 mcg capsule 145 mcg PO HS lactulose 20 gram/30 mL Solution 30 g PO QID PRN (Reason: constipation) Qty: 2880 0RF Discharge Orders: Discharge Order (Routine); Ordered 12/09/22 Ordered By: Erik Galeana Admission Data Admit Date/Time: 12/03/22 18:36 Attending Provider: Erik Galeana Admit Provider: Armani Nickerson Primary Care Provider: Eitan Bourne Other Providers: Mims,[facility] ; Armani Nickerson ; Jose Miguel Bhatti ; Sergei Aguilar Coding Level of Care Code 10937 INP/OBS DISCH >30 MIN Diagnoses Left upper lobe pulmonary infiltrate R91.8 Iron (Fe) deficiency anemia D50.9 Moderate dehydration E86.0 Severe protein-calorie malnutrition E43 COPD (chronic obstructive pulmonary disease) J44.9 Hypothyroidism E03.9 Anxiety and depression F41.9; F32.9 Hypertension I10 Visual symptoms H57.9
--- NOTE | 2022-12-11 10:05 | Coding Query ---
To promote full compliance with coding requirements relating to patient care, provider participation is requested in all cases of payment collector uncertainty. Please assist us with the question(s) below: Coding Question(s): The diagnosis below was documented in the 12/05 - 12/08 Progress Notes, H&P, then subsequently fell off all further documentation on the Discharge Summary. Please indicate if it is still a possible diagnosis or ruled out. Physician's Response(s): SUSPECTED GRAM-NEGATIVE PNEUMONIA ( ) Diagnosed and POA ( ) Diagnosed and not POA ( x ) Ruled out ( ) Other (please specify) ) MTDD
== END 2022-12-09 16:00 | DRG 193 ==
LOC: ED 14:52 → 4W 18:36 → SUATTDRO 18:36 → 4W 20:05 → 3W 12-06 13:53

== ENCOUNTER 2024-03-02 08:28 | Inpatient (IN) ==
[2024-03-02] MEDS: methylPREDNISolone 125 MG/2 ML VIAL IV STA (08:52)
--- NOTE | 2024-03-02 08:55 | Emergency Department Note ---
Impression & Plan Severe anemia, COPD (chronic obstructive pulmonary disease), Breathlessness ED Provider Note Provider: Guanaco Richards MD DATE OF SERVICE: 03/02/2024 CHIEF COMPLAINT: Shortness of breath HISTORY OF PRESENT ILLNESS: Patient is a 68-year-old female advanced emphysema on home oxygen presenting here today with worsening shortness of breath. Has been having issues for some time she reports over the last several years with her breathing. Worsened and could not breathe this morning so called EMS. Last cigarette or 2 yesterday. No syncope or falls or significant chest pain reported. Denies abdominal pain or nausea or vomiting. No swelling reported. No sick contacts or fever reported. Does have home oxygen as well as home breathing treatments with been ineffective. Received 2 DuoNebs for EMS with minimal improvement. Does not use CPAP at home. Has been too weak and not able to go to the doctor for "quite some time "per the patient. She is too weak to get out of bed at all and mainly bedbound with maybe a little sore developing on her bottom by her report. PAST MEDICAL HISTORY: As noted above MEDICATIONS: Reviewed home medications SOCIAL HISTORY: Smoker, lives with boyfriend who has been helping her PHYSICAL EXAM: GENERAL: alert and oriented in no acute distress on stretcher quite thin and cachectic in appearance Head: normocephalic and atraumatic EYES: No injection, discharge or icterus. NECK: Trachea midline. Supple. ENT: Mucous membranes pink and moist. LUNGS: Airway patent. Mild work of breathing and tachypnea with scattered wheeze. HEART: Regular tachycardic rate and rhythm. No chest wall tenderness ABDOMEN: Soft and non-tender, without guarding or rebound. SKIN: Acyanotic, warm, dry, no significant extremity rashes appreciated. EXTREMITIES: Without swelling, tenderness or deformity but very thin and gaunt NEUROLOGICAL: No focal deficits. No aphasia. No facial droop or slurred speech. EK bpm sinus tachycardia with PACs. No PVC. No acute ST segment elevation or depression with QTc 477. CONTINUOUS CARDIAC MONITORING: was ordered and showed a heart rate of 90s to 120s bpm in normal sinus rhythm to sinus tachycardia Patient's laboratory studies and imaging reviewed. Differential includes Reactive airway disease, pneumonia, pneumothorax, COPD, CHF, infections, cardiac ischemia, pulmonary embolism, musculoskeletal, gastrointestinal, as well as other pathologies. IMPRESSION/MEDICAL DECISION MAKING: Patient with ongoing chronic COPD issues. Thin without evidence of fluid overload on exam. Afebrile and denies significant fever or illness exposure. Received DuoNebs for EMS. On chronic home oxygen. Not significant lethargic encephalopathic but reports some shortness of breath and has some work of breathing. VBG obtained here does show some acidosis 7.27 with a CO2 of 76. X- ray obtained as well without evidence of pneumonia. Given some IV steroids as well as additional DuoNeb treatments to try to help with the breathing. Given her extensive history of smoking and prior findings on CTs of irregularity of the left upper lobe of the lung will obtain a chest CT to exclude any occult pulmonary pathology. Troponin EKG obtained but lower suspicion for acute ACS. Will discuss with the patient possible trial of BiPAP to see if this helps with her respiratory acidosis and hypercarbia and breathing status. Respiratory viral panel was obtained. Patient again states she has not been to the doctor in some time. Confirms no active bloody stools or black stools but was previously getting transfusions and iron infusions. Hemoglobin returned at 4.7. Likely contributing to her weakness and breathing issues. Respiratory viral panel negative. No troponin elevation or ischemic findings on EKG. Renal function appears normal. Will proceed with CT of the chest medically to see if there is any lung mass appreciable at this time. Iron panel was sent. Doubt this represents GI bleed based on her symptoms. CT of the chest without PE or large consolidative process/mass notable with a new right pleural effusion noted by radiology report. Will bring in to the hospital and the patient is agreeable. Hospitalist team was consulted evaluating the patient. Do not see infectious etiology we will hold off on antibiotics at this time. Patient consented for blood transfusion. 2 units of packed red blood cells ordered and blood consent obtained from patient. DIAGNOSIS: severe anemia, COPD exacerbation, hypercarbic respiratory failure DISPOSITION: Hospitalist will evaluate Patient was agreeable with this plan. Critical Care I have personally spent 48 minutes of critical care time in the direct management of this patient. This includes bedside care, interpretation of diagnostic studies, and testing, discussion with consultants, patient, and other required patient management activities. These 48 minutes is in excess of all separately billable procedures. Past Med/Surg History Problem List (Updated 03/02/24 @ 10:38 by Guanaco Richards M.D.) Breathlessness (Acute) COPD (chronic obstructive pulmonary disease) (Acute) Severe anemia (Acute) Carotid stenosis Anorexia Visual symptoms Left upper lobe pulmonary infiltrate Moderate dehydration Sepsis (Acute) Pneumonia (Acute) LUQ abdominal pain Severely underweight adult Acute and chronic respiratory failure with hypoxia Acute exacerbation of chronic obstructive pulmonary disease (Acute) Hypoxia (Acute) Chest pain (Acute) Acute respiratory failure with hypoxia Osteoporosis Constipation Bone/cartilage disorder Lethargy Abdominal bruit Back pain Shortness of breath Anemia Iron (Fe) deficiency anemia Peripheral arterial disease Lower abdominal pain Left flank pain Epigastric abdominal pain Paresthesia of buttock Left leg weakness Urinary incontinence History of kidney stones O2 dependent Vitamin D deficiency Abdominal pain Poor appetite SOB (shortness of breath) on exertion Atherosclerosis Myalgia RSD (reflex sympathetic dystrophy) Cough Intermittent palpitations Pericardial effusion Sinus tachycardia Dehydration Decreased oral intake Hypotension Acute hypotension (Acute) Acute UTI (urinary tract infection) (Acute) Pneumonitis (Acute) Acute upper abdominal pain (Acute) Physical debility Weakness (Acute) Severe protein-calorie malnutrition Hypokalemia Change in bowel habits Dysphagia Multiple pulmonary nodules determined by computed tomography of lung Unintentional weight loss Chronic shortness of breath Fibromyalgia Migraine Anxiety and depression (Chronic) Bipolar affective disorder (Chronic) Hyperlipidemia (Chronic) Hypothyroidism (Chronic) Nicotine dependence (Chronic) COPD (chronic obstructive pulmonary disease) (Chronic) inhalers daily Hypertension (Chronic) RSD (reflex sympathetic dystrophy) (Chronic) "per patient's sister, 06/21/16" Medical History Chronic back pain History of COVID-19 History of kidney stones History of recent blood transfusion Iron (Fe) deficiency anemia On home oxygen therapy Osteoarthritis Surgical History History of cataract surgery History of colonoscopy History of esophagogastroduodenoscopy (EGD) History of lithotripsy History of repair of right rotator cuff History of tooth extraction History of total hysterectomy with bilateral salpingo-oophorectomy (BSO) S/P cystoscopy with ureteral stent placement S/P epidural steroid injection Family History Brother Alcohol abuse Kidney disease Mother Anxiety Kidney disease Sister Kidney disease Aunt Breast cancer Father Prostate cancer Family history of diabetes mellitus Other Cancer Diabetes Emphysema of lung Hypertension Lung disease No family history of adverse response to anesthesia Denies family history of Ovarian cancer Myocardial infarction Colorectal cancer Social History Smoking Status: Current every day smoker Tobacco Type: Cigarettes Age Started Using Tobacco: 17; Cigarettes Per Day: 1/3 of a pack; Second Hand Exposure: Yes; Do You Dip or Chew Tobacco: No; Hx Alcohol Use: No Hx Substance Use: No Preferred Language: [place] Irish Communication Ability: Effective Visual Impairment: No Limitations Hearing Ability: Normal Sprayer Insecticide Required: No Beliefs That Will Affect Care: None marital status: Current Living Situation: Significant Other Current Living Situation Comment: Lives with boyfriend current occupational status: disabled How many Children do You have: 3 Feels Safe at Home: Yes Childhood Exposure to Second-Hand Smoke: Yes Diet: regular Diet Comment: stated she eats very little, no appetite. caffeine: Yes Dental Care, Regularly: No Physical Activity Frequency: Daily Seatbelt Use: always Sunscreen Use: No Assistive Devices: Walker Allergies Allergies Allergy/AdvReac Type Severity Reaction Status Date / Time codeine Allergy Intermediate ITCHING Verified 03/31/23 14:24 cortisone Allergy Intermediate ITCHING Verified 03/31/23 14:24 Penicillins Allergy Intermediate HIVES, Verified 03/31/23 14:24 ITCHINESS ciprofloxacin [From Cipro] AdvReac Intermediate Vomiting Verified 03/31/23 14:24 Home Meds Home Medications Medication Instructions Recorded Confirmed Oxygen Home #1 ea 03/07/19 03/31/23 diphenhydramine HCl 25 mg tablet 25 mg PO QID PRN Allergy Symptoms 03/12/19 03/31/23 (Benadryl Allergy) guaifenesin 600 mg tablet, 600 mg PO Q12 PRN Congestion 11/05/21 03/31/23 extended release 12 hr (Mucinex) linaclotide 145 mcg capsule 145 mcg PO HS 12/03/22 03/31/23 (Linzess) Previous Rx's Medication Instructions Recorded lactulose 20 gram/30 mL oral 30 g (45 mL) PO QID PRN 09/03/22 solution constipation #2,880 mL nebulizers #1 ea 10/26/22 ondansetron 4 mg disintegrating 4 mg PO Q6H PRN nausea and 10/26/22 tablet vomiting #60 tabs mecobalamin (vitamin B12) 10,000 1,000 mcg IM MONTHLY #1 ea 12/21/22 mcg solution for injection miscellaneous medical supply 1 ea miscellaneous DAILY #1 ea 12/21/22 varenicline 1 mg tablet 1 mg PO BID #56 tabs 12/21/22 cyanocobalamin (vitamin B-12) 1,000 mcg IM MONTHLY #10 mL 01/05/23 1,000 mcg/mL injection solution varenicline 0.5 mg (11)-1 mg (42) 1 ea PO DAILY #53 ea 01/05/23 tablets in a dose pack buspirone 15 mg tablet 15 mg PO BID #60 tabs 08/31/23 pantoprazole 40 mg tablet,delayed See Rx Instructions .Route 09/07/23 release .COMPLEX #90 tabs albuterol sulfate 2.5 mg/3 mL 1.25 mg (1.5 mL) inhalation Q6H 09/24/23 (0.083 %) solution for nebulization PRN shortness of breath or wheezing #90 mL albuterol sulfate 90 mcg/actuation 2 puff inhalation DAILY PRN 09/24/23 aerosol inhaler (Ventolin HFA) Shortness Of Breath #8.5 grams fluticasone furoate 100 1 inh inhalation QAM #60 ea 09/24/23 mcg-vilanterol 25 mcg/dose inhalation powder (Breo Ellipta) umeclidinium 62.5 mcg/actuation 1 inh inhalation QAM #30 ea 09/24/23 blister powder for inhalation (Incruse Ellipta) metoprolol tartrate 25 mg tablet 25 mg PO HS #90 tabs 10/29/23 atorvastatin 20 mg tablet (Lipitor) 20 mg PO HS #90 tabs 11/29/23 levothyroxine 50 mcg tablet 50 mcg PO HS #90 tabs 11/29/23 hydroxyzine pamoate 25 mg capsule 25 mg PO TID PRN Anxiety #90 caps 01/11/24 sertraline 100 mg tablet 200 mg (2 x 100 mg) PO HS #60 tabs 01/12/24 quetiapine 400 mg tablet (Seroquel) 400 mg PO HS #15 tabs 01/26/24 Results & Data (ED) Vital Signs Vital Signs - 24 hr 03/02/24 08:31 03/02/24 08:38 03/02/24 08:42 Temperature 36.6 C Temperature Source Oral Pulse Rate 107 H 107 H Pulse Rate [Apical] Respiratory Rate 20 Respiratory Effort / Characteristics Short of Breath Respiratory Depth Respiratory Pattern Blood Pressure 177/68 H Blood Pressure [Left Arm] Blood Pressure Mean 104 Blood Pressure Mean [Left Arm] Blood Pressure Position Semi-fowlers Blood Pressure Position [Left Arm] Pulse Oximetry 100 Oxygen Delivery Method Nasal Cannula Nasal Cannula Oxygen Flow Rate 5 5 Fraction of Inspired Oxygen Sepsis Recent Fever Within 48 Hours No Sepsis New/Unexplained Change in Mental Status No Sepsis Action Taken by Nursing No Action Required 03/02/24 08:42 03/02/24 08:42 03/02/24 08:45 Temperature 36.6 C Temperature Source Oral Pulse Rate 95 H Pulse Rate [Apical] 98 H Respiratory Rate 20 23 Respiratory Effort / Characteristics Respiratory Depth Respiratory Pattern Blood Pressure Blood Pressure [Left Arm] 177/68 H Blood Pressure Mean Blood Pressure Mean [Left Arm] 104 Blood Pressure Position Blood Pressure Position [Left Arm] Semi-fowlers Pulse Oximetry 100 100 Oxygen Delivery Method Nasal Cannula Nasal Cannula Oxygen Flow Rate 5 5 Fraction of Inspired Oxygen Sepsis Recent Fever Within 48 Hours Sepsis New/Unexplained Change in Mental Status Sepsis Action Taken by Nursing 03/02/24 08:50 03/02/24 08:51 03/02/24 09:00 Temperature Temperature Source Pulse Rate 98 H 98 H Pulse Rate [Apical] Respiratory Rate 20 17 Respiratory Effort / Characteristics Respiratory Depth Respiratory Pattern Blood Pressure 124/82 Blood Pressure [Left Arm] Blood Pressure Mean 89 Blood Pressure Mean [Left Arm] Blood Pressure Position Blood Pressure Position [Left Arm] Pulse Oximetry 100 100 Oxygen Delivery Method Nasal Cannula Oxygen Flow Rate 5 Fraction of Inspired Oxygen Sepsis Recent Fever Within 48 Hours Sepsis New/Unexplained Change in Mental Status Sepsis Action Taken by Nursing 03/02/24 09:00 03/02/24 09:03 03/02/24 09:10 Temperature Temperature Source Pulse Rate 103 H Pulse Rate [Apical] 91 H Respiratory Rate 17 24 Respiratory Effort / Characteristics Spontaneous Short of Breath Respiratory Depth Respiratory Pattern Blood Pressure 124/82 Blood Pressure [Left Arm] Blood Pressure Mean 89 Blood Pressure Mean [Left Arm] Blood Pressure Position Blood Pressure Position [Left Arm] Pulse Oximetry 90 100 Oxygen Delivery Method Nasal Cannula Oxygen Flow Rate 4 Fraction of Inspired Oxygen Sepsis Recent Fever Within 48 Hours Sepsis New/Unexplained Change in Mental Status Sepsis Action Taken by Nursing 03/02/24 09:15 03/02/24 09:21 03/02/24 09:45 Temperature Temperature Source Pulse Rate 91 H 99 H 104 H Pulse Rate [Apical] Respiratory Rate 24 18 29 H Respiratory Effort / Characteristics Respiratory Depth Respiratory Pattern Blood Pressure Blood Pressure [Left Arm] Blood Pressure Mean Blood Pressure Mean [Left Arm] Blood Pressure Position Blood Pressure Position [Left Arm] Pulse Oximetry 100 100 100 Oxygen Delivery Method Oxygen Flow Rate Fraction of Inspired Oxygen Sepsis Recent Fever Within 48 Hours Sepsis New/Unexplained Change in Mental Status Sepsis Action Taken by Nursing 03/02/24 10:24 03/02/24 10:30 03/02/24 10:33 Temperature Temperature Source Pulse Rate 109 H 113 H Pulse Rate [Apical] Respiratory Rate 21 26 H Respiratory Effort / Characteristics Respiratory Depth Respiratory Pattern Blood Pressure 141/103 H Blood Pressure [Left Arm] Blood Pressure Mean 124 Blood Pressure Mean [Left Arm] Blood Pressure Position Blood Pressure Position [Left Arm] Pulse Oximetry 100 97 Oxygen Delivery Method Oxygen Flow Rate Fraction of Inspired Oxygen Sepsis Recent Fever Within 48 Hours Sepsis New/Unexplained Change in Mental Status Sepsis Action Taken by Nursing 03/02/24 10:52 Temperature Temperature Source Pulse Rate 109 H Pulse Rate [Apical] Respiratory Rate 17 Respiratory Effort / Characteristics Short of Breath Respiratory Depth Normal Respiratory Pattern Regular Blood Pressure Blood Pressure [Left Arm] Blood Pressure Mean Blood Pressure Mean [Left Arm] Blood Pressure Position Blood Pressure Position [Left Arm] Pulse Oximetry 100 Oxygen Delivery Method Oxygen Flow Rate Fraction of Inspired Oxygen 35 Sepsis Recent Fever Within 48 Hours Sepsis New/Unexplained Change in Mental Status Sepsis Action Taken by Nursing Laboratory Data 03/02/24 10:00 03/02/24 08:50 Lab Results 03/02/24 03/02/24 03/02/24 Range/Units 08:47 08:50 10:00 WBC 7.61 (4.8-10.8) K/ul RBC 3.45 L (4.20-5.40) M/uL Hgb 4.7 L* 4.3 L* (12.0-16.0) g/dl Hct 21.6 L 18.8 L* (37.0-47.0) % MCV 62.6 L (80.0-100.0) fL MCH 13.6 L (25.0-34.0) pg MCHC 21.8 L (32.0-36.0) g/dL RDW Std Deviation 51.8 H (36.4-46.3) fL RDW Coeff of Luis 23.9 H (11.5-14.5) % Plt Count 424 H (130-400) K/uL MPV 10.1 (9.4-12.4) fL Immature Gran % (Auto) 0.4 % Neut % (Auto) 85.9 % Lymph % (Auto) 6.0 % Calloway % (Auto) 4.9 % Eos % (Auto) 2.1 % Baso % (Auto) 0.7 % Neut # (Auto) 6.54 H (1.40-6.50) K/uL Lymph # (Auto) 0.46 L (1.20-3.40) K/uL Calloway # (Auto) 0.37 (0.11-0.59) K/uL Eos # (Auto) 0.16 (0.00-0.50) K/uL Baso # (Auto) 0.05 (0.00-0.20) K/uL Immature Gran # (Auto) 0.03 (0.01-0.20) K/uL Hypochromasia Present Anisocytosis Present Microcytosis Present Target Cells 2+ Tear Drop Cells 1+ Ovalocytes 1+ PT 11.4 (9.0-12.0) Seconds INR 1.1 (0.9-1.1) VBG pH 7.27 L (7.36-7.41) VBG pCO2 76 H (38-50) mmHg VBG pO2 < 20 mmHg VBG HCO3 35 mmol/L VBG O2 Saturation < 60.0 % VBG Base Excess 7.5 mEq/L Sodium 141 (136-145) mmol/L Potassium 3.4 L (3.5-5.1) mmol/L Chloride 105 (98-107) mmol/L Carbon Dioxide 32 (21-32) mmol/L Anion Gap 4 (3-11) BUN 11 (6-23) mg/dl Creatinine 0.50 L (0.6-1.2) mg/dl Est Cr Clr Drug Dosing 56.4 ml/min Est GFR ( Amer) 115.3 ml/min Est GFR (Non-Af Amer) 99.4 ml/min BUN/Creatinine Ratio 22.0 H (10-20) Glucose 141 H (70-99(Fasting)) mg/dl Lactate (0.4-2.0) mmol/L Calcium 8.1 L (8.6-10.3) mg/dl Magnesium 1.9 (1.7-2.4) mg/dl Iron 12 L (35-150) mcg/dl TIBC 350 (250-450) mcg/dl Unsaturated IBC 338 (155-355) mcg/dl Transferrin % Sat 3 L (15-50) % Ferritin 3.5 L (8-388) ng/ml Total Bilirubin 0.4 (0.2-1.0) mg/dl AST 15 (13-39) U/L ALT 5 L (7-52) U/L Alkaline Phosphatase 88 (34-104) U/L Troponin I High Sens 3.9 (0-14) pg/ml Total Protein 6.1 (6.0-8.3) gm/dl Albumin 3.6 (3.4-5.0) gm/dl Globulin 2.5 (2.5-4.0) gm/dl Albumin/Globulin Ratio 1.4 (0.9-2) Adenovirus (PCR) Not Detected (NotDetected) B. pertussis DNA (PCR) Not Detected (NotDetected) B.parapertussis DNA PCR Not Detected (NotDetected) C. pneumoniae DNA (PCR) Not Detected (NotDetected) Coronavirus OC43 (PCR) Not Detected (NotDetected) Coronavirus HKU1 (PCR) Not Detected (NotDetected) Coronavirus 229E (PCR) Not Detected (NotDetected) SARS-CoV-2 (PCR) Not Detected (NotDetected) Coronavirus NL63 (PCR) Not Detected (NotDetected) Human Metapneumovir PCR Not Detected (NotDetected) Influenza Type A (PCR) Not Detected (NotDetected) Influenza Type B (PCR) Not Detected (NotDetected) M. pneumoniae (PCR) Not Detected (NotDetected) Parainfluenza 1 (PCR) Not Detected (NotDetected) Parainfluenza 2 (PCR) Not Detected (NotDetected) Parainfluenza 3 (PCR) Not Detected (NotDetected) Parainfluenza 4 (PCR) Not Detected (NotDetected) RSV (PCR) Not Detected (NotDetected) Entero/Rhino (PCR) Not Detected (NotDetected) Crossmatch 03/02/24 03/02/24 Range/Units 10:01 10:50 WBC (4.8-10.8) K/ul RBC (4.20-5.40) M/uL Hgb (12.0-16.0) g/dl Hct (37.0-47.0) % MCV (80.0-100.0) fL MCH (25.0-34.0) pg MCHC (32.0-36.0) g/dL RDW Std Deviation (36.4-46.3) fL RDW Coeff of Luis (11.5-14.5) % Plt Count (130-400) K/uL MPV (9.4-12.4) fL Immature Gran % (Auto) % Neut % (Auto) % Lymph % (Auto) % Calloway % (Auto) % Eos % (Auto) % Baso % (Auto) % Neut # (Auto) (1.40-6.50) K/uL Lymph # (Auto) (1.20-3.40) K/uL Calloway # (Auto) (0.11-0.59) K/uL Eos # (Auto) (0.00-0.50) K/uL Baso # (Auto) (0.00-0.20) K/uL Immature Gran # (Auto) (0.01-0.20) K/uL Hypochromasia Anisocytosis Microcytosis Target Cells Tear Drop Cells Ovalocytes PT (9.0-12.0) Seconds INR (0.9-1.1) VBG pH (7.36-7.41) VBG pCO2 (38-50) mmHg VBG pO2 mmHg VBG HCO3 mmol/L VBG O2 Saturation % VBG Base Excess mEq/L Sodium (136-145) mmol/L Potassium (3.5-5.1) mmol/L Chloride (98-107) mmol/L Carbon Dioxide (21-32) mmol/L Anion Gap (3-11) BUN (6-23) mg/dl Creatinine (0.6-1.2) mg/dl Est Cr Clr Drug Dosing ml/min Est GFR ( Amer) ml/min Est GFR (Non-Af Amer) ml/min BUN/Creatinine Ratio (10-20) Glucose (70-99(Fasting)) mg/dl Lactate 1.0 (0.4-2.0) mmol/L Calcium (8.6-10.3) mg/dl Magnesium (1.7-2.4) mg/dl Iron (35-150) mcg/dl TIBC (250-450) mcg/dl Unsaturated IBC (155-355) mcg/dl Transferrin % Sat (15-50) % Ferritin (8-388) ng/ml Total Bilirubin (0.2-1.0) mg/dl AST (13-39) U/L ALT (7-52) U/L Alkaline Phosphatase (34-104) U/L Troponin I High Sens (0-14) pg/ml Total Protein (6.0-8.3) gm/dl Albumin (3.4-5.0) gm/dl Globulin (2.5-4.0) gm/dl Albumin/Globulin Ratio (0.9-2) Adenovirus (PCR) (NotDetected) B. pertussis DNA (PCR) (NotDetected) B.parapertussis DNA PCR (NotDetected) C. pneumoniae DNA (PCR) (NotDetected) Coronavirus OC43 (PCR) (NotDetected) Coronavirus HKU1 (PCR) (NotDetected) Coronavirus 229E (PCR) (NotDetected) SARS-CoV-2 (PCR) (NotDetected) Coronavirus NL63 (PCR) (NotDetected) Human Metapneumovir PCR (NotDetected) Influenza Type A (PCR) (NotDetected) Influenza Type B (PCR) (NotDetected) M. pneumoniae (PCR) (NotDetected) Parainfluenza 1 (PCR) (NotDetected) Parainfluenza 2 (PCR) (NotDetected) Parainfluenza 3 (PCR) (NotDetected) Parainfluenza 4 (PCR) (NotDetected) RSV (PCR) (NotDetected) Entero/Rhino (PCR) (NotDetected) Crossmatch See Detail Administered Medications Discontinued Medications Albuterol (Albut/Ipratrop 3mg/0.5mg Neb 3 Ml Vial) 12 ml NEB ONE ONE; Protocol Stop: 03/02/24 08:36 Last Admin: 03/02/24 09:07 Dose: 12 ml Documented By: [id number] Ioversol (Optiray 320 125ml) 112 ml IV ONCE ONE Stop: 03/02/24 10:10 Last Admin: 03/02/24 10:09 Dose: 112 ml Documented By: NANDINI Methylprednisolone (Methylprednisolone 125 Mg/2 Ml Vial) 60 mg IV NOW STA Stop: 03/02/24 08:36 Last Admin: 03/02/24 08:52 Dose: 60 mg Documented By: MMF Imaging Data Radiologist's Impression: Chest X-Ray 03/02/24 08:35 XR chest 1V portable HISTORY: Dyspnea COMPARISON: Chest 12/03/2022. Chest CT 02/22/2023. FINDINGS: No pneumothorax. Severe emphysema again noted. Trace bilateral pleural effusions are suggested. The heart is normal in size. Chronic interstitial thickening is again noted. Calcifications within the aortic knob. No acute fractures. No evidence for pulmonary edema. No new focal lung consolidations to suggest a pneumonia. The 2 cm left upper lobe irregular density is again noted. IMPRESSION: 1. Severe emphysema. 2. Redemonstration of the 2 cm left upper lobe irregular density. This is concerning for a primary bronchogenic malignancy and will be better assessed on the same day chest CTA. 3. Trace bilateral pleural effusions. ACT 112: Negative or not required by law. Electronically signed by: Aiden Appiah M.D. 03/02/2024 9:36 AM Chest CTA 03/02/24 09:15 CT angio chest PE protocol CLINICAL HISTORY: PE, copd/sob TECHNIQUE: Multidetector row helical CT of the chest was performed with angiographic protocol. Coronal and sagittal reformations were obtained. Coronal and sagittal MIPS were obtained from the axial data set and were submitted for review. Automated dose lowering techniques and/or adjustment according to patient size were utilized for this exam. CT DOSE: 237.92 mGy.cm Comparison: Comparison is made to CT chest 02/22/2023 FINDINGS: Lungs and pleura: Interval development of a small right pleural effusion and trace left pleural effusion. Bronchiectasis and emphysema are seen. Punctate pulmonary nodules as above. Dominant density in the left upper lobe measures 16 x 10 mm, decreased from prior exam. Heart and pericardium: Heart size is normal. No pericardial effusion. Vessels: No evidence of pulmonary embolism. Mediastinum and ace: Unremarkable. Chest wall and lower neck: Patient is cachectic. Abdomen: Unremarkable. Bones: Degenerative changes in the thoracic spine. IMPRESSION: 1. No acute abnormality and in particular no evidence of pulmonary embolus. 2. Right pleural effusion is new from prior exam. 3. Common pulmonary nodule appears slightly decreased from prior exam. This likely represents improving infectious/inflammatory process. ACT 112: Negative or not required by law. Electronically signed by: Lukas Lane M.D. 03/02/2024 10:29 AM Discharge Plan Visit Data Chief Complaint: Shortness of Breath/Dyspnea Stated Complaint: SOB ED Provider: Guanaco Richards Discharge Problem: Severe anemia, COPD (chronic obstructive pulmonary disease), Breathlessness Patient Disposition: Being Evaluated by Hospitalist Forms Stand Alone Forms: [facility] Prescriptions Prescriptions: No Action cyanocobalamin (vitamin B-12) 1,000 mcg/mL solution 1,000 mcg IM MONTHLY Qty: 10 3RF varenicline 0.5 mg (11)- 1 mg (42) tablets,dose pack 1 ea PO DAILY Qty: 53 5RF pantoprazole 40 mg tablet,delayed release (DR/EC) See Rx Instructions .ROUTE .COMPLEX Qty: 90 1RF Dose Instruction: TAKE 1 TAB BY MOUTH DAILY Rx Instructions: TAKE 1 TAB BY MOUTH DAILY albuterol sulfate 2.5 mg /3 mL (0.083 %) solution for nebulization 1.25 mg inhalation Q6H PRN (Reason: shortness of breath or wheezing) Qty: 90 11RF Incruse Ellipta 62.5 mcg/actuation blister with device 1 inh inhalation QAM Qty: 30 11RF fluticasone furoate-vilanterol [Breo Ellipta] 100-25 mcg/dose blister with device 1 inh inhalation QAM Qty: 60 11RF albuterol sulfate [Ventolin HFA] 90 mcg/actuation HFA aerosol inhaler 2 puff inhalation DAILY PRN (Reason: Shortness Of Breath) Qty: 8.5 5RF metoprolol tartrate 25 mg tablet 25 mg PO HS Qty: 90 0RF atorvastatin [Lipitor] 20 mg tablet 20 mg PO HS Qty: 90 0RF levothyroxine 50 mcg tablet 50 mcg PO HS Qty: 90 0RF hydroxyzine pamoate 25 mg capsule 25 mg PO TID PRN (Reason: Anxiety) Qty: 90 0RF sertraline 100 mg tablet 200 mg PO HS Qty: 60 0RF Rx Instructions: last fill until seen quetiapine [Seroquel] 400 mg tablet 400 mg PO HS Qty: 15 0RF (DME) Oxygen Home Liters Per Minute See Dose Instructions .ROUTE .MEDSUPPLY Qty: 1 Rx Instructions: As directed buspirone 15 mg tablet 15 mg PO BID Qty: 60 0RF Rx Instructions: PER PT "TAKE ALL PILLS AT HS". mecobalamin (vitamin B12) 10,000 mcg recon soln 1,000 mcg IM MONTHLY Qty: 1 3RF miscellaneous medical supply Misc 1 ea miscellaneous DAILY Qty: 1 5RF Rx Instructions: Oxygen supplies: tubing and nasal cannula varenicline 1 mg tablet 1 mg PO BID Qty: 56 5RF ondansetron 4 mg tablet,disintegrating 4 mg PO Q6H PRN (Reason: nausea and vomiting) Qty: 60 5RF (DME) nebulizers Mis See Rx Instructions .Route Qty: 1 0RF Rx Instructions: As directed, with nebulizer supplies diphenhydramine HCl [Benadryl Allergy] 25 mg tablet 25 mg PO QID PRN (Reason: Allergy Symptoms) guaifenesin [Mucinex] 600 mg tablet extended release 12hr 600 mg PO Q12 PRN (Reason: Congestion) Rx Instructions: OTC Linzess 145 mcg capsule 145 mcg PO HS lactulose 20 gram/30 mL Solution 30 g PO QID PRN (Reason: constipation) Qty: 2880 0RF Referrals Referrals: Eitan Bourne DO [Primary Care Provider] -
[2024-03-02 09:05] LABS: Base Excess VBG 7.5 mEq/L; HCO3 VBG 35 mmol/L; Oxygen Saturation VBG < 60.0 %; PCO2 VBG 76 mmHg (38-50); PO2 VBG < 20 mmHg; pH VBG 7.27 (7.36-7.41)
[2024-03-02] MEDS: ALBUT/IPRATROP 3MG/0.5MG NEB 3 ML VIAL NEB ONE (09:07)
[2024-03-02 09:31] LABS: Albumin Globulin Ratio 1.4 (0.9-2); Albumin Level 3.6 gm/dl (3.4-5.0); Bilirubin,Total 0.4 mg/dl (0.2-1.0); Calcium 8.1 mg/dl (8.6-10.3); Creatinine Clr Calc Pharmacy 56.4 ml/min; Est GFR (African American) 115.3 ml/min; Est GFR (Non-African American) 99.4 ml/min; Globulin 2.5 gm/dl (2.5-4.0); Magnesium 1.9 mg/dl (1.7-2.4); Potassium 3.4 mmol/L (3.5-5.1); Total Protein 6.1 gm/dl (6.0-8.3)
[2024-03-02 09:33] LABS: Hematocrit (blood only) 21.6 % (37.0-47.0); Hemoglobin 4.7 g/dl (12.0-16.0); Mean Corpuscular Hemoglobin 13.6 pg (25.0-34.0); Mean Corpuscular Hgb Conc 21.8 g/dL (32.0-36.0); Mean Corpuscular Volume 62.6 fL (80.0-100.0); Mean Platelet Volume 10.1 fL (9.4-12.4); Platelet Count 424 K/uL (130-400); RDW Coefficient of Variation 23.9 % (11.5-14.5); RDW Standard Deviation 51.8 fL (36.4-46.3); Red Blood Count 3.45 M/uL (4.20-5.40); White Blood Count 7.61 K/ul (4.8-10.8)
[2024-03-02 09:36] LABS: Anisocytosis Present; Basophils # (auto) 0.05 K/uL (0.00-0.20); Basophils % (auto) 0.7 %; Eosinophils # (auto) 0.16 K/uL (0.00-0.50); Eosinophils % (auto) 2.1 %; Hypochromasia Present; Immature Granulocytes # (auto) 0.03 K/uL (0.01-0.20); Immature Granulocytes % (auto) 0.4 %; Lymphocytes # (auto) 0.46 K/uL (1.20-3.40); Microcytosis Present; Monocytes # (auto) 0.37 K/uL (0.11-0.59); Monocytes % (auto) 4.9 %; Neutrophils # (auto) 6.54 K/uL (1.40-6.50); Neutrophils % (auto) 85.9 %; Ovalocytes 1+; Target Cells 2+; Tear Drop Cells 1+; Troponin I High Sensitivity 3.9 pg/ml (0-14)
--- NOTE | 2024-03-02 09:37 | XRay Report ---
XR chest 1V portable HISTORY: Dyspnea COMPARISON: Chest 12/03/2022. Chest CT 02/22/2023. FINDINGS: No pneumothorax. Severe emphysema again noted. Trace bilateral pleural effusions are sugges norman. The heart is normal in size. Chronic interstitial thickening is again noted. Calcifications with in the aortic knob. No acute fractures. No evidence for pulmonary edema. No new focal lung consolidat ions to suggest a pneumonia. The 2 cm left upper lobe irregular density is again noted. IMPRESSION: 1. Severe emphysema. 2. Redemonstration of the 2 cm left upper lobe irregular density. This is concerning for a primary br onchogenic malignancy and will be better assessed on the same day chest CTA. 3. Trace bilateral pleural effusions. ACT 112: Negative or not required by law. Electronically signed by: Aiden Appiah M.D. 03/02/2024 9:36 AM
[2024-03-02] MEDS ORDERED: SODIUM CHLORIDE 0.9% 250 ML IV PRN (09:45)
[2024-03-02 09:46] LABS: INR 1.1 (0.9-1.1); Prothrombin Time 11.4 Seconds (9.0-12.0)
[2024-03-02 09:58] LABS: Adenovirus PCR Not Detected (NotDetected); Bordetella parapertussis PCR Not Detected (NotDetected); Bordetella pertussis PCR Not Detected (NotDetected); Chlamydia pneumoniae PCR Not Detected (NotDetected); Coronavirus 229E PCR Not Detected (NotDetected); Coronavirus CoV-2 (COVID19)PCR Not Detected (NotDetected); Coronavirus HKU1 PCR Not Detected (NotDetected); Coronavirus NL63 PCR Not Detected (NotDetected); Coronavirus OC43PCR Not Detected (NotDetected); Human Metapneumovirus PCR Not Detected (NotDetected); Influenza A PCR Not Detected (NotDetected); Influenza B PCR Not Detected (NotDetected); Mycoplasma pneumoniae PCR Not Detected (NotDetected); Parainfluenza Virus 1 PCR Not Detected (NotDetected); Parainfluenza Virus 2 PCR Not Detected (NotDetected); Parainfluenza Virus 3 PCR Not Detected (NotDetected); Parainfluenza Virus 4 PCR Not Detected (NotDetected); Respiratory Syncytial VirusPCR Not Detected (NotDetected); Rhinovirus/Enterovirus PCR Not Detected (NotDetected)
[2024-03-02] MEDS: OPTIRAY 320 125ml IV ONE (10:09)
--- NOTE | 2024-03-02 10:20 | History & Physical Report ---
Date of Service March 02, 2024 Assessment & Plan (1) Symptomatic anemia: Plan: Admit to PCU/telemetry on pulse oximetry Currently hemodynamically stable and stable with her baseline 3 to 5 L nasal cannula but with increase CO2 retention on VBG Presented to ED today for acute on chronic shortness of breath and weakness, hemoglobin noted to be 4.3 Patient known history of severe iron deficiency anemia and was requiring recurrent Venofer infusions as of a year ago, but she stopped following up with her PCP due to aggressive treatment causing too much distress in her life Initial workup was consistent with ongoing iron deficiency anemia, patient denies melena, bloody stool, or hematemesis, but with her recurrent pain after eating she is high risk for possible ulcer/GI bleed Patient was consented for blood and will be receiving an additional 3 units PRBCs Will start daily IV folic acid and IM B12 Will add B12 acid levels to his labs prior to initiating treatment Patient explained that she will not undergo further colonoscopy and/or EGD Will start twice daily IV pantoprazole in case of possible occult GI bleed Monitor posttransfusion CBC tonight and transfuse for hemoglobin less than 7 Bilateral CANDY stockings for DVT prophylaxis N.p.o. while on BiPAP AM CBC, CMP, mag, PT/INR (2) Hypercapnia: Plan: VBG pH of 7.27, pCO2 of 76, pO2 less than 20 Patient likely is retaining increased CO2 due to not being on her normal home meds and her baseline severe COPD Will start patient on BiPAP at time of admission with repeat VBG in approximately 3 hours, if she is improving and stable we can try her off BiPAP early afternoon Patient may require recurrent use of BiPAP during this admission Update: 1157 Was alerted by patient's respiratory therapist that the patient was only able to tolerate BiPAP for approximately 30 minutes and then refused to use it moving forward Spoke to patient at bedside who is currently stable, alert, and oriented. She is not in respiratory distress at this time. She explained that she could not tolerate the BiPAP as it made her feel incredibly claustrophobic and she felt as though it was making her breathing worse. I explained to her that the BiPAP is important at this time as her carbon dioxide level in her blood is elevated. I explained again that the BiPAP mask helps her remove more of the carbon oxide. I also explained to her the risks of not using the BiPAP mask including increased carbon dioxide retention, worsening acidosis, increased fatigue/lethargy open to the point of respiratory failure and . The patient acknowledged these risks and again verbalized that she does not feel she can tolerate the BiPAP mask. I explained that we could try small dose of IV medication to help reduce her anxiety to see if this would help her tolerate the BiPAP mask. I also explained that we could wait and repeat another VBG in approximately 1 hour to see if he carbon oxide retention has changed. If her CO2 level continues to increase the patient is willing to readdress another trial of BiPAP. (3) COPD (chronic obstructive pulmonary disease): Plan: Will start 4 times daily DuoNeb treatments, BIDr budesonide and formoterol nebulizing treatments Incentive spirometry, as needed O2 to keep SpO2 between 89-92% As needed BiPAP Will hold off ongoing steroids and antibiotics as she does not appear to be in a COPD exacerbation at this time (4) Failure to thrive in adult: Plan: Patient is severely malnourished and cachectic on exam Patient is currently 33 kg At this time I do not believe that patient has adequate insight into her cindy re prognosis and is unable to connect the fact that trying to improve her quality of life with aggressive treatment will cause significantly more distress which is why she had stopped following up with her PCP last year in the first place Patient is now DNR/DNI Would recommend ongoing goals of care discussions with likely need for palliative medicine consult as it appears patient would benefit most from hospice at discharge to help relieve her suffering If patient still is interested in treatment/evaluation, will need to consult pulmonology and or IR for possible biopsy of the left upper lobe lesion highly suspicious for malignancy Did discuss the concerns that she would not tolerate treatment of a malignancy if her left upper lobe lesion was found to be positive due to her severe malnourished state (5) Lesion of left lung: Plan: Was initially diagnosed on CT of the chest with IV contrast in 2022 Chest x-ray today shows concerns for progression in size Highly suspicious for malignancy Will follow-up with CTA of the chest with IV contrast ordered in the ED, currently in process If patient is still interested in biopsy and evaluation after she is stabilized will need to consult pulmonology/IR (6) Hypothyroidism: Plan: Will obtain TSH with reflex T4 and admission as she has not been on her home levothyroxine for approximately 1 year Plan The patient was discussed with Dr. Hill. The admission History of Present Illness Chief Complaint: SOB Primary Care Provider: Eitan Bourne DO Shameka Moise is a 68 yo F with a pmhx of advanced/end stage COPD with chronic respiratory failure (on 5 L nasal cannula baseline), severe protein calorie malnutrition, severe iron deficiency anemia, HTN, HLD, hypothyroidism, and left upper lobe lesion noted on CT of the chest in 2022 who presented to the [facility] ED via EMS on 03/02/2024 with a chief complaint of acute on chronic shortness of breath. The patient has reportedly been having progressive shortness of breath over the past year but her stated she has been refusing to go to the doctor. Symptoms reportedly became much more severe today prompting EMS call. On arrival to the ED she was noted to be hypertensive at 177/68, tachycardic with heart rate in the low 100s, and stable on 4 L nasal cannula. Labs were significant for hemoglobin of 4.7 (down from 13.8 as of 01/07/2023), MCV of 62, MCHC of 21, with stable platelets and WBCs. VBG pH of 7.27, pCO2 of 76, and pO2 less than 20. Potassium of 3.4, high-sensitivity troponin within normal limits, and full respiratory BioFire negative. Chest x-ray was read as severe emphysema, redemonstration of the 2 cm left upper lobe irregular density. This is concerning for primary bronchogenic malignancy and will be better assessed on the same day chest CTA. Trace bilateral pleural effusions. CT of the chest with IV contrast was read as Prior to admission the patient was given an hour- long albuterol treatment, 60 mg IV Solu-Medrol, consented for blood, and ordered an initial 3 units PRBCs. The patient was also started on BiPAP in the ED due to her carbon dioxide retention. Patient was sitting in bed in no acute distress at time of exam. She explains that she has been getting progressively more short of breath over the past 6 months, this morning it got so bad to the point that she could not catch her breath even at rest. When asked, she denies recent fever, chills, chest pain, hemoptysis, vomiting, dysuria/hematuria, and lower extremity swelling. When asked, she states that she has had approximately 2 falls in the past month due to being so weak that her legs just give out on her. She denies hitting her head or losing consciousness and is without pain from the falls. When asked about appetite she says that she has been eating approximately 1 sandwich and a bowl of soup a day. She gets recurrent stomach pain and nausea after eating but denies recent vomiting, hematemesis. States that she will fluctuate between constipation and nonbloody diarrhea. We discussed the reason that she stopped following up with her PCP and taking her home meds. She explains that as of last year when she was diagnosed with severe iron deficiency anemia her PCP was requiring frequent visits to their office, frequent iron infusions, and many referrals to different specialist. She states that it got to the point for her that she was unable to tolerate or keep up with this regimen and so she stopped following up altogether. Her prescriptions ran out as her PCP could not refill them if they could not see her in the office. I then discussed my concern with her poor prognosis moving forward due to her severe chronic comorbidities and undiagnosed left upper lobe lesion concerning for malignancy. We discussed options such as resuming full treatment and evaluation including ongoing transfusions of PRBCs and eventual need for recurrent iron infusions. Need to obtain a biopsy of the left upper lobe lesion for diagnosis, if positive for malignancy she would then require possible radiation and/or chemo at the. I explained to her my concern that with her severely poor nutritional state she would not tolerate treatment. I explained to her that it appeared she had expressed to me earlier that the aggressive treatment and workup she was receiving last year was causing too much distress in her life, and she cannot confirm this. I discussed the option of pursuing palliative medicine consult with possible discharge on hospice but we have focused on keeping her comfortable and alleviating her symptoms. She expressed to me that she would still want to try aggressive treatment at this time. I again tried to explain to her that this would require frequent lab draws, follow-ups, which had already been causing significant stress in her life. She expressed that she understood this but expressed she wanted to get back to a point where she is "feeling good". At this time she wishes to be a DNR/DNI and see how she feels after trying to stabilize her hemoglobin and improving her CO2 retention. At this time I have significant concern that she does not have adequate insight into her current conditions and significantly poor prognosis moving forward. Please refer to Dr. Nickerson's attestation for any changes to the treatment plan. Allergies Allergy/AdvReac Type Severity Reaction Status Date / Time codeine Allergy Intermediate ITCHING Verified 03/02/24 11:45 cortisone Allergy Intermediate ITCHING Verified 03/02/24 11:45 Penicillins Allergy Intermediate HIVES, Verified 03/02/24 11:45 ITCHINESS ciprofloxacin [From Cipro] AdvReac Intermediate Vomiting Verified 03/02/24 11:45 Home Medications Medication Instructions Recorded Confirmed Type Oxygen Home #1 ea 03/07/19 03/31/23 History diphenhydramine HCl 25 mg tablet 25 mg PO QID PRN Allergy Symptoms 03/12/19 03/31/23 History (Benadryl Allergy) guaifenesin 600 mg tablet, 600 mg PO Q12 PRN Congestion 11/05/21 03/31/23 History extended release 12 hr (Mucinex) lactulose 20 gram/30 mL oral 30 g (45 mL) PO QID PRN 09/03/22 03/31/23 Rx solution constipation #2,880 mL nebulizers #1 ea 10/26/22 03/31/23 Rx ondansetron 4 mg disintegrating 4 mg PO Q6H PRN nausea and 10/26/22 03/31/23 Rx tablet vomiting #60 tabs linaclotide 145 mcg capsule 145 mcg PO HS 12/03/22 03/31/23 History (Linzess) mecobalamin (vitamin B12) 10,000 1,000 mcg IM MONTHLY #1 ea 12/21/22 03/31/23 Rx mcg solution for injection miscellaneous medical supply 1 ea miscellaneous DAILY #1 ea 12/21/22 03/31/23 Rx varenicline 1 mg tablet 1 mg PO BID #56 tabs 12/21/22 03/31/23 Rx cyanocobalamin (vitamin B-12) 1,000 mcg IM MONTHLY #10 mL 01/05/23 03/31/23 Rx 1,000 mcg/mL injection solution varenicline 0.5 mg (11)-1 mg (42) 1 ea PO DAILY #53 ea 01/05/23 03/31/23 Rx tablets in a dose pack buspirone 15 mg tablet 15 mg PO BID #60 tabs 08/31/23 08/31/23 Rx pantoprazole 40 mg tablet,delayed See Rx Instructions .Route 09/07/23 Rx release .COMPLEX #90 tabs albuterol sulfate 2.5 mg/3 mL 1.25 mg (1.5 mL) inhalation Q6H 09/24/23 Rx (0.083 %) solution for nebulization PRN shortness of breath or wheezing #90 mL albuterol sulfate 90 mcg/actuation 2 puff inhalation DAILY PRN 09/24/23 Rx aerosol inhaler (Ventolin HFA) Shortness Of Breath #8.5 grams fluticasone furoate 100 1 inh inhalation QAM #60 ea 09/24/23 Rx mcg-vilanterol 25 mcg/dose inhalation powder (Breo Ellipta) umeclidinium 62.5 mcg/actuation 1 inh inhalation QAM #30 ea 09/24/23 Rx blister powder for inhalation (Incruse Ellipta) metoprolol tartrate 25 mg tablet 25 mg PO HS #90 tabs 10/29/23 Rx atorvastatin 20 mg tablet (Lipitor) 20 mg PO HS #90 tabs 11/29/23 Rx levothyroxine 50 mcg tablet 50 mcg PO HS #90 tabs 11/29/23 Rx hydroxyzine pamoate 25 mg capsule 25 mg PO TID PRN Anxiety #90 caps 01/11/24 Rx sertraline 100 mg tablet 200 mg (2 x 100 mg) PO HS #60 tabs 01/12/24 Rx quetiapine 400 mg tablet (Seroquel) 400 mg PO HS #15 tabs 01/26/24 Rx Past Med/Surg History Problem List (Updated 03/02/24 @ 11:16 by Mal Elliott PA-C) Lesion of left lung Failure to thrive in adult Hypercapnia Symptomatic anemia Breathlessness (Acute) COPD (chronic obstructive pulmonary disease) (Acute) Severe anemia (Acute) Carotid stenosis Anorexia Visual symptoms Left upper lobe pulmonary infiltrate Moderate dehydration Sepsis (Acute) Pneumonia (Acute) LUQ abdominal pain Severely underweight adult Acute and chronic respiratory failure with hypoxia Acute exacerbation of chronic obstructive pulmonary disease (Acute) Hypoxia (Acute) Chest pain (Acute) Acute respiratory failure with hypoxia Osteoporosis Constipation Bone/cartilage disorder Lethargy Abdominal bruit Back pain Shortness of breath Anemia Iron (Fe) deficiency anemia Peripheral arterial disease Lower abdominal pain Left flank pain Epigastric abdominal pain Paresthesia of buttock Left leg weakness Urinary incontinence History of kidney stones O2 dependent Vitamin D deficiency Abdominal pain Poor appetite SOB (shortness of breath) on exertion Atherosclerosis Myalgia RSD (reflex sympathetic dystrophy) Cough Intermittent palpitations Pericardial effusion Sinus tachycardia Dehydration Decreased oral intake Hypotension Acute hypotension (Acute) Acute UTI (urinary tract infection) (Acute) Pneumonitis (Acute) Acute upper abdominal pain (Acute) Physical debility Weakness (Acute) Severe protein-calorie malnutrition Hypokalemia Change in bowel habits Dysphagia Multiple pulmonary nodules determined by computed tomography of lung Unintentional weight loss Chronic shortness of breath Fibromyalgia Migraine Anxiety and depression (Chronic) Bipolar affective disorder (Chronic) Hyperlipidemia (Chronic) Hypothyroidism (Chronic) Nicotine dependence (Chronic) COPD (chronic obstructive pulmonary disease) (Chronic) inhalers daily Hypertension (Chronic) RSD (reflex sympathetic dystrophy) (Chronic) "per patient's sister, 06/21/16" Medical History Chronic back pain History of COVID-19 History of kidney stones History of recent blood transfusion Iron (Fe) deficiency anemia On home oxygen therapy Osteoarthritis Surgical History History of cataract surgery History of colonoscopy History of esophagogastroduodenoscopy (EGD) History of lithotripsy History of repair of right rotator cuff History of tooth extraction History of total hysterectomy with bilateral salpingo-oophorectomy (BSO) S/P cystoscopy with ureteral stent placement S/P epidural steroid injection Family History Brother Alcohol abuse Kidney disease Mother Anxiety Kidney disease Sister Kidney disease Aunt Breast cancer Father Prostate cancer Family history of diabetes mellitus Other Cancer Diabetes Emphysema of lung Hypertension Lung disease No family history of adverse response to anesthesia Denies family history of Ovarian cancer Myocardial infarction Colorectal cancer Social History Smoking Status: Current every day smoker Tobacco Type: Cigarettes Age Started Using Tobacco: 17; Cigarettes Per Day: 1/3 of a pack; Second Hand Exposure: Yes; Do You Dip or Chew Tobacco: No; Hx Alcohol Use: No Hx Substance Use: No Preferred Language: Bhutanese Communication Ability: Effective Visual Impairment: No Limitations Hearing Ability: Normal Shell Maker Lockstitch Required: No Beliefs That Will Affect Care: None marital status: Current Living Situation: Significant Other Current Living Situation Comment: Lives with boyfriend current occupational status: disabled How many Children do You have: 3 Feels Safe at Home: Yes Childhood Exposure to Second-Hand Smoke: Yes Diet: regular Diet Comment: stated she eats very little, no appetite. caffeine: Yes Dental Care, Regularly: No Physical Activity Frequency: Daily Seatbelt Use: always Sunscreen Use: No Assistive Devices: Walker Physical Exam Physical Exam: Physical Exam: General: In no acute distress, older than started, severely malnourished and cachectic HEENT: Normocephalic, atraumatic, bilateral temporal wasting, no scleral icterus, pupils around round, symmetrical, and reactive to light, moist mucus membranes, trachea midline, no thyromegaly Chest/Pulm: No respiratory distress, symmetrical chest expansion, scattered expiratory wheezing throughout Cardiac: tachycardic rate, regular rhythm, no murmurs noted Abdomen: Negative for ascites and bruising, normoactive bowel sounds, soft, non-tender to palpation throughout Musculoskeletal: Symmetrical and without signs of acute trauma, upper and lower extremities with full ROM, significant muscle atrophy throughout Extremities: Radial, dorsalis pedis, and posterior tibial pulses are intact and symmetrical, no edema noted in the BL LE's Skin: Warm, dry, no rashes , lesions, or scars noted Neuro: Alert and oriented to person, place, month, year, and president, no focal defects, no tremors noted Psych: No acute distress, calm and cooperative during the exam Results & Data Results & Data Vital Signs (Past 12 Hours) Vital Signs Temp Pulse Pulse Resp BP BP Pulse Ox 03/02/24 09:10 91 H 24 100 03/02/24 08:50 98 H 20 100 03/02/24 08:42 36.6 C 98 H 20 177/68 H 100 03/02/24 08:42 03/02/24 08:42 03/02/24 08:38 107 H 03/02/24 08:31 36.6 C 107 H 20 177/68 H 100 O2 Del Method O2 Flow Rate 03/02/24 09:10 Nasal Cannula 4 03/02/24 08:50 Nasal Cannula 5 03/02/24 08:42 Nasal Cannula 5 03/02/24 08:42 Nasal Cannula 5 03/02/24 08:42 Nasal Cannula 5 03/02/24 08:38 03/02/24 08:31 Nasal Cannula 5 Laboratory Results Abnormal lab results 03/02/24 Range/Units 08:50 RBC 3.45 L (4.20-5.40) M/uL Hgb 4.7 L* (12.0-16.0) g/dl Hct 21.6 L (37.0-47.0) % MCV 62.6 L (80.0-100.0) fL MCH 13.6 L (25.0-34.0) pg MCHC 21.8 L (32.0-36.0) g/dL RDW Std Deviation 51.8 H (36.4-46.3) fL RDW Coeff of Luis 23.9 H (11.5-14.5) % Plt Count 424 H (130-400) K/uL Neut # (Auto) 6.54 H (1.40-6.50) K/uL Lymph # (Auto) 0.46 L (1.20-3.40) K/uL VBG pH 7.27 L (7.36-7.41) VBG pCO2 76 H (38-50) mmHg Potassium 3.4 L (3.5-5.1) mmol/L Creatinine 0.50 L (0.6-1.2) mg/dl BUN/Creatinine Ratio 22.0 H (10-20) Glucose 141 H (70-99(Fasting)) mg/dl Calcium 8.1 L (8.6-10.3) mg/dl ALT 5 L (7-52) U/L Diagnostic Findings Chest X-Ray 03/02/24 08:35 XR chest 1V portable HISTORY: Dyspnea COMPARISON: Chest 12/03/2022. Chest CT 02/22/2023. FINDINGS: No pneumothorax. Severe emphysema again noted. Trace bilateral pleural effusions are suggested. The heart is normal in size. Chronic interstitial thickening is again noted. Calcifications within the aortic knob. No acute fractures. No evidence for pulmonary edema. No new focal lung consolidations to suggest a pneumonia. The 2 cm left upper lobe irregular density is again noted. IMPRESSION: 1. Severe emphysema. 2. Redemonstration of the 2 cm left upper lobe irregular density. This is concer xena for a primary bronchogenic malignancy and will be better assessed on the same day chest CTA. 3. Trace bilateral pleural effusions. ACT 112: Negative or not required by law. Electronically signed by: Aiden Appiah M.D. 03/02/2024 9:36 AM ECG Additional Comments: Sinus tachycardia with Premature atrial complexes Otherwise normal ECG When compared with ECG of 03-DEC-2022 15:37, Premature atrial complexes are now Present Code Status & VTE Plan Code Status DNR/DNI VTE Prophylaxis Plan VTE Prophylaxis will be ordered: Yes Supervising Physician Co-Signing Physician Notes Patient seen and examined, chart reviewed, case discussed with Mal Elliott PA-C and I agree with the assessment and plan as above except as otherwise noted Labs and images reviewed Myla is a 68-year-old female with a past medical history of end-stage COPD with chronic respiratory failure on 5 L nasal cannula baseline, protein-calorie malnutrition, history of severe iron deficiency anemia, left upper lobe lesion on CT 2022 suspicious for malignancy but it deferred follow-up for this patient presents for dyspnea and was found to be profoundly anemic. She had previously been following for iron deficiency anemia infusions however she felt that her quality of life with recurrent PCP visits and frequent medical treatment was poor and opted to stop following up at that time. She presents to the ER for progressive dyspnea and fatigue, had declined to go to her PCP however has become more symptomatic and presents to the ER for evaluation. Patient is somewhat guarded towards goals of care discussion. He is aware that her left upper lobe lung lesion could be malignancy, and that she is severely anemic. While she has chosen to defer outpatient follow-up due to the declining quality of life with frequent follow-ups and infusions she also does not feel ready to consider palliative care/hospice and comfort oriented approach. Reviewed various options for treatment to PCU, treat BARRETT with blood transfusion and can give up to 300 mg Venofer daily x 3 as long as not receiving blood the same day, continue to clarify goals of care. She does show evidence of acute hypercapnic respiratory failure, BiPAP was started for VBG pH 7.27/pCO2 76. CTAchest she has a right pleural effusion new from prior, no evidence of PE, pulmonary nodule is redemonstrated is noted to be? Infectious/inflammatory however this is persistent despite last imaging being a year prior and with prior tobacco use in remission. Hemoglobin 4.3 on admission, tachycardic mentating suggestive of severe chronic process. Ferritin 3.5 and transferrin saturation 3% consistent with profound iron deficiency. B12/folate levels added. No clinical GI bleeding but does have epigastric discomfort with meals. Patient has followed with GI in the past however is adamant she is not in interested in undergoing any type of endoscopy procedure again. Last endoscopy 11/28 by upper Endo showing gastritis, colonoscopy with diverticulosis nonbleeding hemorrhoids. History of B12 deficiency. Capsule endoscopy 03/2020 negative for bleeding. Hypotensive, regular/tachycardic at bedisde. +pallor. No edema. Cachectic. Will continue on PPI. Agree with assessment and management as above. PG Care Time/CCT Total # of Minutes Spent Total Time Spent with Patient: Total time spent is greater than 50% in coordination of care (as documented) at patient's floor/unit and/or counseling patient: [place] [address] INT INP/OBS CARE 3/75MIN Patient Type Established History Comprehensive Exam Comprehensive Medical Decision Making High Complexity Diagnoses Symptomatic anemia D64.9 Hypercapnia R06.89 COPD (chronic obstructive pulmonary disease) J44.9 Failure to thrive in adult R62.7 Lesion of left lung R91.1 Hypothyroidism E03.9
--- NOTE | 2024-03-02 10:31 | CT Scan Report ---
CT angio chest PE protocol CLINICAL HISTORY: PE, copd/sob TECHNIQUE: Multidetector row helical CT of the chest was performed with angiographic protocol. Black l and sagittal reformations were obtained. Coronal and sagittal MIPS were obtained from the axial danette a set and were submitted for review. Automated dose lowering techniques and/or adjustment according to patient size were utilized for this exam. CT DOSE: 237.92 mGy.cm Comparison: Comparison is made to CT chest 02/22/2023 FINDINGS: Lungs and pleura: Interval development of a small right pleural effusion and trace left pleural effus ion. Bronchiectasis and emphysema are seen. Punctate pulmonary nodules as above. Dominant density in the left upper lobe measures 16 x 10 mm, decreased from prior exam. Heart and pericardium: Heart size is normal. No pericardial effusion. Vessels: No evidence of pulmonary embolism. Mediastinum and ace: Unremarkable. Chest wall and lower neck: Patient is cachectic. Abdomen: Unremarkable. Bones: Degenerative changes in the thoracic spine. IMPRESSION: 1. No acute abnormality and in particular no evidence of pulmonary embolus. 2. Right pleural effusion is new from prior exam. 3. Common pulmonary nodule appears slightly decreased from prior exam. This likely represents improv ing infectious/inflammatory process. ACT 112: Negative or not required by law. Electronically signed by: Lukas Lane M.D. 03/02/2024 10:29 AM
[2024-03-02 10:36] LABS: Hematocrit (blood only) 18.8 % (37.0-47.0); Hemoglobin 4.3 g/dl (12.0-16.0)
[2024-03-02 10:57] LABS: Ferritin 3.5 ng/ml (8-388)
[2024-03-02] MEDS: PANTOprazole 40 MG in SYRINGE 0 ML IV ONE (11:23)
--- NOTE | 2024-03-02 11:41 | Electrocardiogram Report ---
Test Reason : Blood Pressure : / mmHG Vent. Rate : 101 BPM Atrial Rate : 101 BPM P-R Int : 130 ms QRS Dur : 074 ms QT Int : 368 ms P-R-T Axes : 088 089 087 degrees QTc Int : 477 ms Sinus tachycardia with Premature atrial complexes Otherwise normal ECG When compared with ECG of 03-DEC-2022 15:37, Premature atrial complexes are now Present Confirmed by Brayan Mauricio ([id number] on 03/02/2024 11:40:37 AM Referred By: Confirmed By:Brayan Mauricio
[2024-03-02 11:58] LABS: Folate (Folic Acid),Ser orPlas 6.93 ng/ml (>5.38)
[2024-03-02] MEDS: FOLIC ACID 1 MG in SYRINGE 9.8 ML IV STA (12:07)
[2024-03-02] MEDS: CYANOCOBALAMIN 1000 MCG/ML VIAL IM ONE (12:09)
[2024-03-02 13:00] LABS: Base Excess VBG 3.3 mEq/L; HCO3 VBG 30 mmol/L; Oxygen Saturation VBG 73.1 %; PCO2 VBG 59 mmHg (38-50); PO2 VBG 45 mmHg; pH VBG 7.31 (7.36-7.41)
[2024-03-02] MEDS: ALBUT/IPRATROP 3MG/0.5MG NEB 3 ML VIAL NEB SCH (14:59)
[2024-03-02 17:51] LABS: Base Excess VBG 4.9 mEq/L; HCO3 VBG 33 mmol/L; Oxygen Saturation VBG < 60.0 %; PCO2 VBG 64 mmHg (38-50); PO2 VBG < 20 mmHg; pH VBG 7.32 (7.36-7.41)
[2024-03-02] MEDS: POTASSIUM CHLORIDE / WTR 10 MEQ/100 ML PLCT IV SCH (19:36)
[2024-03-02] MEDS: FORMOTEROL 20 MCG/2 ML VIAL NEB SCH (19:58)
[2024-03-02] MEDS: BUDESONIDE 0.5 MG/2 ML VIAL (PULMICORT) NEB SCH (19:58)
[2024-03-02] MEDS ORDERED: LORazepam 0.5 MG in SYRINGE 0.25 ML IV PRN (20:20)
[2024-03-02] MEDS: PANTOprazole 40 MG in SYRINGE 0 ML IV SCH (21:10)
[2024-03-02 21:38] LABS: Appearance Urine Clear (Clear); Bacteria Urine Automated None Seen (None Seen); Bilirubin Urine Negative (Negative); Blood Urine Negative (Negative); Cast Urine Automated 0-2 /lpf (0-2); Color Urine Yellow; Epithelial Cell Urine Auto 0-2 /hpf (0-2); Glucose Urine UA Negative (Negative); Ketones Urine Negative (Negative); Leukocyte Esterase Urine Negative (Negative); Nitrite Urine Negative (Negative); Protein Urine Trace (Negative); RBC Urine Automated 0-2 /hpf (0-2); Specific Gravity Urine 1.034 (1.000-1.030); Urobilinogen Urine Negative (Negative); WBC Urine Automated 0-5 /hpf (0-5)
[2024-03-03 00:40] LABS: Hemoglobin 9.5 g/dl (12.0-16.0); Mean Corpuscular Hgb Conc 29.7 g/dL (32.0-36.0); Mean Corpuscular Volume 70.8 fL (80.0-100.0); Mean Platelet Volume 9.8 fL (9.4-12.4); Nucleated RBC # (auto) 0.02 K/uL (0.00-0.12); Nucleated RBC % (auto) 0.2 %; Platelet Count 385 K/uL (130-400); RDW Coefficient of Variation 27.9 % (11.5-14.5); RDW Standard Deviation 70.1 fL (36.4-46.3); Red Blood Count 4.52 M/uL (4.20-5.40); White Blood Count 11.29 K/ul (4.8-10.8)
--- NOTE | 2024-03-03 07:03 | XRay Report ---
XR chest 1V portable HISTORY: 68 years-old Female increasing SOB acute shortness of breath COMPARISON: CTA chest of same day TECHNIQUE: AP view of the chest FINDINGS: Cardiomediastinal and hilar silhouettes are within normal limits. Emphysema with chronic interstitial coarsening. Layering pleural effusions, right greater than left with mild dependent bibasilar opacit ies. Ill-defined nodular densities left upper lobe better seen on comparison CTA of the chest. Bones appear grossly intact. IMPRESSION: 1. Severe pulmonary emphysema with chronic interstitial coarsening. 2. Right greater than left layering pleural effusions with mild bibasilar atelectasis. 3. Please refer to same day CTA chest for additional findings. ACT 112: Negative or not required by law. The above report was generated using voice recognition software. It may contain grammatical, syntax o r spelling errors. Electronically signed by: Zach Singer M.D. 03/03/2024 7:02 AM
[2024-03-03 07:10] LABS: Base Excess VBG 5.8 mEq/L; HCO3 VBG 33 mmol/L; Oxygen Saturation VBG 61.8 %; PCO2 VBG 55 mmHg (38-50); PO2 VBG 33 mmHg; pH VBG 7.38 (7.36-7.41)
[2024-03-03 07:31] LABS: Albumin Globulin Ratio 1.5 (0.9-2); Albumin Level 3.4 gm/dl (3.4-5.0); BUN Creatinine Ratio 18.6 (10-20); Bilirubin,Total 0.8 mg/dl (0.2-1.0); Calcium 8.6 mg/dl (8.6-10.3); Creatinine Clr Calc Pharmacy 66.2 ml/min; Est GFR (African American) 121.1 ml/min; Est GFR (Non-African American) 104.5 ml/min; Globulin 2.3 gm/dl (2.5-4.0); Magnesium 1.8 mg/dl (1.7-2.4); Potassium 3.5 mmol/L (3.5-5.1); Total Protein 5.7 gm/dl (6.0-8.3)
[2024-03-03 07:44] LABS: Hematocrit (blood only) 33.6 % (37.0-47.0); Hemoglobin 9.9 g/dl (12.0-16.0); Mean Corpuscular Hemoglobin 20.6 pg (25.0-34.0); Mean Corpuscular Hgb Conc 29.5 g/dL (32.0-36.0); Mean Platelet Volume 9.4 fL (9.4-12.4); Platelet Count 378 K/uL (130-400); RDW Coefficient of Variation 27.9 % (11.5-14.5); RDW Standard Deviation 69.9 fL (36.4-46.3); White Blood Count 9.51 K/ul (4.8-10.8)
[2024-03-03] MEDS: ACETAMINOPHEN 325 MG TAB PO PRN (09:27)
[2024-03-03] MEDS: FOLIC ACID 1 MG in SYRINGE 9.8 ML IV SCH (09:28)
[2024-03-03] MEDS: PANTOprazole 40 MG TAB PO SCH (09:28)
[2024-03-03] MEDS: IRON SUCROSE 200 MG in 0.9 % SODIUM CHLORIDE 100 ML IV ONE (09:29)
[2024-03-03] MEDS: CYANOCOBALAMIN 1000 MCG/ML VIAL IM SCH (09:29)
[2024-03-03] MEDS: POLYETHYLENE (MIRALAX) 17 GM PACK PO PRN (09:29)
[2024-03-03] MEDS: DOCUSATE SODIUM 100 MG CAP PO PRN (09:29)
--- NOTE | 2024-03-03 10:57 | Hospitalist Progress Note ---
Date of Service March 03, 2024 Assessment & Plan (1) Symptomatic anemia: Plan: Known chronic iron deficiency. She denies overt melena or hematochezia. Hemoglobin 4.3 on admission. She refuses to consider endoscopy at this time. She has received 3 units packed red blood cells to date and hemoglobin is now up to 9.9. Will follow. (2) Iron deficiency: Plan: Parenteral iron replacement underway, day 1. (3) Hypercapnia: Plan: Chronic. She is intolerant of CPAP. She appears to be at her baseline and understands that this is a chronic problem. (4) COPD (chronic obstructive pulmonary disease): Plan: Stable. She appears to be at her baseline. Continue current medical management (5) Failure to thrive in adult: Plan: She states she has gotten weaker and is unable to ambulate. Supportive care. OT and PT assessments requested. (6) Lesion of left lung: Plan: initially diagnosed on CT of the chest with IV contrast in 2022. Chest x-ray on admission reveals progression in size. Highly suspicious for malignancy. At this time, she is not interested in a biopsy procedure. (7) Hypothyroidism: Plan: TSH normal. Free T3 and free T4 pending. She has not been on her home levothyroxine for approximately 1 year Plan I suspect she will need SNF placement since she states she can no longer ambulate. Admission and Anticipated Discharge Date Admission Date: March 02, 2024 Subjective Alert and oriented. She is feeling better since her severe anemia was corrected after 3 units packed red blood cells. Hemoglobin is now 9.9. Parenteral iron replacement is underway, day 1. She refuses endoscopy evaluation at this time. She is intolerant of the CPAP. pCO2 is down to 55 this morning, March 03. OT and PT assessments requested. She states she has become weaker and is unable to ambulate well and fallen several times at home recently. She probably will need SNF placement. Review of Systems 2 Review of Systems: Constitutional-no fever or chills ENT-no blurred vision, no double vision, no epistaxis, no sore throat Respiratory-no cough, no wheezing, no shortness of breath Cardiac-no palpitations, no chest pain, no syncope GI-no nausea, vomiting, diarrhea, melena, hematochezia -no urinary retention, no urinary incontinence, no dysuria, no hematuria Musculoskeletal-no joint pain, no muscle tenderness Skin-no bruising, no rashes, no pruritus Neuro-no isolated weakness, no paresthesia. Generalized weakness and ambulatory dysfunction has worsened however Psych-no depression, no anxiety Physical Exam 2 Physical Exam: General-alert and oriented x3, no fever, no chills. Cachectic appearing HEENT-head atraumatic and normocephalic, pupils equal and reactive to light, extraocular muscles intact Neck-no lymphadenopathy or thyromegaly, trachea midline Chest-markedly diminished breath sounds bilaterally. No inspiratory rales. No wheezing. No rhonchi Cardiac-regular rate and rhythm, normal S1 and S2 Abdomen-normal bowel sounds, no hepatosplenomegaly Extremities-no cyanosis, clubbing, or edema Neuro-cranial nerves II through XII intact, motor and sensory function within normal limits, strength symmetrical with generalized weakness, no focal deficits Psych-normal affect, normal mood Results & Data Results & Data Vital Signs (Past 12 Hours) Vital Signs Temp Pulse Pulse Resp BP BP Pulse Ox 03/03/24 08:24 78 03/03/24 07:40 36.8 C 92 H 20 179/88 H 98 03/03/24 07:20 83 14 98 03/03/24 03:05 36.4 C L 84 18 161/85 H 99 03/02/24 22:56 37.0 C 87 24 167/79 H 98 O2 Del Method O2 Flow Rate 03/03/24 08:24 03/03/24 07:40 Nasal Cannula 3.0 03/03/24 07:20 Nasal Cannula 3.5 03/03/24 03:05 Nasal Cannula 3.0 03/02/24 22:56 Laboratory Results 03/03/24 06:55 03/03/24 06:55 PG Care Time/CCT Total # of Minutes Spent Total Time Spent with Patient: Total time spent is greater than 50% in coordination of care (as documented) at patient's floor/unit and/or counseling patient: Coding Level of Care Code 75063 SUB INP/OBS CARE 3/50MIN Diagnoses Symptomatic anemia D64.9 Iron deficiency E61.1 Hypercapnia R06.89 COPD (chronic obstructive pulmonary disease) J44.9 Failure to thrive in adult R62.7 Lesion of left lung R91.1 Hypothyroidism E03.9
[2024-03-03] MEDS: FUROSEMIDE INJ 20 MG/2 ML VIAL IV ONE (11:26)
[2024-03-03 11:50] LABS: T4 Free Thyroxine 0.77 ng/dl (0.61-1.60)
[2024-03-03] MEDS: bisacodyL 10 MG SUPP PR STA (16:17)
[2024-03-04 08:04] LABS: BUN Creatinine Ratio 27.9 (10-20); Creatinine Clr Calc Pharmacy 57.3 ml/min; Est GFR (African American) 121.1 ml/min; Est GFR (Non-African American) 104.5 ml/min; Potassium 3.2 mmol/L (3.5-5.1)
[2024-03-04 08:08] LABS: Anisocytosis Present; Basophils # (auto) 0.05 K/uL (0.00-0.20); Basophils % (auto) 0.5 %; Eosinophils # (auto) 0.23 K/uL (0.00-0.50); Eosinophils % (auto) 2.3 %; Hematocrit (blood only) 36.5 % (37.0-47.0); Hemoglobin 10.4 g/dl (12.0-16.0); Hypochromasia Present; Immature Granulocytes # (auto) 0.05 K/uL (0.01-0.20); Immature Granulocytes % (auto) 0.5 %; Lymphocytes # (auto) 0.67 K/uL (1.20-3.40); Lymphocytes % (auto) 6.7 %; Mean Corpuscular Hemoglobin 20.3 pg (25.0-34.0); Mean Corpuscular Hgb Conc 28.5 g/dL (32.0-36.0); Mean Corpuscular Volume 71.2 fL (80.0-100.0); Mean Platelet Volume 9.6 fL (9.4-12.4); Microcytosis Present; Monocytes # (auto) 0.62 K/uL (0.11-0.59); Monocytes % (auto) 6.2 %; Neutrophils # (auto) 8.31 K/uL (1.40-6.50); Neutrophils % (auto) 83.8 %; Platelet Count 400 K/uL (130-400); Polychromasia 3+; RDW Coefficient of Variation 29.4 % (11.5-14.5); RDW Standard Deviation 73.5 fL (36.4-46.3); Red Blood Count 5.13 M/uL (4.20-5.40); Tear Drop Cells 1+; White Blood Count 9.93 K/ul (4.8-10.8)
[2024-03-04] MEDS ORDERED: LACTULOSE SYRUP 10 GM/15 ML BTL 960 ML PO PRN (09:51)
[2024-03-04] MEDS: IRON SUCROSE 200 MG in 0.9 % SODIUM CHLORIDE 100 ML IV ONE (10:23)
[2024-03-04] MEDS: POTASSIUM CHLORIDE CRTAB 20 MEQ TABCR PO SCH (10:25)
[2024-03-04] MEDS: LACTULOSE SYRUP 20 GM/30 ML UDC PO PRN (12:06)
--- NOTE | 2024-03-04 12:20 | Hospitalist Progress Note ---
Date of Service March 04, 2024 Assessment & Plan (1) Symptomatic anemia: Plan: Known chronic iron deficiency. She denies overt melena or hematochezia. Hemoglobin 4.3 on admission. She refuses to consider endoscopy at this time. She has received 3 units packed red blood cells to date and hemoglobin has improved and up to 10.4 today, March 04. Will follow. (2) Iron deficiency: Plan: Parenteral iron replacement underway, day 2 (3) Hypercapnia: Plan: Chronic. She is intolerant of CPAP. She appears to be at her baseline and understands that this is a chronic problem. (4) COPD (chronic obstructive pulmonary disease): Plan: Stable. She appears to be at her baseline. Continue current medical management (5) Failure to thrive in adult: Plan: She states she has gotten weaker and is unable to ambulate. Supportive care. OT and PT assessments requested and pending. (6) Lesion of left lung: Plan: initially diagnosed on CT of the chest with IV contrast in 2022. Chest x-ray on admission reveals progression in size. Highly suspicious for malignancy. At this time, she is not interested in a biopsy procedure. (7) Hypothyroidism: Plan: TSH normal. Free T3 and free T4 are both normal \. She states she has not been on her home levothyroxine for approximately 1 year (8) Constipation: Plan: As needed lactulose ordered Plan I suspect she will need SNF placement since she states she can no longer ambulate. OT and PT evaluations pending Admission and Anticipated Discharge Date Admission Date: March 02, 2024 Subjective Alert and oriented. She understands that oral potassium has been ordered for hypokalemia. She will continue with parenteral iron replacement, day 2. Lactulose has been ordered as needed for constipation. OT and PT assessments pending. It appears she will need placement at the time of discharge Review of Systems 2 Review of Systems: Constitutional-no fever or chills ENT-no blurred vision, no double vision, no epistaxis, no sore throat Respiratory-no cough, no wheezing, no shortness of breath Cardiac-no palpitations, no chest pain, no syncope GI-no nausea, vomiting, diarrhea, melena, hematochezia. She is complaining of constipation however -no urinary retention, no urinary incontinence, no dysuria, no hematuria Musculoskeletal-no joint pain, no muscle tenderness Skin-no bruising, no rashes, no pruritus Neuro-no isolated weakness, no paresthesia. Generalized weakness and ambulatory dysfunction has worsened however Psych-no depression, no anxiety Physical Exam 2 Physical Exam: General-alert and oriented x3, no fever, no chills. Cachectic appearing HEENT-head atraumatic and normocephalic, pupils equal and reactive to light, extraocular muscles intact Neck-no lymphadenopathy or thyromegaly, trachea midline Chest-markedly diminished breath sounds bilaterally. No inspiratory rales. No wheezing. No rhonchi Cardiac-regular rate and rhythm, normal S1 and S2 Abdomen-normal bowel sounds, no hepatosplenomegaly Extremities-no cyanosis, clubbing, or edema Neuro-cranial nerves II through XII intact, motor and sensory function within normal limits, strength symmetrical with generalized weakness, no focal deficits Psych-normal affect, normal mood Results & Data Results & Data Vital Signs (Past 12 Hours) Vital Signs Temp Pulse Pulse Resp BP Pulse Ox O2 Del Method 03/04/24 11:32 Nasal Cannula 03/04/24 11:18 88 17 97 Nasal Cannula 03/04/24 11:15 36.9 C 93 H 20 142/81 H 98 Nasal Cannula 03/04/24 08:10 36.8 C 102 H 20 148/75 H 100 Nasal Cannula 03/04/24 07:34 92 H 03/04/24 07:15 84 16 99 Nasal Cannula 03/04/24 02:40 36.9 C 89 18 137/60 95 Nasal Cannula O2 Flow Rate 03/04/24 11:32 3 03/04/24 11:18 3 03/04/24 11:15 3.0 03/04/24 08:10 3.0 03/04/24 07:34 03/04/24 07:15 3.5 03/04/24 02:40 3.0 Laboratory Results 03/04/24 07:06 03/04/24 07:06 PG Care Time/CCT Total # of Minutes Spent Total Time Spent with Patient: Total time spent is greater than 50% in coordination of care (as documented) at patient's floor/unit and/or counseling patient: Coding Level of Care Code 27866 SUB INP/OBS CARE 3/50MIN Diagnoses Symptomatic anemia D64.9 Iron deficiency E61.1 Hypercapnia R06.89 COPD (chronic obstructive pulmonary disease) J44.9 Failure to thrive in adult R62.7 Lesion of left lung R91.1 Hypothyroidism E03.9 Constipation K59.00
[2024-03-05 06:26] LABS: Basophils # (auto) 0.05 K/uL (0.00-0.20); Basophils % (auto) 0.6 %; Eosinophils % (auto) 3.4 %; Hematocrit (blood only) 35.6 % (37.0-47.0); Hemoglobin 10.1 g/dl (12.0-16.0); Immature Granulocytes # (auto) 0.05 K/uL (0.01-0.20); Immature Granulocytes % (auto) 0.6 %; Lymphocytes # (auto) 0.59 K/uL (1.20-3.40); Lymphocytes % (auto) 6.7 %; Mean Corpuscular Hemoglobin 20.9 pg (25.0-34.0); Mean Corpuscular Hgb Conc 28.4 g/dL (32.0-36.0); Mean Corpuscular Volume 73.7 fL (80.0-100.0); Mean Platelet Volume 9.1 fL (9.4-12.4); Monocytes # (auto) 0.55 K/uL (0.11-0.59); Monocytes % (auto) 6.2 %; Neutrophils # (auto) 7.27 K/uL (1.40-6.50); Neutrophils % (auto) 82.5 %; Platelet Count 386 K/uL (130-400); RDW Coefficient of Variation 29.8 % (11.5-14.5); RDW Standard Deviation 77.2 fL (36.4-46.3); Red Blood Count 4.83 M/uL (4.20-5.40); White Blood Count 8.81 K/ul (4.8-10.8)
[2024-03-05 06:44] LABS: BUN Creatinine Ratio 43.2 (10-20); Calcium 8.3 mg/dl (8.6-10.3); Creatinine Clr Calc Pharmacy 66.6 ml/min; Est GFR (African American) 127.3 ml/min; Est GFR (Non-African American) 109.8 ml/min; Potassium 3.8 mmol/L (3.5-5.1)
[2024-03-05 06:48] LABS: Anisocytosis Present; Hypersegmented Neutrophils 1+; Hypochromasia Present; Microcytosis Present; Polychromasia 2+
[2024-03-05] MEDS: BISMUTH SUBSALICYLATE SUSP PO ONE (07:57)
[2024-03-05] MEDS: dilTIAZem HCL 180 MG CAPCR PO SCH (09:45)
[2024-03-05] MEDS: IRON SUCROSE 200 MG in 0.9 % SODIUM CHLORIDE 100 ML IV ONE (09:45)
--- NOTE | 2024-03-05 11:08 | XRay Report ---
KUB HISTORY: Acute generalized abdominal pain abd cramping COMPARISON: CT 12/03/2022 FINDINGS: Nonobstructive bowel gas pattern. Moderate to extensive colonic fecal retention. Renal shad ows are obscured by bowel gas. Bilateral renal calculi redemonstrated measuring up to approximately 4 mm. No definite ureteral calculi identified. Pelvic base and calcifications, likely phleboliths. No pneumoperitoneum or pneumatosis. Lumbar levoscoliosis. No fracture. IMPRESSION: 1. Nonobstructive bowel gas pattern. 2. Moderate to extensive colonic fecal retention. 3. Bilateral nephrolithiasis redemonstrated. ACT 112: Negative or not required by law. The above report was generated using voice recognition software. It may contain grammatical, syntax o r spelling errors. Electronically signed by: Zach Singer M.D. 03/05/2024 11:06 AM
[2024-03-05] MEDS: SIMETHICONE 80 MG CHEW PO PRN (12:15)
[2024-03-05] MEDS: hydrALAZINE HCL 20 MG/ML VIAL IV STA (12:47)
[2024-03-05] MEDS: SOD PHOSPHATE/SOD BIPHOSPHATE ENEMA 132 ML BTL PR STA (12:47)
[2024-03-05] MEDS ORDERED: hydrALAZINE HCL 20 MG/ML VIAL IV PRN (13:13)
[2024-03-05] MEDS: hydrALAZINE HCL 20 MG/ML VIAL ONE (13:32)
[2024-03-05] MEDS: ALBUT/IPRATROP 3MG/0.5MG NEB 3 ML VIAL NEB PRN (13:52)
--- NOTE | 2024-03-05 14:47 | Hospitalist Progress Note ---
Date of Service March 05, 2024 Assessment & Plan (1) Symptomatic anemia: Plan: Known chronic iron deficiency. She denies overt melena or hematochezia. Hemoglobin 4.3 on admission. She refuses to consider endoscopy at this time. She has received 3 units packed red blood cells to date and hemoglobin has improved and stabilized. Serial labs (2) Iron deficiency: Plan: Parenteral iron replacement underway, day 3. (3) Hypercapnia: Plan: Chronic. She is intolerant of CPAP. She appears to be at her baseline and understands that this is a chronic problem. (4) COPD (chronic obstructive pulmonary disease): Plan: Stable. She appears to be at her baseline. Continue current medical management (5) Failure to thrive in adult: Plan: She states she has gotten weaker and is unable to ambulate. Supportive care. OT and PT assessments requested and pending. (6) Lesion of left lung: Plan: initially diagnosed on CT of the chest with IV contrast in 2022. Chest x-ray on admission reveals progression in size. Highly suspicious for malignancy. At this time, she is not interested in a biopsy procedure. (7) Hypothyroidism: Plan: TSH normal. Free T3 and free T4 are both normal \. She states she has not been on her home levothyroxine for approximately 1 year (8) Constipation: Plan: As needed lactulose ordered. Fleet enema today, March 05. KUB results noted. Plan I suspect she will need SNF placement since she states she can no longer ambulate. OT and PT evaluations pending Admission and Anticipated Discharge Date Admission Date: March 02, 2024 Subjective Alert and oriented. She has intermittent crampy abdominal pain apparently from constipation. KUB was obtained today, March 05, and reveals considerable stool. Fleet enema ordered. Diltiazem CD started for blood pressure control and to prevent tachydysrhythmias which are likely with severe COPD. Potassium is now normal and oral potassium dosage decreased. She will receive her third dose of parenteral iron today, March 05. Hemoglobin stable at 10.1 after a total of 3 units packed red blood cells given so far. Review of Systems 2 Review of Systems: Constitutional-no fever or chills ENT-no blurred vision, no double vision, no epistaxis, no sore throat Respiratory-no cough, no wheezing, no shortness of breath Cardiac-no palpitations, no chest pain, no syncope GI-no nausea, vomiting, diarrhea, melena, hematochezia. She is complaining of constipation however -no urinary retention, no urinary incontinence, no dysuria, no hematuria Musculoskeletal-no joint pain, no muscle tenderness Skin-no bruising, no rashes, no pruritus Neuro-no isolated weakness, no paresthesia. Generalized weakness and ambulatory dysfunction has worsened however Psych-no depression, no anxiety Physical Exam 2 Physical Exam: General-alert and oriented x3, no fever, no chills. Cachectic appearing HEENT-head atraumatic and normocephalic, pupils equal and reactive to light, extraocular muscles intact Neck-no lymphadenopathy or thyromegaly, trachea midline Chest-markedly diminished breath sounds bilaterally. No inspiratory rales. No wheezing. No rhonchi Cardiac-regular rate and rhythm, normal S1 and S2 Abdomen-normal bowel sounds, no hepatosplenomegaly Extremities-no cyanosis, clubbing, or edema Neuro-cranial nerves II through XII intact, motor and sensory function within normal limits, strength symmetrical with generalized weakness, no focal deficits Psych-normal affect, normal mood Results & Data Results & Data Vital Signs (Past 12 Hours) Vital Signs Temp Pulse Pulse Resp BP BP BP 03/05/24 13:54 110 H 20 03/05/24 13:49 115 H 20 169/83 H 03/05/24 12:23 03/05/24 12:12 192/83 H 03/05/24 12:02 36.7 C 96 H 20 192/111 H 03/05/24 10:44 154/78 H 03/05/24 07:41 37.0 C 89 20 166/106 H 03/05/24 07:23 85 03/05/24 07:12 84 16 03/05/24 03:22 36.6 C 83 18 128/79 Pulse Ox O2 Del Method O2 Flow Rate 03/05/24 13:54 95 Nasal Cannula 3 03/05/24 13:49 96 Nasal Cannula 3 03/05/24 12:23 Nasal Cannula 3 03/05/24 12:12 03/05/24 12:02 98 Nasal Cannula 3.5 03/05/24 10:44 03/05/24 07:41 98 Nasal Cannula 3.5 03/05/24 07:23 03/05/24 07:12 96 Nasal Cannula 3 03/05/24 03:22 96 Nasal Cannula 3.5 Laboratory Results 03/05/24 06:04 03/05/24 06:04 PG Care Time/CCT Total # of Minutes Spent Total Time Spent with Patient: Total time spent is greater than 50% in coordination of care (as documented) at patient's floor/unit and/or counseling patient: Coding Level of Care Code 71607 SUB INP/OBS CARE 3/50MIN Diagnoses Symptomatic anemia D64.9 Iron deficiency E61.1 Hypercapnia R06.89 COPD (chronic obstructive pulmonary disease) J44.9 Failure to thrive in adult R62.7 Lesion of left lung R91.1 Hypothyroidism E03.9 Constipation K59.00
[2024-03-05] MEDS: POTASSIUM CHLORIDE 10 MEQ TABCR PO SCH (20:25)
[2024-03-06 06:47] LABS: BUN Creatinine Ratio 43.2 (10-20); Calcium 8.9 mg/dl (8.6-10.3); Creatinine Clr Calc Pharmacy 75.6 ml/min; Est GFR (African American) 127.3 ml/min; Est GFR (Non-African American) 109.8 ml/min; Potassium 4.3 mmol/L (3.5-5.1)
[2024-03-06 06:55] LABS: Hematocrit (blood only) 37.7 % (37.0-47.0); Hemoglobin 10.6 g/dl (12.0-16.0); Mean Corpuscular Hemoglobin 20.7 pg (25.0-34.0); Mean Corpuscular Hgb Conc 28.1 g/dL (32.0-36.0); Mean Corpuscular Volume 73.6 fL (80.0-100.0); Mean Platelet Volume 9.5 fL (9.4-12.4); Platelet Count 431 K/uL (130-400); RDW Standard Deviation 81.1 fL (36.4-46.3); Red Blood Count 5.12 M/uL (4.20-5.40); White Blood Count 9.34 K/ul (4.8-10.8)
[2024-03-06 06:56] LABS: Anisocytosis Present; Basophils # (auto) 0.07 K/uL (0.00-0.20); Basophils % (auto) 0.7 %; Eosinophils # (auto) 0.22 K/uL (0.00-0.50); Eosinophils % (auto) 2.4 %; Hypochromasia Present; Immature Granulocytes # (auto) 0.03 K/uL (0.01-0.20); Immature Granulocytes % (auto) 0.3 %; Lymphocytes # (auto) 0.63 K/uL (1.20-3.40); Lymphocytes % (auto) 6.7 %; Monocytes # (auto) 0.63 K/uL (0.11-0.59); Monocytes % (auto) 6.7 %; Neutrophils # (auto) 7.76 K/uL (1.40-6.50); Neutrophils % (auto) 83.2 %; Polychromasia 1+
--- NOTE | 2024-03-06 12:46 | Hospitalist Progress Note ---
Date of Service March 06, 2024 Assessment & Plan (1) Symptomatic anemia: Plan: Worsening chronic iron deficiency. She denies overt melena or hematochezia. Hemoglobin 4.3 on admission, ferritin 3.5, transferrin sat only 3% She declines endoscopy at this time. In the past has had EGD w/ gastritis, colonoscopy with angioectasias, and capsule endoscopy in 2020. She has received 3 units packed red blood cells to date and hemoglobin has improved and stabilized at 10.6 Follow CBC (2) Hypercapnia: Plan: Acute on Chronic respiratory failure with hypercapnia and hypoxia. With evidence of CO2 retention on VBG She is intolerant of BiPAP (3) COPD (chronic obstructive pulmonary disease): Plan: Stable. She appears to be at her baseline. Continue current medical management (4) Failure to thrive in adult: Plan: She states she has gotten weaker and is unable to ambulate much at all for months. Likely due to profound cachexia/severe protein calorie malnutrition from end stage COPD Supportive care, nutritional support (5) Lesion of left lung: Plan: CT Chest here shows YANDEL nodule is 1.0 x 1.6 cm in size and is DECREASED in size from previous Follow as outpt with PULM (6) Hypothyroidism: Plan: TSH normal. Free T3 and free T4 are both normal. She states she has not been on her home levothyroxine for approximately 1 year follow as outpt (7) Constipation: Plan: As needed lactulose ordered. Fleet enema given March 05 and had BM after manual disimpaction. KUB results noted to have significant fecal load Plan Depression/Anxiety-she has previous Rx for buspar, sertraline, and Seroquel-unclear if on these still-will find out. Start melatonin for sleep for now HTN, tachycardia-previously on metoprolol-unclear if still taking. Started diltiazem here-monitor BPs and HR is improved NAZARIO-moderate on right-should be on ASA but with severe anemia and angioectasias in colon, should probably avoid. Shoud be on statin-again, will clarify if still taking DVT proph-avoid anticoag due to severe anemia Dispo-continued stay, to SNF once works with PT Admission and Anticipated Discharge Date Admission Date: March 02, 2024 Subjective Pt reports feeling severely weak and just cannot participate with PT today. She is also having trouble sleeping. Has pain in her anal region after being manually disimpacted yesterday after which she did have large BM. Still with cough and SOB Tele with NSR rates 80-100 Physical Exam Constitutional: + cachectic; no acute distress Respiratory: normal respiratory effort; no cough Auscultation: + diminished lung sounds (throughout); no crackles, no rhonchi and no wheezes Cardiovascular: RRR, no murmur, no edema Gastrointestinal (Abdomen): normal bowel sounds, soft, nontender, no hepatosplenomegaly Psychiatric: A+Ox3, euthymic affect Results & Data Results & Data Vital Signs (Past 12 Hours) Vital Signs Temp Pulse Pulse Resp BP Pulse Ox O2 Del Method 03/06/24 09:55 77 03/06/24 07:35 37.0 C 94 H 22 129/73 97 Nasal Cannula 03/06/24 07:07 81 18 99 Nasal Cannula 03/06/24 02:59 36.7 C 86 20 140/74 99 Nasal Cannula O2 Flow Rate 03/06/24 09:55 03/06/24 07:35 3.5 03/06/24 07:07 3 03/06/24 02:59 3.5 Laboratory Results CBC, BMP reviewed PG Care Time/CCT Total # of Minutes Spent Total Time Spent with Patient: Total time spent is greater than 50% in coordination of care (as documented) at patient's floor/unit and/or counseling patient: Coding Level of Care Code 15243 SUB INP/OBS CARE 2/35MIN Diagnoses Symptomatic anemia D64.9 Hypercapnia R06.89 COPD (chronic obstructive pulmonary disease) J44.9 Failure to thrive in adult R62.7 Lesion of left lung R91.1 Hypothyroidism E03.9 Constipation K59.00
[2024-03-06] MEDS: MELATONIN 3 MG TAB PO SCH (20:59)
[2024-03-07 06:42] LABS: Basophils # (auto) 0.06 K/uL (0.00-0.20); Basophils % (auto) 0.5 %; Eosinophils # (auto) 0.18 K/uL (0.00-0.50); Eosinophils % (auto) 1.4 %; Hemoglobin 10.2 g/dl (12.0-16.0); Immature Granulocytes # (auto) 0.03 K/uL (0.01-0.20); Immature Granulocytes % (auto) 0.2 %; Lymphocytes # (auto) 0.67 K/uL (1.20-3.40); Lymphocytes % (auto) 5.3 %; Mean Corpuscular Hemoglobin 21.3 pg (25.0-34.0); Mean Corpuscular Hgb Conc 28.3 g/dL (32.0-36.0); Mean Corpuscular Volume 75.2 fL (80.0-100.0); Mean Platelet Volume 9.4 fL (9.4-12.4); Monocytes # (auto) 0.85 K/uL (0.11-0.59); Monocytes % (auto) 6.8 %; Neutrophils % (auto) 85.8 %; Platelet Count 426 K/uL (130-400); RDW Coefficient of Variation 32.2 % (11.5-14.5); RDW Standard Deviation 86.4 fL (36.4-46.3); Red Blood Count 4.79 M/uL (4.20-5.40); White Blood Count 12.59 K/ul (4.8-10.8)
[2024-03-07 07:09] LABS: Anisocytosis Present; Hypochromasia Present; Microcytosis Present; Polychromasia 2+
[2024-03-07 07:14] LABS: Creatinine Clr Calc Pharmacy 96.3 ml/min; Est GFR (African American) 136.4 ml/min; Est GFR (Non-African American) 117.7 ml/min; Potassium 4.8 mmol/L (3.5-5.1)
[2024-03-07] MEDS: FOLIC ACID 1 MG TAB PO SCH (08:16)
--- NOTE | 2024-03-07 13:15 | Hospitalist Progress Note ---
Date of Service March 07, 2024 Assessment & Plan (1) Symptomatic anemia: Plan: Worsening chronic iron deficiency. She denies overt melena or hematochezia. Hemoglobin 4.3 on admission, ferritin 3.5, transferrin sat only 3% She declines endoscopy at this time. In the past few years, she has had EGD w/ gastritis, colonoscopy with angiectasias, and capsule endoscopy in 2019. She has received 3 units packed red blood cells and 3 doses of IV Venofer 300 mg daily and hemoglobin has improved and stabilized at 10.2 Follow CBC in the morning (2) Hypercapnia: Plan: Acute on Chronic respiratory failure with hypercapnia and hypoxia. With evidence of CO2 retention on VBG She is intolerant of BiPAP (3) COPD (chronic obstructive pulmonary disease): Plan: She is feeling more short of breath than usual despite removing her hemoglobin with transfusion Add on Solu-Medrol 60 mg IV x 1 now then prednisone 40 mg daily Continue budesonide and Perforomist nebs twice daily Restart maintenance inhalers on discharge Albuterol nebs as needed Discussed with her her overall poor prognosis given cachexia and end-stage COPD. Discussed the possibility of going on hospice in the future if she continues to decline. She is scared of this and has not ready to do so yet, but I made her aware that it is an option in the future. Encouraged her to quit smoking cigarettes (4) Failure to thrive in adult: Plan: She states she has gotten weaker and is unable to ambulate much at all for months. Likely due to profound cachexia/severe protein calorie malnutrition from end stage COPD Supportive care, nutritional support-encouraged her to drink her boost shakes (5) Lesion of left lung: Plan: CT Chest here shows YANDEL nodule is 1.0 x 1.6 cm in size and is DECREASED in size from previous Follow as outpt with PULM (6) Hypothyroidism: Plan: TSH normal. Free T3 and free T4 are both normal. She states she has not been on her home levothyroxine for approximately 2 weeks follow as outpt Resume home levothyroxine 50 mcg daily (7) Constipation: Plan: As needed lactulose ordered. Fleet enema given March 05 and had BM after manual disimpaction. KUB results noted to have significant fecal load Improved now Plan Depression/Anxiety-she has run out of her buspar, sertraline 20 mg daily, and Seroquel 400 mg at bedtime for the last 2 weeks-will resume BuSpar 15 Mg p.o. twice daily, sertraline at a lower dose of 50 mg daily, and lower dose of Seroquel at 50 mg at bedtime HTN, tachycardia-previously on metoprolol but ran out of medication at home for a few weeks. Started diltiazem here-monitor BPs and HR is improved. Plan to continue diltiazem NAZARIO-moderate on right-will resume a baby ASA but with severe anemia and angioectasia in colon, will monitor carefully. Will resume her statin DVT proph-avoid anticoag due to severe anemia Dispo-awaiting rehab placement, she worked with PT/OT today. Downgrade to medical floor while awaiting placement Admission and Anticipated Discharge Date Admission Date: March 02, 2024 Subjective Patient complains of feeling very short of breath today to the point where she cannot eat. She is tachypneic at rest. She was able to work with physical and Occupational Therapy. She is continuing to move her bowels but still feels sore in her bottom. She reports that she stopped taking all of her medications at home about 2 weeks or so ago because she could not get refills as she could not get into see her doctor for an appointment She would like to restart on her home psychiatric medications Telemetry with normal sinus rhythm and PACs with rates in the 70s to 90s Physical Exam Constitutional: + cachectic; no acute distress Respiratory: able to speak in complete sentences (But tachypneic with doing so); no cough Auscultation: + diminished lung sounds (throughout); no crackles, no rhonchi and no wheezes Cardiovascular: RRR, no murmur, no edema Gastrointestinal (Abdomen): normal bowel sounds, soft, nontender, no hepatosplenomegaly Psychiatric: A+Ox3, euthymic affect Results & Data Results & Data Vital Signs (Past 12 Hours) Vital Signs Temp Pulse Pulse Pulse Resp BP Pulse Ox 03/07/24 11:30 03/07/24 09:10 90 20 98 03/07/24 09:00 03/07/24 08:13 95 H 159/77 H 03/07/24 07:39 75 03/07/24 07:12 81 16 100 03/07/24 03:20 36.7 C 77 21 153/90 H 98 Pulse Ox Pulse Ox O2 Del Method O2 Flow Rate O2 Flow Rate O2 Flow Rate 03/07/24 11:30 97 92 3 3 03/07/24 09:10 Nasal Cannula 3.5 03/07/24 09:00 Nasal Cannula 3 03/07/24 08:13 03/07/24 07:39 03/07/24 07:12 Nasal Cannula 3.5 03/07/24 03:20 Nasal Cannula Laboratory Results CBC, BMP reviewed PG Care Time/CCT Total # of Minutes Spent Total Time Spent with Patient: Total time spent is greater than 50% in coordination of care (as documented) at patient's floor/unit and/or counseling patient: Coding Level of Care Code 24442 SUB INP/OBS CARE 2/35MIN Diagnoses Symptomatic anemia D64.9 Hypercapnia R06.89 COPD (chronic obstructive pulmonary disease) J44.9 Failure to thrive in adult R62.7 Lesion of left lung R91.1 Hypothyroidism E03.9 Constipation K59.00
[2024-03-07] MEDS: hydrOXYzine HCl 25 MG TAB PO PRN (14:15)
[2024-03-07] MEDS: methylPREDNISolone 60 MG in SYRINGE 0 ML IV ONE (15:40)
[2024-03-07] MEDS: guaiFENesin 600 MG TABCR PO SCH (15:40)
[2024-03-07] MEDS: ATORVASTATIN 20 MG TAB PO SCH (20:47)
[2024-03-07] MEDS: busPIRone 15 MG TAB PO SCH (20:48)
[2024-03-07] MEDS: SERTRALINE HCL 50 MG TABLET PO SCH (20:48)
[2024-03-07] MEDS: QUEtiapine FUMARATE 25 MG TABLET PO SCH (20:48)
[2024-03-08] MEDS: LEVOTHYROXINE SODIUM 50 MCG TABLET PO SCH (06:12)
[2024-03-08 07:46] LABS: Hematocrit (blood only) 35.6 % (37.0-47.0); Hemoglobin 9.7 g/dl (12.0-16.0); Mean Corpuscular Hemoglobin 21.5 pg (25.0-34.0); Mean Corpuscular Hgb Conc 27.2 g/dL (32.0-36.0); Mean Corpuscular Volume 78.8 fL (80.0-100.0); Mean Platelet Volume 9.7 fL (9.4-12.4); Platelet Count 391 K/uL (130-400); RDW Coefficient of Variation 33.3 % (11.5-14.5); RDW Standard Deviation 93.7 fL (36.4-46.3); Red Blood Count 4.52 M/uL (4.20-5.40); White Blood Count 11.59 K/ul (4.8-10.8)
[2024-03-08 08:12] LABS: Basophils # (auto) 0.01 K/uL (0.00-0.20); Basophils % (auto) 0.1 %; Eosinophils # (auto) 0.01 K/uL (0.00-0.50); Eosinophils % (auto) 0.1 %; Immature Granulocytes # (auto) 0.04 K/uL (0.01-0.20); Immature Granulocytes % (auto) 0.3 %; Lymphocytes # (auto) 0.21 K/uL (1.20-3.40); Lymphocytes % (auto) 1.8 %; Monocytes # (auto) 0.21 K/uL (0.11-0.59); Monocytes % (auto) 1.8 %; Neutrophils # (auto) 11.11 K/uL (1.40-6.50); Neutrophils % (auto) 95.9 %; Poikilocytosis Present; Polychromasia 3+
[2024-03-08 08:17] LABS: BUN Creatinine Ratio 64.6 (10-20); Calcium 9.1 mg/dl (8.6-10.3); Creatinine Clr Calc Pharmacy 60.2 ml/min; Est GFR (African American) 116.8 ml/min; Est GFR (Non-African American) 100.8 ml/min; Magnesium 1.9 mg/dl (1.7-2.4); Potassium 4.8 mmol/L (3.5-5.1)
[2024-03-08] MEDS: predniSONE 20 MG TAB PO SCH (09:14)
[2024-03-08] MEDS: ASPIRIN 81 MG ECTAB PO SCH (09:15)
--- NOTE | 2024-03-08 13:21 | Discharge Summary ---
Discharge Summary Date of Service March 08, 2024 Principal Dx & Hospital Course #1 = Principal Diagnosis (1) Symptomatic anemia: Worsening chronic iron deficiency. She denies overt melena or hematochezia. Hemoglobin 4.3 on admission, ferritin 3.5, transferrin sat only 3% She declines endoscopy at this time. In the past few years, she has had EGD w/ gastritis, colonoscopy with angiectasias, and capsule endoscopy in 2019. She has received 3 units packed red blood cells and 3 doses of IV Venofer 300 mg daily and hemoglobin has improved and stabilized at 9.7 Follow CBC once weekly x 4 then once monthly Will need ongoing outpt f/u for IV iron infusions (2) Hypercapnia: Acute on Chronic respiratory failure with hypercapnia and hypoxia. With evidence of CO2 retention on VBG She is intolerant of BiPAP (3) COPD (chronic obstructive pulmonary disease): She is feeling more short of breath than usual despite removing her hemoglobin with transfusion, but I do think she has end stage COPD and this is likely her new norm Gave Solu-Medrol 60 mg IV x 1 and then prednisone 40 mg daily x total 7 days- finish at rehab Restart maintenance inhalers on discharge Albuterol nebs as needed Discussed with her her overall poor prognosis given cachexia and end-stage COPD. Discussed the possibility of going on hospice in the future if she continues to decline. She is scared of this and has not ready to do so yet, but I made her aware that it is an option in the future. Encouraged her to quit smoking cigarettes (4) Failure to thrive in adult: She states she has gotten weaker and is unable to ambulate much at all for months. Likely due to profound cachexia/severe protein calorie malnutrition from end stage COPD Supportive care, nutritional support-encouraged her to drink her boost shakes (5) Lesion of left lung: CT Chest here shows YANDEL nodule is 1.0 x 1.6 cm in size and is DECREASED in size from previous Follow as outpt with PULM (6) Hypothyroidism: TSH normal. Free T3 and free T4 are both normal. She states she has not been on her home levothyroxine for approximately 2 weeks follow as outpt Resume home levothyroxine 50 mcg daily (7) Constipation: As needed lactulose ordered. Fleet enema given March 05 and had BM after manual disimpaction. KUB results noted to have significant fecal load Improved now continue laxatives after discharge Plan Depression/Anxiety-she has run out of her buspar, sertraline 20 mg daily, and Seroquel 400 mg at bedtime for the last 2 weeks- resumed BuSpar 15 Mg p.o. twice daily, sertraline at a lower dose of 100 mg daily, and lower dose of Seroquel at 50 mg at bedtime HTN, tachycardia-previously on metoprolol but ran out of medication at home for a few weeks. Started diltiazem here-much improved. Remain off metoprolol in case could worsen bronchospasm NAZARIO-moderate on right-will resume a baby ASA but with severe anemia and angioectasia in colon, will monitor carefully. Resume her statin DVT proph-avoid anticoag due to severe anemia Dispo- rehab placement today at [place] Care Notes For Next Care Provider Follow CBC once weekly x 4 weeks, then once monthly Medication Changes From Visit Added docusate, Miralax Prednisone 40mg po daily x 5 more days Resumed home meds but l changed doses--> Seroquel 50mg po hs, sertraline 100mg po daily Resumed home atorvastatin and aspirin 81mg daily Started diltiazem 180mg po daily, stopped home metoprolol (which she wasn't taking anyway) Started folic acid 1mg po daily Admission HPI Per Admitting Provider Shameka Moise is a 68 yo F with a pmhx of advanced/end stage COPD with chronic respiratory failure (on 5 L nasal cannula baseline), severe protein calorie malnutrition, severe iron deficiency anemia, HTN, HLD, hypothyroidism, and left upper lobe lesion noted on CT of the chest in 2022 who presented to the [facility] ED via EMS on 03/02/2024 with a chief complaint of acute on chronic shortness of breath. The patient has reportedly been having progressive shortness of breath over the past year but her stated she has been refusing to go to the doctor. Symptoms reportedly became much more severe today prompting EMS call. On arrival to the ED she was noted to be hypertensive at 177/68, tachycardic with heart rate in the low 100s, and stable on 4 L nasal cannula. Labs were significant for hemoglobin of 4.7 (down from 13.8 as of 01/07/2023), MCV of 62, MCHC of 21, with stable platelets and WBCs. VBG pH of 7.27, pCO2 of 76, and pO2 less than 20. Potassium of 3.4, high-sensitivity troponin within normal limits, and full respiratory BioFire negative. Chest x-ray was read as severe emphysema, redemonstration of the 2 cm left upper lobe irregular density. This is concerning for primary bronchogenic malignancy and will be better assessed on the same day chest CTA. Trace bilateral pleural effusions. CT of the chest with IV contrast was read as Prior to admission the patient was given an hour- long albuterol treatment, 60 mg IV Solu-Medrol, consented for blood, and ordered an initial 3 units PRBCs. The patient was also started on BiPAP in the ED due to her carbon dioxide retention. Patient was sitting in bed in no acute distress at time of exam. She explains that she has been getting progressively more short of breath over the past 6 months, this morning it got so bad to the point that she could not catch her breath even at rest. When asked, she denies recent fever, chills, chest pain, hemoptysis, vomiting, dysuria/hematuria, and lower extremity swelling. When asked, she states that she has had approximately 2 falls in the past month due to being so weak that her legs just give out on her. She denies hitting her head or losing consciousness and is without pain from the falls. When asked about appetite she says that she has been eating approximately 1 sandwich and a bowl of soup a day. She gets recurrent stomach pain and nausea after eating but denies recent vomiting, hematemesis. States that she will fluctuate between constipation and nonbloody diarrhea. We discussed the reason that she stopped following up with her PCP and taking her home meds. She explains that as of last year when she was diagnosed with severe iron deficiency anemia her PCP was requiring frequent visits to their office, frequent iron infusions, and many referrals to different specialist. She states that it got to the point for her that she was unable to tolerate or keep up with this regimen and so she stopped following up altogether. Her prescriptions ran out as her PCP could not refill them if they could not see her in the office. I then discussed my concern with her poor prognosis moving forward due to her severe chronic comorbidities and undiagnosed left upper lobe lesion concerning for malignancy. We discussed options such as resuming full treatment and evaluation including ongoing transfusions of PRBCs and eventual need for recurrent iron infusions. Need to obtain a biopsy of the left upper lobe lesion for diagnosis, if positive for malignancy she would then require possible radiation and/or chemo at the. I explained to her my concern that with her severely poor nutritional state she would not tolerate treatment. I explained to her that it appeared she had expressed to me earlier that the aggressive treatment and workup she was receiving last year was causing too much distress in her life, and she cannot confirm this. I discussed the option of pursuing palliative medicine consult with possible discharge on hospice but we have focused on keeping her comfortable and alleviating her symptoms. She expressed to me that she would still want to try aggressive treatment at this time. I again tried to explain to her that this would require frequent lab draws, follow-ups, which had already been causing significant stress in her life. She expressed that she understood this but expressed she wanted to get back to a point where she is "feeling good". At this time she wishes to be a DNR/DNI and see how she feels after trying to stabilize her hemoglobin and improving her CO2 retention. At this time I have significant concern that she does not have adequate insight into her current conditions and significantly poor prognosis moving forward. Please refer to Dr. Nickerson's attestation for any changes to the treatment plan. Discharge Exam Constitutional + cachectic; no acute distress Respiratory normal respiratory effort; no cough Auscultation: + diminished lung sounds (throughout); no crackles, no rhonchi and no wheezes Cardiovascular RRR, no murmur, no edema Gastrointestinal (Abdomen) normal bowel sounds, soft, nontender, no hepatosplenomegaly Psychiatric A+Ox3, euthymic affect Updated Medication List Medication Instructions Recorded Confirmed Type Oxygen Home #1 ea 03/07/19 03/31/23 History diphenhydramine HCl 25 mg tablet 25 mg PO QID PRN Allergy Symptoms 03/12/19 03/03/24 History (Benadryl Allergy) nebulizers #1 ea 10/26/22 03/31/23 Rx miscellaneous medical supply 1 ea miscellaneous DAILY #1 ea 12/21/22 03/03/24 Rx cyanocobalamin (vitamin B-12) 1,000 mcg IM MONTHLY #10 mL 01/05/23 03/03/24 Rx 1,000 mcg/mL injection solution pantoprazole 40 mg tablet,delayed See Rx Instructions .Route 09/07/23 03/03/24 Rx release .COMPLEX #90 tabs albuterol sulfate 90 mcg/actuation 2 puff inhalation DAILY PRN 09/24/23 03/03/24 Rx aerosol inhaler (Ventolin HFA) Shortness Of Breath #8.5 grams fluticasone furoate 100 1 inh inhalation QAM #60 ea 09/24/23 03/03/24 Rx mcg-vilanterol 25 mcg/dose inhalation powder (Breo Ellipta) metoprolol tartrate 25 mg tablet 25 mg PO HS #90 tabs 10/29/23 03/03/24 Rx atorvastatin 20 mg tablet (Lipitor) 20 mg PO HS #90 tabs 11/29/23 03/03/24 Rx levothyroxine 50 mcg tablet 50 mcg PO HS #90 tabs 11/29/23 03/03/24 Rx hydroxyzine pamoate 25 mg capsule 25 mg PO TID PRN Anxiety #90 caps 01/11/24 03/03/24 Rx albuterol sulfate 2.5 mg/3 mL 0 mg inhalation Q6H PRN shortness 03/03/24 03/03/24 History (0.083 %) solution for nebulization of breath or wheezing buspirone 15 mg tablet 0 mg PO BID 03/03/24 03/03/24 History quetiapine 400 mg tablet (Seroquel) 0 mg PO HS 03/03/24 03/03/24 History sertraline 100 mg tablet 200 mg PO HS 03/03/24 03/03/24 History umeclidinium 62.5 mcg/actuation 1 inh inhalation QAM 03/03/24 03/03/24 History blister powder for inhalation (Incruse Ellipta) aspirin 81 mg tablet,delayed 81 mg PO QAM #30 tabs 03/08/24 Rx release diltiazem HCl 180 mg 180 mg PO QAM #30 caps 03/08/24 Rx capsule,extended release 24 hr docusate sodium 100 mg capsule 100 mg PO BID #60 caps 03/08/24 Rx folic acid 1 mg tablet 1 mg PO DAILY #30 tabs 03/08/24 Rx guaifenesin 600 mg tablet, 600 mg PO Q12 Congestion #60 tabs 03/08/24 Rx extended release 12 hr (Mucinex) melatonin 3 mg tablet 3 mg PO HS #30 tabs 03/08/24 Rx polyethylene glycol 3350 17 gram 17 g PO BID PRN constipation #60 ea 03/08/24 Rx oral powder packet (Miralax) prednisone 20 mg tablet 40 mg (2 x 20 mg) PO QAM 5 days 03/08/24 Rx #10 tabs quetiapine 50 mg tablet 50 mg PO HS #30 tabs 03/08/24 Rx Hospital Stay Data Consultations 03/02/24 10:16 ED Decision to Admit Stat Diagnostic Imagining Performed 03/02/24 09:15 CT angio chest PE protocol Stat Pending Results Patient Have Any Pending Studies at Discharge: No Discharge Instructions Given to Patient (Per Discharging Provider) You were admitted with severe anemia and given multiple blood and iron transfusions. This improved. Please have a CBC (your blood count) checked once a week and then once monthly to see when you will need future iron infusions as you likely have chronic blood loss or poor absorption of iron in your diet. You have severe COPD as we discussed. Please continue prednisone for the next 5 days and supplemental oxygen. Quitting smoking will also help you. If your COPD continues to worsen, you could consider enrolling in hospice or palliative care as we discussed to focus on comfort and managing your symptoms until end of life. Total Time Total Time Spent Total Time Spent (In Minutes): 40 min Coding Level of Care Code 33946 INP/OBS DISCH >30 MIN Diagnoses Symptomatic anemia D64.9 Hypercapnia R06.89 COPD (chronic obstructive pulmonary disease) J44.9 Failure to thrive in adult R62.7 Lesion of left lung R91.1 Hypothyroidism E03.9 Constipation K59.00
== END 2024-03-08 17:00 | DRG 811 ==
LOC: ED 08:28 → SUATTDRO 10:24 → 2E 10:24 → 3N 03-07 14:03

== ENCOUNTER 2025-04-26 19:38 | Inpatient (IN) ==
[2025-04-26 20:10] LABS: Base Excess VBG 9.7 mEq/L; HCO3 VBG 38 mmol/L; Oxygen Saturation VBG < 60.0 %; PCO2 VBG 69 mmHg (38-50); PO2 VBG < 20 mmHg; pH VBG 7.35 (7.36-7.41)
[2025-04-26 20:16] LABS: Hematocrit (blood only) 30.8 % (37.0-47.0); Hemoglobin 8.8 g/dl (12.0-16.0); Immature Granulocytes # (auto) 0.03 K/uL (0.01-0.20); Immature Granulocytes % (auto) 0.3 %; Mean Corpuscular Hemoglobin 21.2 pg (25.0-34.0); Mean Corpuscular Volume 74.2 fL (80.0-100.0); Platelet Count 450 K/uL (130-400); RDW Standard Deviation 48.7 fL (36.4-46.3); Red Blood Count 4.15 M/uL (4.20-5.40); White Blood Count 9.27 K/ul (4.8-10.8)
[2025-04-26] MEDS: OPTIRAY 320 125ml IV ONE (20:19)
[2025-04-26 20:31] LABS: Alanine Aminotransferase 8.0 U/L (7-52); Albumin Globulin Ratio 1.0 (0.9-2); Alkaline Phosphatase 121.0 U/L (34-104); Anion Gap 6.0 (3-11); Bilirubin,Total 0.3 mg/dl (0.2-1.0); Blood Urea Nitrogen 15.0 mg/dl (6-23); Calcium 8.7 mg/dl (8.6-10.3); Carbon Dioxide 37.0 mmol/L (21-32); Chloride 101.0 mmol/L (98-107); Creatinine Clr Calc Pharmacy 53.4 ml/min; Globulin 3.4 gm/dl (2.5-4.0); Glucose 103.0 mg/dl (70-99(Fasting)); Lipase 31.0 U/L (11-82); Potassium 2.8 mmol/L (3.5-5.1); Sodium 144.0 mmol/L (136-145); Total Protein 6.7 gm/dl (6.0-8.3)
[2025-04-26 20:48] LABS: INR 1.0 (0.9-1.1); Partial Thromboplastin Time 28 Seconds (21-31); Prothrombin Time 10.5 Seconds (9.0-12.0)
--- NOTE | 2025-04-26 20:48 | XRay Report ---
Exam(s): XR CXR 1 VIEW EXAM: XR Chest, 1 View CLINICAL HISTORY: Reason for exam: Chest pain, nonspecific. TECHNIQUE: Frontal view of the chest. COMPARISON: No relevant prior studies available. FINDINGS: Lungs: Severe diffuse changes COPD. No consolidation. Pleural space: Unremarkable. No pneumothorax. Heart: Unremarkable. No cardiomegaly. Mediastinum: Unremarkable. Normal mediastinal contour. Bones/joints: Unremarkable. No acute fracture. IMPRESSION: No acute findings in the chest. Diffuse changes Electronically signed by: Paulie Muro MD 04/26/25 20:47 PM
[2025-04-26 21:01] LABS: Chlamydia pneumoniae PCR Not Detected (NotDetected); Coronavirus 229E PCR Not Detected (NotDetected); Coronavirus CoV-2 (COVID19)PCR Not Detected (NotDetected); Coronavirus HKU1 PCR Not Detected (NotDetected); Coronavirus NL63 PCR Not Detected (NotDetected); Coronavirus OC43PCR Not Detected (NotDetected); Human Metapneumovirus PCR Not Detected (NotDetected); Parainfluenza Virus 1 PCR Not Detected (NotDetected); Parainfluenza Virus 2 PCR Not Detected (NotDetected); Parainfluenza Virus 3 PCR Not Detected (NotDetected); Parainfluenza Virus 4 PCR Not Detected (NotDetected); Respiratory Syncytial VirusPCR Not Detected (NotDetected); Rhinovirus/Enterovirus PCR Not Detected (NotDetected)
[2025-04-26 21:29] LABS: Magnesium 2.0 mg/dl (1.7-2.4)
[2025-04-26] MEDS: SODIUM CHLORIDE 0.9% 500 ML IV ONE (21:31)
--- NOTE | 2025-04-26 22:19 | CT Scan Report ---
Exam(s): CT ABDOMEN + PELVIS With Contrast IV Amt: 115 ml optiray 320 EXAM: CT Abdomen and Pelvis With Intravenous Contrast CLINICAL HISTORY: Reason for exam: abd pain. TECHNIQUE: Axial computed tomography images of the abdomen and pelvis with intravenous contrast. CTDI is 6.08 mGy and DLP is 235.66 mGy-cm. Automated exposure control was utilized for the study. A dose lowering technique was utilized adhering to the principles of ALARA. CONTRAST: Patient received 115 ml optiray 320 of IV contrast COMPARISON: 12/03/2022 FINDINGS: Lung bases: Unremarkable. No mass. No consolidation. ABDOMEN: Liver: 0.5 cm right hepatic lobe hypodensity also likely representing a cyst. Gallbladder and bile ducts: Simple intrahepatic biliary ductal dilatation with common bile duct distention measuring 1.1 cm. 1 cm left renal cysts. No follow-up of these simple cysts is necessary. No calcified stones. Pancreas: Unremarkable. No mass. No ductal dilation. Spleen: Small splenic cysts. Adrenals: Unremarkable. No mass. Kidneys and ureters: See above. Stomach and bowel: Large amount of stool within the rectum. No mucosal thickening. PELVIS: Appendix: No findings to suggest acute appendicitis. Bladder: Unremarkable. No mass. Reproductive: Unremarkable as visualized. ABDOMEN and PELVIS: Intraperitoneal space: Unremarkable. No free air. No significant fluid collection. Bones/joints: No acute fracture. No dislocation. Soft tissues: Unremarkable. Vasculature: Unremarkable. No abdominal aortic aneurysm. Lymph nodes: Unremarkable. No enlarged lymph nodes. IMPRESSION: Large amount of stool within the rectum concerning for fecal impaction. Intra and extrahepatic biliary ductal dilatation of the etiology of which is not clearly seen on this exam. MRCP may be obtained for further evaluation if clinically warranted Electronically signed by: Paulie Muro MD 04/26/25 22:18 PM
[2025-04-26] MEDS: POTASSIUM CHLORIDE 10 MEQ TABCR PO STA (23:18)
--- NOTE | 2025-04-26 23:47 | CT Scan Report ---
Exam(s): CTA CHEST IV Amt: 115 ml optiray 320 EXAM: CT Angiography Chest With Intravenous Contrast CLINICAL HISTORY: Reason for exam: Chest Pain, eval for PE. TECHNIQUE: Axial computed tomographic angiography images of the chest with intravenous contrast. CTDI is 6.03 mGy and DLP is 239.98 mGy-cm. Automated exposure control was utilized for the study. A dose lowering technique was utilized adhering to the principles of ALARA. MIP reconstructed images were created and reviewed. COMPARISON: 03/02/2024 FINDINGS: Pulmonary arteries: Dilatation of the main pulmonary artery suggesting pulmonary arterial hypertension. No pulmonary embolism. Aorta: No acute findings. No thoracic aortic aneurysm. Lungs: Severe diffuse changes COPD. 1.2 cm left upper lobe pulmonary nodule decreased in size since prior exam. No consolidation. Pleural space: Subtle right pleural thickening. No significant effusion. No pneumothorax. Heart: Unremarkable. No cardiomegaly. No significant pericardial effusion. No evidence of RV dysfunction. Bones/joints: No acute fracture. No dislocation. Soft tissues: Unremarkable. Lymph nodes: Unremarkable. No enlarged lymph nodes. IMPRESSION: No acute findings in the visualized arteries of the chest. Severe diffuse changes COPD 1.2 cm left upper lobe pulmonary nodule decreased in size when compared to prior exam. Pulmonary arterial hypertension Electronically signed by: Paulie Muro MD 04/26/25 23:45 PM
[2025-04-26] MEDS: POTASSIUM CHLORIDE / WTR 10 MEQ/100 ML PLCT IV SCH (23:54)
--- NOTE | 2025-04-27 01:18 | Magnetic Resonance Report ---
Exam(s): MRI MRCP EXAM: MR Abdomen Without Intravenous Contrast, MRCP Protocol CLINICAL HISTORY: ductal dilation. TECHNIQUE: Multiplanar magnetic resonance images of the abdomen without intravenous contrast using MRCP protocol. COMPARISON: CT abdomen and pelvis with contrast performed at 2020 hours FINDINGS: Bile ducts: The common bile duct is ectatic, measuring 8.5 mm near the shena hepatis. Central intrahepatic biliary ectasia suggested. No choledocholithiasis. Gallbladder: The gallbladder is only mildly distended. No cholelithiasis. Liver: Unremarkable. Pancreas: Unremarkable. No ductal dilation. Spleen: Unremarkable. No splenomegaly. Adrenals: Unremarkable. No mass. Kidneys and ureters: The anterolateral cortex of the left kidney is somewhat atrophic, similar to the previous examination. No hydronephrosis. Simple appearing cyst in the superior pole of the left kidney measuring 8 mm. Stomach and bowel: Unremarkable. No obstruction. Vasculature: Atherosclerosis of the aorta without dissection or aneurysm. IMPRESSION: The common bile duct is ectatic, measuring 8.5 mm near the shena hepatis. Central intrahepatic biliary ectasia suggested. No choledocholithiasis. Electronically signed by: Griffin Buchanan MD 04/27/25 01:17 AM
--- NOTE | 2025-04-27 01:41 | Emergency Department Note ---
History of Present Illness General Chief complaint: Shortness of Breath/Dyspnea Stated complaint: SOB, Back Pain Time Seen by Provider: 04/26/25 19:43 History of Present Illness Provider complaint: Shortness of breath Maximum Pain Intensity: 6 69-year-old female bedbound on chronic oxygen with COPD presents emergency department for shortness of breath. Patient usually wears 4 L nasal cannula. Patient reports shortness of breath. Patient reports right-sided chest pain. Patient reports right-sided upper abdominal pain. She reports no fever. No vomiting. No nausea. No hematuria or dysuria. Home Medications Medication Instructions Recorded Confirmed Type Oxygen Home #1 ea 03/07/19 03/31/24 History nebulizers #1 ea 10/26/22 03/31/24 Rx cyanocobalamin (vitamin B-12) 1,000 mcg IM MONTHLY #10 mL 01/05/23 04/26/25 Rx 1,000 mcg/mL injection solution albuterol sulfate 90 mcg/actuation 2 puff inhalation DAILY PRN 09/24/23 04/26/25 Rx aerosol inhaler (Ventolin HFA) Shortness Of Breath #8.5 grams albuterol sulfate 2.5 mg/3 mL 0 mg inhalation Q6H PRN shortness 03/03/24 04/26/25 History (0.083 %) solution for nebulization of breath or wheezing aspirin 81 mg tablet,delayed 81 mg PO QAM #30 tabs 03/08/24 04/26/25 Rx release melatonin 3 mg tablet 3 mg PO HS #30 tabs 03/08/24 04/26/25 Rx polyethylene glycol 3350 17 gram 17 g PO BID PRN constipation #60 ea 03/08/24 04/26/25 Rx oral powder packet (Miralax) docusate sodium 100 mg capsule 100 mg PO BID #180 caps 03/31/24 04/26/25 Rx guaifenesin 600 mg tablet, 600 mg PO Q12 Congestion #180 tabs 03/31/24 04/26/25 Rx extended release 12 hr (Mucinex) iron sucrose 200 mg iron/10 mL 200 mg (10 mL) IV .COMPLEX 12 04/03/24 04/26/25 Rx intravenous solution (Venofer) months buspirone 15 mg tablet 15 mg PO BID #180 tabs 07/14/24 04/26/25 Rx diltiazem HCl 180 mg 180 mg PO QAM #90 caps 07/14/24 04/26/25 Rx capsule,extended release 24 hr folic acid 1 mg tablet 1 mg PO DAILY #90 tabs 07/14/24 04/26/25 Rx sertraline 100 mg tablet 100 mg PO HS #90 tabs 07/14/24 04/26/25 Rx quetiapine 50 mg tablet 50 mg PO HS #90 tabs 08/01/24 04/26/25 Rx syringe with needle, safety 3 mL #2 ea 09/12/24 Rx 23 gauge x 1" (Monoject Safety Syringes) atorvastatin 20 mg tablet (Lipitor) 20 mg PO HS #90 tabs 11/21/24 04/26/25 Rx fluticasone furoate 100 1 inh inhalation QAM #60 ea 11/23/24 04/26/25 Rx mcg-vilanterol 25 mcg/dose inhalation powder (Breo Ellipta) levothyroxine 50 mcg tablet 50 mcg PO HS #90 tabs 01/22/25 04/26/25 Rx hydroxyzine pamoate 25 mg capsule 25 mg PO TID PRN Anxiety #90 caps 02/26/25 04/26/25 Rx pantoprazole 40 mg tablet,delayed 40 mg PO DAILY #90 tabs 02/26/25 04/26/25 Rx release hyoscyamine sulfate 0.125 mg tablet 0.25 mg (2 x 0.125 mg) PO BID #120 03/07/25 04/26/25 Rx tabs umeclidinium 62.5 mcg/actuation 1 inh inhalation QAM #30 ea 03/19/25 04/26/25 Rx blister powder for inhalation (Incruse Ellipta) mirtazapine 30 mg tablet 30 mg PO HS 04/26/25 04/26/25 History Allergies Allergy/AdvReac Type Severity Reaction Status Date / Time codeine Allergy Intermediate ITCHING Verified 04/26/25 21:39 cortisone Allergy Intermediate ITCHING Verified 04/26/25 21:39 Penicillins Allergy Intermediate HIVES, Verified 04/26/25 21:39 ITCHINESS ciprofloxacin [From Cipro] AdvReac Intermediate Vomiting Verified 04/26/25 21:39 Past Med/Surg History Problem List (Updated 04/27/25 @ 01:41 by Kevin Terry MD) Hypokalemia (Acute) Dyspnea (Acute) Encounter for examination following treatment at hospital Constipation Iron deficiency Lesion of left lung Failure to thrive in adult Hypercapnia Symptomatic anemia Breathlessness (Acute) COPD (chronic obstructive pulmonary disease) (Acute) Severe anemia (Acute) Carotid stenosis Anorexia Visual symptoms Left upper lobe pulmonary infiltrate Moderate dehydration Sepsis (Acute) Pneumonia (Acute) LUQ abdominal pain Severely underweight adult Acute and chronic respiratory failure with hypoxia Acute exacerbation of chronic obstructive pulmonary disease (Acute) Hypoxia (Acute) Chest pain (Acute) Acute respiratory failure with hypoxia Osteoporosis Constipation Bone/cartilage disorder Lethargy Abdominal bruit Back pain Shortness of breath Anemia Iron (Fe) deficiency anemia Peripheral arterial disease Lower abdominal pain Left flank pain Epigastric abdominal pain Paresthesia of buttock Left leg weakness Urinary incontinence History of kidney stones O2 dependent Vitamin D deficiency Abdominal pain Poor appetite SOB (shortness of breath) on exertion Atherosclerosis Myalgia RSD (reflex sympathetic dystrophy) Cough Intermittent palpitations Pericardial effusion Sinus tachycardia Dehydration Decreased oral intake Hypotension Acute hypotension (Acute) Acute UTI (urinary tract infection) (Acute) Pneumonitis (Acute) Acute upper abdominal pain (Acute) Physical debility Weakness (Acute) Severe protein-calorie malnutrition Hypokalemia Change in bowel habits Dysphagia Multiple pulmonary nodules determined by computed tomography of lung Unintentional weight loss Chronic shortness of breath Fibromyalgia Migraine Anxiety and depression (Chronic) Bipolar affective disorder (Chronic) Hyperlipidemia (Chronic) Hypothyroidism (Chronic) Nicotine dependence (Chronic) COPD (chronic obstructive pulmonary disease) (Chronic) inhalers daily Hypertension (Chronic) RSD (reflex sympathetic dystrophy) (Chronic) "per patient's sister, 06/21/16" Medical History History of COVID-19 diagnosed 08/28/2021 @ [facility]--had to be on oxygen and in the hospital for 6 days--symptoms have resolved History of recent blood transfusion 10/2021 @ [facility] Osteoarthritis Chronic back pain History of kidney stones On home oxygen therapy 3L N/C HS Surgical History History of esophagogastroduodenoscopy (EGD) History of cataract surgery bilt S/P epidural steroid injection History of colonoscopy History of total hysterectomy with bilateral salpingo-oophorectomy (BSO) History of repair of right rotator cuff History of lithotripsy x2 History of tooth extraction all teeth S/P cystoscopy with ureteral stent placement x5 Family History Brother Alcohol abuse Kidney disease Mother Anxiety Kidney disease Sister Kidney disease Aunt Breast cancer Father Prostate cancer Family history of diabetes mellitus Other Cancer Diabetes Emphysema of lung Hypertension Lung disease No family history of adverse response to anesthesia Denies family history of Ovarian cancer Myocardial infarction Colorectal cancer Social History Smoking Status: Former smoker Tobacco Type: Cigarettes Age Started Using Tobacco: 17; Cigarettes Per Day: 1/3 of a pack; Second Hand Exposure: No; Do You Dip or Chew Tobacco: No; Hx Alcohol Use: No Hx Substance Use: No Preferred Language: Mohawk Communication Ability: Effective Visual Impairment: No Limitations Hearing Ability: Normal Police Judge Required: No Beliefs That Will Affect Care: None marital status: Current Living Situation: Significant Other Current Living Situation Comment: Lives with boyfriend current occupational status: disabled How many Children do You have: 3 Feels Safe at Home: Yes Childhood Exposure to Second-Hand Smoke: Yes Diet: regular Diet Comment: stated she eats very little, no appetite. caffeine: Yes Dental Care, Regularly: No Physical Activity Frequency: Daily Seatbelt Use: always Sunscreen Use: No Assistive Devices: Oxygen - Continuous and Walker Physical Exam Vital Signs Vital Signs - 24 hr 04/26/25 19:42 04/26/25 19:42 04/26/25 19:42 Temperature 36.8 C Temperature Source Oral Pulse Rate 102 H Pulse Rate [Apical] Respiratory Rate 18 Blood Pressure 163/97 H Blood Pressure [Right Arm] Blood Pressure Mean 119 Blood Pressure Mean [Right Arm] Pulse Oximetry 100 100 Oxygen Delivery Method Nasal Cannula Nasal Cannula Nasal Cannula Oxygen Flow Rate 4 4 4 Sepsis Recent Fever Within 48 Hours No Sepsis New/Unexplained Change in Mental Status No Sepsis Action Taken by Nursing No Action Required 04/26/25 20:00 04/26/25 20:04 04/26/25 20:32 Temperature Temperature Source Pulse Rate Pulse Rate [Apical] 88 92 H Respiratory Rate 18 18 Blood Pressure Blood Pressure [Right Arm] 160/86 H 147/76 H Blood Pressure Mean Blood Pressure Mean [Right Arm] 110 99 Pulse Oximetry 100 100 100 Oxygen Delivery Method Room Air Nasal Cannula Nasal Cannula Oxygen Flow Rate 4 4 Sepsis Recent Fever Within 48 Hours Sepsis New/Unexplained Change in Mental Status Sepsis Action Taken by Nursing 04/26/25 21:00 04/26/25 22:30 04/27/25 01:00 Temperature Temperature Source Pulse Rate Pulse Rate [Apical] 80 80 77 Respiratory Rate 18 20 16 Blood Pressure Blood Pressure [Right Arm] 145/71 H 162/75 H 170/81 H Blood Pressure Mean Blood Pressure Mean [Right Arm] 95 104 110 Pulse Oximetry 100 100 100 Oxygen Delivery Method Nasal Cannula Nasal Cannula Nasal Cannula Oxygen Flow Rate 4 4 4 Sepsis Recent Fever Within 48 Hours Sepsis New/Unexplained Change in Mental Status Sepsis Action Taken by Nursing Physical Exam GENERAL: Cachectic. HENT: Exam performed. - Head: Normocephalic and atraumatic. NECK: Normal range of motion. Neck supple. No JVD present. CV: Normal rate, regular rhythm, normal heart sounds and intact distal pulses. There is no peripheral edema. Palpable radial pulses bue. PULM/CHEST: Diminished breath sounds bilaterally. No wheezing. ABD: The abdomen is soft. There is no tenderness. Course Course 1942: The patient was evaluated in room B12. A complete history and physical exam was performed Cardiac monitoring: An order was placed for continuous cardiac monitoring. The monitor shows a rate of 100 with sinus rhythm interpreted by me 2235: Vital signs stable on supplemental oxygen. Labs are significant for potassium of 2.8. CT of the abdomen pelvis and CT of the chest are unremarkable. Potassium repletion started in the emergency department. [facility] Discussed the case with Dr. Tariq who is requesting MRCP be conducted. Ordered at her request. Unlikely to be choledocholithiasis given the patient's normal LFTs, lipase and minimally elevated alkaline phosphatase of 121. MRCP ordered at her request. 0123: Vital signs stable. MRCP is negative for choledocholithiasis. Dr. Tariq notified and will evaluate the patient for admission. Administered Medications Discontinued Medications Sodium Chloride (Nss) 500 mls @ 999 mls/hr IV .Q31M ONE Stop: 04/26/25 21:43 Last Infusion: 04/26/25 22:04 Dose: Infused Documented By: Admin: 04/26/25 21:31 Dose: 999 mls/hr Documented By: abl Potassium Chloride (K Mike / Wtr) 10 meq in 100 mls @ 100 mls/hr IV Q1H JEFFERSON Stop: 04/27/25 00:29 Last Admin: 04/27/25 00:52 Dose: 100 mls/hr Documented By: Infusion: 04/27/25 00:52 Dose: Infused Documented By: Admin: 04/26/25 23:54 Dose: 100 mls/hr Documented By: SELVIN Ioversol (Optiray 320 125ml) 115 ml IV ONCE ONE Stop: 04/26/25 20:20 Last Admin: 04/26/25 20:19 Dose: 115 ml Documented By: SHERON Potassium Chloride (Potassium Chloride 10 Meq Tabcr) 40 meq PO NOW STA Stop: 04/26/25 22:21 Last Admin: 04/26/25 23:18 Dose: Not Given Documented By: AN Medical Decision Making Laboratory Data Attestation: I reviewed the patient's lab results. 04/26/25 19:53 04/26/25 19:53 Lab Results 04/26/25 04/26/25 Range/Units 19:53 19:58 WBC 9.27 (4.8-10.8) K/ul RBC 4.15 L (4.20-5.40) M/uL Hgb 8.8 L (12.0-16.0) g/dl POC Hgb 9.9 L (12.0-16.0) g/dl Hct 30.8 L (37.0-47.0) % POC Hct 29 L (37-47) % MCV 74.2 L (80.0-100.0) fL MCH 21.2 L (25.0-34.0) pg MCHC 28.6 L (32.0-36.0) g/dL RDW Std Deviation 48.7 H (36.4-46.3) fL RDW Coeff of Luis 18.4 H (11.5-14.5) % Plt Count 450 H (130-400) K/uL MPV 10.0 (9.4-12.4) fL Immature Gran % (Auto) 0.3 % Neut % (Auto) 78.7 % Lymph % (Auto) 12.5 % [place] % (Auto) 5.9 % Eos % (Auto) 2.0 % Baso % (Auto) 0.6 % Neut # (Auto) 7.28 H (1.40-6.50) K/uL Lymph # (Auto) 1.16 L (1.20-3.40) K/uL [place] # (Auto) 0.55 (0.11-0.59) K/uL Eos # (Auto) 0.19 (0.00-0.50) K/uL Baso # (Auto) 0.06 (0.00-0.20) K/uL Immature Gran # (Auto) 0.03 (0.01-0.20) K/uL PT 10.5 (9.0-12.0) Seconds INR 1.0 (0.9-1.1) APTT 28 (21-31) Seconds PTT Ratio 1.0 VBG pH 7.35 L (7.36-7.41) VBG pCO2 69 H (38-50) mmHg VBG pO2 < 20 mmHg VBG HCO3 38 mmol/L VBG O2 Saturation < 60.0 % VBG Base Excess 9.7 mEq/L POC Sodium 142 (135-144) mmol/L Sodium 144 (136-145) mmol/L POC Potassium 3.1 L (3.3-5.0) mmol/L Potassium 2.8 L (3.5-5.1) mmol/L POC Chloride 99 L (101-112) mmol/L Chloride 101 (98-107) mmol/L Carbon Dioxide 37 H (21-32) mmol/L POC Total CO2 34 H (24-31) mmol/L Anion Gap 6 (3-11) POC Anion Gap 14.0 L (16-25) mmol/L POC BUN 14 (7-18) mg/dl BUN 15 (6-23) mg/dl Creatinine 0.38 L (0.6-1.2) mg/dl POC Creatinine 0.6 (0.6-1.3) mg/dl Est Cr Clr Drug Dosing 53.4 ml/min eGFR 108.40 BUN/Creatinine Ratio 39.5 H (10-20) Glucose 103 H (70-99(Fasting)) mg/dl POC Glucose (other) 116 H (70-99) mg/dl Calcium 8.7 (8.6-10.3) mg/dl POC Ioniz Calcium Timothy 1.15 (1.12-1.32) mmol/l Magnesium 2.0 (1.7-2.4) mg/dl Total Bilirubin 0.3 (0.2-1.0) mg/dl AST 13 (13-39) U/L ALT 8 (7-52) U/L Alkaline Phosphatase 121 H (34-104) U/L Troponin I High Sens 5.5 (0-14) pg/ml Total Protein 6.7 (6.0-8.3) gm/dl Albumin 3.3 L (3.4-5.0) gm/dl Globulin 3.4 (2.5-4.0) gm/dl Albumin/Globulin Ratio 1.0 (0.9-2) Lipase 31 (11-82) U/L Adenovirus (PCR) Not Detected (NotDetected) B. pertussis DNA (PCR) Not Detected (NotDetected) B.parapertussis DNA PCR Not Detected (NotDetected) C. pneumoniae DNA (PCR) Not Detected (NotDetected) Coronavirus OC43 (PCR) Not Detected (NotDetected) Coronavirus HKU1 (PCR) Not Detected (NotDetected) Coronavirus 229E (PCR) Not Detected (NotDetected) SARS-CoV-2 (PCR) Not Detected (NotDetected) Coronavirus NL63 (PCR) Not Detected (NotDetected) Human Metapneumovir PCR Not Detected (NotDetected) Influenza Type A (PCR) Not Detected (NotDetected) Influenza Type B (PCR) Not Detected (NotDetected) M. pneumoniae (PCR) Not Detected (NotDetected) Parainfluenza 1 (PCR) Not Detected (NotDetected) Parainfluenza 2 (PCR) Not Detected (NotDetected) Parainfluenza 3 (PCR) Not Detected (NotDetected) Parainfluenza 4 (PCR) Not Detected (NotDetected) RSV (PCR) Not Detected (NotDetected) Entero/Rhino (PCR) Not Detected (NotDetected) Imaging Data Radiologist's Impression: Chest CTA 04/26/25 19:47 Exam(s): CTA CHEST IV Amt: 115 ml optiray 320 EXAM: CT Angiography Chest With Intravenous Contrast CLINICAL HISTORY: Reason for exam: Chest Pain, eval for PE. TECHNIQUE: Axial computed tomographic angiography images of the chest with intravenous contrast. CTDI is 6.03 mGy and DLP is 239.98 mGy-cm. Automated exposure control was utilized for the study. A dose lowering technique was utilized adhering to the principles of ALARA. MIP reconstructed images were created and reviewed. COMPARISON: 03/02/2024 FINDINGS: Pulmonary arteries: Dilatation of the main pulmonary artery suggesting pulmonary arterial hypertension. No pulmonary embolism. Aorta: No acute findings. No thoracic aortic aneurysm. Lungs: Severe diffuse changes COPD. 1.2 cm left upper lobe pulmonary nodule decreased in size since prior exam. No consolidation. Pleural space: Subtle right pleural thickening. No significant effusion. No pneumothorax. Heart: Unremarkable. No cardiomegaly. No significant pericardial effusion. No evidence of RV dysfunction. Bones/joints: No acute fracture. No dislocation. Soft tissues: Unremarkable. Lymph nodes: Unremarkable. No enlarged lymph nodes. IMPRESSION: No acute findings in the visualized arteries of the chest. Severe diffuse changes COPD 1.2 cm left upper lobe pulmonary nodule decreased in size when compared to prior exam. Pulmonary arterial hypertension Electronically signed by: Paulie Muro MD 04/26/25 23:45 PM Chest X-Ray 04/26/25 19:47 Exam(s): XR CXR 1 VIEW EXAM: XR Chest, 1 View CLINICAL HISTORY: Reason for exam: Chest pain, nonspecific. TECHNIQUE: Frontal view of the chest. COMPARISON: No relevant prior studies available. FINDINGS: Lungs: Severe diffuse changes COPD. No consolidation. Pleural space: Unremarkable. No pneumothorax. Heart: Unremarkable. No cardiomegaly. Mediastinum: Unremarkable. Normal mediastinal contour. Bones/joints: Unremarkable. No acute fracture. IMPRESSION: No acute findings in the chest. Diffuse changes Electronically signed by: Paulie Muro MD 04/26/25 20:47 PM Abdomen/Pelvis CT 04/26/25 19:48 Exam(s): CT ABDOMEN + PELVIS With Contrast IV Amt: 115 ml optiray 320 EXAM: CT Abdomen and Pelvis With Intravenous Contrast CLINICAL HISTORY: Reason for exam: abd pain. TECHNIQUE: Axial computed tomography images of the abdomen and pelvis with intravenous contrast. CTDI is 6.08 mGy and DLP is 235.66 mGy-cm. Automated exposure control was utilized for the study. A dose lowering technique was utilized adhering to the principles of ALARA. CONTRAST: Patient received 115 ml optiray 320 of IV contrast COMPARISON: 12/03/2022 FINDINGS: Lung bases: Unremarkable. No mass. No consolidation. ABDOMEN: Liver: 0.5 cm right hepatic lobe hypodensity also likely representing a cyst. Gallbladder and bile ducts: Simple intrahepatic biliary ductal dilatation with common bile duct distention measuring 1.1 cm. 1 cm left renal cysts. No follow-up of these simple cysts is necessary. No calcified stones. Pancreas: Unremarkable. No mass. No ductal dilation. Spleen: Small splenic cysts. Adrenals: Unremarkable. No mass. Kidneys and ureters: See above. Stomach and bowel: Large amount of stool within the rectum. No mucosal thickening. PELVIS: Appendix: No findings to suggest acute appendicitis. Bladder: Unremarkable. No mass. Reproductive: Unremarkable as visualized. ABDOMEN and PELVIS: Intraperitoneal space: Unremarkable. No free air. No significant fluid collection. Bones/joints: No acute fracture. No dislocation. Soft tissues: Unremarkable. Vasculature: Unremarkable. No abdominal aortic aneurysm. Lymph nodes: Unremarkable. No enlarged lymph nodes. IMPRESSION: Large amount of stool within the rectum concerning for fecal impaction. Intra and extrahepatic biliary ductal dilatation of the etiology of which is not clearly seen on this exam. MRCP may be obtained for further evaluation if clinically warranted Electronically signed by: Paulie Muro MD 04/26/25 22:18 PM Cholangiopancreatography MRI 04/26/25 22:35 Exam(s): MRI MRCP EXAM: MR Abdomen Without Intravenous Contrast, MRCP Protocol CLINICAL HISTORY: ductal dilation. TECHNIQUE: Multiplanar magnetic resonance images of the abdomen without intravenous contrast using MRCP protocol. COMPARISON: CT abdomen and pelvis with contrast performed at 2020 FINDINGS: Bile ducts: The common bile duct is ectatic, measuring 8.5 mm near the shena hepatis. Central intrahepatic biliary ectasia suggested. No choledocholithiasis. Gallbladder: The gallbladder is only mildly distended. No cholelithiasis. Liver: Unremarkable. Pancreas: Unremarkable. No ductal dilation. Spleen: Unremarkable. No splenomegaly. Adrenals: Unremarkable. No mass. Kidneys and ureters: The anterolateral cortex of the left kidney is somewhat atrophic, similar to the previous examination. No hydronephrosis. Simple appearing cyst in the superior pole of the left kidney measuring 8 mm. Stomach and bowel: Unremarkable. No obstruction. Vasculature: Atherosclerosis of the aorta without dissection or aneurysm. IMPRESSION: The common bile duct is ectatic, measuring 8.5 mm near the shena hepatis. Central intrahepatic biliary ectasia suggested. No choledocholithiasis. Electronically signed by: Griffin Buchanan MD 04/27/25 01:17 AM ECG Data Attestation: I personally reviewed and interpreted this ECG as follows: Rate (beats per minute): 101 Rhythm: + sinus tachycardia ECG Intervals/blocks: + Normal WI and + Normal QT-c ECG ST segments: + Normal ST segments Additional Comments: QRS 78 MDM Narrative 1943: The patient was evaluated in room B12. A complete history and physical exam was performed Cardiac monitoring: An order was placed for continuous cardiac monitoring. The monitor shows a rate of 100 with sinus rhythm interpreted by me 2235: Vital signs stable on supplemental oxygen. Labs are significant for potassium of 2.8. CT of the abdomen pelvis and CT of the chest are unremarkable. Potassium repletion started in the emergency department. [facility] Discussed the case with Dr. Tariq who is requesting MRCP be conducted. Ordered at her request. Unlikely to be choledocholithiasis given the patient's normal LFTs, lipase and minimally elevated alkaline phosphatase of 121. MRCP ordered at her request. 0123: Vital signs stable. MRCP is negative for choledocholithiasis. Dr. Tariq notified and will evaluate the patient for admission. Impression & Plan Dyspnea, Hypokalemia Discharge Plan Visit Data Chief Complaint: Shortness of Breath/Dyspnea Stated Complaint: SOB, Back Pain ED Provider: Kevin Terry Discharge Problem: Dyspnea, Hypokalemia Patient Disposition: Admitted As Inpatient Condition: Fair Forms Stand Alone Forms: My [facility] Prescriptions Prescriptions: No Action cyanocobalamin (vitamin B-12) 1,000 mcg/mL solution 1,000 mcg IM MONTHLY Qty: 10 3RF albuterol sulfate [Ventolin HFA] 90 mcg/actuation HFA aerosol inhaler 2 puff inhalation DAILY PRN (Reason: Shortness Of Breath) Qty: 8.5 5RF sertraline 100 mg tablet 100 mg PO HS Qty: 90 1RF folic acid 1 mg tablet 1 mg PO DAILY Qty: 90 1RF buspirone 15 mg tablet 15 mg PO BID Qty: 180 1RF diltiazem HCl 180 mg capsule,extended release 24hr 180 mg PO QAM Qty: 90 1RF quetiapine 50 mg tablet 50 mg PO HS Qty: 90 1RF (DME) Monoject Safety Syringes 3 mL 23 gauge x 1" syringe See Rx Instructions .Route Qty: 2 2RF Rx Instructions: For B-12 injection atorvastatin [Lipitor] 20 mg tablet 20 mg PO HS Qty: 90 1RF fluticasone furoate-vilanterol [Breo Ellipta] 100-25 mcg/dose blister with device 1 inh inhalation QAM Qty: 60 11RF Rx Instructions: Confirmed w/ Pharmacy that pt filled and picked up both Incruse Ellipta and Breo on the same day. No refills on Incruse. levothyroxine 50 mcg tablet 50 mcg PO HS Qty: 90 1RF pantoprazole 40 mg tablet,delayed release (DR/EC) 40 mg PO DAILY Qty: 90 1RF hydroxyzine pamoate 25 mg capsule 25 mg PO TID PRN (Reason: Anxiety) Qty: 90 0RF hyoscyamine sulfate 0.125 mg tablet 0.25 mg PO BID Qty: 120 2RF Incruse Ellipta 62.5 mcg/actuation blister with device 1 inh inhalation QAM Qty: 30 3RF (DME) Oxygen Home Liters Per Minute See Dose Instructions .ROUTE .MEDSUPPLY Qty: 1 Rx Instructions: As directed (DME) nebulizers [facility] [place] See Rx Instructions .Route Qty: 1 0RF Rx Instructions: As directed, with nebulizer supplies docusate sodium 100 mg capsule 100 mg PO BID Qty: 180 1RF guaifenesin [Mucinex] 600 mg tablet extended release 12hr 600 mg PO Q12 Qty: 180 1RF Venofer 200 mg iron/10 mL solution 200 mg IV .COMPLEX 360 Days Rx Instructions: PER PT "HAVEN'T HAD FOR A VERY LONG TIME". 200 mg intravenously 2x a week for 2 weeks; administer over 30 mins albuterol sulfate 2.5 mg /3 mL (0.083 %) solution for nebulization 0 mg inhalation Q6H PRN (Reason: shortness of breath or wheezing) Rx Instructions: Unable to verify med with patient/pharmacy at this date/time. Original Directions: 2.5mg q 6 h PRN aspirin 81 mg Tablet,Delayed Release (Dr/Ec) 81 mg PO QAM Qty: 30 0RF polyethylene glycol 3350 [Miralax] 17 gram Powder In Packet 17 g PO BID PRN (Reason: constipation) Qty: 60 0RF melatonin 3 mg Tablet 3 mg PO HS Qty: 30 0RF mirtazapine 30 mg tablet 30 mg PO HS Referrals Referrals: Samara Payan MD [Primary Care Provider] -
--- NOTE | 2025-04-27 02:02 | History & Physical Report ---
Date of Service April 27, 2025 Assessment & Plan (1) Constipation: (2) Failure to thrive in adult: (3) COPD (chronic obstructive pulmonary disease): (4) Hypokalemia: (5) Hypertension: (6) Hyperlipidemia: (7) Hypothyroidism: Plan 69yo female with HTN, HLP, Hypothyroidism, COPD on home O2 presenting with abdominal pain, rectal pain and constipation. #Constipation - patient reports not having normal bowel movement for over one year. She describes severe constipation with overflow incontinence. CT of the abdomen with large amount of stool in the rectum concerning for fecal impaction Admit to medical Hydration with LR at 50 mL/h x 2 L Electrolyte repletion. hypokalemia with K = 2.8. Patient has received 20 mEq thus far. Will order additional 80 mill equivalents of potassium with repeat chemistry in the morning Check phosphorus levels Dulcolax suppository now and daily as needed Colace 100 mg p.o. twice daily MiraLAX 17 g p.o. twice daily Mineral oil enema as needed daily If unsuccessful, will need to have manual disimpaction Pain control with Tylenol for mild/moderate pain and Dilaudid 0.25 mg IV every 6 hours as needed for severe pain. Cautious use of opiates given patient's underlying constipation/likely fecal impaction Will hold hyoscyamine. Patient has been taking 0.25 mg p.o. twice daily. Can cause worsening constipation due to anticholinergic effect #Failure to thrive in adultpatient reports significant unintentional weight loss. She reports this ongoing for the last year however, upon review of records, patient has been steadily losing weight over the last several years. Weight today in the ER presently 24.2 kg. BMI = 9.8. Patient reports that she eats at home. Possibly secondary to wasting from end-stage COPD, concern for malignancy, concern for inability to care for self at home will add thiamine 100 mg p.o. daily Continue folic acid 1 mg p.o. daily Continue mirtazapine 30 mg p.o. nightly. Will hopefully have some appetite stimulating effects Boost 3 times daily with nutrition consultation appreciated Check daily standing weights PT/OT evaluation this appreciated. Patient reports that she is unable to walk at home due to generalized weakness #Iron deficiency anemiahemoglobin = 8.8, hematocrit = 30.8. Suspect some degree of hemoconcentration as patient does appear to be clinically dry on exam. She reports black stools on occasion. No nausea or vomiting. She has iron ordered but does not take it Hemoccult stools Check iron panel. Patient may benefit from IV Venofer while in the hospital if appropriate #COPDpatient reports some shortness of breath Continue supplemental oxygen DuoNeb every 6 hours as needed Albuterol every 6 hours as needed Continue Breo Ellipta Continue guaifenesin 600 mg p.o. twice daily Continue Incruse Ellipta #Bipolar disorder/anxiety Continue sertraline 100 mg p.o. nightly Continue Seroquel 50 mg p.o. nightly Continue hydroxyzine 25 mg p.o. 3 times daily Continue buspirone 15 mg p.o. twice daily #Hypertensionblood pressure elevated at present. Patient does report being in pain. Continue diltiazem 180 mg p.o. every morningcould consider changing this medication class to another antihypertensive due to possible side effect of constipation #Hyperlipidemiachronic, stable Continue atorvastatin 20 mg p.o. nightly #GERD Continue Protonix 40 mg p.o. daily #Hypothyroidism Check TSH Continue Synthroid Ppx:SCDs for now. Will avoid chemoprophylaxis given report of black stools. Hemoccult is ordered History of Present Illness Chief Complaint: Abdominal pain, rectal pain, shortness of breath Primary Care Provider: Samara Payan MD Shameka Moise is a 69-year-old female with history of hypertension, hyperlipidemia, hypothyroidism, bipolar disorder, COPD, unintentional weight loss/cachexia presenting. Complaint of abdominal pain, rectal pain and shortness of breath. Patient reports that she has been having issues with severe constipation ongoing for at least 1 year. She feels that the constipa tion began after having a colonoscopy. She reports that she is unable to pass normal bowel movements. When she does pass stool, it is liquid, leaks out of her rectum and is difficult to stop. She reports stool is dark black in color on occasion. No bright red blood. Patient endorses abdominal paininitially right upper quadrant pain. Now complaining of rectal pain and generalized abdominal soreness. Also with nausea, no vomiting. She has some shortness of breath as well as some chest heaviness Unintentional weight loss - reports over the last year she has gone from 1093 --> 79# --> 52# In the ER she is afebrile, HD stable with elevated blood pressure, NAD ER Course: KCl 10mEq x 2 runs NSS x 500mL Allergies Allergy/AdvReac Type Severity Reaction Status Date / Time codeine Allergy Intermediate ITCHING Verified 04/26/25 21:39 cortisone Allergy Intermediate ITCHING Verified 04/26/25 21:39 Penicillins Allergy Intermediate HIVES, Verified 04/26/25 21:39 ITCHINESS ciprofloxacin [From Cipro] AdvReac Intermediate Vomiting Verified 04/26/25 21:39 Home Medications Medication Instructions Recorded Confirmed Type Oxygen Home #1 ea 03/07/19 03/31/24 History nebulizers #1 ea 10/26/22 03/31/24 Rx cyanocobalamin (vitamin B-12) 1,000 mcg IM MONTHLY #10 mL 01/05/23 04/26/25 Rx 1,000 mcg/mL injection solution albuterol sulfate 90 mcg/actuation 2 puff inhalation DAILY PRN 09/24/23 04/26/25 Rx aerosol inhaler (Ventolin HFA) Shortness Of Breath #8.5 grams albuterol sulfate 2.5 mg/3 mL 0 mg inhalation Q6H PRN shortness 03/03/24 04/26/25 History (0.083 %) solution for nebulization of breath or wheezing aspirin 81 mg tablet,delayed 81 mg PO QAM #30 tabs 03/08/24 04/26/25 Rx release melatonin 3 mg tablet 3 mg PO HS #30 tabs 03/08/24 04/26/25 Rx polyethylene glycol 3350 17 gram 17 g PO BID PRN constipation #60 ea 03/08/24 04/26/25 Rx oral powder packet (Miralax) docusate sodium 100 mg capsule 100 mg PO BID #180 caps 03/31/24 04/26/25 Rx guaifenesin 600 mg tablet, 600 mg PO Q12 Congestion #180 tabs 03/31/24 04/26/25 Rx extended release 12 hr (Mucinex) iron sucrose 200 mg iron/10 mL 200 mg (10 mL) IV .COMPLEX 12 04/03/24 04/26/25 Rx intravenous solution (Venofer) months buspirone 15 mg tablet 15 mg PO BID #180 tabs 07/14/24 04/26/25 Rx diltiazem HCl 180 mg 180 mg PO QAM #90 caps 07/14/24 04/26/25 Rx capsule,extended release 24 hr folic acid 1 mg tablet 1 mg PO DAILY #90 tabs 07/14/24 04/26/25 Rx sertraline 100 mg tablet 100 mg PO HS #90 tabs 07/14/24 04/26/25 Rx quetiapine 50 mg tablet 50 mg PO HS #90 tabs 08/01/24 04/26/25 Rx syringe with needle, safety 3 mL #2 ea 09/12/24 Rx 23 gauge x 1" (Monoject Safety Syringes) atorvastatin 20 mg tablet (Lipitor) 20 mg PO HS #90 tabs 11/21/24 04/26/25 Rx fluticasone furoate 100 1 inh inhalation QAM #60 ea 11/23/24 04/26/25 Rx mcg-vilanterol 25 mcg/dose inhalation powder (Breo Ellipta) levothyroxine 50 mcg tablet 50 mcg PO HS #90 tabs 01/22/25 04/26/25 Rx hydroxyzine pamoate 25 mg capsule 25 mg PO TID PRN Anxiety #90 caps 02/26/25 04/26/25 Rx pantoprazole 40 mg tablet,delayed 40 mg PO DAILY #90 tabs 02/26/25 04/26/25 Rx release hyoscyamine sulfate 0.125 mg tablet 0.25 mg (2 x 0.125 mg) PO BID #120 03/07/25 04/26/25 Rx tabs umeclidinium 62.5 mcg/actuation 1 inh inhalation QAM #30 ea 03/19/25 04/26/25 Rx blister powder for inhalation (Incruse Ellipta) mirtazapine 30 mg tablet 30 mg PO HS 04/26/25 04/26/25 History Past Med/Surg History Problem List Hypokalemia (Acute) Dyspnea (Acute) Encounter for examination following treatment at hospital Constipation Iron deficiency Lesion of left lung Failure to thrive in adult Hypercapnia Symptomatic anemia Breathlessness (Acute) COPD (chronic obstructive pulmonary disease) (Acute) Severe anemia (Acute) Carotid stenosis Anorexia Visual symptoms Left upper lobe pulmonary infiltrate Moderate dehydration Sepsis (Acute) Pneumonia (Acute) LUQ abdominal pain Severely underweight adult Acute and chronic respiratory failure with hypoxia Acute exacerbation of chronic obstructive pulmonary disease (Acute) Hypoxia (Acute) Chest pain (Acute) Acute respiratory failure with hypoxia Osteoporosis Constipation Bone/cartilage disorder Lethargy Abdominal bruit Back pain Shortness of breath Anemia Iron (Fe) deficiency anemia Peripheral arterial disease Lower abdominal pain Left flank pain Epigastric abdominal pain Paresthesia of buttock Left leg weakness Urinary incontinence History of kidney stones O2 dependent Vitamin D deficiency Abdominal pain Poor appetite SOB (shortness of breath) on exertion Atherosclerosis Myalgia RSD (reflex sympathetic dystrophy) Cough Intermittent palpitations Pericardial effusion Sinus tachycardia Dehydration Decreased oral intake Hypotension Acute hypotension (Acute) Acute UTI (urinary tract infection) (Acute) Pneumonitis (Acute) Acute upper abdominal pain (Acute) Physical debility Weakness (Acute) Severe protein-calorie malnutrition Hypokalemia Change in bowel habits Dysphagia Multiple pulmonary nodules determined by computed tomography of lung Unintentional weight loss Chronic shortness of breath Fibromyalgia Migraine Anxiety and depression (Chronic) Bipolar affective disorder (Chronic) Hyperlipidemia (Chronic) Hypothyroidism (Chronic) Nicotine dependence (Chronic) COPD (chronic obstructive pulmonary disease) (Chronic) inhalers daily Hypertension (Chronic) RSD (reflex sympathetic dystrophy) (Chronic) "per patient's sister, 06/21/16" Medical History History of COVID-19 diagnosed 08/28/2021 @ [facility]--had to be on oxygen and in the hospital for 6 days--symptoms have resolved History of recent blood transfusion 10/2021 @ [facility] Osteoarthritis Chronic back pain History of kidney stones On home oxygen therapy 3L N/C HS Surgical History History of esophagogastroduodenoscopy (EGD) History of cataract surgery bilt S/P epidural steroid injection History of colonoscopy History of total hysterectomy with bilateral salpingo-oophorectomy (BSO) History of repair of right rotator cuff History of lithotripsy x2 History of tooth extraction all teeth S/P cystoscopy with ureteral stent placement x5 Family History Brother Alcohol abuse Kidney disease Mother Anxiety Kidney disease Sister Kidney disease Aunt Breast cancer Father Prostate cancer Family history of diabetes mellitus Other Cancer Diabetes Emphysema of lung Hypertension Lung disease No family history of adverse response to anesthesia Denies family history of Ovarian cancer Myocardial infarction Colorectal cancer Social History Smoking Status: Former smoker Tobacco Type: Cigarettes Age Started Using Tobacco: 17; Cigarettes Per Day: 1/3 of a pack; Second Hand Exposure: No; Do You Dip or Chew Tobacco: No; Hx Alcohol Use: No Hx Substance Use: No Preferred Language: Tajik Communication Ability: Effective Visual Impairment: No Limitations Hearing Ability: Normal Organic Extractions Technician Required: No Beliefs That Will Affect Care: None marital status: Current Living Situation: Significant Other Current Living Situation Comment: Lives with boyfriend current occupational status: disabled How many Children do You have: 3 Feels Safe at Home: Yes Childhood Exposure to Second-Hand Smoke: Yes Diet: regular Diet Comment: stated she eats very little, no appetite. caffeine: Yes Dental Care, Regularly: No Physical Activity Frequency: Daily Seatbelt Use: always Sunscreen Use: No Assistive Devices: Oxygen - Continuous and Walker Review of Systems Review of Systems: All systems reviewed & are unremarkable except as noted in HPI & below Physical Exam Physical Exam: General: patient cachectic, AA&O x 4, pleasant Skin: warm, dry, intact, no rashes or lesions, dry and flaking on legs HEENT: NC/AT, PERRL, EOMI, anicteric sclera, conjunctiva without injection, external ear normal to inspection and nontender, nares patent, dry mucus membranes, dentition intact, no oropharyngeal lesions, neck supple, trachea midline, no LAD, no thyromegaly, no JVD Heart: +S1/S2, regular, no m/r/g Lungs: equal air entry bilaterally, diminished breath sounds with scattered end-expiratory wheezing Abd: +BS diminished, soft, ND, diffusely tender with no rebound/guarding/peritonitis, no masses/organomegaly/ascites Ext: warm, 2+ pulses in UE/LE bilaterally, no clubbing/cyanosis or edema Neuro: nonfocal, patient AA&O x 4, speech intact, no facial droop, moving all extremities on command with equal strength 5/5 Results & Data Results & Data Vital Signs (Past 12 Hours) Vital Signs Temp Pulse Pulse Resp BP BP Pulse Ox 04/27/25 01:00 77 16 170/81 H 100 04/26/25 22:30 80 20 162/75 H 100 04/26/25 21:00 80 18 145/71 H 100 04/26/25 20:32 92 H 18 147/76 H 100 04/26/25 20:04 100 04/26/25 20:00 88 18 160/86 H 100 04/26/25 19:42 100 04/26/25 19:42 36.8 C 102 H 18 163/97 H 100 04/26/25 19:42 O2 Del Method O2 Flow Rate 04/27/25 01:00 Nasal Cannula 4 04/26/25 22:30 Nasal Cannula 4 04/26/25 21:00 Nasal Cannula 4 04/26/25 20:32 Nasal Cannula 4 04/26/25 20:04 Nasal Cannula 4 04/26/25 20:00 Room Air 04/26/25 19:42 Nasal Cannula 4 04/26/25 19:42 Nasal Cannula 4 04/26/25 19:42 Nasal Cannula 4 Laboratory Results Laboratory Results WBC 9.27 K/ul (4.8-10.8) 04/26/25 19:53 RBC 4.15 M/uL (4.20-5.40) L 04/26/25 19:53 Hgb 8.8 g/dl (12.0-16.0) L 04/26/25 19:53 POC Hgb 9.9 g/dl (12.0-16.0) L 04/26/25 19:58 Hct 30.8 % (37.0-47.0) L 04/26/25 19:53 POC Hct 29 % (37-47) L 04/26/25 19:58 MCV 74.2 fL (80.0-100.0) L 04/26/25 19:53 MCH 21.2 pg (25.0-34.0) L 04/26/25 19:53 MCHC 28.6 g/dL (32.0-36.0) L 04/26/25 19:53 RDW Std Deviation 48.7 fL (36.4-46.3) H 04/26/25 19:53 RDW Coeff of Luis 18.4 % (11.5-14.5) H 04/26/25 19:53 Plt Count 450 K/uL (130-400) H 04/26/25 19:53 MPV 10.0 fL (9.4-12.4) 04/26/25 19:53 Immature Gran % (Auto) 0.3 % 04/26/25 19:53 Neut % (Auto) 78.7 % 04/26/25 19:53 Lymph % (Auto) 12.5 % 04/26/25 19:53 Glenn % (Auto) 5.9 % 04/26/25 19:53 Eos % (Auto) 2.0 % 04/26/25 19:53 Baso % (Auto) 0.6 % 04/26/25 19:53 Neut # (Auto) 7.28 K/uL (1.40-6.50) H 04/26/25 19:53 Lymph # (Auto) 1.16 K/uL (1.20-3.40) L 04/26/25 19:53 Glenn # (Auto) 0.55 K/uL (0.11-0.59) 04/26/25 19:53 Eos # (Auto) 0.19 K/uL (0.00-0.50) 04/26/25 19:53 Baso # (Auto) 0.06 K/uL (0.00-0.20) 04/26/25 19:53 Immature Gran # (Auto) 0.03 K/uL (0.01-0.20) 04/26/25 19:53 PT 10.5 Seconds (9.0-12.0) 04/26/25 19:53 INR 1.0 (0.9-1.1) 04/26/25 19:53 APTT 28 Seconds (21-31) 04/26/25 19:53 PTT Ratio 1.0 04/26/25 19:53 VBG pH 7.35 (7.36-7.41) L 04/26/25 19:53 VBG pCO2 69 mmHg (38-50) H 04/26/25 19:53 VBG pO2 < 20 mmHg 04/26/25 19:53 VBG HCO3 38 mmol/L 04/26/25 19:53 VBG O2 Saturation < 60.0 % 04/26/25 19:53 VBG Base Excess 9.7 mEq/L 04/26/25 19:53 POC Sodium 142 mmol/L (135-144) 04/26/25 19:58 Sodium 144 mmol/L (136-145) 04/26/25 19:53 POC Potassium 3.1 mmol/L (3.3-5.0) L 04/26/25 19:58 Potassium 2.8 mmol/L (3.5-5.1) L 04/26/25 19:53 POC Chloride 99 mmol/L (101-112) L 04/26/25 19:58 Chloride 101 mmol/L (98-107) 04/26/25 19:53 Carbon Dioxide 37 mmol/L (21-32) H 04/26/25 19:53 POC Total CO2 34 mmol/L (24-31) H 04/26/25 19:58 Anion Gap 6 (3-11) 04/26/25 19:53 POC Anion Gap 14.0 mmol/L (16-25) L 04/26/25 19:58 POC BUN 14 mg/dl (7-18) 04/26/25 19:58 BUN 15 mg/dl (6-23) 04/26/25 19:53 Creatinine 0.38 mg/dl (0.6-1.2) L 04/26/25 19:53 POC Creatinine 0.6 mg/dl (0.6-1.3) 04/26/25 19:58 Est Cr Clr Drug Dosing 53.4 ml/min 04/26/25 19:53 eGFR 108.40 04/26/25 19:53 BUN/Creatinine Ratio 39.5 (10-20) H 04/26/25 19:53 Glucose 103 mg/dl (70-99(Fasting)) H 04/26/25 19:53 POC Glucose (other) 116 mg/dl (70-99) H 04/26/25 19:58 Calcium 8.7 mg/dl (8.6-10.3) 04/26/25 19:53 POC Ioniz Calcium Timothy 1.15 mmol/l (1.12-1.32) 04/26/25 19:58 Magnesium 2.0 mg/dl (1.7-2.4) 04/26/25 19:53 Total Bilirubin 0.3 mg/dl (0.2-1.0) 04/26/25 19:53 AST 13 U/L (13-39) 04/26/25 19:53 ALT 8 U/L (7-52) 04/26/25 19:53 Alkaline Phosphatase 121 U/L (34-104) H 04/26/25 19:53 Troponin I High Sens 5.5 pg/ml (0-14) 04/26/25 19:53 Total Protein 6.7 gm/dl (6.0-8.3) 04/26/25 19:53 Albumin 3.3 gm/dl (3.4-5.0) L 04/26/25 19:53 Globulin 3.4 gm/dl (2.5-4.0) 04/26/25 19:53 Albumin/Globulin Ratio 1.0 (0.9-2) 04/26/25 19:53 Lipase 31 U/L (11-82) 04/26/25 19:53 Adenovirus (PCR) Not Detected (NotDetected) 04/26/25 19:53 B. pertussis DNA (PCR) Not Detected (NotDetected) 04/26/25 19:53 B.parapertussis DNA PCR Not Detected (NotDetected) 04/26/25 19:53 C. pneumoniae DNA (PCR) Not Detected (NotDetected) 04/26/25 19:53 Coronavirus OC43 (PCR) Not Detected (NotDetected) 04/26/25 19:53 Coronavirus HKU1 (PCR) Not Detected (NotDetected) 04/26/25 19:53 Coronavirus 229E (PCR) Not Detected (NotDetected) 04/26/25 19:53 SARS-CoV-2 (PCR) Not Detected (NotDetected) 04/26/25 19:53 Coronavirus NL63 (PCR) Not Detected (NotDetected) 04/26/25 19:53 Human Metapneumovir PCR Not Detected (NotDetected) 04/26/25 19:53 Influenza Type A (PCR) Not Detected (NotDetected) 04/26/25 19:53 Influenza Type B (PCR) Not Detected (NotDetected) 04/26/25 19:53 M. pneumoniae (PCR) Not Detected (NotDetected) 04/26/25 19:53 Parainfluenza 1 (PCR) Not Detected (NotDetected) 04/26/25 19:53 Parainfluenza 2 (PCR) Not Detected (NotDetected) 04/26/25 19:53 Parainfluenza 3 (PCR) Not Detected (NotDetected) 04/26/25 19:53 Parainfluenza 4 (PCR) Not Detected (NotDetected) 04/26/25 19:53 RSV (PCR) Not Detected (NotDetected) 04/26/25 19:53 Entero/Rhino (PCR) Not Detected (NotDetected) 04/26/25 19:53 Impressions Chest CTA 04/26/25 19:47 Exam(s): CTA CHEST IV Amt: 115 ml optiray 320 EXAM: CT Angiography Chest With Intravenous Contrast CLINICAL HISTORY: Reason for exam: Chest Pain, eval for PE. TECHNIQUE: Axial computed tomographic angiography images of the chest with intravenous contrast. CTDI is 6.03 mGy and DLP is 239.98 mGy-cm. Automated exposure control was utilized for the study. A dose lowering technique was utilized adhering to the principles of ALARA. MIP reconstructed images were created and reviewed. COMPARISON: 03/02/2024 FINDINGS: Pulmonary arteries: Dilatation of the main pulmonary artery suggesting pulmonary arterial hypertension. No pulmonary embolism. Aorta: No acute findings. No thoracic aortic aneurysm. Lungs: Severe diffuse changes COPD. 1.2 cm left upper lobe pulmonary nodule decreased in size since prior exam. No consolidation. Pleural space: Subtle right pleural thickening. No significant effusion. No pneumothorax. Heart: Unremarkable. No cardiomegaly. No significant pericardial effusion. No evidence of RV dysfunction. Bones/joints: No acute fracture. No dislocation. Soft tissues: Unremarkable. Lymph nodes: Unremarkable. No enlarged lymph nodes. IMPRESSION: No acute findings in the visualized arteries of the chest. Severe diffuse changes COPD 1.2 cm left upper lobe pulmonary nodule decreased in size when compared to prior exam. Pulmonary arterial hypertension Electronically signed by: Paulie Muro MD 04/26/25 23:45 PM Chest X-Ray 04/26/25 19:47 Exam(s): XR CXR 1 VIEW EXAM: XR Chest, 1 View CLINICAL HISTORY: Reason for exam: Chest pain, nonspecific. TECHNIQUE: Frontal view of the chest. COMPARISON: No relevant prior studies available. FINDINGS: Lungs: Severe diffuse changes COPD. No consolidation. Pleural space: Unremarkable. No pneumothorax. Heart: Unremarkable. No cardiomegaly. Mediastinum: Unremarkable. Normal mediastinal contour. Bones/joints: Unremarkable. No acute fracture. IMPRESSION: No acute findings in the chest. Diffuse changes Electronically signed by: Paulie Muro MD 04/26/25 20:47 PM Abdomen/Pelvis CT 04/26/25 19:48 Exam(s): CT ABDOMEN + PELVIS With Contrast IV Amt: 115 ml optiray 320 EXAM: CT Abdomen and Pelvis With Intravenous Contrast CLINICAL HISTORY: Reason for exam: abd pain. TECHNIQUE: Axial computed tomography images of the abdomen and pelvis with intravenous contrast. CTDI is 6.08 mGy and DLP is 235.66 mGy-cm. Automated exposure control was utilized for the study. A dose lowering technique was utilized adhering to the principles of ALARA. CONTRAST: Patient received 115 ml optiray 320 of IV contrast COMPARISON: 12/03/2022 FINDINGS: Lung bases: Unremarkable. No mass. No consolidation. ABDOMEN: Liver: 0.5 cm right hepatic lobe hypodensity also likely representing a cyst. Gallbladder and bile ducts: Simple intrahepatic biliary ductal dilatation with common bile duct distention measuring 1.1 cm. 1 cm left renal cysts. No follow-up of these simple cysts is necessary. No calcified stones. Pancreas: Unremarkable. No mass. No ductal dilation. Spleen: Small splenic cysts. Adrenals: Unremarkable. No mass. Kidneys and ureters: See above. Stomach and bowel: Large amount of stool within the rectum. No mucosal thickening. PELVIS: Appendix: No findings to suggest acute appendicitis. Bladder: Unremarkable. No mass. Reproductive: Unremarkable as visualized. ABDOMEN and PELVIS: Intraperitoneal space: Unremarkable. No free air. No significant fluid collection. Bones/joints: No acute fracture. No dislocation. Soft tissues: Unremarkable. Vasculature: Unremarkable. No abdominal aortic aneurysm. Lymph nodes: Unremarkable. No enlarged lymph nodes. IMPRESSION: Large amount of stool within the rectum concerning for fecal impaction. Intra and extrahepatic biliary ductal dilatation of the etiology of which is not clearly seen on this exam. MRCP may be obtained for further evaluation if clinically warranted Electronically signed by: Paulie Muro MD 04/26/25 22:18 PM Cholangiopancreatography MRI 04/26/25 22:35 Exam(s): MRI MRCP EXAM: MR Abdomen Without Intravenous Contrast, MRCP Protocol CLINICAL HISTORY: ductal dilation. TECHNIQUE: Multiplanar magnetic resonance images of the abdomen without intravenous contrast using MRCP protocol. COMPARISON: CT abdomen and pelvis with contrast performed at 2021 hours FINDINGS: Bile ducts: The common bile duct is ectatic, measuring 8.5 mm near the shena hepatis. Central intrahepatic biliary ectasia suggested. No choledocholithiasis. Gallbladder: The gallbladder is only mildly distended. No cholelithiasis. Liver: Unremarkable. Pancreas: Unremarkable. No ductal dilation. Spleen: Unremarkable. No splenomegaly. Adrenals: Unremarkable. No mass. Kidneys and ureters: The anterolateral cortex of the left kidney is somewhat atrophic, similar to the previous examination. No hydronephrosis. Simple appearing cyst in the superior pole of the left kidney measuring 8 mm. Stomach and bowel: Unremarkable. No obstruction. Vasculature: Atherosclerosis of the aorta without dissection or aneurysm. IMPRESSION: The common bile duct is ectatic, measuring 8.5 mm near the shena hepatis. Central intrahepatic biliary ectasia suggested. No choledocholithiasis. Electronically signed by: Griffin Buchanan MD 04/27/25 01:17 AM Code Status & VTE Plan VTE Prophylaxis Plan VTE Prophylaxis will be ordered: Yes PG Care Time/CCT Total # of Minutes Spent Total Time Spent with Patient: Total time spent is greater than 50% in coordination of care (as documented) at patient's floor/unit and/or counseling patient: Coding Level of Care Code 71876 INT INP/OBS CARE 375MIN Diagnoses Constipation K59.00 Failure to thrive in adult R62.7 Chronic obstructive pulmonary disease, unspecified COPD type J44.9 COPD type: unspecified COPD Hypokalemia E87.6 Hypertension I10 Hyperlipidemia E78.5 Acquired hypothyroidism E03.9 Hypothyroidism type: acquired (3) COPD (chronic obstructive pulmonary disease) COPD type: unspecified COPD Qualified Code(s): J44.9 - Chronic obstructive pulmonary disease, unspecified (7) Hypothyroidism Hypothyroidism type: acquired Qualified Code(s): E03.9 - Hypothyroidism, unspecified
[2025-04-27] MEDS: HYDROmorphone INJ 0.5 MG/0.5 ML SYR IV STA (02:21)
[2025-04-27] MEDS: ALBUT/IPRATROP 3MG/0.5MG NEB 3 ML VIAL NEB STA (02:22)
[2025-04-27] MEDS ORDERED: ALBUTEROL 0.083% NEBU SOLN 3 ML VIAL INH PRN (04:02)
[2025-04-27] MEDS ORDERED: MINERAL OIL ENEMA 133 ML BTL PR PRN (04:02)
[2025-04-27 04:52] LABS: Iron 15.0 mcg/dl (35-150); Total Iron Binding Cap Calc 356.0 mcg/dl (250-450); Transferrin 254.0 mg/dl (200-360); Transferrin (FE) Percent Satur 4.0 % (15-50)
[2025-04-27] MEDS: POTASSIUM CHLORIDE CRTAB 20 MEQ TABCR PO SCH (04:53)
[2025-04-27] MEDS: LACTATED RINGER'S 1,000 ML IV SCH (04:53)
[2025-04-27 05:06] LABS: Thyroid Stimulating Hormone 0.782 uIu/ml (0.300-4.500)
[2025-04-27] MEDS: ASPIRIN 81 MG ECTAB PO SCH (08:53)
[2025-04-27] MEDS: FOLIC ACID 1 MG TAB PO SCH (08:54)
[2025-04-27] MEDS: THIAMINE HCL 100 MG TAB PO SCH (08:54)
[2025-04-27] MEDS: FLUTICASONE/VILANTEROL 100/25MCG 14 PUFFS/INHALER INH SCH (08:54)
[2025-04-27] MEDS: busPIRone 15 MG TAB PO SCH (08:54)
[2025-04-27] MEDS: POLYETHYLENE (MIRALAX) 17 GM PACK PO SCH (08:54)
[2025-04-27] MEDS: guaiFENesin 600 MG TABCR PO SCH (08:54)
[2025-04-27] MEDS: DOCUSATE SODIUM 100 MG CAP PO SCH (08:54)
[2025-04-27] MEDS: UMECLIDINIUM BROMIDE 62.5MCG/BLISTER 7 PUFFS/INHALER INH SCH (08:55)
[2025-04-27] MEDS: ACETAMINOPHEN 325 MG TAB PO PRN (08:55)
[2025-04-27] MEDS: ALBUT/IPRATROP 3MG/0.5MG NEB 3 ML VIAL NEB PRN (09:23)
[2025-04-27 11:46] LABS: Base Excess VBG 8.6 mEq/L; HCO3 VBG 36 mmol/L; Oxygen Saturation VBG < 60.0 %; PCO2 VBG 59 mmHg (38-50); PO2 VBG 29 mmHg; pH VBG 7.39 (7.36-7.41)
[2025-04-27 11:53] LABS: Hematocrit (blood only) 26.4 % (37.0-47.0); Hemoglobin 7.5 g/dl (12.0-16.0); Immature Granulocytes # (auto) 0.03 K/uL (0.01-0.20); Immature Granulocytes % (auto) 0.4 %; Mean Corpuscular Hemoglobin 21.2 pg (25.0-34.0); Mean Corpuscular Volume 74.8 fL (80.0-100.0); Platelet Count 330 K/uL (130-400); RDW Standard Deviation 48.5 fL (36.4-46.3); Red Blood Count 3.53 M/uL (4.20-5.40); White Blood Count 7.89 K/ul (4.8-10.8)
[2025-04-27 12:01] LABS: Alanine Aminotransferase 10.0 U/L (7-52); Albumin Globulin Ratio 1.1 (0.9-2); Alkaline Phosphatase 88.0 U/L (34-104); Anion Gap 2.0 (3-11); Bilirubin,Total 0.2 mg/dl (0.2-1.0); Blood Urea Nitrogen 10.0 mg/dl (6-23); Calcium 8.0 mg/dl (8.6-10.3); Carbon Dioxide 36.0 mmol/L (21-32); Chloride 106.0 mmol/L (98-107); Creatinine Clr Calc Pharmacy 69.8 ml/min; Globulin 2.7 gm/dl (2.5-4.0); Glucose 99.0 mg/dl (70-99(Fasting)); Magnesium 1.8 mg/dl (1.7-2.4); Potassium 3.8 mmol/L (3.5-5.1); Sodium 144.0 mmol/L (136-145); Total Protein 5.7 gm/dl (6.0-8.3)
[2025-04-27 12:19] LABS: Ferritin 5.4 ng/ml (8-388)
[2025-04-27 12:42] LABS: Hypochromasia Present; Microcytosis Present; Polychromasia 1+; Target Cells 1+
[2025-04-27] MEDS ORDERED: ACETAMINOPHEN 1,000 MG/100 ML VIAL IV PRN (13:11)
[2025-04-27] MEDS: IRON SUCROSE 300 MG in SODIUM CHLORIDE 0.9% 250 ML IV ONE (13:36)
--- NOTE | 2025-04-27 14:56 | Gastrointestinal Consultation ---
Date of Consultation April 27, 2025 Assessment & Plan (1) Constipation: (2) Dysphagia: Plan Patient with complaints of constipation, heartburn, and dysphagia. Consult reasoning also mentions ? esophageal mass or stricture, but I see no imaging to support this. - Bowels are moving better with bowel regimen and would continue with this. - continue protonix 40mg daily for heartburn. - we had discussed an EGD to further evaluate her dysphagia but she does not want any testing done at this time. Can consider barium swallow to evaluate if patient is agreeable. - Further recommendations to come with Supervising GI provider on medical rounds. Please see co-signature comments. Supervising Physician Co-Signing Physician Notes The patient was seen and examined at bedside. Hospital labs, data, records imaging reviewed at length the case was discussed and reviewed with the GI advanced practitioner and I agree with his assessment and plan as outlined above. The patient has solid dysphagia highly suggestive of esophageal stricture differential diagnosis including Schatzki ring/peptic stricture, malignancy particularly in the setting of significant weight loss. The patient indicates her weight loss is related to food avoidance due to significant constipation. Certainly aggressive bowel regimen with MiraLAX adjusted to benefit may be helpful. We did discuss the possibility of upper endoscopy. The patient wishes to follow conservative approach with barium esophagram first to determine whether there may be a stricture that would be amenable to dilation. This is a reasonable approach. I recommend empiric coverage with proton pump inhibitor. Nutrition consultation and support with supplements is advised. History of Present Illness Reason for Consultation: Dysphagia, wt loss, ? esophageal mass vs stricture Requesting Physician: Wesley Macdonald MD Attending Physician: Wesley Macdonald MD History of Present Illness Patient is a 69 year old female with history of hypertension, hyperlipidemia, hypothyroidism, bipolar disorder, COPD, unintentional weight loss/cachexia presented to the ED today with complaints of lower abdominal pain, rectal pain and shortness of breath. She reports that she has had constipation for the past year. Her baseline is that she will move her bowels once a week. she has tried otc laxatives, though is not sure what all she has tried, without benefit. she denies any brbpr or melena to me. Since she has been admitted, she was started on a bowel regimen and tells me that she has moved her bowels and passed "a good amount" of stool since being here. Abdominal and rectal pain has improved with this. She admits to some weight loss. she tells me that she has gone from 79 lbs to 52 lbs in the past year. she notes heartburn. she also notes that while it feels like foods do not stick, that they have a hard time going down when she swallows. The remainder of the GI ros are unremarkable. 04/27/25 wbc 7.89, hgb 7.5, hct 26.4, plts 330, INR 1, Na 144, K 3.8, BUN 10, Cr 0.31. LFTs wnl. 04/26/25 CT - Large amount of stool within the rectum concerning for fecal impaction. Intra and extrahepatic biliary ductal dilatation of the etiology of which is not clearly seen on this exam. MRCP may be obtained for further evaluation if clinically warranted. 04/26/25 MRCP - The common bile duct is ectatic, measuring 8.5 mm near the shena hepatis. Central intrahepatic biliary ectasia suggested. No choledocholithiasis. Colonoscopy 11/12/21 diverticulosis, internal hemorrhoids. EGD 11/12/21 esophagus was normal, gastritis, duodneum was normal. pathology: Stomach, antrum, biopsy: - Gastric mucosa with mild chronic inflammation and reactive changes - Negative for intestinal metaplasia, dysplasia and malignancy - Negative for Helicobacter pylori organisms Allergies Allergy/AdvReac Type Severity Reaction Status Date / Time codeine Allergy Intermediate ITCHING Verified 04/26/25 21:39 cortisone Allergy Intermediate ITCHING Verified 04/26/25 21:39 Penicillins Allergy Intermediate HIVES, Verified 04/26/25 21:39 ITCHINESS ciprofloxacin [From Cipro] AdvReac Intermediate Vomiting Verified 04/26/25 21:39 Home Medications Medication Instructions Recorded Confirmed Type Oxygen Home #1 ea 03/07/19 03/31/24 History nebulizers #1 ea 10/26/22 03/31/24 Rx cyanocobalamin (vitamin B-12) 1,000 mcg IM MONTHLY #10 mL 01/05/23 04/26/25 Rx 1,000 mcg/mL injection solution albuterol sulfate 90 mcg/actuation 2 puff inhalation DAILY PRN 09/24/23 04/26/25 Rx aerosol inhaler (Ventolin HFA) Shortness Of Breath #8.5 grams albuterol sulfate 2.5 mg/3 mL 0 mg inhalation Q6H PRN shortness 03/03/24 04/26/25 History (0.083 %) solution for nebulization of breath or wheezing aspirin 81 mg tablet,delayed 81 mg PO QAM #30 tabs 03/08/24 04/26/25 Rx release melatonin 3 mg tablet 3 mg PO HS #30 tabs 03/08/24 04/26/25 Rx polyethylene glycol 3350 17 gram 17 g PO BID PRN constipation #60 ea 03/08/24 04/26/25 Rx oral powder packet (Miralax) docusate sodium 100 mg capsule 100 mg PO BID #180 caps 03/31/24 04/26/25 Rx guaifenesin 600 mg tablet, 600 mg PO Q12 Congestion #180 tabs 03/31/24 04/26/25 Rx extended release 12 hr (Mucinex) iron sucrose 200 mg iron/10 mL 200 mg (10 mL) IV .COMPLEX 12 04/03/24 04/26/25 Rx intravenous solution (Venofer) months buspirone 15 mg tablet 15 mg PO BID #180 tabs 07/14/24 04/26/25 Rx diltiazem HCl 180 mg 180 mg PO QAM #90 caps 07/14/24 04/26/25 Rx capsule,extended release 24 hr folic acid 1 mg tablet 1 mg PO DAILY #90 tabs 07/14/24 04/26/25 Rx sertraline 100 mg tablet 100 mg PO HS #90 tabs 07/14/24 04/26/25 Rx quetiapine 50 mg tablet 50 mg PO HS #90 tabs 08/01/24 04/26/25 Rx syringe with needle, safety 3 mL #2 ea 09/12/24 Rx 23 gauge x 1" (Monoject Safety Syringes) atorvastatin 20 mg tablet (Lipitor) 20 mg PO HS #90 tabs 11/21/24 04/26/25 Rx fluticasone furoate 100 1 inh inhalation QAM #60 ea 11/23/24 04/26/25 Rx mcg-vilanterol 25 mcg/dose inhalation powder (Breo Ellipta) levothyroxine 50 mcg tablet 50 mcg PO HS #90 tabs 01/22/25 04/26/25 Rx hydroxyzine pamoate 25 mg capsule 25 mg PO TID PRN Anxiety #90 caps 02/26/25 04/26/25 Rx pantoprazole 40 mg tablet,delayed 40 mg PO DAILY #90 tabs 02/26/25 04/26/25 Rx release hyoscyamine sulfate 0.125 mg tablet 0.25 mg (2 x 0.125 mg) PO BID #120 03/07/25 04/26/25 Rx tabs umeclidinium 62.5 mcg/actuation 1 inh inhalation QAM #30 ea 03/19/25 04/26/25 Rx blister powder for inhalation (Incruse Ellipta) mirtazapine 30 mg tablet 30 mg PO HS 04/26/25 04/26/25 History Patient History Medical History History of COVID-19 diagnosed 08/28/2021 @ [facility]--had to be on oxygen and in the hospital for 6 days--symptoms have resolved History of recent blood transfusion 10/2021 @ [facility] Osteoarthritis Chronic back pain History of kidney stones On home oxygen therapy 3L N/C HS Surgical History History of esophagogastroduodenoscopy (EGD) History of cataract surgery bilt S/P epidural steroid injection History of colonoscopy History of total hysterectomy with bilateral salpingo-oophorectomy (BSO) History of repair of right rotator cuff History of lithotripsy x2 History of tooth extraction all teeth S/P cystoscopy with ureteral stent placement x5 Family History Brother Alcohol abuse Kidney disease Mother Anxiety Kidney disease Sister Kidney disease Aunt Breast cancer Father Prostate cancer Family history of diabetes mellitus Other Cancer Diabetes Emphysema of lung Hypertension Lung disease No family history of adverse response to anesthesia Denies family history of Ovarian cancer Myocardial infarction Colorectal cancer Social History Smoking Status: Former smoker Tobacco Type: Cigarettes Age Started Using Tobacco: 17; Cigarettes Per Day: 1/2 PPD; Second Hand Exposure: Yes; Do You Dip or Chew Tobacco: No; Hx Alcohol Use: No Hx Substance Use: No Preferred Language: Mozambican Communication Ability: Effective Visual Impairment: No Limitations 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 caffeine: Yes Dental Care, Regularly: No Physical Activity Frequency: Daily Seatbelt Use: always Sunscreen Use: No Assistive Devices: Oxygen - Continuous, Walker and Wheelchair Review of Systems Review of Systems: All systems reviewed & are unremarkable except as noted in HPI & below Physical Exam Constitutional: WD/WN, vitals as above Respiratory: normal respiratory effort, lungs clear to auscultation Cardiovascular: Rate/Rhythm: regular rate and regular rhythm Gastrointestinal (Abdomen): normal bowel sounds, soft, nontender, no hepatosp lenomegaly Psychiatric: Orientation: alert and oriented x 3 Affect: euthymic affect Results & Data Vital Signs (Past 12 Hours) Vital Signs Temp Pulse Pulse Pulse Resp BP Pulse Ox 04/27/25 13:38 85 04/27/25 11:30 98.8 F 86 20 163/81 H 97 04/27/25 09:55 04/27/25 09:26 80 20 100 04/27/25 07:51 98.8 F 87 20 173/78 H 100 04/27/25 05:57 79 04/27/25 05:20 71 04/27/25 03:50 04/27/25 03:50 98.1 F 79 16 162/75 H 100 04/27/25 03:00 88 18 184/119 H 100 O2 Del Method O2 Flow Rate 04/27/25 13:38 04/27/25 11:30 Nasal Cannula 4 04/27/25 09:55 Nasal Cannula 5 04/27/25 09:26 Nasal Cannula 5 04/27/25 07:51 Nasal Cannula 4 04/27/25 05:57 04/27/25 05:20 04/27/25 03:50 Nasal Cannula 4 04/27/25 03:50 Nasal Cannula 4 04/27/25 03:00 Nasal Cannula 4 Coding Level of Care Code 06511 INT INP/OBS CARE 2/55MIN Diagnoses Constipation K59.00 Dysphagia R13.10
--- NOTE | 2025-04-27 15:15 | Electrocardiogram Report ---
Test Reason : Blood Pressure : */* mmHG Vent. Rate : 101 BPM Atrial Rate : 101 BPM P-R Int : 134 ms QRS Dur : 78 ms QT Int : 368 ms P-R-T Axes : 84 84 85 degrees QTcB Int : 477 ms Sinus tachycardia Premature atrial complexes Right atrial enlargement Borderline ECG When compared with ECG of 02-Mar-2024 08:37, No significant change Confirmed by Tucker Ledbetter ([id number]) on 04/27/2025 3:15:18 PM Referred By: REFERRED SELF Confirmed By: Tucker Ledbetter
--- NOTE | 2025-04-27 17:46 | Communication Note ---
Date of Service: April 27, 2025 Patient was seen and examined but admitted the same day therefore I will not be billing for this encounter. Just after I saw her and she refused manual disimpaction; she had a bowel movement and felt significant relief of her pain suggesting this was due to fecal impaction. Recommend continuing on Miralax to avoid further build up. Acetaminophen IV ordered for her pain as not having significant relief with PO and I am not sure she has great absorption. She notes dysphagia to solid foods to speech therapy and reiterated this to me. She has also had significant weight loss over the last year concerning for possible malignancy - will consult gastroenterology to discuss possible EGD evaluation. Ferritin 5.4, transferrin sats 4% - previously she was under hematology with iron transfusions but not recently been getting this, will start here with Venofer 300mg IV today. Hemoglobin drop overnight appears dilutional - I have a low suspicion of acute GI bleed, this is more of a chronic iron def. anemia. Dietary consult for severe protein-calorie malnutrition. She also has ongoing hypercapnia, this is not helped by her high home O2. She should be aiming around 90% SpO2 which should help with her chronic hypercapnia.
[2025-04-27] MEDS: NSS + 20MEQ KCL 20 MEQ/1,000 ML BAG IV SCH (18:48)
[2025-04-27] MEDS: MELATONIN 3 MG TAB PO SCH (21:26)
[2025-04-27] MEDS: LEVOTHYROXINE SODIUM 50 MCG TABLET PO SCH (21:27)
[2025-04-27] MEDS: MIRTAZAPINE TAB 15 MG TAB PO SCH (21:28)
[2025-04-27] MEDS: ATORVASTATIN 20 MG TAB PO SCH (21:28)
[2025-04-27] MEDS: SERTRALINE HCL 100 MG TABLET PO SCH (21:28)
[2025-04-28 06:11] LABS: Hematocrit (blood only) 27.2 % (37.0-47.0); Hemoglobin 7.8 g/dl (12.0-16.0); Mean Corpuscular Hemoglobin 21.3 pg (25.0-34.0); Mean Corpuscular Volume 74.1 fL (80.0-100.0); Platelet Count 346 K/uL (130-400); RDW Standard Deviation 47.9 fL (36.4-46.3); Red Blood Count 3.67 M/uL (4.20-5.40); White Blood Count 13.78 K/ul (4.8-10.8)
[2025-04-28 06:30] LABS: Alanine Aminotransferase 8.0 U/L (7-52); Alkaline Phosphatase 95.0 U/L (34-104); Anion Gap 3.0 (3-11); Bilirubin,Total 0.3 mg/dl (0.2-1.0); Blood Urea Nitrogen 11.0 mg/dl (6-23); Calcium 8.4 mg/dl (8.6-10.3); Carbon Dioxide 30.0 mmol/L (21-32); Chloride 109.0 mmol/L (98-107); Creatinine Clr Calc Pharmacy 63.6 ml/min; Glucose 83.0 mg/dl (70-99(Fasting)); Magnesium 1.9 mg/dl (1.7-2.4); Potassium 4.0 mmol/L (3.5-5.1); Sodium 142.0 mmol/L (136-145); Total Protein 5.7 gm/dl (6.0-8.3)
--- NOTE | 2025-04-28 08:31 | Hospitalist Progress Note ---
Date of Service April 28, 2025 Assessment & Plan (1) Constipation: (2) Failure to thrive in adult: (3) COPD (chronic obstructive pulmonary disease): (4) Hypokalemia: (5) Hypertension: (6) Hyperlipidemia: (7) Hypothyroidism: Plan 69yo female with HTN, HLP, Hypothyroidism, COPD on home O2 presenting with abdominal pain, rectal pain and constipation. #Constipation / fecal impaction - patient reports not having normal bowel movement for over one year. Hold hyoscyamine - Continue MiraLAX and docusate, add Senna - XR KUB - distended stomach, will trial metoclopramide and repeat XR KUB tomorrow - declining manual disimpaction - will decrease diltiazem and plan to switch to ACEi #Failure to thrive in adultpatient reports significant unintentional weight loss. She reports this ongoing for the last year however, upon review of records, patient has been steadily losing weight over the last several years. Weight today in the ER presently 24.2 kg. BMI = 9.8. Patient reports that she eats at home. Possibly secondary to wasting from end-stage COPD, concern for malignancy, concern for inability to care for self at home continue thiamine 100 mg p.o. daily Continue folic acid 1 mg p.o. daily Continue mirtazapine 30 mg p.o. nightly. Will hopefully have some appetite stimulating effects. Will reduce sertraline now on mirtazepine. Boost 3 times daily with nutrition consultation appreciated - Unable to get standing weight as patient not been out of bed for years PT/OT evaluation this appreciated. Patient bed bound. #Iron deficiency anemia Longstanding, previously on iron transfusions Ganzoni formula = 698mg total iron deficit, Venofer 300mg given yesterday, will give additional 200mg today and again tomorrow #Dysphagia Appreciate GI consult, patient declining EGD Barium swallow on Wednesday #Chronic back pain Continue acetaminophen 1st line, Toradol 2nd line, not opiate #COPDpatient reports some shortness of breath Continue supplemental oxygen DuoNeb every 6 hours as needed Albuterol every 6 hours as needed Continue Breo Ellipta Continue guaifenesin 600 mg p.o. twice daily Continue Incruse Ellipta #Bipolar disorder/anxiety Reduce sertraline 50 mg p.o. nightly as started mirtazapine Continue Seroquel 50 mg p.o. nightly Continue buspirone 15 mg p.o. twice daily #Hypertensionblood pressure elevated at present. Patient does report being in pain. Reduce diltiazem CD to 120mg PO, will plan on switching to ACEi depending on rebound tachycardia to avoid diuretic and BB (due to COPD) #Hyperlipidemiachronic, stable Continue atorvastatin 20 mg p.o. nightly #GERD Continue Protonix 40 mg p.o. daily #Hypothyroidism Check TSH Continue Synthroid VTE Prophylaxis - Lovenox 30mg SQ daily Disposition - stable to transfer to med/surg Admission and Anticipated Discharge Date Admission Date: April 27, 2025 Subjective Increasing pain this morning and nurses report having rabbit solid small bowel movements still. After lunch had much larger bowel movement. Physical Exam Constitutional: + cachectic and + frail appearing; no ac pamela distress ENMT: external ear and nose normal, oropharynx normal Respiratory: normal respiratory effort, lungs clear to auscultation Gastrointestinal (Abdomen): Percussion/Palpation: abdomen soft; abdomen nontender Results & Data Results & Data Vital Signs (Past 12 Hours) Vital Signs Temp Pulse Pulse Resp BP Pulse Ox O2 Del Method 04/28/25 08:11 36.8 C 105 H 20 153/84 H 93 Nasal Cannula 04/28/25 07:17 94 H 04/28/25 02:08 36.9 C 105 H 16 135/76 99 Nasal Cannula 04/27/25 22:18 36.8 C 98 H 18 164/81 H 96 Nasal Cannula 04/27/25 22:12 82 18 96 Nasal Cannula 04/27/25 22:07 88 04/27/25 21:24 90 163/91 H O2 Flow Rate 04/28/25 08:11 1 04/28/25 07:17 04/28/25 02:08 1 04/27/25 22:18 1 04/27/25 22:12 1 04/27/25 22:07 04/27/25 21:24 PG Care Time/CCT Total # of Minutes Spent Total Time Spent with Patient: Total time spent is greater than 50% in coordination of care (as documented) at patient's floor/unit and/or counseling patient: Coding Level of Care Code 49391 SUB INP/OBS CARE 2/35MIN Diagnoses Constipation K59.00 Failure to thrive in adult R62.7 Chronic obstructive pulmonary disease, unspecified COPD type J44.9 COPD type: unspecified COPD Hypokalemia E87.6 Hypertension I10 Hyperlipidemia E78.5 Acquired hypothyroidism E03.9 Hypothyroidism type: acquired (3) COPD (chronic obstructive pulmonary disease) COPD type: unspecified COPD Qualified Code(s): J44.9 - Chronic obstructive pulmonary disease, unspecified (7) Hypothyroidism Hypothyroidism type: acquired Qualified Code(s): E03.9 - Hypothyroidism, unspecified
[2025-04-28] MEDS: HYDROmorphone INJ 0.5 MG/0.5 ML SYR IV PRN (09:17)
[2025-04-28] MEDS: IRON SUCROSE 200 MG in SODIUM CHLORIDE 0.9% 100 ML IV ONE (09:18)
--- NOTE | 2025-04-28 10:54 | Gastroenterology Progress Note ---
Date of Service April 28, 2025 Assessment & Plan (1) Constipation: (2) Failure to thrive in adult: (3) Anorexia: (4) Dysphagia: (5) Unintentional weight loss: Plan The patient is a 69-year-old with severe malnutrition, failure to thrive in the setting of end-stage COPD. This is likely increased work of breathing, overall debilitation. She notes dysphagia which is suggestive of solid food dysphagia related to possible esophageal stricture. --Continue to monitor patient oral intake --Recommend barium esophagram as patient amenable to evaluate for any structural abnormality of the esophagus which may be amenable to dilation. The patient indicates that she would be amenable to EGD with dilation if there is a reversible cause of her swallowing issues. --Maintain patient on proton pump inhibitor daily --Would continue aggressive bowel regimen. Colace does not offer significant advantage of her MiraLAX and therefore would increase the patient's overall MiraLAX dose. --Consider a peripheral acting mu opioid receptor antagonist (Movantik or Relistor) if not improving and requiring narcotic analgesics. Senokot may also be useful in combating paralysis of segmental contraction related to narcotics. -- Agree with mirtazapine for increased appetite and holding the Levsin. Alternative antispasmodic without anticholinergic effects includes andra or IBgard Admission and Anticipated Discharge Date Admission Date: April 27, 2025 Subjective The patient was evaluated bedside. She indicates that she is eating better today. She notes several bowel movements without any reports of overt bleeding. Review of Systems Review of Systems: All systems reviewed & are unremarkable except as noted in HPI & below Physical Exam Constitutional: WD/WN, vitals as above + thin, + frail appearing and + malnourished Respiratory: normal respiratory effort, lungs clear to auscultation Cardiovascular: Rate/Rhythm: regular rate and regular rhythm Gastrointestinal (Abdomen): normal bowel sounds, soft, nontender, no hepatosplenomegaly Psychiatric: Orientation: alert and oriented x 3 Affect: euthymic affect Results & Data Results & Data Vital Signs (Past 12 Hours) Vital Signs Temp Pulse Pulse Resp BP Pulse Ox O2 Del Method 04/28/25 09:34 Nasal Cannula 04/28/25 08:11 36.8 C 105 H 20 153/84 H 93 Nasal Cannula 04/28/25 07:17 94 H 04/28/25 02:08 36.9 C 105 H 16 135/76 99 Nasal Cannula O2 Flow Rate 04/28/25 09:34 1 04/28/25 08:11 1 04/28/25 07:17 04/28/25 02:08 1 PG Care Time/CCT Total # of Minutes Spent Total Time Spent with Patient: Total time spent is greater than 50% in coordination of care (as documented) at patient's floor/unit and/or counseling patient: Coding Level of Care Code 76553 SUB INP/OBS CARE 2/35MIN Diagnoses Other constipation K59.09 Constipation type: other constipation type Failure to thrive in adult R62.7 Anorexia R63.0 Dysphagia, unspecified type R13.10 Dysphagia type: unspecified Unintentional weight loss R63.4 (1) Constipation Constipation type: other constipation type Qualified Code(s): K59.09 - Other constipation (4) Dysphagia Dysphagia type: unspecified Qualified Code(s): R13.10 - Dysphagia, unspecified
--- NOTE | 2025-04-28 14:20 | XRay Report ---
Exam: KUB. History: Cough and fever. Comparison: April 26, 2025 CT chest abdomen and pelvis correlate. Findings: Diminished attenuation left upper abdomen likely representing prominent gas and questionably foodstuffs distended gastric viscus. Included pulmonary bases are grossly clear. No gas projects over the liver. Nonspecific prominent gaseous in loops of small bowel with poorly defined elements of right large bowel. This is nonspecific. No discrete mass. Densities project over the rectum likely representing fecal matter. Diffuse calcified atherosclerotic changes. Impression: Nonspecific bowel gas pattern with prominent gas and likely foodstuffs distended gastric viscus. Additional prominent small bowel gas distention. No discrete mass. Consider lateral decubitus or upright views. CT would be helpful for further characterization. Electronically signed by Darron Elliott 04-28-2025 2:19 PM
[2025-04-28] MEDS: ONDANSETRON INJ 2 MG/ML 2 ML VIAL IV PRN (14:27)
[2025-04-28] MEDS: KETOROLAC TROMETHAMINE 15 MG/ML VIAL IV PRN (16:34)
[2025-04-28] MEDS: METOCLOPRAMIDE HCL INJ 5 MG/ML 2 ML VIAL IV SCH (16:34)
[2025-04-28] MEDS: ENOXAPARIN INJ 30 MG/0.3 ML SYR SQ SCH (20:30)
[2025-04-28] MEDS: SERTRALINE HCL 50 MG TABLET PO SCH (20:31)
[2025-04-28] MEDS: ACETAMINOPHEN IV PRN (22:09)
--- NOTE | 2025-04-29 07:31 | Hospitalist Progress Note ---
Date of Service April 29, 2025 Assessment & Plan (1) Constipation: (2) Failure to thrive in adult: (3) COPD (chronic obstructive pulmonary disease): (4) Hypokalemia: (5) Hypertension: (6) Hyperlipidemia: (7) Hypothyroidism: Plan 69yo female with HTN, HLP, Hypothyroidism, COPD on home O2 presenting with abdominal pain, rectal pain and constipation. #Constipation / fecal impaction - patient reports not having normal bowel movement for over one year. Hold hyoscyamine - Continue MiraLAX, docusate, added Senna - XR KUB - distended stomach, will trial metoclopramide and repeat XR KUB today - decrease diltiazem and plan to switch to ACEi if needed #Failure to thrive in adultpatient reports significant unintentional weight loss. She reports this ongoing for the last year however, upon review of records, patient has been steadily losing weight over the last several years. Weight today in the ER presently 24.2 kg. BMI = 9.8. Patient reports that she eats at home. Possibly secondary to wasting from end-stage COPD, concern for malignancy, concern for inability to care for self at home continue thiamine 100 mg p.o. daily Continue folic acid 1 mg p.o. daily Continue mirtazapine 30 mg p.o. nightly. Will hopefully have some appetite stimulating effects. Will reduce sertraline as starting on mirtazapine. Boost 3 times daily with nutrition consultation appreciated - Unable to get standing weight as patient not been out of bed for years Patient bed bound. #Iron deficiency anemia Longstanding, previously on iron transfusions Ganzoni formula = 698mg total iron deficit, Total Venofer 700mg given #Dysphagia Appreciate GI consult, patient declining EGD Barium swallow on Wednesday #Chronic back pain Continue acetaminophen 1st line, Toradol 2nd line, avoid opiates #COPDpatient reports some shortness of breath Continue supplemental oxygen DuoNeb every 6 hours as needed Albuterol every 6 hours as needed Continue Breo Ellipta Continue guaifenesin 600 mg p.o. twice daily Continue Incruse Ellipta #Bipolar disorder/anxiety Reduce sertraline 50 mg p.o. nightly as started mirtazapine Continue Seroquel 50 mg p.o. nightly Continue buspirone 15 mg p.o. twice daily #Hypertensionblood pressure elevated at present. Patient does report being in pain. Reduce diltiazem CD to 60mg PO, will plan on switching to ACEi depending on rebound tachycardia to avoid diuretic and BB (due to COPD) #Hyperlipidemiachronic, stable Continue atorvastatin 20 mg p.o. nightly #GERD Continue Protonix 40 mg p.o. daily #Hypothyroidism Check TSH Continue Synthroid VTE Prophylaxis - Lovenox 30mg SQ daily Disposition - continue on med/surg, planning on barium swallow tomorrow Admission and Anticipated Discharge Date Admission Date: April 27, 2025 Subjective Large bowel movement yesterday. No bowel movement yet today. She has not noticed a difference with metoclopramide with her eating. Ongoing intermittent abdominal and back pain. She is not keen to try getting out of bed. Physical Exam Constitutional: + cachectic and + frail appearing; no ac yuhaaviatam distress ENMT: external ear and nose normal, oropharynx normal Respiratory: normal respiratory effort, lungs clear to auscultation Gastrointestinal (Abdomen): Percussion/Palpation: abdomen soft; abdomen nontender Results & Data Results & Data Vital Signs (Past 12 Hours) Vital Signs Temp Pulse Resp BP Pulse Ox O2 Del Method O2 Flow Rate 04/29/25 07:07 36.6 C 66 14 151/58 H 97 Nasal Cannula 1 04/29/25 00:04 36.8 C 81 16 149/67 H 92 Nasal Cannula 2 PG Care Time/CCT Total # of Minutes Spent Total Time Spent with Patient: Total time spent is greater than 50% in coordination of care (as documented) at patient's floor/unit and/or counseling patient: Coding Level of Care Code 98433 SUB INP/OBS CARE 2/35MIN Diagnoses Other constipation K59.09 Constipation type: other constipation type Failure to thrive in adult R62.7 Chronic obstructive pulmonary disease, unspecified COPD type J44.9 COPD type: unspecified COPD Hypokalemia E87.6 Hypertension I10 Hyperlipidemia E78.5 Acquired hypothyroidism E03.9 Hypothyroidism type: acquired (1) Constipation Constipation type: other constipation type Qualified Code(s): K59.09 - Other constipation (3) COPD (chronic obstructive pulmonary disease) COPD type: unspecified COPD Qualified Code(s): J44.9 - Chronic obstructive pulmonary disease, unspecified (7) Hypothyroidism Hypothyroidism type: acquired Qualified Code(s): E03.9 - Hypothyroidism, unspecified
[2025-04-29 07:32] LABS: Hematocrit (blood only) 29.3 % (37.0-47.0); Hemoglobin 8.3 g/dl (12.0-16.0); Immature Granulocytes # (auto) 0.04 K/uL (0.01-0.20); Immature Granulocytes % (auto) 0.4 %; Mean Corpuscular Hemoglobin 21.3 pg (25.0-34.0); Mean Corpuscular Volume 75.1 fL (80.0-100.0); Platelet Count 389 K/uL (130-400); RDW Standard Deviation 49.6 fL (36.4-46.3); Red Blood Count 3.90 M/uL (4.20-5.40); White Blood Count 10.66 K/ul (4.8-10.8)
[2025-04-29 07:46] LABS: Anion Gap 3.0 (3-11); Blood Urea Nitrogen 15.0 mg/dl (6-23); Calcium 8.9 mg/dl (8.6-10.3); Carbon Dioxide 33.0 mmol/L (21-32); Chloride 108.0 mmol/L (98-107); Creatinine Clr Calc Pharmacy 47.0 ml/min; Glucose 97.0 mg/dl (70-99(Fasting)); Potassium 4.2 mmol/L (3.5-5.1); Sodium 144.0 mmol/L (136-145)
[2025-04-29] MEDS: IRON SUCROSE 200 MG in SODIUM CHLORIDE 0.9% 100 ML IV ONE (08:04)
[2025-04-29] MEDS: SENNA 8.6 MG TAB PO SCH (08:13)
--- NOTE | 2025-04-29 11:39 | Gastroenterology Progress Note ---
Date of Service April 29, 2025 Assessment & Plan (1) Constipation: (2) Failure to thrive in adult: (3) Anorexia: (4) Dysphagia: (5) Unintentional weight loss: Plan The patient is a 69-year-old with severe malnutrition, failure to thrive in the setting of end-stage COPD. This is likely increased work of breathing, overall debilitation. She notes dysphagia which is suggestive of solid food dysphagia related to possible esophageal stricture. --Continue to monitor patient oral intake. --Barium esophagram advised evaluate for any structural abnormality of the esophagus which may be amenable to dilation. The patient indicates that she would be amenable to EGD with dilation if there is a reversible cause of her swallowing issues. --Maintain patient on proton pump inhibitor daily --The patient is now status post aggressive bowel regimen including metoclopramide in light of gastric distention and retained food contents in the stomach --Repeat KUB at bedside is recommended to confirm decrease stool burden and gastric decompression --Consider a peripheral acting mu opioid receptor antagonist (Movantik or Relistor) if not improving and requiring narcotic analgesics. Senokot may also be useful in combating paralysis of segmental contraction related to narcotics. -- Agree with mirtazapine for increased appetite and holding the Levsin. Alternative antispasmodic without anticholinergic effects includes andra or IBgard Admission and Anticipated Discharge Date Admission Date: April 27, 2025 Subjective The patient reports doing well this morning. She had a very large bowel movement and feels that she has completely emptied. She does have some residual mild global abdominal pain post bowel movement. She did not see any blood or melena. She does indicate tolerating supplemental shakes without difficulty swallowing. Review of Systems Review of Systems: All systems reviewed & are unremarkable except as noted in HPI & below Physical Exam Constitutional: WD/WN, vitals as above + thin, + frail appearing and + malnourished Respiratory: normal respiratory effort, lungs clear to auscultation Cardiovascular: Rate/Rhythm: regular rate and regular rhythm Gastrointestinal (Abdomen): normal bowel sounds, soft, nontender, no hepatosplenomegaly Psychiatric: Orientation: alert and oriented x 3 Affect: euthymic affect Results & Data Results & Data Vital Signs (Past 12 Hours) Vital Signs Temp Pulse Resp BP Pulse Ox O2 Del Method O2 Flow Rate 04/29/25 09:10 Nasal Cannula 1 04/29/25 07:07 36.6 C 66 14 151/58 H 97 Nasal Cannula 1 04/29/25 00:04 36.8 C 81 16 149/67 H 92 Nasal Cannula 2 PG Care Time/CCT Total # of Minutes Spent Total Time Spent with Patient: Total time spent is greater than 50% in coordination of care (as documented) at patient's floor/unit and/or counseling patient: Coding [place] [address] SUB INP/OBS CARE 2/35MIN Patient Type Established History Expanded Problem Focused Exam Expanded Problem Focused Diagnoses Other constipation K59.09 Constipation type: other constipation type Failure to thrive in adult R62.7 Anorexia R63.0 Dysphagia, unspecified type R13.10 Dysphagia type: unspecified Unintentional weight loss R63.4 (1) Constipation Constipation type: other constipation type Qualified Code(s): K59.09 - Other constipation (4) Dysphagia Dysphagia type: unspecified Qualified Code(s): R13.10 - Dysphagia, unspecified
--- NOTE | 2025-04-29 12:59 | Electrocardiogram Report ---
Test Reason : Blood Pressure : */* mmHG Vent. Rate : 105 BPM Atrial Rate : 105 BPM P-R Int : 112 ms QRS Dur : 78 ms QT Int : 330 ms P-R-T Axes : 31 80 82 degrees QTcB Int : 436 ms Sinus tachycardia Otherwise normal ECG When compared with ECG of 26-Apr-2025 19:48, No significant change was found Confirmed by Margi Locke (Anisa) on 04/29/2025 12:58:38 PM Referred By: REFERRED SELF Confirmed By: Margi Locke
--- NOTE | 2025-04-29 15:15 | XRay Report ---
Exam: KUB. History: Evaluate gastric distention. Comparison: Prior to exam. Findings: Included pulmonary bases are clear. No gas projects over the liver. What appears to be a linear gas fluid and/or soft tissue interface right upper abdomen. This is of uncertain etiology given supine positioning. Persistent prominent nonspecific gaseous distention of the gastric viscus, small and large bowel loops. Small bowel wall thickening is not excluded. No discrete mass. Calcified atherosclerotic changes throughout the exam. Amorphous densities projecting over the pelvis likely representing large bowel stool. Impression: 1. Nonspecific prominent gas distended loops of large and small bowel. Question small bowel wall thickening. At least mild stool burden is noted. 2. Atypical soft tissue gas interface in the right upper abdomen. This is of uncertain etiology. CT should be considered for further characterization. Otherwise recommend upright or lateral or decubitus views. Electronically signed by Darron Elliott 04-29-2025 3:14 PM
[2025-04-30 07:25] VITALS: BP 166/84; PULSE 92; RESP 18; TEMP 97.9; O2SAT 100
--- NOTE | 2025-04-30 09:20 | Gastroenterology Progress Note ---
Date of Service April 30, 2025 Assessment & Plan (1) Constipation: (2) Dysphagia: Plan The patient is a 69 year old female with severe malnutrition, failure to thrive in the setting of end-stage COPD. She complains today of increased heartburn and nausea. dysphagia seems improved somewhat. she feels upper GI symptoms are exacerbated by post nasal drip. - Continue to monitor patient oral intake. - she has been ordered a barium esophagram to evaluate for any structural abnormality of the esophagus which may be amenable to dilation. The patient tells me that she would be agreeable to an EGD with dilation if there is a reversible cause of her swallowing issues. Will await swallow study. - since ongoing heartburn, increase PPI to BID dosing. - The patient is now status post aggressive bowel regimen and is moving her bowels. - will defer to primary team on ENT complaints. Admission and Anticipated Discharge Date Admission Date: April 27, 2025 Supervising Physician Co-Signing Physician Notes PT OVERALL FEELING BETTER. SHE HAS BEEN MOVING HER BOWEL WELL ON CURRENT REGIMEN. ABDOMINAL PAIN HAS IMPROVED SOMEWHAT. HER DYSPHAGIA HAS IMPROVED WELL. BARIUM STUDY NEGATIVE. ABDOMINAL XRAY RESULTS NOTED. WILL CHECK UPRIGHT AND LATERAL VIEW. SHE IS REFUSING ANY ENDOSCOPIC WORKUP. Subjective Patient tells me that she has been moving her bowels well now and feels better having done so. she reports that her swallowing has also seemed to have improved during her stay. she is noticing some more heartburn and nausea despite PPI. she feels this is related to post nasal drip. She tells me that she seems to be having more post nasal drainage. usually she takes Benadryl at home for this. She is requesting this and is upset this has not been given to her. The remainder of the GI ROS were unremarkable. Review of Systems Review of Systems: All systems reviewed & are unremarkable except as noted in HPI & below Physical Exam Constitutional: WD/WN, vitals as above Respiratory: normal respiratory effort, lungs clear to auscultation Cardiovascular: Rate/Rhythm: regular rate and regular rhythm Gastrointestinal (Abdomen): epigastric tenderness to palpation, no guarding, soft, normal bowel sounds. Psychiatric: Orientation: alert and oriented x 3 Results & Data Results & Data Vital Signs (Past 12 Hours) Vital Signs Temp Pulse Resp BP Pulse Ox O2 Del Method O2 Flow Rate 04/30/25 07:25 97.9 F 92 H 18 166/84 H 100 Nasal Cannula 1 04/29/25 21:58 98.6 F 93 H 16 162/79 H 98 Room Air Coding Level of Care Code 53238 SUB INP/OBS CARE MIN Diagnoses Other constipation K59.09 Constipation type: other constipation type Dysphagia, unspecified type R13.10 Dysphagia type: unspecified (1) Constipation Constipation type: other constipation type Qualified Code(s): K59.09 - Other constipation (2) Dysphagia Dysphagia type: unspecified Qualified Code(s): R13.10 - Dysphagia, unspecified
--- NOTE | 2025-04-30 10:43 | Fluoroscopy Report ---
FL barium swallow CLINICAL HISTORY: dysphagia. TECHNIQUE: Barium contrast and effervescent crystals were administered to the patient under fluorosco pic examination. Multiple images were obtained and submitted for review. FLUOROSCOPY TIME: 17 seconds FLUOROSCOPY IMAGES: 4 Ka,r: 0.5 mGy COMPARISON: None FINDINGS: There is no esophageal stricture or significant hiatal hernia. No gastroesophageal reflux w as demonstrated during the exam. IMPRESSION: Unremarkable barium esophagram. ACT 112: Negative or not required by law. The above report was generated using voice recognition software. It may contain grammatical, syntax o r spelling errors. Electronically signed by: Ajay Bellamy M.D. 04/30/2025 10:42 AM
[2025-04-30] MEDS: METOCLOPRAMIDE HCL INJ 5 MG/ML 2 ML VIAL IV PRN (11:00)
--- NOTE | 2025-04-30 12:11 | Discharge Summary ---
Discharge Summary Date of Service April 30, 2025 Principal Dx & Hospital Course #1 = Principal Diagnosis (1) Constipation: (2) Failure to thrive in adult: (3) COPD (chronic obstructive pulmonary disease): (4) Hypokalemia: (5) Hypertension: (6) Hyperlipidemia: (7) Hypothyroidism: Plan 69yo female with HTN, HLP, Hypothyroidism, COPD on home O2 presenting with abdominal pain, rectal pain and constipation. #Constipation / fecal impaction - patient reports not having normal bowel movement for over one year. Hold hyoscyamine - Continue MiraLAX, docusate, added Senna - XR KUB - distended stomach, will trial metoclopramide and repeat XR KUB today - decrease diltiazem and plan to switch to ACEi if needed #Failure to thrive in adultpatient reports significant unintentional weight loss. She reports this ongoing for the last year however, upon review of records, patient has been steadily losing weight over the last several years. Weight today in the ER presently 24.2 kg. BMI = 9.8. Patient reports that she eats at home. Possibly secondary to wasting from end-stage COPD, concern for malignancy, concern for inability to care for self at home continue thiamine 100 mg p.o. daily Continue folic acid 1 mg p.o. daily Continue mirtazapine 30 mg p.o. nightly. Will hopefully have some appetite stimulating effects. Will reduce sertraline as starting on mirtazapine. Boost 3 times daily with nutrition consultation appreciated - Unable to get standing weight as patient not been out of bed for years Patient bed bound. #Iron deficiency anemia Longstanding, previously on iron transfusions Ganzoni formula = 698mg total iron deficit, Total Venofer 700mg given #Dysphagia Appreciate GI consult, patient declining EGD Barium swallow on Wednesday #Chronic back pain Continue acetaminophen 1st line, Toradol 2nd line, avoid opiates #COPDpatient reports some shortness of breath Continue supplemental oxygen DuoNeb every 6 hours as needed Albuterol every 6 hours as needed Continue Breo Ellipta Continue guaifenesin 600 mg p.o. twice daily Continue Incruse Ellipta #Bipolar disorder/anxiety Reduce sertraline 50 mg p.o. nightly as started mirtazapine Continue Seroquel 50 mg p.o. nightly Continue buspirone 15 mg p.o. twice daily #Hypertensionblood pressure elevated at present. Patient does report being in pain. Reduce diltiazem CD to 60mg PO, will plan on switching to ACEi depending on rebound tachycardia to avoid diuretic and BB (due to COPD) #Hyperlipidemiachronic, stable Continue atorvastatin 20 mg p.o. nightly #GERD Continue Protonix 40 mg p.o. daily #Hypothyroidism Check TSH Continue Synthroid VTE Prophylaxis - Lovenox 30mg SQ daily Disposition - continue on med/surg, planning on barium swallow tomorrow Admission HPI Per Admitting Provider Shameka Moise is a 69-year-old female with history of hypertension, hyperlipidemia, hypothyroidism, bipolar disorder, COPD, unintentional weight loss/cachexia presenting. Complaint of abdominal pain, rectal pain and shortness of breath. Patient reports that she has been having issues with severe constipation ongoing for at least 1 year. She feels that the constipation began after having a colonoscopy. She reports that she is unable to pass normal bowel movements. When she does pass stool, it is liquid, leaks out of her rectum and is difficult to stop. She reports stool is dark black in color on occasion. No bright red blood. Patient endorses abdominal paininitially right upper quadrant pain. Now complaining of rectal pain and generalized abdominal soreness. Also with nausea, no vomiting. She has some shortness of breath as well as some chest heaviness Unintentional weight loss - reports over the last year she has gone from 1093 --> 79# --> 52# In the ER she is afebrile, HD stable with elevated blood pressure, NAD ER Course: KCl 10mEq x 2 runs NSS x 500mL Discharge Plan Discharge Items Patient Disposition: Home - Self-Care Reason For Visit: ABDOMINAL PAIN Discharge Diagnosis: Fecal impaction Condition on Discharge: Fair Activity: Resume your previous activity Non-emergency contact: Primary Care Provider Call non-emergency contact if: you have any medication questions and your symptoms worsen Follow-up/Referrals: Samara Payan MD [Primary Care Provider] - Diet: Regular Addtl Attending Provider Instructions: You were admitted to [facility] from April 27 - 2024 due to abdominal pain. You were diagnosed with fecal impaction from chronic constipation treated with MiraLAX and bisacodyl that resolved your pain. Recommend ongoing MiraLX use 1-4 times a day to aim for a bowel movement every few days. You can also take senna on top of this as needed. You were also investigated for dysphagia (difficulty swallowing) with barium swallow that was normal. If this is an ongoing issue recommend following up with gastroenterology as outpatient. For you post nasal drip recommend using a non sedating (2nd generation) antihistamine such as fexofenadine or loratadine rather than diphenhydramine (1st generation) given significant halfway side effects of this such as memory problems. You were also treated for iron deficiency anemia with a total of 700mg Venofer (iron sucrose). Please follow up with your primary care provider for ongoing management of this. Please continue pantoprazole 40mg PO daily for your gastroesophageal reflux, suspect this is acutely worse in hospital due to Toradol use and can consider taking this twice a day for the next few days until this resolves. Use ondansetron as needed for nausea. Due to constipation recommend switching your blood pressure medication from diltiazem to losartan. Please follow up with your primary care physician for ongoing adjustments to this as your blood pressure has been high in the hospital and halfway high blood pressure can increase your risk of cardiovascular disease such as heart attacks and strokes. Likely this medication will need to be slowly increased as an outpatient. Pending Studies at Discharge: No Stand-Alone Forms: [facility], Smoking Cessation Medications and DC Order Prescriptions: New sennosides [senna] 8.6 mg tablet 8.6 mg PO DAILY PRN (Reason: constipation) Qty: 30 0RF losartan 25 mg tablet 25 mg PO DAILY Qty: 30 0RF ondansetron 4 mg tablet,disintegrating 4 mg PO Q6H PRN (Reason: nausea and vomiting) Qty: 30 0RF Continued cyanocobalamin (vitamin B-12) 1,000 mcg/mL solution 1,000 mcg IM MONTHLY Qty: 10 3RF albuterol sulfate [Ventolin HFA] 90 mcg/actuation HFA aerosol inhaler 2 puff inhalation DAILY PRN (Reason: Shortness Of Breath) Qty: 8.5 5RF sertraline 100 mg tablet 100 mg PO HS Qty: 90 1RF folic acid 1 mg tablet 1 mg PO DAILY Qty: 90 1RF buspirone 15 mg tablet 15 mg PO BID Qty: 180 1RF quetiapine 50 mg tablet 50 mg PO HS Qty: 90 1RF (DME) Monoject Safety Syringes 3 mL 23 gauge x 1" syringe See Rx Instructions .Route Qty: 2 2RF Rx Instructions: For B-12 injection atorvastatin [Lipitor] 20 mg tablet 20 mg PO HS Qty: 90 1RF fluticasone furoate-vilanterol [Breo Ellipta] 100-25 mcg/dose blister with device 1 inh inhalation QAM Qty: 60 11RF Rx Instructions: Confirmed w/ Pharmacy that pt filled and picked up both Incruse Ellipta and Breo on the same day. No refills on Incruse. levothyroxine 50 mcg tablet 50 mcg PO HS Qty: 90 1RF pantoprazole 40 mg tablet,delayed release (DR/EC) 40 mg PO DAILY Qty: 90 1RF hydroxyzine pamoate 25 mg capsule 25 mg PO TID PRN (Reason: Anxiety) Qty: 90 0RF hyoscyamine sulfate 0.125 mg tablet 0.25 mg PO BID Qty: 120 2RF Incruse Ellipta 62.5 mcg/actuation blister with device 1 inh inhalation QAM Qty: 30 3RF (DME) Oxygen Home Liters Per Minute See Dose Instructions .ROUTE .MEDSUPPLY Qty: 1 Rx Instructions: As directed (DME) nebulizers Misc See Rx Instructions .Route Qty: 1 0RF Rx Instructions: As directed, with nebulizer supplies docusate sodium 100 mg capsule 100 mg PO BID Qty: 180 1RF guaifenesin [Mucinex] 600 mg tablet extended release 12hr 600 mg PO Q12 Qty: 180 1RF Venofer 200 mg iron/10 mL solution 200 mg IV .COMPLEX 360 Days Rx Instructions: PER PT "HAVEN'T HAD FOR A VERY LONG TIME". 200 mg intravenously 2x a week for 2 weeks; administer over 30 mins albuterol sulfate 2.5 mg /3 mL (0.083 %) solution for nebulization 0 mg inhalation Q6H PRN (Reason: shortness of breath or wheezing) Rx Instructions: Unable to verify med with patient/pharmacy at this date/time. Original Directions: 2.5mg q 6 h PRN aspirin 81 mg Tablet,Delayed Release (Dr/Ec) 81 mg PO QAM Qty: 30 0RF melatonin 3 mg Tablet 3 mg PO HS Qty: 30 0RF mirtazapine 30 mg tablet 30 mg PO HS Changed polyethylene glycol 3350 [Miralax] 17 gram Powder In Packet 17 g PO QID PRN (Reason: constipation) Qty: 60 0RF Discontinued diltiazem HCl 180 mg capsule,extended release 24hr 180 mg PO QAM Qty: 90 1RF Discharge Orders: Discharge Order (Routine); Ordered 04/30/25 Ordered By: Wesley Macdonald Admission Data Admit Date/Time: 04/27/25 02:01 Attending Provider: Wesley Macdonald Admit Provider: Julia Tariq Primary Care Provider: Samara Payan Other Providers: Julia Tariq; Galdino Gregg Hospital Stay Data Consultations 04/26/25 22:21 ED Decision to Admit Stat 04/27/25 13:48 Consult Gastroenterology Routine Diagnostic Imagining Performed 04/26/25 19:47 CT angio chest PE protocol Stat 04/26/25 19:48 CT abd pelvis IV con only Stat 04/26/25 22:35 MR MRCP Stat 04/30/25 07:00 FL barium swallow Routine Pending Results Patient Have Any Pending Studies at Discharge: No Discharge Instructions Given to Patient (Per Discharging Provider) You were admitted to [facility] from April 27 - 2024 due to abdominal pain. You were diagnosed with fecal impaction from chronic constipation treated with MiraLAX and bisacodyl that resolved your pain. Recommend ongoing MiraLX use 1-4 times a day to aim for a bowel movement every few days. You can also take senna on top of this as needed. You were also investigated for dysphagia (difficulty swallowing) with barium swallow that was normal. If this is an ongoing issue recommend following up with gastroenterology as outpatient. For you post nasal drip recommend using a non sedating (2nd generation) antihistamine such as fexofenadine or loratadine rather than diphenhydramine (1st generation) given significant halfway side effects of this such as memory problems. You were also treated for iron deficiency anemia with a total of 700mg Venofer (iron sucrose). Please follow up with your primary care provider for ongoing management of this. Please continue pantoprazole 40mg PO daily for your gastroesophageal reflux, suspect this is acutely worse in hospital due to Toradol use and can consider taking this twice a day for the next few days until this resolves. Use ondansetron as needed for nausea. Due to constipation recommend switching your blood pressure medication from diltiazem to losartan. 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 Likely this medication will need to be slowly increased as an outpatient. Coding Diagnoses Other constipation K59.09 Constipation type: other constipation type Failure to thrive in adult R62.7 Chronic obstructive pulmonary disease, unspecified COPD type J44.9 COPD type: unspecified COPD Hypokalemia E87.6 Hypertension I10 Hyperlipidemia E78.5 Acquired hypothyroidism E03.9 Hypothyroidism type: acquired
[2025-04-30] MEDS: FEXOFENADINE HCL 180 MG TAB PO SCH (12:23)
== END 2025-04-30 13:28 | disposition home or self-care (01) | DRG 388 ==
LOC: ED 19:38 → SUATTDRO 04-27 02:01 → 2N 04-27 02:01 → 3W 04-28 18:16